=== PATIENT | female | born 1980 | race Caucasian/White ===

== ENCOUNTER 2018-07-28 23:55 | Emergency (ER) | payer MEDICAID, SELFPAY ==
[2018-07-28 23:57] VITALS: BP 122/58; PULSE 57; RESP 14; TEMP 36.6; O2SAT 100
--- NOTE | 2018-07-29 00:34 | ED.GENADUL_ITS ---
Discharge Plan Disposition Patient Disposition: AGAINST MEDICAL ADVICE Condition: Stable Discharge Details Chief Complaint: Abd Prob Clinical Impression: Acute gallstone pancreatitis Primary Care Provider: Rosa Adkins V ED Provider: Chivo Cortez [place] Meds and New Rx's Prescriptions: New ondansetron 4 mg tablet,disintegrating 4 mg PO QID PRN (Reason: nausea and vomiting) Qty: 20 RF: 0 Continue levonorgestrel [Mirena] 1 EACH intrauterine device 1 ea Intrauterine ONCE Qty: 1 RF: 0 levalbuterol tartrate [Xopenex HFA] 200 PUFF/INH HFA aerosol inhaler 2 puff Inhalation Q4H PRN PRNQty: 1 RF: 0 simethicone [Gas Relief] 125 mg Capsule 125 mg PO PRN PRNRF: 0 Discharge Instructions Additional Instructions: You are leaving the hospital AGAINST MEDICAL ADVICE. You have gallstone pancreatitis and should be admitted for IV fluids, pain control, surgical consultation. You are at risk of infection, sepsis, worsening pancreatitis, . These outcomes have been explained to you and you are choosing to leave the hospital AGAINST MEDICAL ADVICE anyways. Please return at once if your worse or if you change your mind. Referrals: Rosa Adkins MD [Primary Care Provider] - Medical Decision Making Patient here with sharp cramping abdominal pain associated with nausea and vomiting but not diarrhea. She is afebrile. She looks uncomfortable but has a benign, nonsurgical abdomen. Will place IV and give fluids, Phenergan. We will give oral Bentyl. Will get abdominal labs and abdominal x-ray and reevaluate. Patient's white count is minimally elevated. Hemoglobin is normal. Chemistries are unremarkable. Liver function with some mild elevation in AST and total bilirubin. Lipase markedly elevated at 1133. test is negative. Patient continues to have pain and vomiting. She is given Toradol and Zofran. X-ray is canceled and CT scan is ordered. Patient's CT scan shows evidence of gallbladder disease. There is no pancreatic or biliary duct dilatation but laboratory studies suggest that this is gallstone pancreatitis with possible cholecystitis. Patient is actually feeling better after fluids and medications. She is refusing admission despite attempts by staff and myself to convince her otherwise. I have discussed with her the risk of infection, sepsis, worsening pancreatitis, . We have offered to get her son who is here with her to her parents. We have asked her to call her parents or her boyfriend to come be with her. She is refusing all of this stating that she does not wish to stay in the hospital at this time. I will discharge the patient with Zofran for nausea and vomiting. I will not give her narcotics for pain. She may use Tylenol or Motrin for pain. If she gets worse or changes her mind she should return immediately. Lab Data Lab results reviewed: Yes I reviewed the patient's lab results. HPI General Mode of arrival: ambulatory . Date/Time Provider Initiated Documentation: 07/29/18 00:15 . Limitations to Documentation: no limitations . Information obtained by: patient . HPI Narrative: Patient presents to ED with abdominal pain and vomiting. Patient states she woke up and had some abdominal discomfort. She went and had a normal bowel movement. She then developed some worsening pain and nausea. She vomited a couple times small amounts. Pain continued. She then vomited a large amount and thought she would feel better. However, the pain continued to bother her. She no longer feels nauseated. She has not had any diarrhea. Pain does not radiate to the back of her chest. It is described as sharp cramping pain generalized throughout her abdomen. There is no fever that she is aware of. There is no urinary symptoms. She denies stating that she has Mirena device in place. Related Data Home Medications Medication Instructions Recorded Confirmed levonorgestrel [Mirena] 1 ea INTRAUTERINE ONCE #1 implant 04/11/15 07/29/18 levalbuterol tartrate [Xopenex HFA] 2 puff INHALATION Q4H PRN PRN #1 02/16/18 inh ondansetron 4 mg PO QID PRN #20 tab 07/29/18 simethicone [Gas Relief] 125 mg PO PRN PRN 07/29/18 Previous Rx's Medication Instructions Recorded levalbuterol tartrate [Xopenex HFA] 2 puff INHALATION Q4H PRN PRN #1 02/16/18 inh ondansetron 4 mg PO QID PRN #20 tab 07/29/18 Allergies Allergy/AdvReac Type Severity Reaction Status Date / Time Sulfa (Sulfonamide AdvReac Severe vomiting Unverified 07/29/18 00:01 Antibiotics) and weakness General Stated Complaint: Abd Prob KATHY: 3 Review of Systems Constitutional Denies chills, Denies fever(s), Denies headache(s) and Denies weakness Eyes Denies eye discharge and Denies eye pain ENT Denies otalgia, Denies headache(s), Denies nasal congestion and Denies sore throat Cardiovascular Denies chest pain, Denies diaphoresis, Denies syncope, Denies edema, Denies palpitations and Denies dyspnea on exertion Respiratory Denies chest congestion, Denies cough and Denies dyspnea on exertion Gastrointestinal Reports abdominal pain, Denies diarrhea, Reports nausea, Reports vomiting and Denies hematemesis Genitourinary Denies hematuria, Denies dysuria and Denies pelvic pain Musculoskeletal Denies back pain, Denies myalgias, Denies arthralgias, Denies numbness and Denies tingling Integumentary/Breasts Denies rash Neurologic Denies syncope, Denies headache(s), Denies numbness, Denies tingling and Denies weakness Endocrine Denies palpitations PFSH Family History Father Hyperlipidemia Medical History Asthma (Chronic) Social History Smoking/Tobacco Use Status: Current-Occasional Exam Const General: cooperative, uncomfortable and well developed Nutritional Appearance: well nourished Orientation: alert and oriented x3 HENMT Head: normocephalic and atraumatic Mouth: mucous membranes dry Eyes Sclera: sclerae normal Neck Neck: trachea midline and supple Resp Effort & Inspection: normal respiratory effort Auscultation: clear to auscultation bilaterally Cardio Rate: regular rate Rhythm: regular rhythm Heart Sounds: S1 normal and S2 normal GI Inspection: normal to inspection and non-distended Palpation: soft, not firm, no guarding and nontender Auscultation: hypoactive bowel sounds Back/Spine/Pelvis Thoracic/Lumbar Spine: thoraco-lumbar ROM normal Skin General skin exam: no rashes or lesions noted Neuro General: alert, oriented x3, gait normal, no focal motor deficits and CN's II- XI intact bilaterally Speech: speech normal Extrem General: normal to inspection and no clubbing, cyanosis or edema Course Vital Signs Temperature 97.9 F 07/28/18 23:57 Pulse 57 L 07/28/18 23:57 Respiratory Rate 14 07/28/18 23:57 Blood Pressure 122/58 L 07/28/18 23:57 Pulse Oximetry 100 07/28/18 23:57 Temperature 97.9 F 07/28/18 23:57 Temperature Source Skin 07/28/18 23:57 Pulse 57 L 07/28/18 23:57 Respiratory Rate 14 07/28/18 23:57 Respiratory Effort Non-Labored 07/29/18 00:00 Blood Pressure 122/58 L 07/28/18 23:57 Blood Pressure Position Sitting 07/28/18 23:57 Pulse Oximetry 100 07/28/18 23:57 Oxygen Delivery Method Room Air 07/28/18 23:57 Oxygen Flow Rate 0 07/28/18 23:57 Pain Level 9 07/28/18 23:57
[2018-07-29] MEDS: Dicyclomine 20 MG TAB PO (00:40)
[2018-07-29] MEDS: Lactated Ringers 1,000 ML 1000 ML IV (00:41)
[2018-07-29] MEDS: Normal Saline Flush 10 ML SYR IVP (00:42)
[2018-07-29 00:51] LABS: HCT 42.5 % (36.0-46.0); HGB 14.6 g/dL (12.0-15.5); Mean Corp. HGB Concentration 34.4 g/dL (32.0-36.0); Mean Corpuscular Hemoglobin 30.4 pg (27.0-33.0); Mean Corpuscular Volume 88.5 fL (80-95); Neutrophils % 87.6; Platelet Count 246 x1000/uL (130-400); RBC Distribution Width 12.3 % (11.7-14.6)
[2018-07-29 00:52] LABS: Abs Immature Grans 0.01 k/cumm (0.0-0.09); Absolute Basophil Count 0.01 k/cumm (0.0-0.2); Absolute Lymphocyte Count 0.98 k/cumm (1.2-3.4); Basophils % 0.1; Immature Grans % 0.1; Lymphocytes % 8.7; Monocytes % 3.5
[2018-07-29 01:06] LABS: ALT 75 U/L (12-78); AST 83 U/L (15-37); Albumin 4.1 g/dL (3.4-5.0); Alkaline Phosphatase 53 U/L (46-116); Anion Gap 9.8 mmol/L (3-11); BUN 10 mg/dL (7-18); Bilirubin, Total 1.4 mg/dL (0.2-1.0); CO2 30.2 mmol/L (21.0-32.0); CREATININE 0.72 mg/dL (0.55-1.02); Chloride 101 mmol/L (98-107); Glucose 142 mg/dL (70-100); Lipase 1133 U/L (73-393); Potassium 3.5 mmol/L (3.5-5.1); Sodium 141 mmol/L (136-145); Total Protein 7.7 g/dL (6.4-8.2)
[2018-07-29] MEDS: Ketorolac 15 MG/ML VIAL IVP (01:22)
[2018-07-29 01:41] LABS: HCG Qual (Serum) Negative
[2018-07-29] MEDS: Ondansetron 4 MG/2 ML VIAL IVP (01:42)
[2018-07-29] MEDS: Lactated Ringers 1,000 ML 150 ML IV (01:59)
[2018-07-29] MEDS: Omnipaque 350 MG/ML 100 ML BTL IJ (02:40)
--- NOTE | 2018-07-29 02:40 | DI.CT_ITS ---
SYMPTOMS/DIAGNOSIS: PANCREATITIS CT OF THE ABDOMEN AND PELVIS: The study was carried out according to the usual protocol with an intravenous injection of 96 cc's of Omnipaque 350. There is no demonstrated abnormality in the inferior portion of the chest. Moderate distention of the gallbladder is identified. Pericholecystic edema is evident. The findings are certainly suspicious for acute cholecystitis or could be on a nonspecific basis and may reflect periportal edema. The pancreas, spleen, adrenals, kidneys and ureters are normal. The colon is nondistended. Questionable low attenuation within the colonic wall could reflect the patient's previous history of colitis. There is no evidence of an acute appendix. There appears to be a left ovarian follicle which measures up to 3.6 cm in maximal diameter. Note is made of an IUD which appears to lie within the uterine cavity. There is no evidence of free fluid or air in the intraperitoneal space. There is no acute bony abnormality. The soft tissues are unremarkable. There is no aortic aneurysm. There is no lymphadenopathy. SUMMARY: There is moderate distention of the gallbladder which contains very small gallstone. There is also demonstrated a small quantity of pericholecystic fluid. The possibility of acute cholecystitis could certainly not be excluded in this patient and if there if further clinical question, then further assessment with a radionuclide hepatobiliary scan could be considered. In addition, an ultrasound examination could be of value in this patient.
[2018-07-29 02:41] VITALS: BP 102/65; PULSE 82; RESP 18; TEMP 36.6; O2SAT 100
--- NOTE | 2018-07-29 03:05 | DI.VRAD_ITS ---
EXAM: CT Abdomen and Pelvis With Intravenous Contrast EXAM DATE/TIME: 07/29/2018 1:19 AM CLINICAL HISTORY: 38 years old, female; Pain and signs and symptoms; Vomiting; Abdominal pain; Generalized; Patient HX: Abdominal pain and vomiting sudden onset; Additional info: HX of cervical cancer, TECHNIQUE: Axial computed tomography images of the abdomen and pelvis with intravenous contrast. All CT scans at this facility use at least one of these dose optimization techniques: automated exposure control; mA and/or kV adjustment per patient size (includes targeted exams where dose is matched to clinical indication); or iterative reconstruction. Coronal and sagittal reformatted images were created and reviewed. CONTRAST: 96 ml of Omnipaque 350 administered intravenously. COMPARISON: No relevant prior studies available. FINDINGS: Lower thorax: No acute findings. ABDOMEN: Liver: See Gallbladder And Bile Ducts Finding. Gallbladder and bile ducts: The gallbladder is moderately distended, contains punctate stones, and demonstrates small pericholecystic edema. Cholecystitis not excluded in the correct clinical setting, although the edema may reflect small nonspecific periportal edema.. Pancreas: Normal. No ductal dilation. Spleen: Normal. No splenomegaly. Adrenals: Normal. No mass. Kidneys and ureters: Normal. No hydronephrosis. Stomach and bowel: The colon is to a large extent underdistended. Low attenuation within the wall of the colon may reflect a history of previous colitis Appendix: No evidence of appendicitis. PELVIS: Bladder: Unremarkable as visualized. Reproductive: Probable dominant ovarian follicular cyst present on the left. This measures 3.6 cm Centrally located IUD in place. ABDOMEN and PELVIS: Intraperitoneal space: Normal. No free air. No significant fluid collection. Bones/joints: No acute fracture. No dislocation. Soft tissues: Unremarkable. Vasculature: Normal. No abdominal aortic aneurysm. Lymph nodes: Normal. No enlarged lymph nodes. Other findings: . IMPRESSION: The gallbladder is moderately distended, contains punctate stones, and demonstrates small pericholecystic edema. Cholecystitis not excluded in the correct clinical setting, although the edema may reflect small nonspecific periportal edema.. Dictated and Authenticated by: Scott Oconnor MD. Ordering:KRISHNA GARCÍA MD
[2018-07-29 03:13] LABS: Cholesterol 160 mg/dL (50-200)
[2018-07-29 03:14] LABS: Triglyceride 52 mg/dL (30-150)
== END 2018-07-29 03:27 | disposition left against medical advice (07) ==
PROVIDERS: Emergency Provider Emergency Medicine; PCP Family Medicine
DX: K85.10 Biliary acute pancreatitis without necrosis or infection (principal); R74.8 Abnormal levels of other serum enzymes; Z53.29 Procedure and treatment not carried out because of patient's decision for other reasons
CPT/HCPCS: 36415; 80053; 83690; 96361; 96365; 96375; 99285; 74177; 82465; 84478; 84703; 85025; J1885; J2405; J3490

== ENCOUNTER 2019-01-10 11:37 | Emergency (ER) | payer SELFPAY ==
[2019-01-10 11:43] VITALS: BP 118/85; PULSE 96; RESP 12; TEMP 36.8; O2SAT 96
--- NOTE | 2019-01-10 12:36 | DI.RAD_ITS ---
SYMPTOMS/DIAGNOSIS: GENERALIZED ANKLE PAIN S/P TWISTED LEFT ANKLE, MULTIPLE FALLS, ? ACUTE FRACTURE LEFT ANKLE: Three views. No acute fracture or dislocation is identified. LEFT FOOT: Three views. No acute fracture or dislocation is present.
--- NOTE | 2019-01-10 12:37 | ED.GENADUL_ITS ---
Discharge Plan Disposition Patient Disposition: HOME Condition: Stable Discharge Details Chief Complaint: Orthopedic Clinical Impression: Sprain of ankle, left Primary Care Provider: Rosa Adkins V ED Provider: Renetta Ba Home Meds and New Rx's Prescriptions: Continued Mirena 1 EACH intrauterine device 1 ea Intrauterine ONCE Qty: 1 RF: 0 levalbuterol tartrate [Xopenex HFA] 200 PUFF/INH HFA aerosol inhaler 2 puff Inhalation Q4H PRN PRNQty: 1 RF: 0 diphenhydramine HCl [Benadryl] 25 mg Capsule 25 mg PO QHS PRNRF: 0 pseudoephedrine HCl [Sudafed] 30 mg Tablet 30 mg PO ONCE PRNRF: 0 Discharge Instructions Instructions: Ankle Sprain (ED) Additional Instructions: Rest, ice, elevate left ankle as much as possible. Alternate Tylenol and Motrin as needed and directed for pain. Follow-up with your primary care doctor in 1 week for reevaluation. Return to the emergency department with any worsening or new concerning symptoms. Discharge Data Discharge Physician: Renetta Ba Medical Decision Making 38-year-old female who presents with left ankle pain after 2 different episodes of twisting injury while walking down a few stairs out of her house over the past week. Neurovascular intact. No deformity. Tenderness to palpation of her left lateral malleolus. X-rays negative for fracture. Patient given ankle stirrup splint. She declined crutches. She is instructed on the importance of rest, ice, elevate. She is instructed to follow up with the primary care doctor and return here at any time if worse. HPI General Mode of arrival: ambulatory . Date/Time Provider Initiated Documentation: 01/10/19 11:56 . Limitations to Documentation: no limitations . Information obtained by: patient . HPI Narrative: Patient is a 38-year-old female who presents the ED with complaint of left ankle pain after 2 different injuries in the past week in which she twisted her ankle. Patient states both times she has fallen down a few steps while coming out of her house. She states her pain is on her left lateral ankle. Related Data Home Medications Medication Instructions Recorded Confirmed Mirena 1 ea INTRAUTERINE ONCE #1 implant 04/11/15 01/10/19 levalbuterol tartrate [Xopenex HFA] 2 puff INHALATION Q4H PRN PRN #1 02/16/18 01/10/19 inh diphenhydramine HCl [Benadryl] 25 mg PO QHS PRN 01/10/19 01/10/19 pseudoephedrine HCl [Sudafed] 30 mg PO ONCE PRN 01/10/19 01/10/19 Previous Rx's Medication Instructions Recorded levalbuterol tartrate [Xopenex HFA] 2 puff INHALATION Q4H PRN PRN #1 02/16/18 inh Allergies Allergy/AdvReac Type Severity Reaction Status Date / Time Sulfa (Sulfonamide AdvReac Severe vomiting Unverified 01/10/19 11:45 Antibiotics) and weakness General Stated Complaint: Orthopedic KATHY: 4 Review of Systems Review of Systems All systems reviewed & are unremarkable except as noted in HPI and below PFSH Medical History Asthma (Chronic) Surgical History No significant past surgical history (Acute) Family History Father Hyperlipidemia Social History Smoking/Tobacco Use Status: Current-Occasional Drug use: Never Do you feel safe at home: Yes Do you feel safe in your relationship?: Yes Exam Const General: cooperative, healthy appearing and no acute distress HENMT Head: normal to inspection Mouth: oral mucosae normal Eyes General: appearance normal, both eyes and all related structures Neck Neck: normal visual inspection Resp Effort & Inspection: normal respiratory effort and able to speak in complete sentences Cardio Rate: regular rate Skin General skin exam: no rashes or lesions noted Neuro General: alert, awake and oriented x3 Motor: muscle tone normal throughout Extrem Other: Tenderness to palpation left lateral malleolus and inferior just to this. No erythema, edema, ecchymosis. No left fifth metatarsal tenderness. Left DP/PT pulses intact. No deformity. Psych Appearance: grossly normal Affect: normal affect Course Vital Signs Temperature 98.2 F 01/10/19 11:43 Pulse 96 H 01/10/19 11:43 Respiratory Rate 12 01/10/19 11:43 Blood Pressure 118/85 01/10/19 11:43 Pulse Oximetry 96 01/10/19 11:43 Temperature 98.2 F 01/10/19 11:43 Temperature Source Temporal Artery Scan 01/10/19 11:43 Pulse 96 H 01/10/19 11:43 Respiratory Rate 12 01/10/19 11:43 Respiratory Effort Non-Labored 01/10/19 11:44 Blood Pressure 118/85 01/10/19 11:43 Blood Pressure Position Sitting 01/10/19 11:43 Pulse Oximetry 96 01/10/19 11:43 Oxygen Delivery Method Room Air 01/10/19 11:43 Oxygen Flow Rate 0 01/10/19 11:43 Pain Level 3 01/10/19 11:43
--- NOTE | 2019-01-10 12:42 | NUR.NOTE ---
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
== END 2019-01-10 13:56 | disposition home or self-care (01) ==
PROVIDERS: Emergency Provider Physician Assistant; PCP Family Medicine
DX: S93.402A Sprain of unspecified ligament of left ankle, initial encounter (principal); X50.9XXA Other and unspecified overexertion or strenuous movements or postures, initial encounter
CPT/HCPCS: 29515; 99284; 73610; 73630; 99282; L1902

== ENCOUNTER 2019-03-10 13:54 | Emergency (ER) | payer SELFPAY ==
[2019-03-10 14:02] VITALS: BP 118/86; PULSE 126; RESP 18; TEMP 36.9; O2SAT 96
--- NOTE | 2019-03-10 14:24 | W.ED.GENAD ---
Discharge Plan Disposition Patient Disposition: HOME Condition: Good Discharge Details Chief Complaint: Orthopedic Clinical Impression: Left ankle sprain, Tachycardia Primary Care Provider: None,None ED Provider: Mariah Martin Home Meds and New Rx's Prescriptions: Continued Mirena 1 EACH intrauterine device 1 ea Intrauterine ONCE Qty: 1 RF: 0 levalbuterol tartrate [Xopenex HFA] 200 PUFF/INH HFA aerosol inhaler 2 puff Inhalation Q4H PRN PRNQty: 1 RF: 0 diphenhydramine HCl [Benadryl] 25 mg Capsule 25 mg PO QHS PRNRF: 0 pseudoephedrine HCl [Sudafed] 30 mg Tablet 30 mg PO ONCE PRNRF: 0 Discharge Instructions Instructions: Ankle Sprain (ED) Additional Instructions: Encourage rest, ice, elevation. Tylenol and/or ibuprofen as needed for discomfort. Please follow-up with primary care if pain persists over the next 2 weeks. Please continue to use brace and pain persist or doing activities that would place increased stress on the ankle. Please contact physical therapy, referral is attached, to discuss strengthening options. In regard to the fast heart rate today, this may be associated with your anxiety and your caffeine intake. However, at this point is unclear without further evaluation. You have preferred to go home and monitor this with return if symptoms do not improve. If you develop chest pain, palpitations, shortness of breath or other new/worsening symptoms please seek care immediately once again. Please discuss this further with your primary at upcoming appointment Stand Alone Forms: Physical Therapy Referral, Work Release Discharge Data Discharge Date/Time-TO BE ENTERED AT DEPARTURE: 03/10/19 15:10 Medical Decision Making Patient is a 38-year-old female with recurrent spasms of her left ankle. She was seen here last month for this and was placed in a brace. She reports that she was able to wean from the brace and was walking while at work when a coworker fell into her causing her well her ankle again. States that this time she is having fairly minimal pain but that work requires her to be evaluated and she is requesting a work note releasing her back to full duty. She will again use the brace as needed. She will follow-up with physical therapy. Patient reports she had multiple rotational injuries. Discussed with physical therapy. At this point, I do not see any evidence to suggest a fracture with no bony tenderness. No pain is elicited but she does indicate the area of the ATFL as area of discomfort when this does occur. Encourage rest, ice, elevation. Tylenol and ibuprofen as needed for discomfort. She will return with any new or worsening symptoms. Patient noted to be tachycardic on initial assessment at 126. I did put the finger probe on her was in the room and her heart rate was in the 1 teens to 120. Patient reports she typically has a slightly elevated heart rate and that she did drink a large amount this morning which is very atypical for her. I did express my concern regarding her tachycardia and she declines any work-up at this time. She reports that she is able to check this herself at home again tonight once caffeine is able to come out of her system some. We did discuss the risks associated with this concerning vital sign and again, patient declines. She will follow-up with primary care to discuss her tachycardia and ankle sprain peer all of her questions and concerns were addressed and she is in agreement this plan HPI General Mode of arrival: ambulatory. Date/Time Provider Initiated Documentation: 03/10/19 14:24. Limitations to Documentation: no limitations. Information obtained by: patient and RN notes reviewed. History of Present Illness 38 year old F presents to the emergency department with the chief complaint of recurrence of left ankle sprain, described as mild (denies pain at this time), Quality is described as aching (lateral ankle pain depending on the movements), and is localized to the left and lower extremity. Patient reports no radiation. Patient started experiencing this month(s) and it has been intermittent. Immobilization improves symptom(s), No exacerbating factors reported . Patient notes no other symptoms.. Patient did receive the following treatments prior to arrival, none Related Data Home Medications Medication Instructions Recorded Confirmed Mirena 1 ea INTRAUTERINE ONCE #1 implant 04/11/15 01/10/19 levalbuterol tartrate [Xopenex HFA] 2 puff INHALATION Q4H PRN PRN #1 02/16/18 01/10/19 inh diphenhydramine HCl [Benadryl] 25 mg PO QHS PRN 01/10/19 01/10/19 pseudoephedrine HCl [Sudafed] 30 mg PO ONCE PRN 01/10/19 01/10/19 Previous Rx's Medication Instructions Recorded levalbuterol tartrate [Xopenex HFA] 2 puff INHALATION Q4H PRN PRN #1 02/16/18 inh Allergies Allergy/AdvReac Type Severity Reaction Status Date / Time Sulfa (Sulfonamide AdvReac Severe vomiting Unverified 01/10/19 11:45 Antibiotics) and weakness General Stated Complaint: Orthopedic KATHY: 4 Review of Systems Constitutional Reports as per HPI, Denies chills, Denies fever(s), Denies headache(s) and Denies weakness ENT Denies headache(s) Cardiovascular Reports as per HPI Respiratory Reports as per HPI and Denies cough Musculoskeletal Reports as per HPI and Denies tingling Integumentary/Breasts Reports as per HPI, Denies rash and Denies wounds Neurologic Reports as per HPI, Denies headache(s), Denies tingling, Denies paresthesias and Denies weakness [facility] Medical History Asthma (Chronic) Surgical History No significant past surgical history (Acute) Social History Smoking/Tobacco Use Status: Current-Occasional Drug use: Never Do you feel safe at home: Yes Do you feel safe in your relationship?: Yes Exam Const General: cooperative, healthy appearing, comfortable, no acute distress, well developed and well groomed Nutritional Appearance: average body habitus and well nourished Orientation: alert and awake Resp Effort & Inspection: normal respiratory effort, able to speak in complete sentences and no respiratory distress Cardio Rate: regular rate Rhythm: regular rhythm Skin General skin exam: no rashes or lesions noted Lesions: no lesions Rashes: no rashes Trauma: no lacerations or abrasions Neuro General: alert and awake Cognition: normal cognition Speech: speech normal Gait: normal gait Motor: muscle tone normal throughout Sensory Exam: no sensory deficits noted Extrem Left lower extremity: normal to inspection, full ROM, normal capillary refill, no joint enlargement, lower leg Details: normal to inspection; no tenderness, no localized swelling, no palpable cords, no pitting edema, no lacerations, no deformity and no unusual warmth, ankle Details: normal to inspection, no edema and normal ROM; no tenderness, no swelling, no warmth, no ecchymosis, no crepitus and achilles tendon exam normal and foot Details: normal capillary refill, normal to inspection, toes with normal ROM and vascular exam Details: dorsalis pedis pulse present and posterior tibial pulse present; no tenderness and no unusual warmth; no edema Psych Appearance: grossly normal and well kempt Mental Status: mental status grossly normal Speech and Movement: speech and movement normal Course Vital Signs Temperature 36.9 C 03/10/19 14:02 Pulse 126 H 03/10/19 14:02 Respiratory Rate 18 03/10/19 14:02 Blood Pressure 118/86 03/10/19 14:02 Pulse Oximetry 96 03/10/19 14:02 Temperature 36.9 C 03/10/19 14:02 Temperature Source Skin 03/10/19 14:02 Pulse 126 H 03/10/19 14:02 Respiratory Rate 18 03/10/19 14:02 Respiratory Effort Non-Labored 03/10/19 14:05 Blood Pressure 118/86 03/10/19 14:02 Pulse Oximetry 96 03/10/19 14:02 Oxygen Delivery Method Room Air 03/10/19 14:02 Oxygen Flow Rate 0 03/10/19 14:02 Pain Level 0 03/10/19 14:02
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
== END 2019-03-10 15:10 | disposition home or self-care (01) ==
PROVIDERS: Emergency Provider Physician Assistant
DX: S93.402A Sprain of unspecified ligament of left ankle, initial encounter (principal); R00.0 Tachycardia, unspecified
CPT/HCPCS: 99282

== ENCOUNTER 2019-05-23 15:03 | Outpatient (REF) | payer SELFPAY ==
[2019-05-23 19:17] LABS: ESR 3 mm/hr (0-20)
[2019-05-23 19:21] LABS: Vitamin B12 279 pg/mL (193-986)
[2019-05-23 19:53] LABS: Creatine Kinase 139 U/L (26-192)
[2019-05-25 12:57] LABS: Syphilis Serology (RPR) Negative (Negative)
== END 2019-05-23 15:23 ==
LOC: NCHCN 15:03
PROVIDERS: PCP Family Medicine; Visit Provider Family Medicine
DX: R53.1 Weakness (principal); R29.898 Other symptoms and signs involving the musculoskeletal system
CPT/HCPCS: 82550; 85652; 82607; 86592

== ENCOUNTER 2019-07-21 08:07 | Emergency (ER) | payer MEDICAID, SELFPAY ==
[2019-07-21 08:12] VITALS: BP 119/69; PULSE 107; RESP 18; TEMP 36.4; O2SAT 100
--- NOTE | 2019-07-21 08:43 | DI.CT_ITS ---
EXAM: CT HEAD WO CLINICAL HISTORY: ataxic gait, falls, blurred vision TECHNIQUE: The exam was performed according to the usual protocol without contrast. COMPARISON: No exams were available for comparison FINDINGS: The ventricles and sulci are within normal limits. There are areas of decreased attenuation in the w eleni matter. There are areas in the right temporal lobe, the left frontal lobe and in the right kira etal lobe. No intracranial hemorrhage, midline shift or mass effect is identified. The calvarium is intact. The visualized paranasal sinuses are clear. The mastoid air cells are well pneumatized. IMPRESSION: Areas of decreased attenuation in the white matter. These may represent demyelinating processes, mas ses cannot be excluded. An MRI of the brain without and with contrast is recommended for further roberta luation. The findings were discussed with the emergency department on the date of the examination.
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
--- NOTE | 2019-07-21 09:18 | DI.MRI_ITS ---
EXAM: MR BRAIN WO/W CLINICAL HISTORY: ataxic gait, leg weakness, falls,f/u abnl ct TECHNIQUE: Multiplanar multisequence MRI was performed. COMPARISON: No exams were available for comparison FINDINGS: On the FLAIR and T2 images, there are innumerable foci of T2 hyperintensity throughout the brain. Pr edominantly these lesions lie in the periventricular region, but lesions are also seen in the right t emporal lobe, cerebellum and the subcortical white matter. Several of these lesions show enhancement following contrast administration. Several of the larger lesions are ring-enhancing. The diffusion-weighted images show no evidence of an acute infarct. The gradient images show no evidence of intracranial hemorrhage. The ventricles are intact. The basilar cisterns are patent. There is no midline shift or mass effec t. IMPRESSION: Innumerable white matter lesions, several of which show enhancement. Differential considerations inc lude a demyelinating process such as multiple sclerosis, infection or metastatic disease. These findings were discussed with the emergency department on the date of the examination.
[2019-07-21 09:29] VITALS: BP 117/59; PULSE 94; TEMP 37.2; O2SAT 100
[2019-07-21 09:33] LABS: Abs Immature Grans 0.02 k/cumm (0.0-0.09); Absolute Basophil Count 0.01 k/cumm (0.0-0.2); Absolute Lymphocyte Count 1.11 k/cumm (1.2-3.4); Absolute Monocyte Count 0.32 k/cumm (0.11-0.7); Absolute Neutrophil Count 4.15 k/cumm (1.2-6.7); Basophils % 0.2; HCT 41.6 % (36.0-46.0); HGB 13.8 g/dL (12.0-15.5); Immature Grans % 0.4; Lymphocytes % 19.8; Mean Corp. HGB Concentration 33.2 g/dL (32.0-36.0); Mean Corpuscular Volume 93.5 fL (80-95); Mean Platelet Volume 7.8 fL (8.0-11.0); Monocytes % 5.7; Neutrophils % 73.9; Platelet Count 355 x1000/uL (130-400); RBC 4.45 m/cumm (4.00-5.20); RBC Distribution Width 13.1 % (11.7-14.6); White Blood Cell Count 5.61 k/cumm (4.4-10.8)
[2019-07-21 09:53] LABS: ALT 23 U/L (14-59); AST 10 U/L (15-37); Albumin 4.2 g/dL (3.4-5.0); Alkaline Phosphatase 45 U/L (46-116); Anion Gap 10.3 mmol/L (3-11); BUN 10 mg/dL (7-18); Bilirubin, Total 0.5 mg/dL (0.2-1.0); CO2 27.7 mmol/L (21.0-32.0); CREATININE 0.57 mg/dL (0.55-1.02); Calcium 9.3 mg/dL (8.5-10.1); Chloride 102 mmol/L (98-107); Glucose 94 mg/dL (70-100); Potassium 3.6 mmol/L (3.5-5.1); Sodium 140 mmol/L (136-145); Total Protein 8.3 g/dL (6.4-8.2)
[2019-07-21 10:11] LABS: PTT Activated 24.2 sec (21.0-31.4); Prothrombin Time 10.5 sec (9.3-11.0)
[2019-07-21] MEDS: Gadoterate meglumine 20 ML VIAL 15 ML IVP (10:11)
[2019-07-21] MEDS: Normal Saline Flush 10 ML SYR IVP (10:12)
[2019-07-21 11:25] VITALS: BP 99/64; PULSE 85; O2SAT 99
[2019-07-21 12:22] VITALS: BP 131/74; PULSE 110; RESP 20; TEMP 36.9; O2SAT 97
[2019-07-21 13:46] VITALS: BP 128/80; PULSE 104; O2SAT 95
[2019-07-21 14:32] VITALS: BP 121/78; PULSE 113; RESP 18; TEMP 37.4; O2SAT 100
== END 2019-07-21 14:54 | disposition short-term general hospital (02) ==
PROVIDERS: Emergency Provider Physician Assistant; PCP Family Medicine
DX: R27.0 Ataxia, unspecified (principal); R51 Headache
CPT/HCPCS: 36415; 70553; 80053; 80307; 96374; 99284; 70450; 83735; 85025; 85610; 85730

== ENCOUNTER 2020-04-28 00:10 | Inpatient (IN) | payer MEDICAID, SELFPAY ==
[2020-04-28] VITALS (8 sets, daily range): BP systolic 97–161; BP diastolic 56–111; PULSE 85–117; RESP 16–22; TEMP 36.2–37; O2SAT 95–99
--- NOTE | 2020-04-28 00:15 | DI.CT_ITS ---
EXAM: CT ABDOMEN PELVIS W CLINICAL HISTORY: generalized RUQ abdominal pain TECHNIQUE: FINDINGS: CT examination of the abdomen pelvis was performed with bolus infusion of 100 cc of Omnipaque 350. I mages obtained through the lung bases are unremarkable. The liver and spleen appear intrinsically intact. There is pericholecystic fluid collection and ther e are multiple visible gallstones. No significant gallbladder wall thickening noted. Gallbladder is mildly distended. Common duct is at upper limits of normal in size at 7 millimeters. There is peripancreatic fluid collection and mild enlargement of the pancreas in comparison with prio r study, the findings raise the possibility of acute pancreatitis, please correlate clinically and wi th lab values. No evidence of bowel obstruction. Normal appearance of the appendix. No evidence of diverticulitis. No significant abdominal or pelvic adenopathy. No significant abdominal wall hernia. Adrenals and kidneys are unremarkable with no evidence of urinary tract obstruction or calcification. IUD noted in the uterine midline. Willower structures otherwise unremarkable with a probable right corpus luteum. No free fluid identified in the pelvis. Abdominal aorta is of normal diameter and major visceral branches appear intact. IMPRESSION: Findings raise the possibility of acute pancreatitis, please correlate clinically and with lab values . Possible acute or chronic cholecystitis with a mildly distended gallbladder containing stones. Ad ditional evaluation with MRCP or hepatobiliary scan may be considered after resolution of presumed pa ncreatitis if clinically appropriate. RADIATION DOSE DELIVERED: 1,099.33mGy.cm Total DLP
--- NOTE | 2020-04-28 00:20 | ED.GENADUL_ITS ---
Discharge Plan Disposition Patient Disposition: [facility] INPATIENT Condition: Stable Discharge Details Chief Complaint: Abd Prob Clinical Impression: Acute cholecystitis, Acute pancreatitis Primary Care Provider: Maciel Buck ED Provider: Martínez Morales Home Meds and New Rx's Prescriptions: No Action ibuprofen 200 mg tablet 400 mg PO BID PRNRF: 0 Mirena 1 EACH intrauterine device 1 ea Intrauterine ONCE Qty: 1 RF: 0 cromolyn 4 % drops 1 drp OP 6XD PRNRF: 0 albuterol sulfate [Proventil HFA] 90 mcg/actuation HFA aerosol inhaler 2 puff IH 6XD RF: 0 diphenhydramine HCl [Benadryl] 25 mg Capsule 25 mg PO QHS PRNRF: 0 Medical Decision Making 39-year-old female with a past medical history of MS, IUD, previous gallstones, presents today for abdominal pain. Patient states that she woke up this evening with crampy severe generalized abdominal pain with some focus in the right upper quadrant. No complaints of urinary abnormalities vaginal discharge, or diarrhea. She did have an episode of vomiting. She states that this is because of the pain. Exam demonstrates no significant worsening of pain with palpation of the abdomen, however she does appear to be in notable discomfort. Differential at this time includes acute cholecystitis, kidney stone, notably less likely dissection or aneurysm. We will get a CT scan, manage her pain, rehydrate, monitor closely and reassess 2:50 AM Laboratory work-up has returned, patient does demonstrate mild white count of 12.7, mild left shift. Potassium is 3.1, we will add supplemental potassium at this time. We will get a mag level. Mild transaminitis in the 70s, total bilirubin 1.1, conjugated bilirubin 0.66. Lipase is 12,000. CT scan shows evidence of acute pancreatitis, no signs of necrosis or pancreatic duct dilatation. There is evidence of distended common bile duct measuring 7.2, which is greater than the previous measurement of 5 mm. No calcified stones are identified. There is also gallbladder wall thickening and edema consistent with acute cholecystitis, however there is a component of chronic findings as she had similar findings noted in 2018. No other acute process at this time per virtual radiology. Based on the findings, I did contact Dr. Plasencia who is on-call for surgery. I discussed the case in depth, including CT findings, and laboratory work-up. At this time she feels that the patient would be appropriate for admission here, she will reassess in the morning and would like to hold off on stat surgery until the pancreatitis improves. We will continue with her pain management and fluid rehydration. I did discuss the findings with the patient's mother and son, I did contact the father as well and discussed it with him over the phone 2. Dr. Plasencia has asked that I place admission orders for her, I will place these at her request including a morning comprehensive metabolic panel in the morning lipase. I have extensively reviewed the treatment plan with the patient. I have addressed all patient concerns at this time. I have also discussed the plan with the admitting physician and they agree with the current assessment and plan and have agreed to assume responsibility for the patient. All parties demonstrate verbal understanding and agreement with our assessment and plan at this time. IMPRESSION: 1. There is evidence of mild acute pancreatitis involving the pancreatic head. No signs of pancreatic necrosis or pancreatic ductal dilatation. 2. There is mild dilatation of the common bile duct measuring 7.2 mm diameter. No calcified duct stones are identified. Clinical/laboratory correlation is recommended regarding any evidence of acute biliary obstruction. Consider right upper quadrant ultrasound, MRCP, or ERCP as clinically indicated. 3. Mild gallbladder wall thickening/edema with small calcified stones and intermixed biliary sludge or noncalcified stones in the gallbladder lumen. The appearance suggests an element of cholecystitis although this may represent chronic cholecystitis given similar findings in 2018. 4. Additional incidental findings detailed above. Thank you for allowing us to participate in the care of your patient. Dictated and Authenticated by: Maciel Stallings MD 04/28/2020 1:23 AM Eastern Time ([place] & [place]) HPI General Date/Time Provider Initiated Documentation: 04/28/20 00:10 . HPI Narrative: 39-year-old female with a past medical history of MS, IUD use, previous gallstones, presents today for evaluation of abdominal pain. Patient s tates that within the past few hours she woke up with severe crampy abdominal pain which she describes as generalized throughout the entire abdomen but with some focus in the right upper quadrant. She does admit to 1 episode of vomiting secondary to pain but denies any diarrhea, hematemesis hematochezia or melena. She denies any urinary complaints, vaginal complaints, vaginal discharge. She denies ever having pain like this in the past. No other complaints at this time. No other modifying factors. Related Data Home Medications Medication Instructions Recorded Confirmed Mirena 1 ea INTRAUTERINE ONCE #1 implant 04/11/15 04/28/20 diphenhydramine HCl [Benadryl] 25 mg PO QHS PRN 01/10/19 04/28/20 albuterol sulfate 90 mcg/actuation 2 puff IH 6XD 05/25/19 04/28/20 aerosol inhaler cromolyn 4 % eye drops 1 drp OP 6XD PRN 05/25/19 04/28/20 ibuprofen 200 mg tablet 400 mg PO BID PRN tab 06/01/19 04/28/20 Allergies Allergy/AdvReac Type Severity Reaction Status Date / Time Sulfa (Sulfonamide AdvReac Severe vomiting Unverified 04/28/20 00:21 Antibiotics) and weakness General Stated Complaint: Abd Prob KATHY: 3 Review of Systems All systems reviewed & are unremarkable except as noted in HPI and below PFSH Medical History Asthma (Chronic) Gall stone (Acute) Hx of abnormal cervical Pap smear (Acute) Surgical History No significant past surgical history (Acute) Family History Father Hyperlipidemia Social History Smoking/Tobacco Use Status: Current-Occasional Alcohol Intake: current Alcohol Intake frequency: holidays/special occasions only Drug use: Never Substance use type: does not use Household members: significant other and children Number of Children: 1 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 Exam Narrative Exam Narrative: 1.Const: Well-nourished, Well-developed, appearing stated age 2.Eyes: PERRL, no conjunctival injection, and symmetrical lids. 3.ENT: Atraumatic external nose and ears. Moist MM. Neck: Symmetric, trachea midline, No thyromegaly. 4.CVS: +S1/S2, No murmurs or gallops. Peripheral pulses 2+ and equal in all extremities. Brisk capillary refill in all extremities. 5.RESP: Unlabored respiratory effort. Clear to auscultation bilaterally. No wheezes rales or rhonchi 6.GI: Soft, nondistended, no guarding or rebound. Pain not worsened with palpation. Bowel sounds limited. 7.MSK: Normocephalic/Atraumatic, Extremities w/o deformity or ttp No cyanosis or clubbing, Normal movement of all extremities 8.Skin: Warm, Dry. No rashes or lesions. 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 Sensation grossly intact, no focal neurologic deficits. 10.Psych: (AAO) x3. Appropriate mood and affect Course Vital Signs Vital signs: Vital Signs Temperature 36.2 C L 04/28/20 00:17 Pulse 102 H 04/28/20 00:17 Respiratory Rate 22 04/28/20 00:17 Pulse Oximetry 97 04/28/20 00:17 Temperature 36.2 C L 04/28/20 00:17 Temperature Source Skin 04/28/20 00:17 Pulse 102 H 04/28/20 00:17 Respiratory Rate 22 04/28/20 00:17 Blood Pressure Position Sitting 04/28/20 00:17 Pulse Oximetry 97 04/28/20 00:17 Oxygen Delivery Method Room Air 04/28/20 00:17 Oxygen Flow Rate 0 04/28/20 00:17 Pain Level 10 04/28/20 00:17
[2020-04-28] MEDS: Normal Saline 1,000 ML 1000 ML IV (00:43)
[2020-04-28] MEDS: HYDROmorphone 2 MG/ML VIAL 1 MG IVP ×5 (00:43→23:58)
[2020-04-28] MEDS: Omnipaque 350 MG/ML 100 ML BTL IJ (01:10)
[2020-04-28] MEDS: Normal Saline - Diluent 50 ML VIAL IV (01:10)
[2020-04-28] MEDS: Ketorolac 30 MG/ML VIAL IVP ×4 (01:12→22:48)
--- NOTE | 2020-04-28 01:23 | DI.VRAD_ITS ---
PROCEDURE INFORMATION: Exam: CT Abdomen And Pelvis With Contrast Exam date and time: 04/28/2020 12:54 AM Age: 39 years old Clinical indication: Abdominal pain; Localized; Right upper quadrant (ruq); Patient HX: Generalized ruq pain TECHNIQUE: Imaging protocol: Computed tomography of the abdomen and pelvis with intravenous contrast. COMPARISON: CT Private^ROUTINE ABDOMEN PELVIS WITH CONTRAST (Adult) 07/29/2018 2:15 AM FINDINGS: Lungs: Mild dependent atelectasis in the lung bases. Heart: Heart size normal. Mediastinal space: The visualized distal esophagus is normal. Liver: Normal size and contour. No mass lesions. Mild central intrahepatic biliary ductal dilatation. Gallbladder and bile ducts: The gallbladder is moderately distended. Demonstrates mild pericholecystic edema and slight wall thickening measuring about 4 mm in maximum thickness. There are small calcified gallstones in the gallbladder lumen with intermixed heterogeneous isodense elements suggesting additional noncalcified stones or sludge. There is mild dilatation of the common bile duct measuring 7.2 mm diameter, which is mildly increased in caliber compared to 07/29/2018, previously about 5 mm diameter. Clinical/laboratory correlation is recommended regarding any evidence of acute biliary obstruction. Consider right upper quadrant ultrasound, MRCP, or ERCP as clinically indicated. Pancreas: There is stranding around the pancreatic head with fluid tracking in the anterior para renal space to the right and left of midline, consistent with acute pancreatitis. No pancreatic ductal dilatation. No gross evidence of pancreatic necrosis. No loculated fluid collections. Spleen: Normal. No splenomegaly. Adrenals: Normal. No adrenal mass. Kidneys and ureters: No acute abnormalities. No hydronephrosis or hydroureter. No urinary tract stones are identified. Stomach and bowel: The stomach is grossly normal. The small bowel is normal with no evidence of obstruction. Slight wall thickening involving the hepatic flexure of the colon probably representing reactive wall thickening secondary to pancreatitis.There is a moderate amount of stool distributed throughout the colon suggesting constipation. Appendix: The appendix is normal in caliber and demonstrates no evidence of appendicitis. Intraperitoneal space: Trace amount of intrapelvic free fluid, within physiologic range for a young woman. No free air. Vasculature: No acute process. No abdominal aortic aneurysm. Lymph nodes: No adenopathy. Bladder: Unremarkable as visualized. Reproductive: IUD in the uterus, grossly well-positioned. Bones/joints: No acute osseous abnormalities. Soft tissues: Small fatty umbilical hernia . No evidence of associated bowel herniation or bowel obstruction. IMPRESSION: 1. There is evidence of mild acute pancreatitis involving the pancreatic head. No signs of pancreatic necrosis or pancreatic ductal dilatation. 2. There is mild dilatation of the common bile duct measuring 7.2 mm diameter. No calcified duct stones are identified. Clinical/laboratory correlation is recommended regarding any evidence of acute biliary obstruction. Consider right upper quadrant ultrasound, MRCP, or ERCP as clinically indicated. 3. Mild gallbladder wall thickening/edema with small calcified stones and intermixed biliary sludge or noncalcified stones in the gallbladder lumen. The appearance suggests an element of cholecystitis although this may represent chronic cholecystitis given similar findings in 2018. 4. Additional incidental findings detailed above. Dictated and Authenticated by: Maciel Stallings MD. Ordering:NESS Soliz MD
[2020-04-28 01:37] LABS: Abs Immature Grans 0.06 10^3/uL (0.0-0.06); Absolute Basophil Count 0.03 10^3/uL (0.0-0.2); Absolute Eosinophil Count 0.03 10^3/uL (0.0-0.7); Absolute Lymphocyte Count 2.39 10^3/uL (1.2-3.4); Absolute Monocyte Count 0.83 10^3/uL (0.1-0.8); Basophils % 0.2; Eosinophils % 0.2; HCT 42.4 % (36.0-46.0); HGB 14.3 g/dL (11.2-15.7); Immature Grans % 0.5; Lymphocytes % 18.8; MCH 30.3 pg (27.0-33.0); MCHC 33.7 % (32.0-36.0); MCV 89.8 fL (80-95); Monocytes % 6.5; Neutrophils % 73.8; Nucleated RBC 0 %; Platelet Count 472 10^3/uL (130-400); RBC 4.72 10^6/uL (3.93-5.22); RDW 11.8 % (11.7-14.6); RDW-SD 38.3 fL; WBC 12.72 10^3/uL (4.4-10.8)
[2020-04-28 01:38] LABS: Absolute Neutrophil Count 9.39 10^3/uL (1.2-6.7)
[2020-04-28 01:51] LABS: ALT 76 U/L (14-59); AST 70 U/L (15-37); Albumin 3.9 g/dL (3.4-5.0); Alkaline Phosphatase 57 U/L (46-116); Anion Gap 11.5 mmol/L (3-11); BUN 10 mg/dL (7-18); Bilirubin, Total 1.1 mg/dL (0.2-1.0); CO2 26.5 mmol/L (21.0-32.0); CREATININE 0.74 mg/dL (0.55-1.02); Chloride 102 mmol/L (98-107); Glucose 235 mg/dL (74-106); Potassium 3.1 mmol/L (3.5-5.1); Sodium 140 mmol/L (136-145); Total Protein 7.5 g/dL (6.4-8.2)
[2020-04-28 01:54] LABS: Bilirubin Negative (Negative); Blood Negative (Negative); Clarity Clear (Clear); Glucose Negative (Negative); Ketones Negative (Negative); Leukocyte Esterase Negative (Negative); Nitrite Negative (Negative); Urobilinogen 0.2 EU/dL (Up TO 0.2)
[2020-04-28 02:07] LABS: *AMPHETAMINES SCREEN URINE Negative (Negative); *BARBITURATES SCREEN URINE Negative (Negative); *BENZODIAZEPINES SCREEN URINE Negative (Negative); Cannabinoids THC POSITIVE (Negative); Cocaine Screen,Urine Negative (Negative); METHADONE URINE SCREEN Negative (Negative); OPIATES URINE SCREEN POSITIVE (Negative)
[2020-04-28 02:11] LABS: ETHANOL BLOOD < 3.0 mg/dL (<3); Lipase 12283 U/L (73-393)
[2020-04-28 02:11] LABS: Tricyclic Antidepressants Negative (Negative)
[2020-04-28 02:18] LABS: Bilirubin, Direct 0.66 mg/dL (0.00-0.20)
[2020-04-28] MEDS: Normal Saline 1,000 ML 150 ML IV ×3 (04:14→18:53)
[2020-04-28] MEDS: MORPHine 2 MG/ML SYR IVP ×2 (04:14→07:37)
[2020-04-28] MEDS: POTASSIUM CHLORIDE 20 MEQ/100 ML BAG 50 MEQ IVPB (04:28)
[2020-04-28] MEDS: Normal Saline Flush 10 ML SYR IVP ×4 (07:37→23:57)
[2020-04-28] MEDS: Ondansetron 4 MG/2 ML VIAL IVP ×2 (07:44→17:41)
[2020-04-28 08:46] LABS: ALT 133 U/L (14-59); AST 93 U/L (15-37); Albumin 3.6 g/dL (3.4-5.0); Alkaline Phosphatase 57 U/L (46-116); Anion Gap 8.5 mmol/L (3-11); BUN 9 mg/dL (7-18); Bilirubin, Total 0.6 mg/dL (0.2-1.0); CO2 26.5 mmol/L (21.0-32.0); CREATININE 0.57 mg/dL (0.55-1.02); Calcium 8.2 mg/dL (8.5-10.1); Chloride 106 mmol/L (98-107); Glucose 160 mg/dL (74-106); Potassium 3.8 mmol/L (3.5-5.1); Sodium 141 mmol/L (136-145); Total Protein 6.9 g/dL (6.4-8.2)
[2020-04-28 09:10] LABS: Lipase 9071 U/L (73-393)
--- NOTE | 2020-04-28 09:34 | PDOC.CMIN ---
- If Service Date Differs Date of service: 04/28/20 Time of Service: 09:34 Care Management Initial Assess REASON FOR HOSPITALIZATION:: Pancreatitis, acute cholecystitis PAST MEDICAL HISTORY/PAST SURGICAL HISTORY:: Medical History . Asthma (Chronic). Gall stone (Acute). Hx of abnormal cervical Pap smear (Acute). Surgical History . No significant past surgical history (Acute) PREVIOUS FUNCTIONAL STATUS/SOCIAL/FAMILY SUPPORTS:: Regulo lives in [place] with her son. 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 In Jul 2019 she was diagnosed with MS, which has been difficult for her to adjust to. She is independent at baseline, but does receive support from her son and parents, who live in [place]. She is currently in the process of obtaining disability. CURRENT FUNCTIONAL STATUS:: Regulo was resting when CM met with her. She reported that per provider she would expect to be at [facility] for a few more days. Per report, she may need surgical intervention, possibly during this admission. CM will continue to follow. ADVANCE DIRECTIVES:: None on file. Has patient been provided with info about the portal/API?: Yes Did the patient sign up for the portal?: No CODE STATUS:: Full Code INSURANCE COVERAGE / FINANCIAL ISSUES:: LEVI/ Fin assist 100% CURRENT HOME/COMMUNITY SERVICES/EQUIPMENT:: Regulo does not have services or equipment. PRIMARY CARE PHYSICIAN:: Maciel Buck POTENTIAL DISCHARGE NEEDS:: Evaluations for further needs, follow up appointments PATIENT/FAMILY EDUCATION NEEDS:: Review discharge instructions regarding activity levels and medications, discussion of self care needs including ask me three. ANTICIPATED BARRIERS TO DISCHARGE:: None identified at this time. TRANSPORTATION:: Via private vehicle by friends/family. PLAN:: Anticipate Regulo will return home when medically cleared. She will be driven home by family via private vehicle. She will follow up with her PCP and discharge plan of care. CM will continue to follow.
--- NOTE | 2020-04-28 12:11 | W.PM.HP.N ---
Date of service: 04/28/20 Time of Service: 12:11 Assessment and Plan Assessment and plan (1) Gallstone pancreatitis: Status: Acute Assessment and plan: The patient has been admitted for pain control, IVF. She will be kept NPO. Monitor lipase. We discussed the need for cholecystectomy in the future, which may be potentially done this admission or as an outpatient. History of Present Illness Narrative: This patient presented to the emergency department early this morning with significant epigastric and right upper quadrant pain. She has had 2 episodes of vomiting which do not appear bloody. She had a CT scan of the abdomen pelvis that showed inflammatory change in the pancreatic head as well as gallstones. Her lipase was elevated into the 12,000 range. The patient does not consume a significant amount of alcohol. Her past medical history is significant for MS which primarily affects her balance and walking. She gets every 6-month infusions with the next dose being due in mid May. Review of Systems All systems reviewed & are unremarkable except as noted in HPI and below PFSH Medical History (Updated 04/28/20 @ 12:14 by Symone Alejo MD) Asthma (Chronic) Gall stone (Acute) Hx of abnormal cervical Pap smear (Acute) Multiple sclerosis (Inactive) Surgical History No significant past surgical history (Acute) Family History Father Hyperlipidemia Social History Smoking/Tobacco Use Status: Current-Occasional Alcohol Intake: current Alcohol Intake frequency: holidays/special occasions only Drug use: Never Substance use type: does not use Household members: significant other and children Number of Children: 1 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 Meds Home Medications and Allergies Home Medications Medication Instructions Recorded Confirmed Type Mirena 1 ea INTRAUTERINE ONCE #1 implant 04/11/15 04/28/20 History diphenhydramine HCl [Benadryl] 25 mg PO QHS PRN 01/10/19 04/28/20 History albuterol sulfate 90 mcg/actuation 2 puff IH 6XD 05/25/19 04/28/20 History aerosol inhaler cromolyn 4 % eye drops 1 drp OP 6XD PRN 05/25/19 04/28/20 History ibuprofen 200 mg tablet 400 mg PO BID PRN tab 06/01/19 04/28/20 History Allergies Allergy/AdvReac Type Severity Reaction Status Date / Time Sulfa (Sulfonamide AdvReac Severe vomiting Unverified 04/28/20 00:21 Antibiotics) and weakness Exam Narrative Exam Narrative: Uncomfortable No jaundice Lungs CTA Heart RRR Abdomen soft, tender RUQ/epigastric region Results Labs Result diagrams: 04/28/20 00:28 04/28/20 08:11 Labs: Laboratory Results - last 24 hr 04/28/20 04/28/20 04/28/20 00:28 00:28 00:28 WBC 12.72 H RBC 4.72 Hgb 14.3 Hct 42.4 MCV 89.8 MCH 30.3 MCHC 33.7 RDW 11.8 Plt Count 472 H MPV 9.0 Immature Gran % 0.5 Neutrophils % 73.8 Lymphocytes % 18.8 Monocytes % 6.5 Eosinophils % 0.2 Basophils % 0.2 Nucleated RBC % 0 Absolute Neutrophils 9.39 H Absolute Lymphocytes 2.39 Absolute Monocytes 0.83 H Absolute Eosinophils 0.03 Absolute Basophils 0.03 Sodium 140 Potassium 3.1 L Chloride 102 Carbon Dioxide 26.5 Anion Gap 11.5 H BUN 10 Creatinine 0.74 Estimated GFR/1.73 m2 >= 60.00 Glucose 235 H Calcium 9.0 Magnesium Total Bilirubin 1.1 H Conjugated Bilirubin AST 70 H ALT 76 H Alkaline Phosphatase 57 Total Protein 7.5 Albumin 3.9 Lipase 05602 H Urine Color Urine Clarity Urine pH Ur Specific [place] Urine Protein Urine Ketones Urine Blood Urine Nitrite Urine Bilirubin Urine Urobilinogen Ur Leukocyte Esterase Urine Glucose Urine Opiates Screen Urine Methadone Screen Ur Barbiturates Screen Ur Tricyclics Screen Ur Amphetamines Screen U Benzodiazepines Scrn Urine Cocaine Screen Ur THC Screen Ethyl Alcohol < 3.0 04/28/20 04/28/20 04/28/20 00:42 00:42 01:42 WBC RBC Hgb Hct MCV MCH MCHC RDW Plt Count MPV Immature Gran % Neutrophils % Lymphocytes % Monocytes % Eosinophils % Basophils % Nucleated RBC % Absolute Neutrophils Absolute Lymphocytes Absolute Monocytes Absolute Eosinophils Absolute Basophils Sodium Potassium Chloride Carbon Dioxide Anion Gap BUN Creatinine Estimated GFR/1.73 m2 Glucose Calcium Magnesium 2.0 Total Bilirubin Conjugated Bilirubin 0.66 H AST ALT Alkaline Phosphatase Total Protein Albumin Lipase Urine Color Urine Clarity Urine pH Ur Specific [place] Urine Protein Urine Ketones Urine Blood Urine Nitrite Urine Bilirubin Urine Urobilinogen Ur Leukocyte Esterase Urine Glucose Urine Opiates Screen Positive A Urine Methadone Screen Negative Ur Barbiturates Screen Negative Ur Tricyclics Screen Negative Ur Amphetamines Screen Negative U Benzodiazepines Scrn Negative Urine Cocaine Screen Negative Ur THC Screen Positive A Ethyl Alcohol 04/28/20 04/28/20 01:42 08:11 WBC RBC Hgb Hct MCV MCH MCHC RDW Plt Count MPV Immature Gran % Neutrophils % Lymphocytes % Monocytes % Eosinophils % Basophils % Nucleated RBC % Absolute Neutrophils Absolute Lymphocytes Absolute Monocytes Absolute Eosinophils Absolute Basophils Sodium 141 Potassium 3.8 D Chloride 106 Carbon Dioxide 26.5 Anion Gap 8.5 BUN 9 Creatinine 0.57 Estimated GFR/1.73 m2 >= 60.00 Glucose 160 H D Calcium 8.2 L Magnesium Total Bilirubin 0.6 Conjugated Bilirubin AST 93 H ALT 133 H Alkaline Phosphatase 57 Total Protein 6.9 Albumin 3.6 Lipase 9071 H Urine Color Yellow Urine Clarity Clear Urine pH 6.0 Ur Specific [place] 1.010 Urine Protein Negative Urine Ketones Negative Urine Blood Negative Urine Nitrite Negative Urine Bilirubin Negative Urine Urobilinogen 0.2 Ur Leukocyte Esterase Negative Urine Glucose Negative Urine Opiates Screen Urine Methadone Screen Ur Barbiturates Screen Ur Tricyclics Screen Ur Amphetamines Screen U Benzodiazepines Scrn Urine Cocaine Screen Ur THC Screen Ethyl Alcohol Last Vital Signs Temp 97.7 F 04/28/20 08:52 Pulse 85 04/28/20 08:52 Resp 18 04/28/20 08:52 BP 131/88 04/28/20 08:52 Pulse Ox 98 04/28/20 08:52 COVID-19 Screening Have you,or household,traveled outside [place] in last 14 days?: No Had IN PERSON contact w/suspected or confirmed C-19 person: No
[2020-04-28] MEDS: Enoxaparin 30 MG/0.3 ML SYR SC (12:17)
[2020-04-28 20:56] LABS: COVID-19 RT-PCR UVMMC Result Negative (Negative)
[2020-04-28] MEDS: Acetaminophen 325 MG TAB 650 MG PO (21:10)
[2020-04-29] VITALS: BP 128/92; PULSE 124; RESP 18; TEMP 36.5; O2SAT 97
[2020-04-29 00:05] VITALS: PULSE 96
[2020-04-29] MEDS: Normal Saline 1,000 ML 150 ML IV ×3 (01:49→16:02)
[2020-04-29] MEDS: Normal Saline Flush 10 ML SYR IVP (05:38)
[2020-04-29] MEDS: HYDROmorphone 2 MG/ML VIAL 1 MG IVP ×5 (05:39→21:37)
[2020-04-29 07:18] VITALS: BP 114/77; PULSE 98; RESP 19; TEMP 36.7; O2SAT 97
[2020-04-29 08:00] LABS: Absolute Basophil Count 0.04 10^3/uL (0.0-0.2); Absolute Monocyte Count 0.74 10^3/uL (0.1-0.8); Basophils % 0.2; Eosinophils % 0.6; HCT 49.2 % (36.0-46.0); HGB 15.9 g/dL (11.2-15.7); Immature Grans % 0.4; Lymphocytes % 3.4; MCH 29.7 pg (27.0-33.0); MCHC 32.3 % (32.0-36.0); MCV 91.8 fL (80-95); MPV 9.3 fL (8.0-11.0); Monocytes % 3.3; Neutrophils % 92.1; Nucleated RBC 0 %; Platelet Count 401 10^3/uL (130-400); RBC 5.36 10^6/uL (3.93-5.22); RDW 12.4 % (11.7-14.6); WBC 22.47 10^3/uL (4.4-10.8)
[2020-04-29 08:18] LABS: Absolute Eosinophil Count 0.13 10^3/uL (0.0-0.7); Absolute Lymphocyte Count 0.76 10^3/uL (1.2-3.4); Absolute Neutrophil Count 20.69 10^3/uL (1.2-6.7)
[2020-04-29 08:23] LABS: ALT 77 U/L (14-59); AST 41 U/L (15-37); Albumin 2.8 g/dL (3.4-5.0); Alkaline Phosphatase 48 U/L (46-116); Anion Gap 9.9 mmol/L (3-11); BUN 13 mg/dL (7-18); Bilirubin, Total 1.2 mg/dL (0.2-1.0); CO2 24.1 mmol/L (21.0-32.0); CREATININE 0.74 mg/dL (0.55-1.02); Calcium 6.5 mg/dL (8.5-10.1); Chloride 104 mmol/L (98-107); Glucose 94 mg/dL (74-106); Potassium 3.6 mmol/L (3.5-5.1); Sodium 138 mmol/L (136-145)
[2020-04-29 08:32] LABS: Lipase 3395 U/L (73-393)
--- NOTE | 2020-04-29 08:32 | PDOC.CMPRO ---
- If Service Date Differs Date of service: 04/29/20 Time of Service: 08:32 Care Management Progress Note S/O: Regulo was sitting up in bed when CM met with her. She was pleasant and easily engaged with CM. Regulo stated that she is still having quite a bit of pain but that it is better controlled on the Dilaudid. She also stated that her nausea has improved. Regulo shared that she has recently been diagnosed with MS. She has a walker which she uses and is pursuing disability. She has resources in the community that are assisting her with the process. A: Regulo is a 39 year old woman admitted on 04/28/20 with pancreatitis P: Anticipate Regulo will return home when medically cleared. She will be driven home by family via private vehicle. She will follow up with her PCP and discharge plan of care. CM will continue to follow.
[2020-04-29 08:49] LABS: Diff Comment Agrees w/ Instrument; RBC Morphology Normal
--- NOTE | 2020-04-29 09:04 | PGE_ITS ---
Date of Service Date of service: 04/29/20 Time of Service: 09:04 Assessment and Plan Assessment and plan (1) Gallstone pancreatitis: Status: Acute Assessment and plan: Exam is stable Lipase improving Will keep NPO until symptoms and labs are better WBC increased - may be from inflammation but may also be an element of cholecystitis. Will start antibiotics. Subjective Subjective Interval history since last seen: Epigastric pain is about the same No new symptoms Exam Narrative Exam Narrative: Moving well Abdomen tender in epigastric region. Stable Objective Objective Clinical Data: Abnormal lab results 04/28/20 04/29/20 04/29/20 Range/Units 08:11 06:30 06:30 WBC 22.47 H (4.4-10.8) 10^3/uL RBC 5.36 H (3.93-5.22) 10^6/uL Hgb 15.9 H (11.2-15.7) g/dL Hct 49.2 H (36.0-46.0) % Plt Count 401 H (130-400) 10^3/uL Absolute Neutrophils 20.69 H (1.2-6.7) 10^3/uL Absolute Lymphocytes 0.76 L (1.2-3.4) 10^3/uL Glucose 160 H D (74-106) mg/dL Calcium 8.2 L 6.5 L (8.5-10.1) mg/dL Total Bilirubin 1.2 H (0.2-1.0) mg/dL AST 93 H 41 H (15-37) U/L ALT 133 H 77 H (14-59) U/L Total Protein 6.0 L (6.4-8.2) g/dL Albumin 2.8 L (3.4-5.0) g/dL Lipase 9071 H 3395 H (73-393) U/L Vital Signs Temperature 98.1 F 04/29/20 07:18 Temperature Source Tympanic 04/29/20 07:18 Pulse 98 H 04/29/20 07:18 Pulse Rhythm Regular 04/29/20 07:49 Respiratory Rate 19 04/29/20 07:18 Respiratory Effort 04/29/20 07:49 Respiratory Depth Normal 04/29/20 07:49 Respiratory Pattern Normal 04/29/20 07:49 Blood Pressure 114/77 04/29/20 07:18 Blood Pressure Position Sitting 04/28/20 00:17 Pulse Oximetry 97 04/29/20 07:18 Oxygen Delivery Method Room Air 04/29/20 07:18 Oxygen Flow Rate 0 04/29/20 07:18 Pain Level 7 04/29/20 07:18 Comment 04/29/20 00:05 Intake & Output 04/28/20 04/28/20 04/29/20 11:59 23:59 11:59 Intake Total 1999 / 2987.5 987.5 / 2987.5 2059 Output Total 100 / 150 50 / 150 10 Balance 190 / 2837.5 937.5 / 2837.5 2049 Weight 170 lb 0.01 oz 183 lb 13.848 oz Intake: IV 1999 2987.5 987.5 / 2987.5 1999 Oral 60 / 60 Output: Emesis 100 / 150 50 / 150 Other: Urine Appearance Clear Clear Clear Comment voids independantly independantly independant Emesis Description Bile Bile Voiding Methods Toilet Laboratory Results WBC 22.47 10^3/uL (4.4-10.8) H 04/29/20 06:30 RBC 5.36 10^6/uL (3.93-5.22) H 04/29/20 06:30 Hgb 15.9 g/dL (11.2-15.7) H 04/29/20 06:30 Hct 49.2 % (36.0-46.0) H 04/29/20 06:30 MCV 91.8 fL (80-95) 04/29/20 06:30 MCH 29.7 pg (27.0-33.0) 04/29/20 06:30 MCHC 32.3 % (32.0-36.0) 04/29/20 06:30 RDW 12.4 % (11.7-14.6) 04/29/20 06:30 Plt Count 401 10^3/uL (130-400) H 04/29/20 06:30 MPV 9.3 fL (8.0-11.0) 04/29/20 06:30 Immature Gran % 0.4 04/29/20 06:30 Neutrophils % 92.1 04/29/20 06:30 Lymphocytes % 3.4 04/29/20 06:30 Monocytes % 3.3 04/29/20 06:30 Eosinophils % 0.6 04/29/20 06:30 Basophils % 0.2 04/29/20 06:30 Nucleated RBC % 0 % 04/29/20 06:30 Absolute Neutrophils 20.69 10^3/uL (1.2-6.7) H 04/29/20 06:30 Absolute Lymphocytes 0.76 10^3/uL (1.2-3.4) L 04/29/20 06:30 Absolute Monocytes 0.74 10^3/uL (0.1-0.8) 04/29/20 06:30 Absolute Eosinophils 0.13 10^3/uL (0.0-0.7) 04/29/20 06:30 Absolute Basophils 0.04 10^3/uL (0.0-0.2) 04/29/20 06:30 RBC Morphology Normal 04/29/20 06:30 Sodium 138 mmol/L (136-145) 04/29/20 06:30 Potassium 3.6 mmol/L (3.5-5.1) 04/29/20 06:30 Chloride 104 mmol/L (98-107) 04/29/20 06:30 Carbon Dioxide 24.1 mmol/L (21.0-32.0) 04/29/20 06:30 Anion Gap 9.9 mmol/L (3-11) 04/29/20 06:30 BUN 13 mg/dL (7-18) 04/29/20 06:30 Creatinine 0.74 mg/dL (0.55-1.02) 04/29/20 06:30 Estimated GFR/1.73 m2 >= 60.00 (mL/min/1.73m2) 04/29/20 06:30 Glucose 94 mg/dL (74-106) D 04/29/20 06:30 Calcium 6.5 mg/dL (8.5-10.1) L 04/29/20 06:30 Magnesium 2.0 mg/dL (1.8-2.4) 04/28/20 00:42 Total Bilirubin 1.2 mg/dL (0.2-1.0) H 04/29/20 06:30 Conjugated Bilirubin 0.66 mg/dL (0.00-0.20) H 04/28/20 00:42 AST 41 U/L (15-37) H 04/29/20 06:30 ALT 77 U/L (14-59) H 04/29/20 06:30 Alkaline Phosphatase 48 U/L (46-116) 04/29/20 06:30 Total Protein 6.0 g/dL (6.4-8.2) L 04/29/20 06:30 Albumin 2.8 g/dL (3.4-5.0) L 04/29/20 06:30 Lipase 3395 U/L (73-393) H 04/29/20 06:30 Urine Color Yellow (Yellow) 04/28/20 01:42 Urine Clarity Clear (Clear) 04/28/20 01:42 Urine pH 6.0 (5-8) 04/28/20 01:42 Ur Specific [place] 1.010 (1.005-1.025) 04/28/20 01:42 Urine Protein Negative mg/dL (Negative) 04/28/20 01:42 Urine Ketones Negative mg/dL (Negative) 04/28/20 01:42 Urine Blood Negative (Negative) 04/28/20 01:42 Urine Nitrite Negative (Negative) 04/28/20 01:42 Urine Bilirubin Negative (Negative) 04/28/20 01:42 Urine Urobilinogen 0.2 EU/dL (Up TO 0.2) 04/28/20 01:42 Ur Leukocyte Esterase Negative (Negative) 04/28/20 01:42 Urine Glucose Negative mg/dL (Negative) 04/28/20 01:42 Urine Opiates Screen Positive (Negative) A 04/28/20 01:42 Urine Methadone Screen Negative (Negative) 04/28/20 01:42 Ur Barbiturates Screen Negative (Negative) 04/28/20 01:42 Ur Tricyclics Screen Negative (Negative) 04/28/20 01:42 Ur Amphetamines Screen Negative (Negative) 04/28/20 01:42 U Benzodiazepines Scrn Negative (Negative) 04/28/20 01:42 Urine Cocaine Screen Negative (Negative) 04/28/20 01:42 Ur THC Screen Positive (Negative) A 04/28/20 01:42 Ethyl Alcohol < 3.0 mg/dL (<3) 04/28/20 00:28 COVID-19 PCR Negative (Negative) 04/28/20 03:02 Nasopharyn COVID-19 PCR Not Applicable 04/28/20 03:02 Ref Test Perform Site [facility] lab 04/28/20 03:02
[2020-04-29] MEDS: PIPERACILLIN/TAZO 3.375 GM in Normal Saline 50 ML IVPB ×3 (09:43→21:38)
--- NOTE | 2020-04-29 11:07 | W.NUTRFU ---
Date of service: 04/29/20 Time of Service: 11:07 Nutritional Follow up NOTE: 39 year old female admitted with gallstone pancreatits with acute cholecystitis. Lipase improving. Currently NPO. At risk for nutritional decline if unable to meet at least 50% of nutrient needs in next 5 days. BMI indicates class 1 obesity with Hx of MS. Estimated Needs: [id number] kcal, 55-65 g protein, 1800 ml fluid. Will continue to follow. Time Spent in Nutritional Counseling and Treatment: 0 time spent face to face
[2020-04-29] MEDS: Ketorolac 30 MG/ML VIAL IVP ×2 (11:17→16:02)
[2020-04-29] MEDS: Enoxaparin 30 MG/0.3 ML SYR SC (11:17)
--- NOTE | 2020-04-29 12:18 | NUR.NOTE ---
patient complaining of itching in bilateral hands. reported findings to charge nurse.Nursing Note:
[2020-04-29 15:02] VITALS: BP 113/77; PULSE 64; RESP 18; TEMP 36.4; O2SAT 99
--- NOTE | 2020-04-29 15:04 | PHA.REVIEW ---
Pharmacy Admission Review - Admission Clinical Review (Last Updated 04/28/20 @ 12:13 by Symone Alejo MD) Gallstone pancreatitis (Acute) Acute cholecystitis (Acute) Acute pancreatitis (Acute) Sulfa (Sulfonamide Antibiotics) Adverse Reaction (Severe, Unverified 04/28/20 00:21) vomiting and weakness Height 5 ft 4 in Weight 83.4 kg - Renal Dosing Renal Dosing: BUN 13 mg/dL (7-18) 04/29/20 06:30 Creatinine 0.74 mg/dL (0.55-1.02) 04/29/20 06:30 Medications needing adjustments: Reviewed (Crcl ~107.7 mL/min using adjusted body weight. Current meds okay.) - Anticoagulation Anticoagulation: Hgb 15.9 g/dL (11.2-15.7) H 04/29/20 06:30 Hct 49.2 % (36.0-46.0) H 04/29/20 06:30 Plt Count 401 10^3/uL (130-400) H 04/29/20 06:30 Creatinine 0.74 mg/dL (0.55-1.02) 04/29/20 06:30 DVT Prohphylaxis: Reviewed Therapeutic Anticoagulation: N/A - Opiate Usage Evaluate Pain Scale/Pains Meds: Reviewed Scheduled Bowel Reg ordered if on Opiates?: No (watch for need) - Relevant Labs Sodium 138 mmol/L (136-145) 04/29/20 06:30 Potassium 3.6 mmol/L (3.5-5.1) 04/29/20 06:30 Chloride 104 mmol/L (98-107) 04/29/20 06:30 Magnesium 2.0 mg/dL (1.8-2.4) 04/28/20 00:42 Electrolytes, C-Reactive P, ESR: Reviewed - DM Control DM Control: Glucose 94 mg/dL (74-106) D 04/29/20 06:30 Insulin Dosing: N/A - Heart Failure/[place] EF%, LUH's, B-Blockers, Diuretics: N/A - BP Control BP Control: Blood Pressure 114/77 If elevated: N/A - Qtc Review If Elevated: N/A - IV to PO Switch IV Medications: Reviewed - Home Meds Home Med List reviewed: Reviewed Relevent Home Meds Not ordered & why?: diphenhydramine (PRN) - Current meds Current Medication Order Review: Reviewed - Comments Comments/Follow Ups: Watch for med changes (need of BM meds, changes from IV to PO). Antibiotic Activity - Pharmacy Antibiotic Review Pharmacy Antibiotic Activity: Abx regimen adjustment (zosyn started today)
[2020-04-29 19:55] VITALS: BP 120/86; PULSE 72; RESP 18; TEMP 36.4; O2SAT 95
[2020-04-29] MEDS: Acetaminophen 325 MG TAB 650 MG PO (20:10)
[2020-04-30] MEDS: Normal Saline 1,000 ML 150 ML IV ×3 (00:32→17:00)
[2020-04-30] MEDS: Ketorolac 30 MG/ML VIAL IVP ×3 (00:52→13:39)
[2020-04-30] MEDS: Ondansetron 4 MG/2 ML VIAL IVP ×2 (00:52→22:06)
[2020-04-30] MEDS: HYDROmorphone 2 MG/ML VIAL 1 MG IVP ×6 (02:29→22:05)
[2020-04-30] MEDS: PIPERACILLIN/TAZO 3.375 GM in Normal Saline 50 ML IVPB ×4 (04:13→22:06)
--- NOTE | 2020-04-30 07:26 | W.PM.PROGNOT ---
Documented by User: DEVIN Mukherjee 04/30/20 07:29 Date of Service Date of service: 04/30/20 Time of Service: 07:26 Assessment and Plan Assessment and plan (1) Gallstone pancreatitis: Status: Acute Assessment and plan: (+) Nause and Vomiting, improved with Zofran (+) Abdominal pain, generalized. This morning more in lower abdomen AM labs pending. Subjective Subjective Interval history since last seen: I was having a lot of pain earlier, its better now. I did throw up bile. Exam Const General: cooperative and comfortable Orientation: alert and oriented x3 Resp Effort & Inspection: normal respiratory effort and no cough GI Inspection: normal to inspection and non-distended Palpation: soft, no guarding and tender Objective Objective Clinical Data: Abnormal lab results 04/29/20 04/29/20 Range/Units 06:30 06:30 WBC 22.47 H (4.4-10.8) 10^3/uL RBC 5.36 H (3.93-5.22) 10^6/uL Hgb 15.9 H (11.2-15.7) g/dL Hct 49.2 H (36.0-46.0) % Plt Count 401 H (130-400) 10^3/uL Absolute Neutrophils 20.69 H (1.2-6.7) 10^3/uL Absolute Lymphocytes 0.76 L (1.2-3.4) 10^3/uL Calcium 6.5 L (8.5-10.1) mg/dL Total Bilirubin 1.2 H (0.2-1.0) mg/dL AST 41 H (15-37) U/L ALT 77 H (14-59) U/L Total Protein 6.0 L (6.4-8.2) g/dL Albumin 2.8 L (3.4-5.0) g/dL Lipase 3395 H (73-393) U/L Vital Signs Temperature 36.4 C L 04/29/20 19:55 Temperature Source Tympanic 04/29/20 19:55 Pulse 72 04/29/20 19:55 Pulse Rhythm Regular 04/29/20 20:00 Respiratory Rate 18 04/29/20 19:55 Respiratory Effort Non-Labored 04/29/20 20:00 Respiratory Depth Normal 04/29/20 20:00 Respiratory Pattern Normal 04/29/20 20:00 Blood Pressure 120/86 04/29/20 19:55 Blood Pressure Position Sitting 04/28/20 00:17 Pulse Oximetry 95 04/29/20 19:55 Oxygen Delivery Method Room Air 04/29/20 19:55 Oxygen Flow Rate 0 04/29/20 19:55 Pain Level 9 04/30/20 06:08 Comment 04/29/20 00:05 Intake & Output 04/29/20 04/30/20 04/30/20 18:59 06:59 18:59 Intake Total 2100 / 3150 1050 / 3150 Output Total 50 / 50 Balance 2100 / 3100 1000 / 3100 Weight 83.4 kg 84 kg Intake: IV 2100 / 3150 1050 / 3150 Output: Emesis 50 / 50 Other: Urine Color Yellow Urine Appearance Clear Clear Comment pt flushed the toliet independent, unmeasured Emesis Description Bile Voiding Methods Toilet Laboratory Results WBC 22.47 10^3/uL (4.4-10.8) H 04/29/20 06:30 RBC 5.36 10^6/uL (3.93-5.22) H 04/29/20 06:30 Hgb 15.9 g/dL (11.2-15.7) H 04/29/20 06:30 Hct 49.2 % (36.0-46.0) H 04/29/20 06:30 MCV 91.8 fL (80-95) 04/29/20 06:30 MCH 29.7 pg (27.0-33.0) 04/29/20 06:30 MCHC 32.3 % (32.0-36.0) 04/29/20 06:30 RDW 12.4 % (11.7-14.6) 04/29/20 06:30 Plt Count 401 10^3/uL (130-400) H 04/29/20 06:30 MPV 9.3 fL (8.0-11.0) 04/29/20 06:30 Immature Gran % 0.4 04/29/20 06:30 Neutrophils % 92.1 04/29/20 06:30 Lymphocytes % 3.4 04/29/20 06:30 Monocytes % 3.3 04/29/20 06:30 Eosinophils % 0.6 08/24/20 06:30 Basophils % 0.2 04/29/20 06:30 Nucleated RBC % 0 % 04/29/20 06:30 Absolute Neutrophils 20.69 10^3/uL (1.2-6.7) H 04/29/20 06:30 Absolute Lymphocytes 0.76 10^3/uL (1.2-3.4) L 04/29/20 06:30 Absolute Monocytes 0.74 10^3/uL (0.1-0.8) 04/29/20 06:30 Absolute Eosinophils 0.13 10^3/uL (0.0-0.7) 04/29/20 06:30 Absolute Basophils 0.04 10^3/uL (0.0-0.2) 04/29/20 06:30 RBC Morphology Normal 04/29/20 06:30 Sodium 138 mmol/L (136-145) 04/29/20 06:30 Potassium 3.6 mmol/L (3.5-5.1) 04/29/20 06:30 Chloride 104 mmol/L (98-107) 04/29/20 06:30 Carbon Dioxide 24.1 mmol/L (21.0-32.0) 04/29/20 06:30 Anion Gap 9.9 mmol/L (3-11) 04/29/20 06:30 BUN 13 mg/dL (7-18) 04/29/20 06:30 Creatinine 0.74 mg/dL (0.55-1.02) 04/29/20 06:30 Estimated GFR/1.73 m2 >= 60.00 (mL/min/1.73m2) 04/29/20 06:30 Glucose 94 mg/dL (74-106) D 04/29/20 06:30 Calcium 6.5 mg/dL (8.5-10.1) L 04/29/20 06:30 Magnesium 2.0 mg/dL (1.8-2.4) 04/28/20 00:42 Total Bilirubin 1.2 mg/dL (0.2-1.0) H 04/29/20 06:30 Conjugated Bilirubin 0.66 mg/dL (0.00-0.20) H 04/28/20 00:42 AST 41 U/L (15-37) H 04/29/20 06:30 ALT 77 U/L (14-59) H 04/29/20 06:30 Alkaline Phosphatase 48 U/L (46-116) 04/29/20 06:30 Total Protein 6.0 g/dL (6.4-8.2) L 04/29/20 06:30 Albumin 2.8 g/dL (3.4-5.0) L 04/29/20 06:30 Lipase 3395 U/L (73-393) H 04/29/20 06:30 Urine Color Yellow (Yellow) 04/28/20 01:42 Urine Clarity Clear (Clear) 04/28/20 01:42 Urine pH 6.0 (5-8) 04/28/20 01:42 Ur Specific [place] 1.010 (1.005-1.025) 04/28/20 01:42 Urine Protein Negative mg/dL (Negative) 04/28/20 01:42 Urine Ketones Negative mg/dL (Negative) 04/28/20 01:42 Urine Blood Negative (Negative) 04/28/20 01:42 Urine Nitrite Negative (Negative) 04/28/20 01:42 Urine Bilirubin Negative (Negative) 04/28/20 01:42 Urine Urobilinogen 0.2 EU/dL (Up TO 0.2) 04/28/20 01:42 Ur Leukocyte Esterase Negative (Negative) 04/28/20 01:42 Urine Glucose Negative mg/dL (Negative) 04/28/20 01:42 Urine Opiates Screen Positive (Negative) A 04/28/20 01:42 Urine Methadone Screen Negative (Negative) 04/28/20 01:42 Ur Barbiturates Screen Negative (Negative) 04/28/20 01:42 Ur Tricyclics Screen Negative (Negative) 04/28/20 01:42 Ur Amphetamines Screen Negative (Negative) 04/28/20 01:42 U Benzodiazepines Scrn Negative (Negative) 04/28/20 01:42 Urine Cocaine Screen Negative (Negative) 04/28/20 01:42 Ur THC Screen Positive (Negative) A 04/28/20 01:42 Ethyl Alcohol < 3.0 mg/dL (<3) 04/28/20 00:28 COVID-19 PCR Negative (Negative) 04/28/20 03:02 Nasopharyn COVID-19 PCR Not Applicable 04/28/20 03:02 Ref Test Perform Site [facility] lab 04/28/20 03:02 Documented by User: Symone Alejo MD 04/30/20 09:50
[2020-04-30 07:28] LABS: Abs Immature Grans 0.09 10^3/uL (0.0-0.06); Basophils % 0.2; HCT 41.3 % (36.0-46.0); HGB 13.5 g/dL (11.2-15.7); MCHC 32.7 % (32.0-36.0); MCV 91.8 fL (80-95); MPV 9.2 fL (8.0-11.0); Nucleated RBC 0 %; Platelet Count 354 10^3/uL (130-400); RDW 12.6 % (11.7-14.6); RDW-SD 42.4 fL; WBC 19.36 10^3/uL (4.4-10.8)
[2020-04-30 07:29] VITALS: BP 113/67; PULSE 100; RESP 19; TEMP 36.5; O2SAT 97
[2020-04-30 07:40] LABS: Absolute Basophil Count 0.04 10^3/uL (0.0-0.2)
[2020-04-30 08:02] LABS: Absolute Lymphocyte Count 0.97 10^3/uL (1.2-3.4); Absolute Monocyte Count 0.39 10^3/uL (0.1-0.8); Bands % 6; Diff Comment Manual Differential; RBC Morphology Normal
[2020-04-30 08:10] LABS: ALT 42 U/L (14-59); AST 34 U/L (15-37); Albumin 2.4 g/dL (3.4-5.0); Alkaline Phosphatase 44 U/L (46-116); Anion Gap 8.2 mmol/L (3-11); BUN 14 mg/dL (7-18); Bilirubin, Total 1.2 mg/dL (0.2-1.0); CO2 23.8 mmol/L (21.0-32.0); CREATININE 0.58 mg/dL (0.55-1.02); Calcium 6.7 mg/dL (8.5-10.1); Chloride 105 mmol/L (98-107); Glucose 100 mg/dL (74-106); Potassium 3.6 mmol/L (3.5-5.1); Sodium 137 mmol/L (136-145); Total Protein 5.6 g/dL (6.4-8.2)
[2020-04-30 08:41] LABS: Lipase 1574 U/L (73-393)
[2020-04-30] MEDS: ACETAMINOPHEN 1,000 MG/100 ML BTL 400 MG IVPB (11:36)
[2020-04-30] MEDS: Enoxaparin 30 MG/0.3 ML SYR SC (11:36)
--- NOTE | 2020-04-30 12:30 | PDOC.CMPRO ---
- If Service Date Differs Date of service: 04/30/20 Time of Service: 12:30 Care Management Progress Note S/O: Regulo was sitting up in bed when CM met with her. She was pleasant and easily engaged with CM. Regulo was preparing to take a shower at the time of the visit. She stated that she was still having discomfort but that medication helps and that she was tolerating sips of clear liquids. Regulo's lipase is improving and her vital signs remain stable. There is a possibility that she will have a cholecystectomy later this week. A: Regulo is a 39 year old woman admitted on 04/28/20 with gallstone pancreatitis P: Anticipate Regulo will return home when medically cleared. She will be driven home by family via private vehicle. She will follow up with her PCP and discharge plan of care. CM will continue to support Regulo and her family and assess for discharge planning needs.
--- NOTE | 2020-04-30 14:55 | CHAPLAIN ---
Regulo said she is still uncomfortable, but her pain is better managed. She said her mom and son were coming to visit and she was clearly happy about this, and also looking forward to taking a shower.
[2020-04-30 15:58] VITALS: BP 115/77; PULSE 113; RESP 18; TEMP 36.2; O2SAT 97
[2020-04-30 20:26] VITALS: BP 134/81; PULSE 111; RESP 17; TEMP 37; O2SAT 96
[2020-05-01] MEDS: Normal Saline 1,000 ML 150 ML IV ×2 (00:45→07:24)
[2020-05-01] MEDS: HYDROmorphone 2 MG/ML VIAL 1 MG IVP ×4 (03:51→20:10)
[2020-05-01] MEDS: PIPERACILLIN/TAZO 3.375 GM in Normal Saline 50 ML IVPB ×4 (03:52→21:29)
[2020-05-01] MEDS: ACETAMINOPHEN 1,000 MG/100 ML BTL 400 MG IVPB (05:55)
--- NOTE | 2020-05-01 07:09 | W.PM.PROGNOT ---
Date of Service Date of service: 05/01/20 Time of Service: 07:09 Assessment and Plan Assessment and plan (1) Gallstone pancreatitis: Status: Acute Assessment and plan: Patient's symptoms are unchanged. AM Labs pending ABD soft, tender in epigastric and lower abdomen, no guarding Denies fevers or chills. (+) Flatus, No BM Urinating without difficulty. Encouraged sitting up out of bed as tolerated. Subjective Subjective Interval history since last seen: Patient reports feeling about the same. Nausea and vomiting between 2-4am. Pain is currently well controlled. (+) Flatus, No BM. Exam Const General: cooperative, healthy appearing and comfortable Orientation: alert and oriented x3 Resp Effort & Inspection: normal respiratory effort, no audible wheezes and no cough GI Inspection: normal to inspection Palpation: soft, not firm and tender Objective Objective Clinical Data: Abnormal lab results 04/30/20 04/30/20 Range/Units 06:20 06:20 WBC 19.36 H (4.4-10.8) 10^3/uL Absolute Neutrophils 18.00 H (1.2-6.7) 10^3/uL Absolute Lymphocytes 0.97 L (1.2-3.4) 10^3/uL Calcium 6.7 L (8.5-10.1) mg/dL Total Bilirubin 1.2 H (0.2-1.0) mg/dL Alkaline Phosphatase 44 L (46-116) U/L Total Protein 5.6 L (6.4-8.2) g/dL Albumin 2.4 L (3.4-5.0) g/dL Lipase 1574 H (73-393) U/L Vital Signs Temperature 37.0 C 04/30/20 20:26 Temperature Source Tympanic 04/30/20 20:26 Pulse 111 H 04/30/20: Pulse Rhythm Regular 04/30/20 20:00 Respiratory Rate 17 04/30/20 20: Respiratory Effort Non-Labored 04/30/20 20:00 Respiratory Depth Normal 04/30/20 20:00 Respiratory Pattern Normal 04/30/20 20:00 Blood Pressure 134/81 04/30/20 20: Blood Pressure Position Sitting 04/28/20 00:17 Pulse Oximetry 96 04/30/20 20:26 Oxygen Delivery Method Room Air 04/30/20 20:26 Oxygen Flow Rate 0 04/30/20 20:26 Pain Level 9 05/01/20 05:55 Comment 04/29/20 00:05 Intake & Output 04/30/20 05/01/20 05/01/20 18:59 06:59 18:59 Intake Total 2200 / 3250 1050 / 3250 Balance 2200 / 3250 1050 / 3250 Weight 84 kg Intake: IV 2200 / 3250 1050 / 3250 Other: Urine Color Yellow Urine Appearance Clear Comment independant Emesis Description Retching Bile Voiding Methods Toilet Laboratory Results WBC 19.36 10^3/uL (4.4-10.8) H 04/30/20 06:20 RBC 4.50 10^6/uL (3.93-5.22) 04/30/20 06:20 Hgb 13.5 g/dL (11.2-15.7) D 04/30/20 06:20 Hct 41.3 % (36.0-46.0) 04/30/20 06:20 MCV 91.8 fL (80-95) 04/30/20 06:20 MCH 30.0 pg (27.0-33.0) 04/30/20 06:20 MCHC 32.7 % (32.0-36.0) 04/30/20 06:20 RDW 12.6 % (11.7-14.6) 04/30/20 06:20 Plt Count 354 10^3/uL (130-400) 04/30/20 06:20 MPV 9.2 fL (8.0-11.0) 04/30/20 06:20 Immature Gran % 0.0 04/30/20 06:20 Neutrophils % 87.0 04/30/20 06:20 Band Neutrophils % 6 04/30/20 06:20 Lymphocytes % 5.0 04/30/20 06:20 Monocytes % 2.0 04/30/20 06:20 Eosinophils % 0.0 04/30/20 06:20 Basophils % 0.2 04/30/20 06:20 Nucleated RBC % 0 % 04/30/20 06:20 Absolute Neutrophils 18.00 10^3/uL (1.2-6.7) H 04/30/20 06:20 Absolute Lymphocytes 0.97 10^3/uL (1.2-3.4) L 04/30/20 06:20 Absolute Monocytes 0.39 10^3/uL (0.1-0.8) 04/30/20 06:20 Absolute Eosinophils 0.00 10^3/uL (0.0-0.7) 04/30/20 06:20 Absolute Basophils 0.04 10^3/uL (0.0-0.2) 04/30/20 06:20 RBC Morphology Normal 04/30/20 06:20 Sodium 137 mmol/L (136-145) 04/30/20 06:20 Potassium 3.6 mmol/L (3.5-5.1) 04/30/20 06:20 Chloride 105 mmol/L (98-107) 04/30/20 06:20 Carbon Dioxide 23.8 mmol/L (21.0-32.0) 04/30/20 06:20 Anion Gap 8.2 mmol/L (3-11) 04/30/20 06:20 BUN 14 mg/dL (7-18) 04/30/20 06:20 Creatinine 0.58 mg/dL (0.55-1.02) 04/30/20 06:20 Estimated GFR/1.73 m2 >= 60.00 (mL/min/1.73m2) 04/30/20 06:20 Glucose 100 mg/dL (74-106) 04/30/20 06:20 Calcium 6.7 mg/dL (8.5-10.1) L 04/30/20 06:20 Magnesium 2.0 mg/dL (1.8-2.4) 04/28/20 00:42 Total Bilirubin 1.2 mg/dL (0.2-1.0) H 04/30/20 06:20 Conjugated Bilirubin 0.66 mg/dL (0.00-0.20) H 04/28/20 00:42 AST 34 U/L (15-37) 04/30/20 06:20 ALT 42 U/L (14-59) 04/30/20 06:20 Alkaline Phosphatase 44 U/L (46-116) L 04/30/20 06:20 Total Protein 5.6 g/dL (6.4-8.2) L 04/30/20 06:20 Albumin 2.4 g/dL (3.4-5.0) L 04/30/20 06:20 Lipase 1574 U/L (73-393) H 04/30/20 06:20 Urine Color Yellow (Yellow) 04/28/20 01:42 Urine Clarity Clear (Clear) 04/28/20 01:42 Urine pH 6.0 (5-8) 04/28/20 01:42 Ur Specific [place] 1.010 (1.005-1.025) 04/28/20 01:42 Urine Protein Negative mg/dL (Negative) 04/28/20 01:42 Urine Ketones Negative mg/dL (Negative) 04/28/20 01:42 Urine Blood Negative (Negative) 04/28/20 01:42 Urine Nitrite Negative (Negative) 04/28/20 01:42 Urine Bilirubin Negative (Negative) 04/28/20 01:42 Urine Urobilinogen 0.2 EU/dL (Up TO 0.2) 04/28/20 01:42 Ur Leukocyte Esterase Negative (Negative) 04/28/20 01:42 Urine Glucose Negative mg/dL (Negative) 04/28/20 01:42 Urine Opiates Screen Positive (Negative) A 04/28/20 01:42 Urine Methadone Screen Negative (Negative) 04/28/20 01:42 Ur Barbiturates Screen Negative (Negative) 04/28/20 01:42 Ur Tricyclics Screen Negative (Negative) 04/28/20 01:42 Ur Amphetamines Screen Negative (Negative) 04/28/20 01:42 U Benzodiazepines Scrn Negative (Negative) 04/28/20 01:42 Urine Cocaine Screen Negative (Negative) 04/28/20 01:42 Ur THC Screen Positive (Negative) A 04/28/20 01:42 Ethyl Alcohol < 3.0 mg/dL (<3) 04/28/20 00:28 COVID-19 PCR Negative (Negative) 04/28/20 03:02 Nasopharyn COVID-19 PCR Not Applicable 04/28/20 03:02 Ref Test [facility] 04/28/20 03:02
[2020-05-01 07:18] VITALS: BP 117/73; PULSE 95; RESP 19; TEMP 36.5; O2SAT 98
[2020-05-01 07:31] LABS: HCT 33.9 % (36.0-46.0); HGB 11.4 g/dL (11.2-15.7); MCHC 33.6 % (32.0-36.0); MCV 89.2 fL (80-95); MPV 9.4 fL (8.0-11.0); Platelet Count 347 10^3/uL (130-400); RDW 12.3 % (11.7-14.6); RDW-SD 40.1 fL; WBC 16.03 10^3/uL (4.4-10.8)
[2020-05-01 07:53] LABS: ALT 34 U/L (14-59); AST 35 U/L (15-37); Alkaline Phosphatase 41 U/L (46-116); BUN 7 mg/dL (7-18); CREATININE 0.52 mg/dL (0.55-1.02); Calcium 7.5 mg/dL (8.5-10.1); Chloride 105 mmol/L (98-107); Glucose 73 mg/dL (74-106); Lipase 438 U/L (73-393); Sodium 137 mmol/L (136-145); Total Protein 5.6 g/dL (6.4-8.2)
[2020-05-01 07:59] LABS: Potassium 2.9 mmol/L (3.5-5.1)
[2020-05-01] MEDS: POTASSIUM CHLORIDE 20 MEQ/100 ML BAG 50 MEQ IVPB (09:01)
[2020-05-01] MEDS: Ketorolac 30 MG/ML VIAL IVP (11:55)
[2020-05-01] MEDS: Enoxaparin 30 MG/0.3 ML SYR SC (11:56)
[2020-05-01] MEDS: Ondansetron 4 MG/2 ML VIAL IVP ×2 (11:56→19:26)
[2020-05-01] MEDS: POTASSIUM CHLORIDE 10 MEQ/100 ML BAG 100 MEQ IVPB ×2 (11:56→13:17)
[2020-05-01] MEDS: Lactated Ringers 1,000 ML 125 ML IV ×2 (12:00→21:41)
[2020-05-01 12:47] LABS: Albumin 2.2 g/dL (3.4-5.0)
[2020-05-01] MEDS: Docusate Sodium 100 MG CAP PO ×2 (13:14→19:26)
[2020-05-01] MEDS: Milk of Magnesia 30 ML CUP PO (13:15)
[2020-05-01] MEDS: Normal Saline Flush 10 ML SYR IVP (15:10)
[2020-05-01 15:35] VITALS: BP 116/62; PULSE 105; RESP 17; TEMP 37.1; O2SAT 96
--- NOTE | 2020-05-01 16:33 | PDOC.CMPRO ---
- If Service Date Differs Date of service: 05/01/20 Time of Service: 16:33 Care Management Progress Note S/O: Regulo was lying in bed when CM met with her. She reported that she continues to have pain, and her surgery has not yet been scheduled. She was not clear on her plan- whether or not she will have surgery during this admission or at a later date. Per report, she may have surgery later this week. She continues to be monitored with daily labs. CM will continue to follow. A: Regulo is a 39 year old woman admitted on 04/28/20 with gallstone pancreatitis P: Anticipate Regulo will return home when medically cleared. She will be driven home by family via private vehicle. She will follow up with her PCP and discharge plan of care. CM will continue to support Regulo and her family and assess for discharge planning needs.
[2020-05-01 19:57] VITALS: BP 127/77; PULSE 117; RESP 20; TEMP 36.7; O2SAT 100
[2020-05-01 23:14] VITALS: BP 117/72; PULSE 131; RESP 17; TEMP 37.3; O2SAT 98
[2020-05-02] MEDS: HYDROmorphone 2 MG/ML VIAL 1 MG IVP ×2 (00:50→04:58)
[2020-05-02] MEDS: PIPERACILLIN/TAZO 3.375 GM in Normal Saline 50 ML IVPB ×4 (04:50→21:23)
[2020-05-02] MEDS: Lactated Ringers 1,000 ML 125 ML IV (06:34)
[2020-05-02 08:17] VITALS: BP 126/74; PULSE 123; RESP 17; TEMP 36.1; O2SAT 98
--- NOTE | 2020-05-02 09:10 | PGE_ITS ---
Date of Service Date of service: 05/02/20 Time of Service: 09:00 Assessment and Plan Assessment and plan (1) Gallstone pancreatitis: Status: Acute Assessment and plan: Labs pending Discussed options of lap mendel during this admission or as an outpatient. The advantage to outpatient surgery is to allow inflammation to resolve. We agreed to try PO and transition to oral pain meds for possible discharge tomorrow. Subjective Subjective Interval history since last seen: She reports decreased pain. Did have a small bowel movement Small bilious emesis this am. Exam Narrative Exam Narrative: Alert, moving well No scleral icterus Decreased tenderness to palpation of abdomen Objective Objective Clinical Data: Abnormal lab results 05/01/20 Range/Units 06:05 Albumin 2.2 L (3.4-5.0) g/dL Vital Signs Temperature 97.0 F L 05/02/20 08:17 Temperature Source Temporal Artery Scan 05/02/20 08:17 Pulse 123 H 05/02/20 08:17 Pulse Rhythm Regular 05/02/20 01:23 Respiratory Rate 17 05/02/20 08:17 Respiratory Effort 05/02/20 01:23 Respiratory Depth Normal 05/02/20 01:23 Respiratory Pattern Normal 05/02/20 01:23 Blood Pressure 126/74 05/02/20 08:17 Blood Pressure Position Sitting 04/28/20 00:17 Pulse Oximetry 98 05/02/20 08:17 Oxygen Delivery Method Room Air 05/02/20 08:17 Oxygen Flow Rate 0 05/02/20 08:17 Pain Level 7 05/02/20 08:17 Comment 04/29/20 00:05 Intake & Output 05/01/20 05/01/20 05/02/20 11:59 23:59 11:59 Intake Total 1622.5 / 2822.5 1200 / 2822.5 1050 / 1050 Balance 1622.5 / 2822.5 1200 / 2822.5 1050 / 1050 Weight 196 lb 10.437 oz 199 lb 11.821 oz Intake: IV 1622.5 / 2822.5 1200 / 2822.5 1050 / 1050 Other: Voiding Methods Toilet Toilet Laboratory Results WBC 16.03 10^3/uL (4.4-10.8) H 05/01/20 06:05 RBC 3.80 10^6/uL (3.93-5.22) L 05/01/20 06:05 Hgb 11.4 g/dL (11.2-15.7) D 05/01/20 06:05 Hct 33.9 % (36.0-46.0) L 05/01/20 06:05 MCV 89.2 fL (80-95) 05/01/20 06:05 MCH 30.0 pg (27.0-33.0) 05/01/20 06:05 MCHC 33.6 % (32.0-36.0) 05/01/20 06:05 RDW 12.3 % (11.7-14.6) 05/01/20 06:05 Plt Count 347 10^3/uL (130-400) 05/01/20 06:05 MPV 9.4 fL (8.0-11.0) 05/01/20 06:05 Immature Gran % 0.0 04/30/20 06:20 Neutrophils % 87.0 04/30/20 06:20 Band Neutrophils % 6 04/30/20 06:20 Lymphocytes % 5.0 04/30/20 06:20 Monocytes % 2.0 04/30/20 06:20 Eosinophils % 0.0 04/30/20 06:20 Basophils % 0.2 04/30/20 06:20 Nucleated RBC % 0 % 04/30/20 06:20 Absolute Neutrophils 18.00 10^3/uL (1.2-6.7) H 04/30/20 06:20 Absolute Lymphocytes 0.97 10^3/uL (1.2-3.4) L 04/30/20 06:20 Absolute Monocytes 0.39 10^3/uL (0.1-0.8) 04/30/20 06:20 Absolute Eosinophils 0.00 10^3/uL (0.0-0.7) 04/30/20 06:20 Absolute Basophils 0.04 10^3/uL (0.0-0.2) 04/30/20 06:20 RBC Morphology Normal 04/30/20 06:20 Sodium 137 mmol/L (136-145) 05/01/20 06:05 Potassium 2.9 mmol/L (3.5-5.1) L* 05/01/20 06:05 Chloride 105 mmol/L (98-107) 05/01/20 06:05 Carbon Dioxide 22.0 mmol/L (21.0-32.0) 05/01/20 06:05 Anion Gap 10.0 mmol/L (3-11) 05/01/20 06:05 BUN 7 mg/dL (7-18) 05/01/20 06:05 Creatinine 0.52 mg/dL (0.55-1.02) L 05/01/20 06:05 Estimated GFR/1.73 m2 >= 60.00 (mL/min/1.73m2) 05/01/20 06:05 Glucose 73 mg/dL (74-106) L 05/01/20 06:05 Calcium 7.5 mg/dL (8.5-10.1) L 05/01/20 06:05 Magnesium 2.0 mg/dL (1.8-2.4) 04/28/20 00:42 Total Bilirubin 1.0 mg/dL (0.2-1.0) 05/01/20 06:05 Conjugated Bilirubin 0.66 mg/dL (0.00-0.20) H 04/28/20 00:42 AST 35 U/L (15-37) 05/01/20 06:05 ALT 34 U/L (14-59) 05/01/20 06:05 Alkaline Phosphatase 41 U/L (46-116) L 05/01/20 06:05 Total Protein 5.6 g/dL (6.4-8.2) L 05/01/20 06:05 Albumin 2.2 g/dL (3.4-5.0) L 05/01/20 06:05 Lipase 438 U/L (73-393) H 05/01/20 06:05 Urine Color Yellow (Yellow) 04/28/20 01:42 Urine Clarity Clear (Clear) 04/28/20 01:42 Urine pH 6.0 (5-8) 04/28/20 01:42 Ur Specific [place] 1.010 (1.005-1.025) 04/28/20 01:42 Urine Protein Negative mg/dL (Negative) 04/28/20 01:42 Urine Ketones Negative mg/dL (Negative) 04/28/20 01:42 Urine Blood Negative (Negative) 04/28/20 01:42 Urine Nitrite Negative (Negative) 04/28/20 01:42 Urine Bilirubin Negative (Negative) 04/28/20 01:42 Urine Urobilinogen 0.2 EU/dL (Up TO 0.2) 04/28/20 01:42 Ur Leukocyte Esterase Negative (Negative) 04/28/20 01:42 Urine Glucose Negative mg/dL (Negative) 04/28/20 01:42 Urine Opiates Screen Positive (Negative) A 04/28/20 01:42 Urine Methadone Screen Negative (Negative) 04/28/20 01:42 Ur Barbiturates Screen Negative (Negative) 04/28/20 01:42 Ur Tricyclics Screen Negative (Negative) 04/28/20 01:42 Ur Amphetamines Screen Negative (Negative) 04/28/20 01:42 U Benzodiazepines Scrn Negative (Negative) 04/28/20 01:42 Urine Cocaine Screen Negative (Negative) 04/28/20 01:42 Ur THC Screen Positive (Negative) A 04/28/20 01:42 Ethyl Alcohol < 3.0 mg/dL (<3) 04/28/20 00:28 COVID-19 PCR Negative (Negative) 04/28/20 03:02 Nasopharyn COVID-19 PCR Not Applicable 04/28/20 03:02 Ref Test [facility] 04/28/20 03:02
[2020-05-02] MEDS: HYDROcodone 5/Acetaminophen 325 TAB PO ×3 (09:42→20:18)
[2020-05-02] MEDS: Docusate Sodium 100 MG CAP PO ×2 (09:42→20:18)
[2020-05-02 09:46] LABS: HCT 31.2 % (36.0-46.0); HGB 10.5 g/dL (11.2-15.7); MCH 29.9 pg (27.0-33.0); MCHC 33.7 % (32.0-36.0); MCV 88.9 fL (80-95); MPV 8.7 fL (8.0-11.0); Platelet Count 412 10^3/uL (130-400); RBC 3.51 10^6/uL (3.93-5.22); RDW-SD 42.3 fL; WBC 19.25 10^3/uL (4.4-10.8)
[2020-05-02 10:04] LABS: ALT 27 U/L (14-59); AST 27 U/L (15-37); Alkaline Phosphatase 42 U/L (46-116); Anion Gap 14.9 mmol/L (3-11); BUN 5 mg/dL (7-18); Bilirubin, Total 0.7 mg/dL (0.2-1.0); CO2 19.1 mmol/L (21.0-32.0); CREATININE 0.51 mg/dL (0.55-1.02); Chloride 102 mmol/L (98-107); Glucose 81 mg/dL (74-106); Lipase 142 U/L (73-393); Sodium 136 mmol/L (136-145); Total Protein 5.9 g/dL (6.4-8.2)
--- NOTE | 2020-05-02 11:06 | W.NUTCONSULT ---
Date of service: 05/02/20 Time of Service: 11:06 Nutritional Consult ASSESSMENT: 39 year old female admitted on 04/28/20 with gallstone pancreatitis. Multiple days of n/v and low nutrient intake. With acute cholecystitis. Tolerating clear liquid diet today, to schedule lap mendel as outpatient due to inflammation. Lipase improving. Met with Regulo today to discuss low fat diet prior to lap mendel for symptom management. Provided written material and contact information if needs diet education. Diet to be advanced as tolerated. At risk for nutritional decline if unable to meet at least 50% nutrient needs by mouth. Estimated Needs: 0813-2815 kcal, 60-70 g protein, 1800 ml fluid. NUTRITIONAL DIAGNOSIS: gallstone pancreatitis, acute cholecystitis INTERVENTION: advance diet as tolerated ensure clear TID MONITORING AND EVALUATION: weight, po intake, labs Time Spent in Nutritional Counseling and Treatment: 20 min spent face to facer
--- NOTE | 2020-05-02 11:21 | PDOC.CMPRO ---
- If Service Date Differs Date of service: 05/02/20 Time of Service: 11:21 Care Management Progress Note S/O: Regulo was lying in bed when CM met with her. Her mother was visiting at her bedside. Regulo reported that she was feeling ok, and that she is planning on returning home tomorrow, per MD. She asked for assistance with her TV, which CM turned on. She also asked for coloring pages and pencils, which CM brought in to her. She reported that her surgery will be scheduled in about a month. CM will continue to follow. A: Regulo is a 39 year old woman admitted on 04/28/20 with gallstone pancreatitis P: Anticipate Regulo will return home when medically cleared. She will be driven home by family via private vehicle. She will follow up with her PCP and discharge plan of care. CM will continue to support Regulo and her family and assess for discharge planning needs.
[2020-05-02] MEDS: POTASSIUM CHLORIDE 20 MEQ/100 ML BAG 50 MEQ IVPB (11:25)
--- NOTE | 2020-05-02 11:47 | NUR.NOTE ---
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 Wheezing present, otherwise diminished. No crackles noted upon my re-assessment of the lungs.
[2020-05-02] MEDS: Omeprazole 20 MG CAPCR PO (14:15)
[2020-05-02 15:50] VITALS: BP 125/71; PULSE 100; RESP 18; TEMP 38; O2SAT 97
[2020-05-02] MEDS: Acetaminophen 325 MG TAB 650 MG PO (16:32)
[2020-05-02] MEDS: Normal Saline Flush 10 ML SYR IVP ×2 (16:33→21:24)
[2020-05-02 18:50] VITALS: BP 121/60; PULSE 104; RESP 18; TEMP 38.1; O2SAT 99
[2020-05-02] MEDS: Normal Saline 500 ML 30 ML IV (22:00)
[2020-05-03 03:05] VITALS: BP 134/80; PULSE 80; RESP 18; TEMP 37; O2SAT 96
[2020-05-03] MEDS: PIPERACILLIN/TAZO 3.375 GM in Normal Saline 50 ML IVPB ×2 (03:43→09:31)
[2020-05-03] MEDS: Normal Saline Flush 10 ML SYR IVP ×2 (03:43→10:28)
[2020-05-03] MEDS: HYDROcodone 5/Acetaminophen 325 TAB PO (03:53)
[2020-05-03 07:41] VITALS: BP 111/67; PULSE 98; RESP 18; TEMP 36.6; O2SAT 96
[2020-05-03] MEDS: Docusate Sodium 100 MG CAP PO (08:03)
--- NOTE | 2020-05-03 09:25 | W.PM.DS.N ---
Date of service: 05/03/20 Time of Service: 09:26 DS: Diagnosis Discharge Diagnosis (1) Gallstone pancreatitis: Status: Acute Discharge Plan Disposition Patient Disposition: HOME Condition: Stable Discharge Details Chief Complaint: Abd Prob Clinical Impression: Acute cholecystitis, Acute pancreatitis Reason For Visit: PANCREATITIS, ACUTE CHOLECYSTITIS Admit Date/Time: 04/28/20 02:32 Admit Provider: Symone Alejo Attending Provider: Symone Alejo Primary Care Provider: Maciel Buck ED Provider: Martínez Morales Hospital Course Hospital Course: The patient was admitted with gallstone pancreatitis. Her symptoms and lipase slowly improved over her hospital course. She was able to tolerate PO on the day of discharge and had good pain control with Vicodin. She had an elevated WBC that was felt to be inflammatory in nature but was place on antibiotics as a precaution. Will follow up in the general surgery office next week to plan for outpatient lap mendel. Home Meds and New Rx's Prescriptions: New hydrocodone-acetaminophen 5-325 mg Tablet 1 - 2 tab PO Q4H PRN PRNQty: 30 RF: 0 omeprazole magnesium 20 mg tablet,delayed release (DR/EC) 20 mg PO DAILY Qty: 30 RF: 0 amoxicillin-pot clavulanate [Augmentin] 875-125 mg tablet 1 tab PO BID Qty: 14 RF: 0 Continued ibuprofen 200 mg tablet 400 mg PO BID PRNRF: 0 Mirena 1 EACH intrauterine device 1 ea Intrauterine ONCE Qty: 1 RF: 0 cromolyn 4 % drops 1 drp OP 6XD PRNRF: 0 albuterol sulfate [Proventil HFA] 90 mcg/actuation HFA aerosol inhaler 2 puff IH 6XD RF: 0 diphenhydramine HCl [Benadryl] 25 mg Capsule 25 mg PO QHS PRNRF: 0 Discharge Instructions Additional Instructions: Eat a low fat diet and foods rich in potassium Make sure to walk several times a day Call for worsening pain, fever, vomiting or jaundice Referrals: Symone Alejo MD [ [facility] STAFF PHYSICIAN] - (Return this coming am) Activity:: Activity as Tolerated Equipment/Supplies:: No Equipment Needed Diet:: Low fat Discharge Orders Discharge Orders: Discharge Order (Routine); Ordered 05/03/20 Ordered By: Symone Alejo DS: Summary Status at Discharge Functional status at discharge: independent ambulation Overall status at discharge: patient is progressing back to baseline Mental Status: mental status grossly normal Speech and Movement: speech and movement normal Mood: congruent mood Affect: normal affect Exam Psych Mental Status: mental status grossly normal Speech and Movement: speech and movement normal Mood: congruent mood Affect: normal affect DS: Data Vitals/I&O Vitals and I&O: Vital Signs Temperature 97.9 F 05/03/20 07:41 Temperature Source Temporal Artery Scan 05/03/20 07:41 Pulse 98 H 05/03/20 07:41 Pulse Rhythm Regular 05/03/20 02:08 Respiratory Rate 18 05/03/20 07:41 Respiratory Effort Short of Breath 05/03/20 02:08 Respiratory Depth Deep 05/03/20 02:08 Respiratory Pattern Normal 05/03/20 02:08 Blood Pressure 111/67 05/03/20 07:41 Blood Pressure Position Sitting 04/28/20 00:17 Pulse Oximetry 96 05/03/20 07:41 Oxygen Delivery Method Room Air 05/03/20 07:41 Oxygen Flow Rate 0 05/03/20 07:41 Pain Level 0 05/03/20 07:45 Comment 05/03/20 07:45 Intake & Output 05/02/20 05/02/20 05/03/20 11:59 23:59 11:59 Intake Total 1100 / 2287.917 1187.917 / 2287.917 100 / 100 Balance 1100 / 2287.917 1187.917 / 2287.917 100 / 100 Weight 199 lb 11.821 oz 198 lb 3.129 oz Intake: IV 1100 / 2257.917 1157.917 / 2257.917 100 / 100 Oral 30 / 30 Other: Urine Color Yellow Yellow Yellow Urine Appearance Clear Clear Clear Urine Odor None Normal Normal Voiding Methods Toilet Toilet Toilet Data Completed and Pending Labs on day of discharge: Labs from last 24 hours 05/02/20 05/02/20 09:15 09:15 WBC 19.25 H RBC 3.51 L Hgb 10.5 L Hct 31.2 L MCV 88.9 MCH 29.9 MCHC 33.7 RDW 13.0 Plt Count 412 H MPV 8.7 Sodium 136 Potassium 3.0 L Chloride 102 Carbon Dioxide 19.1 L Anion Gap 14.9 H BUN 5 L Creatinine 0.51 L Estimated GFR/1.73 m2 >= 60.00 Glucose 81 Calcium 8.0 L Total Bilirubin 0.7 AST 27 ALT 27 Alkaline Phosphatase 42 L Total Protein 5.9 L Albumin 2.0 L Lipase 142 PFSH Medical History Asthma (Chronic) Gall stone (Acute) Hx of abnormal cervical Pap smear (Acute) Multiple sclerosis (Inactive) Surgical History No significant past surgical history (Acute) Family History Father Hyperlipidemia Social History Smoking/Tobacco Use Status: Current-Occasional Alcohol Intake: current Alcohol Intake frequency: holidays/special occasions only Drug use: Never Substance use type: does not use Household members: significant other and children Number of Children: 1 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
--- NOTE | 2020-05-03 14:20 | PDOC.CMDIS ---
- If Service Date Differs Date of service: 05/03/20 Time of Service: 14:20 LACE Index Scoring Tool - Questions: Length of Stay (in days): 4 - 6 Acuity (Admit via E.D.?): Yes E.D. Visits: 2 - Answers: Total Score: 9 Risk of Readmission: Low Risk Care Management Discharge Reason for Hospitalization: Pancreatitis, acute cholecystitis Discharge Plan: Regulo will return home with no additional services at this time. Her mother will drive her home via private vehicle. She will follow up with her PCP and discharge plan of care. She is happy to be going home, and reports that her surgery will be scheduled in approximately a month. CM will continue to follow. Patient/Family Education Needs: Review discharge instructions regarding activity levels and recommended diet prior to surgery, discussion of self care needs including ask me three.
== END 2020-05-03 11:29 | disposition home or self-care (01) | DRG 439 ==
LOC: ER 02:56 → MS 03:34
PROVIDERS: Admitting Provider Surgery; Emergency Provider Student in an Organized Health Care Education/Training Program; PCP Family Medicine; Visit Provider Surgery
DX: K85.10 Biliary acute pancreatitis without necrosis or infection (principal); K81.0 Acute cholecystitis; G35 Multiple sclerosis; J45.909 Unspecified asthma, uncomplicated
CPT/HCPCS: 36415; 80053; 80307; 81025; 83690; 85027; 96361; 96374; 96375; 96376; 99222; 99231; 99232; 99238; 99285; U0003; 74177; 80320; 81003; 82248; 83735; 85025; J0131; J1650; J1885; J2270; J2405; J2543; J3480; J3490

== ENCOUNTER 2020-05-09 13:22 | Outpatient (CLI) | payer MEDICAID, SELFPAY ==
[2020-05-09] MEDS: Omnipaque 350 MG/ML 50 ML BTL IJ (12:19)
[2020-05-09] MEDS: Breeza Beverage 473 ML BTL PO (12:20)
--- NOTE | 2020-05-09 13:30 | DI.CT_ITS ---
EXAM: CT ABDOMEN PELVIS W CLINICAL HISTORY: Epigastric pain, biliary acute pancreatitis wo necrosis/infection, K85.10 TECHNIQUE: Imaging Protocol: Axial computed tomography images with coronal and sagittal reformatted images were created and reviewed CONTRAST MATERIAL: Intravenous: Omnipaque 350 Contrast volume:100 mL Oral: Yes COMPARISON: CT CT ABDOMEN PELVIS W from 04/28/2020 FINDINGS: ABDOMEN: Lung Bases: Normal where visualized. Liver: Normal density. No measurable mass. Portal, Superior Mesenteric, and Splenic Veins: Unremarkable. There is narrowing of the left portal v ein. Gallbladder and Biliary Tract: Cholelithiasis. No biliary ductal dilatation. Pancreas: Since the prior examination there has been progression of the inflammatory changes around t he pancreas. Peripancreatic and retroperitoneal fluid collections have developed. Collections appea r to communicate and are located in the peripancreatic region extending anterior to both the right an d left iliopsoas muscles. The largest collection is seen along the right iliopsoas muscle and measur es 7.2 cm transverse by 4 cm AP x 14 cm in length. The collection along the left psoas measures 5.7 cm transverse by 2 cm AP x 12.4 cm craniocaudad. There is a small amount of free pelvic fluid. Panc reas appears homogeneous. Spleen: Normal. Adrenals: No masses seen. Kidneys: Normal size, contour and axis. No radiodense stones or obstructive uropathy. No masses seen. Abdominal Aorta: Abdominal portion non-dilated. Bowel: No obstruction or bowel wall thickening. No evidence of appendicitis. Mild wall thickening in the distal stomach and proximal duodenum likely secondary to the adjacent pancreatitis. Peritoneal Cavity: Small amount of free pelvic fluid. Lymph Nodes: Within normal limits. Bones: Unremarkable. Soft Tissues: Unremarkable. PELVIS: Bladder: Symmetric distention, no gross wall thickening. Reproductive Organs: An IUD is in good position. Lymph Nodes: Within normal limits. Bones: Within normal limits. IMPRESSION: 1. Interval progression of the patient's acute pancreatitis with development of peripancreatic and re troperitoneal fluid collections which may represent pseudocysts and or abscesses. The largest collect ions are located anterior to the iliopsoas muscles bilaterally. 2. Cholelithiasis. 3. Small pelvic ascites. 4. Gastritis and duodenitis likely secondary to the adjacent acute pancreatitis. 5. Findings were discussed with Dr. Alejo on the date of the examination. RADIATION DOSE DELIVERED: Total DLP DATA REPOSITORY: All CT scans at this facility are submitted to the National Radiology Data Registry (NRDR) Dose Index Registry (DIR) with the [employer] (ACR). RADIATION OPTIMIZATION: All CT scans at this facility use at least one of these dose optimization te chniques: automated exposure control; mA and/or kV adjustment per patient size (includes targeted exa ms where dose is matched to clinical indication); or iterative reconstruction.
[2020-05-09] MEDS: Omnipaque 350 MG/ML 100 ML BTL IJ (13:36)
[2020-05-09] MEDS: Normal Saline - Diluent 50 ML VIAL IV (13:37)
[2020-05-09] MEDS: Normal Saline Flush 10 ML SYR IVP (13:37)
== END 2020-05-09 13:42 ==
PROVIDERS: PCP Family Medicine; Visit Provider Surgery
DX: K85.90 Acute pancreatitis without necrosis or infection, unspecified (principal); K80.20 Calculus of gallbladder without cholecystitis without obstruction; K29.70 Gastritis, unspecified, without bleeding; R18.8 Other ascites
CPT/HCPCS: 74177; J3490; Q9967

== ENCOUNTER 2020-05-09 17:12 | Outpatient (REF) | payer MEDICAID, SELFPAY ==
[2020-05-09 12:27] LABS: Abs Immature Grans 0.37 10^3/uL (0.0-0.06); Absolute Eosinophil Count 0.01 10^3/uL (0.0-0.7); Absolute Lymphocyte Count 1.12 10^3/uL (1.2-3.4); Absolute Monocyte Count 0.79 10^3/uL (0.1-0.8); Absolute Neutrophil Count 10.04 10^3/uL (1.2-6.7); Basophils % 0.2; Eosinophils % 0.1; HCT 34.4 % (36.0-46.0); HGB 11.4 g/dL (11.2-15.7); Lymphocytes % 9.1; MCH 29.5 pg (27.0-33.0); MCHC 33.1 % (32.0-36.0); MCV 88.9 fL (80-95); Monocytes % 6.4; Neutrophils % 81.2; Nucleated RBC 0 %; RBC 3.87 10^6/uL (3.93-5.22); RDW 13.5 % (11.7-14.6); RDW-SD 44.2 fL; WBC 12.36 10^3/uL (4.4-10.8)
[2020-05-09 12:38] LABS: ALT 28 U/L (14-59); AST 29 U/L (15-37); Albumin 2.6 g/dL (3.4-5.0); Alkaline Phosphatase 53 U/L (46-116); Anion Gap 13.3 mmol/L (3-11); BUN 6 mg/dL (7-18); Bilirubin, Total 0.4 mg/dL (0.2-1.0); CO2 27.7 mmol/L (21.0-32.0); CREATININE 0.48 mg/dL (0.55-1.02); Calcium 8.8 mg/dL (8.5-10.1); Chloride 98 mmol/L (98-107); Glucose 87 mg/dL (74-106); Potassium 3.1 mmol/L (3.5-5.1); Sodium 139 mmol/L (136-145); Total Protein 6.8 g/dL (6.4-8.2)
[2020-05-09 12:53] LABS: Absolute Basophil Count 0.02 10^3/uL (0.0-0.2)
[2020-05-09 12:57] LABS: Platelet Count 975 10^3/uL (130-400)
[2020-05-09 12:58] LABS: Diff Comment Diff Reviewed; Polychromasia Present
== END 2020-05-09 17:32 ==
LOC: LBN 17:12
PROVIDERS: PCP Family Medicine; Visit Provider Surgery
DX: K85.10 Biliary acute pancreatitis without necrosis or infection (principal)
CPT/HCPCS: 80053; 85025

== ENCOUNTER 2020-06-07 04:50 | Outpatient (CLI) | payer MEDICAID, SELFPAY ==
--- NOTE | 2020-06-07 08:30 | DI.CT_ITS ---
EXAM: CT ABDOMEN PELVIS W CLINICAL HISTORY: Pancreatitis,GALLSTONE,K85.10. TECHNIQUE: Imaging Protocol: Axial computed tomography images with coronal and sagittal reformatted images were created and reviewed CONTRAST MATERIAL: Intravenous: Omnipaque 350 Contrast volume:97 ml Oral: yes / COMPARISON: CT CT ABDOMEN PELVIS W from 05/09/2020 FINDINGS: ABDOMEN: Lung Bases: Normal where visualized. Heart size normal. Liver: Normal density. No measurable mass. Gallbladder and biliary tract: The gallbladder appears distended. The wall is mildly thickened. Sto libby are visible. No biliary dilatation. Pancreas: There has been significant interval improvement in the amount of inflammation surrounding t he. Fluid collection remains present around the falciform ligament extending it anteriorly in the fa t. There is also loculated fluid seen between the stomach and pancreas. Loculated fluid is again no michelle inferior to the right kidney. The amount of edema surrounding the duodenum has also decreased. Fluid is no longer seen in the pelvis or around the right colon. There is a minimal amount of fluid in the left paracolic gutter with significant improvement when compared with the previous exam. Spleen: Normal. Kidneys: Normal size, contour and axis. No radiodense stones or obstructive uropathy. No masses seen. Adrenal glands: No masses seen. Abdominal Aorta: Abdominal portion non-dilated. PELVIS: Bladder: Symmetric distention, no gross wall thickening. Bowel: No obstruction or bowel wall thickening. . Bones: Within normal limits. Reproductive organs: Within normal limits. IUD Lymph nodes: Unremarkable. Impression: Interval improvement in the amount of inflammation around the pancreas. Improvement in mesenteric inf lammation and fluid collections. No new abnormalities. RADIATION DOSE DELIVERED: 813.99mGy.cm Total DLP DATA REPOSITORY: All CT scans at this facility are submitted to the National Radiology Data Registry (NRDR) Dose Index Registry (DIR) with the [employer] (ACR). RADIATION OPTIMIZATION: All CT scans at this facility use at least one of these dose optimization te chniques: automated exposure control; mA and/or kV adjustment per patient size (includes targeted exa ms where dose is matched to clinical indication); or iterative reconstruction.
[2020-06-07] MEDS: Breeza Beverage 473 ML BTL PO ×2 (12:38→12:39)
[2020-06-07] MEDS: Omnipaque 350 MG/ML 50 ML BTL PO (12:39)
[2020-06-07] MEDS: Omnipaque 350 MG/ML 100 ML BTL 97 ML IJ (14:20)
== END 2020-06-07 05:10 ==
PROVIDERS: PCP Family Medicine; Visit Provider Surgery
DX: K85.10 Biliary acute pancreatitis without necrosis or infection (principal)
CPT/HCPCS: 74177; J3490; Q9967

== ENCOUNTER 2020-07-06 05:55 | Inpatient (IN) | payer MEDICAID, SELFPAY ==
--- NOTE | 2020-07-06 | DI.CT_ITS ---
EXAM: CT ABDOMEN PELVIS W CLINICAL HISTORY: pancreatitis- gallstone TECHNIQUE: Imaging Protocol: Axial computed tomography images with coronal and sagittal reformatted images were created and reviewed CONTRAST MATERIAL: Intravenous: Omnipaque 350 Contrast volume:structured data in ml Oral: yes / no COMPARISON: CT CT ABDOMEN PELVIS W from 05/09/[address] ABDOMEN PELVIS W from 06/07/2020 FINDINGS: ABDOMEN: Lung Bases: Normal where visualized. Liver: Normal density. No measurable mass. Portal, Superior Mesenteric, and Splenic Veins: Unremarkable. Gallbladder and Biliary Tract: Gallstones are present. There is dilatation of the common duct up to 1.2 cm. This has increased compared to the prior examination. There is pericholecystic fluid. Pancreas: There again seen areas of decreased attenuation in the pancreas particularly the pancreatic head. The findings are suggestive of acute pancreatitis. Spleen: Normal. Adrenals: No masses seen. Kidneys: Normal size, contour and axis. No radiodense stones or obstructive uropathy. No masses seen. Abdominal Aorta: Abdominal portion non-dilated. Bowel: No obstruction or bowel wall thickening. No evidence of acute appendicitis. Moderate amount o f retained stool. Peritoneal Cavity: Fluid collection seen around the false form ligament has decreased in size. It cu rrently measures 2.1 cm in maximum diameter compared with 1.6 cm on the prior examination. The fluid collection seen inferior to the right kidney has decreased in size. It currently measures 4.4 x 1.6 cm compared with 5 x 2.4 cm. The fluid collection between the stomach and the pancreas is grossly u nchanged in size. Lymph Nodes: Within normal limits. Bones: Mild degenerative changes. Soft Tissues: Unremarkable. PELVIS: Bladder: Symmetric distention, no gross wall thickening. Reproductive Organs: An IUD is in place. Lymph Nodes: Within normal limits. Bones: Mild degenerative changes. IMPRESSION: 1. Interval decrease in size of the fluid collections seen adjacent to the false form ligament and in ferior to the right kidney. 2. Stable fluid collection between the stomach and the pancreas. 3. Areas of decreased attenuation in the pancreas suggesting acute pancreatitis. Please correlate cl inically. 4. Development of the common bile duct up to 1.2 cm. 5. Gallstones and pericholecystic fluid. RADIATION DOSE DELIVERED: 731.37mGy.cm Total DLP DATA REPOSITORY: All CT scans at this facility are submitted to the National Radiology Data Registry (NRDR) Dose Index Registry (DIR) with the [employer] (ACR). RADIATION OPTIMIZATION: All CT scans at this facility use at least one of these dose optimization te chniques: automated exposure control; mA and/or kV adjustment per patient size (includes targeted exa ms where dose is matched to clinical indication); or iterative reconstruction.
[2020-07-06 05:57] VITALS: BP 122/107; PULSE 90; RESP 14; TEMP 36.1; O2SAT 98
--- NOTE | 2020-07-06 06:00 | DI.US_ITS ---
EXAM: US ABDOMEN LIMITED CLINICAL HISTORY: eval GB and RUQ TECHNIQUE: Ultrasound abdomen performed using standard protocol. COMPARISON: No exams were available for comparison FINDINGS: ABDOMINAL AORTA AND IVC: Visualized portions normal caliber. PANCREAS: Normal where visualized. LIVER: There is diffuse increased echogenicity consistent with fatty infiltration. Hepatopedal flow in the Portal Vein. The liver measures 15.8 cm in length. GALLBLADDER: Multiple stones present. Gallbladder wall measures 3.6 mm. No pericholecystic fluid id entified. There is a question of a stone in the cystic duct. BILIARY SYSTEM: Common bile duct measures < 7 mm. No intrahepatic biliary ductal dilation. ELISE'S SIGN: Negative. Right kidney: No evidence of renal calculi. No evidence of hydronephrosis. No renal mass or cyst iden tified. ASCITES: None seen. IMPRESSION: 1. Cholelithiasis with gallbladder wall thickening. No biliary ductal dilatation. Question of a sto ne in the cystic duct. Acute cholecystitis should be considered. 2. Hepatic steatosis. DATA REPOSITORY:
--- NOTE | 2020-07-06 06:11 | ED.GENADUL_ITS ---
Discharge Plan Disposition Patient Disposition: [facility] INPATIENT Condition: Stable Discharge Details Clinical Impression: Gallstone pancreatitis, Right upper quadrant abdominal pain Primary Care Provider: Maciel Buck ED Provider: Jt Chand Home Meds and New Rx's Prescriptions: No Action ibuprofen 200 mg tablet 400 mg PO BID PRNRF: 0 calcium carbonate [Tums] 200 mg calcium (500 mg) tablet,chewable 200 mg PO TID RF: 0 docusate sodium [Colace] 100 mg capsule 100 mg PO DAILY RF: 0 famotidine [Pepcid] 20 mg tablet 20 mg PO BID Qty: 60 RF: 1 Mirena 1 EACH intrauterine device 1 ea Intrauterine ONCE Qty: 1 RF: 0 cromolyn 4 % drops 1 drp OP 6XD PRNRF: 0 albuterol sulfate [Proventil HFA] 90 mcg/actuation HFA aerosol inhaler 2 puff IH 6XD RF: 0 hydrocodone-acetaminophen 5-325 mg tablet 1 tab PO Q6H MDD 4 PRN (Reason: pain) Qty: 20 RF: 0 omeprazole magnesium 20 mg tablet,delayed release (DR/EC) 20 mg PO DAILY Qty: 30 RF: 0 diphenhydramine HCl [Benadryl] 25 mg Capsule 25 mg PO QHS PRNRF: 0 Medical Decision Making <Martínez Morales DO - Last Filed: 07/06/20 07:14> 40-year-old female with a past medical history of MS, and chronic recurrent gallbladder pain presents today for evaluation of right upper quadrant pain. Patient states that she is currently being managed by Dr. Plasencia on an outpatient basis with a plan for surgery in the next week or so after she receives her most recent MS treatment. Patient states tonight at around midnight she had notable sudden right upper quadrant pain which she describes as identical to her previous episodes of gallbladder pain. She has had 4 episodes of vomiting. She is uncertain of what she could have eaten that made this pain come on. She states that she has been sticking closely to a diet of nonfatty foods. Aside from this she denies any other complaints. She denies any right lower quadrant tenderness, hematemesis, vaginal discharge, diarrhea, or other abnormality. She did take 1 home Umpire, this did not change her symptoms. No other complaints at this time. No other modifying factors. Exam demonstrates notable right upper quadrant tenderness, symptoms concerning for gallstone pain, versus acute cholecystitis. Ultrasonography is available in an hour, with the patient's multiple CAT scans I feel it would be prudent to limit additional radiation exposure if at all possible. We will get ultrasound, treat the patient's pain, rehydrate, monitor closely and reassess. 7:10 AM Laboratory work-up has returned, white count is 6, no left shift. Electrolytes normal, bilirubin is elevated at 3.3, we will add a conjugated bilirubin. AST and ALT are 369 and 576 respectively, lipase is 10,900. We are still awaiting ultrasound. I did briefly discussed the case with Dr. Ch, she does anticipate that if this is a gallstone obstruction that the patient will need ERCP at [facility] and will need transfer. She would like to wait for the ultrasound results first. With a normal white count, and no fever, ascending cholangitis and cholecystitis is less likely, and choledocholithiasis more likely in conjunction with potential distal CBD gallstone pancreatitis. Patient remained stable, pain is improved with morphine and fluids. Case will be signed out to my colleague Dr. Jt Chand for reevaluation and disposition after ultrasonography. <Jt Chand MD - Last Filed: 07/06/20 10:38> Medical Records Medical records narrative: 40-year-old female signed out to me by Dr. Morales. Please see his note regarding details of the initial presentation, exam, plan of care. She is known to our general surgery department for gallstones, now with no fever, white count of 6, total bili of 3.3, AST 369, ALT 576, lipase 10,894. USN: Gallstones, GBwall 5mm, neg murphys sign, no pericholecystic fluid. CBD 5mm, question stone at cystic duct. Patient improved with fluids and parenteral medications. Currently regional transfer centers [facility] [facility] (at capacity) and [facility] (emergent life-threatening cases only) are not excepting urgent transfers. Case discussed with Dr. Sahu. Patient will be admitted. Lab Data Lab results reviewed: Yes I reviewed the patient's lab results. Labs: Laboratory Results - last 24 hr 07/06/20 07/06/20 07/06/20 06:08 06:08 06:08 WBC 6.13 RBC 4.62 Hgb 13.0 Hct 40.6 MCV 87.9 MCH 28.1 MCHC 32.0 RDW 13.9 Plt Count 314 MPV 9.3 Immature Gran % 0.2 Neutrophils % 89.2 Lymphocytes % 8.0 Monocytes % 2.4 Eosinophils % 0.0 Basophils % 0.2 Nucleated RBC % 0 Absolute Neutrophils 5.47 Absolute Lymphocytes 0.49 L Absolute Monocytes 0.15 Absolute Eosinophils 0.00 Absolute Basophils 0.01 Sodium 137 Potassium 3.5 Chloride 100 Carbon Dioxide 28.5 Anion Gap 8.5 BUN 10 Creatinine 0.73 Estimated GFR/1.73 m2 >= 60.00 Glucose 148 H Calcium 9.6 Total Bilirubin 3.3 H Conjugated Bilirubin AST 369 H ALT 576 H Alkaline Phosphatase 104 Total Protein 7.9 Albumin 4.1 Lipase 19809 H 07/06/20 06:08 WBC RBC Hgb Hct MCV MCH MCHC RDW Plt Count MPV Immature Gran % Neutrophils % Lymphocytes % Monocytes % Eosinophils % Basophils % Nucleated RBC % Absolute Neutrophils Absolute Lymphocytes Absolute Monocytes Absolute Eosinophils Absolute Basophils Sodium Potassium Chloride Carbon Dioxide Anion Gap BUN Creatinine Estimated GFR/1.73 m2 Glucose Calcium Total Bilirubin Conjugated Bilirubin 2.44 H AST ALT Alkaline Phosphatase Total Protein Albumin Lipase HPI <Martínez Morales DO - Last Filed: 07/06/20 07:14> General Date/Time Provider Initiated Documentation: 07/06/20 06:05 . HPI Narrative: 40-year-old female with a past medical history of MS, and chronic recurrent gallbladder pain presents today for evaluation of right upper quadrant pain. Patient states that she is currently being managed by Dr. Plasencia on an outpatient basis with a plan for surgery in the next week or so after she receives her most recent MS treatment. Patient states tonight at around midnight she had notable sudden right upper quadrant pain which she describes as identical to her previous episodes of gallbladder pain. She has had 4 episodes of vomiting. She is uncertain of what she could have eaten that made this pain come on. She states that she has been sticking closely to a diet of nonfatty foods. Aside from this she denies any other complaints. She denies any right lower quadrant tenderness, hematemesis, vaginal discharge, diarrhea, or other abnormality. She did take 1 home Umpire, this did not change her symptoms. No other complaints at this time. No other modifying factors. Related Data Home Medications Medication Instructions Recorded Confirmed Mirena 1 ea INTRAUTERINE ONCE #1 implant 04/11/15 07/06/20 diphenhydramine HCl [Benadryl] 25 mg PO QHS PRN 01/10/19 07/06/20 albuterol sulfate 90 mcg/actuation 2 puff IH 6XD 05/25/19 07/06/20 aerosol inhaler cromolyn 4 % eye drops 1 drp OP 6XD PRN 05/25/19 07/06/20 ibuprofen 200 mg tablet 400 mg PO BID PRN tab 06/01/19 07/06/20 omeprazole magnesium 20 mg PO DAILY #30 tab 05/03/20 07/06/20 calcium carbonate 200 mg calcium 200 mg PO TID 05/09/20 07/06/20 (500 mg) chewable tablet docusate sodium 100 mg capsule 100 mg PO DAILY 05/09/20 07/06/20 famotidine 20 mg tablet 20 mg PO BID #60 tab 05/09/20 07/06/20 hydrocodone 5 mg-acetaminophen 325 1 tab PO Q6H PRN #20 tab MDD 4 07/01/20 07/06/20 mg tablet Previous Rx's Medication Instructions Recorded omeprazole magnesium 20 mg PO DAILY #30 tab 05/03/20 famotidine 20 mg tablet 20 mg PO BID #60 tab 05/09/20 hydrocodone 5 mg-acetaminophen 325 1 tab PO Q6H PRN #20 tab MDD 4 07/01/20 mg tablet Allergies Allergy/AdvReac Type Severity Reaction Status Date / Time Sulfa (Sulfonamide AdvReac Severe vomiting Unverified 07/06/20 06:04 Antibiotics) and weakness General Stated Complaint: Abd Prob KATHY: 3 Review of Systems <Martínez Morales DO - Last Filed: 07/06/20 07:14> All systems reviewed & are unremarkable except as noted in HPI and below PFSH <Martínez Morales DO - Last Filed: 07/06/20 07:14> Medical History (Updated 07/06/20 @ 07:14 by Martínez Morales DO) Asthma Gall stone Hx of abnormal cervical Pap smear Multiple sclerosis Surgical History No significant past surgical history Family History Father Hyperlipidemia Social History Smoking/Tobacco Use Status: Current-Occasional Smoking risk assessment performed?: Yes Alcohol Intake: current Alcohol Intake frequency: holidays/special occasions only Drug use: Occasionally Substance use type: marijuana Household members: significant other and children Number of Children: 1 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 Exam <Martínez Morales DO - Last Filed: 07/06/20 07:14> Narrative Exam Narrative: 1.Const: Well-nourished, Well-developed, appearing stated age 2.Eyes: PERRL, no conjunctival injection, and symmetrical lids. 3.ENT: Atraumatic external nose and ears. Moist MM. Neck: Symmetric, trachea midline, No thyromegaly. 4.CVS: +S1/S2, No murmurs or gallops. Peripheral pulses 2+ and equal in all extremities. Brisk capillary refill in all extremities. 5.RESP: Unlabored respiratory effort. Clear to auscultation bilaterally. No wheezes rales or rhonchi 6.GI: Soft, notable right upper quadrant tenderness, positive Moon sign. No pain to McBurney's point. No left-sided tenderness. 7.MSK: Normocephalic/Atraumatic, Extremities w/o deformity or ttp No cyanosis or clubbing, Normal movement of all extremities 8.Skin: Warm, Dry. No rashes or lesions. 9.Neuro: bottom cementer II-XII grossly intact. Sensation grossly intact, no focal neurologic deficits. 10.Psych: (AAO) x3. Appropriate mood and affect Course <Martínez Morales DO - Last Filed: 07/06/20 07:14> Vital Signs Vital signs: Vital Signs Temperature 36.1 C L 07/06/20 05:57 Pulse 90 07/06/20 05:57 Respiratory Rate 14 07/06/20 05:57 Blood Pressure 122/107 H 07/06/20 05:57 Pulse Oximetry 98 07/06/20 05:57 Temperature 36.1 C L 07/06/20 05:57 Temperature Source Skin 07/06/20 05:57 Pulse 90 07/06/20 05:57 Respiratory Rate 14 07/06/20 05:57 Respiratory Effort Non-Labored 07/06/20 06:03 Blood Pressure 122/107 H 07/06/20 05:57 Blood Pressure Position Sitting 07/06/20 05:57 Pulse Oximetry 98 07/06/20 05:57 Oxygen Delivery Method Room Air 07/06/20 05:57 Oxygen Flow Rate 0 07/06/20 05:57 Pain Level 9 07/06/20 05:57 Sign Out <Martínez Morales DO - Last Filed: 07/06/20 07:14> Sign Out Data: Sign Out Comment: Pending ultrasound and contact with Dr. Ch. Last updated by Martínez Morales DO at 07/06/20 08:07
[2020-07-06] MEDS: Normal Saline 1,000 ML 1000 ML IV (06:16)
[2020-07-06] MEDS: Ketorolac 30 MG/ML VIAL IVP (06:17)
[2020-07-06 06:32] LABS: Abs Immature Grans 0.01 10^3/uL (0.0-0.06); Absolute Basophil Count 0.01 10^3/uL (0.0-0.2); Absolute Lymphocyte Count 0.49 10^3/uL (1.2-3.4); Absolute Monocyte Count 0.15 10^3/uL (0.1-0.8); Absolute Neutrophil Count 5.47 10^3/uL (1.2-6.7); Basophils % 0.2; HCT 40.6 % (36.0-46.0); Immature Grans % 0.2; MCH 28.1 pg (27.0-33.0); MCV 87.9 fL (80-95); MPV 9.3 fL (8.0-11.0); Monocytes % 2.4; Neutrophils % 89.2; Nucleated RBC 0 %; Platelet Count 314 10^3/uL (130-400); RBC 4.62 10^6/uL (3.93-5.22); RDW 13.9 % (11.7-14.6); RDW-SD 44.6 fL; WBC 6.13 10^3/uL (4.4-10.8)
[2020-07-06 06:33] LABS: ALT 576 U/L (14-59); AST 369 U/L (15-37); Albumin 4.1 g/dL (3.4-5.0); Alkaline Phosphatase 104 U/L (46-116); Anion Gap 8.5 mmol/L (3-11); BUN 10 mg/dL (7-18); Bilirubin, Total 3.3 mg/dL (0.2-1.0); CO2 28.5 mmol/L (21.0-32.0); CREATININE 0.73 mg/dL (0.55-1.02); Calcium 9.6 mg/dL (8.5-10.1); Chloride 100 mmol/L (98-107); Glucose 148 mg/dL (74-106); Potassium 3.5 mmol/L (3.5-5.1); Sodium 137 mmol/L (136-145); Total Protein 7.9 g/dL (6.4-8.2)
[2020-07-06 06:56] LABS: Lipase 10894 U/L (73-393)
[2020-07-06 07:29] LABS: Bilirubin, Direct 2.44 mg/dL (0.00-0.20)
--- NOTE | 2020-07-06 08:29 | NUR.NOTE ---
assumed care of pt. pt awake and alert. states pain back up to a 9/10. will cont to monitor. :
[2020-07-06] MEDS: Normal Saline 250 ML IV (08:49)
[2020-07-06] MEDS: HYDROmorphone 2 MG/ML VIAL 1 MG IVP (08:49)
[2020-07-06 08:54] VITALS: BP 123/74; PULSE 62; RESP 17; TEMP 36.7; O2SAT 100
[2020-07-06 10:29] VITALS: BP 115/66; PULSE 85; RESP 18; TEMP 36.5; O2SAT 95
[2020-07-06 10:33] LABS: Bilirubin Moderate (Negative); Blood Negative (Negative); Glucose Negative (Negative); Ketones Trace mg/dL (Negative); Leukocyte Esterase Small (Negative); Nitrite Negative (Negative)
[2020-07-06 10:41] LABS: Bacteria Many HPF (Negative); Clarity Sl Cloudy (Clear); Epithelial Cells Many HPF (Negative); WBC 20-50 HPF (0-5)
[2020-07-06 10:42] LABS: C & S Indicated? No/Sq. Contamination; Mucus Heavy (Negative)
--- NOTE | 2020-07-06 10:51 | DI.VRAD_ITS ---
Addendum created by Caroline Parkinson MD on 07/06/2020 10:55:13 AM EDT: THIS REPORT CONTAINS FINDINGS THAT MAY BE CRITICAL TO PATIENT CARE. The findings were verbally communicated via telephone conference with DEVIN Martin at 10:54 AM EDT on 07/06/2020. The findings were acknowledged and understood. Initial report created on 07/06/2020 10:51:14 AM EDT: PROCEDURE INFORMATION: Exam: US Abdomen, Limited; Right Upper Quadrant Exam date and time: 07/06/2020 6:10 AM Age: 40 years old Clinical indication: Other: Ruq pain, vomiting, elevated bilirubin TECHNIQUE: Imaging protocol: US abdomen. Real time ultrasound with image documentation. Limited exam focused on the right upper quadrant. COMPARISON: CT ABDOMEN PELVIS W 06/07/2020 2:18 PM FINDINGS: Liver: Liver 15.8 cm. There is a diffuse increase in hepatic parenchymal echogenicity, consistent with fatty infiltration. Gallbladder: Gallstones in the gallbladder.. Gallbladder wall 3.6 mm. . Common bile duct: Common bile duct measures 4.8 mm Pancreas: The pancreas is poorly-visualized due to overlying bowel gas. Right kidney: Right kidney measures 8.56 cm. No hydronephrosis. Aorta: Proximal aorta 2.2 cm. Mid aorta 1.3 cm. Portal venous: Antegrade flow in the portal vein IMPRESSION: 1. Gallstones in the gallbladder.. 2. Gallbladder wall 3.6 mm. . Findings may reflect acute cholecystitis 3. There is a diffuse increase in hepatic parenchymal echogenicity, consistent with fatty infiltration. Dictated and Authenticated by: Caroline Parkinson MD. Ordering:NESS Soliz MD
--- NOTE | 2020-07-06 12:08 | W.PM.HP.N ---
Date of service: 07/06/20 Time of Service: 12:08 Assessment and Plan Assessment and plan (1) Gallstone pancreatitis: Status: Acute Assessment and plan: cont supportive care do not feel this is infectious adn does not require abx will cont to monitor dialted CBD on CT. if T bela does not improve- will [place] [facility] [place] (2) Acute pancreatitis: Status: Acute (3) Seasonal allergies: Status: Acute (4) Multiple sclerosis: Status: Acute Assessment and plan: treatment next wednesday History of Present Illness Consults Consult date: 07/06/20 Requesting physician: Jt Chand Narrative: increase in RUQ pain and nausea today. I did review her chart. She has had a long course w/ pancreatitis from gallstones. She also has recently been dg w/ MS. Review of Systems All systems reviewed & are unremarkable except as noted in HPI and below PFSH Medical History (Updated 07/06/20 @ 20:41 by Nathalia Ch DO) Asthma Gall stone Hx of abnormal cervical Pap smear Multiple sclerosis Surgical History No significant past surgical history Family History Father Hyperlipidemia Social History Smoking/Tobacco Use Status: Current-Occasional Smoking risk assessment performed?: Yes Alcohol Intake: current Alcohol Intake frequency: holidays/special occasions only Drug use: Occasionally Substance use type: marijuana Household members: significant other and children Number of Children: 1 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 Meds Home Medications and Allergies Home Medications Medication Instructions Recorded Confirmed Type Mirena 1 ea INTRAUTERINE ONCE #1 implant 04/11/15 07/06/20 History diphenhydramine HCl [Benadryl] 25 mg PO QHS PRN 01/10/19 07/06/20 History albuterol sulfate 90 mcg/actuation 2 puff IH 6XD 05/25/19 07/06/20 History aerosol inhaler cromolyn 4 % eye drops 1 drp OP 6XD PRN 05/25/19 07/06/20 History ibuprofen 200 mg tablet 400 mg PO BID PRN tab 06/01/19 07/06/20 History omeprazole magnesium 20 mg PO DAILY #30 tab 05/03/20 07/06/20 Rx calcium carbonate 200 mg calcium 200 mg PO TID 05/09/20 07/06/20 History (500 mg) chewable tablet docusate sodium 100 mg capsule 100 mg PO DAILY 05/09/20 07/06/20 History famotidine 20 mg tablet 20 mg PO BID #60 tab 05/09/20 07/06/20 Rx hydrocodone 5 mg-acetaminophen 325 1 tab PO Q6H PRN #20 tab MDD 4 07/01/20 07/06/20 Rx mg tablet Allergies Allergy/AdvReac Type Severity Reaction Status Date / Time Sulfa (Sulfonamide AdvReac Severe vomiting Unverified 07/06/20 06:04 Antibiotics) and weakness Exam Narrative Exam Narrative: PHYSICAL EXAM GENERAL APPEARANCE: Alert, healthy appearance, oriented, in no acute distress SKIN: No hyperpigmentation, vitiligo, or suspicious lesions No rashes. HYDRATION: Well hydrated HEAD, EYES, EARS, NECK, AND THROAT: Head is normocephalic, pupils equal, round, reactive to light and accommodation, ocular movement intact, sclera clear and no jaundice. Dentition intact. NECK: Supple, no lymphadenopathy. Trachea midline. LUNGS: normal respiration, clear to auscultation HEART: Regular rate and rhythm, EXTREMITY: No edema or cyanosis ABDOMEN: No hepatosplenomegaly. tender to palpation- RUQ w/ isolated rebound and guarding. no masses or distention, no hernias. hypo bowel sounds NEURO: no focal neuro deficits. Results Labs Result diagrams: 07/06/20 06:08 07/06/20 06:08 Labs: Laboratory Results - last 24 hr 07/06/20 07/06/20 07/06/20 06:08 06:08 06:08 WBC 6.13 RBC 4.62 Hgb 13.0 Hct 40.6 MCV 87.9 MCH 28.1 MCHC 32.0 RDW 13.9 Plt Count 314 MPV 9.3 Immature Gran % 0.2 Neutrophils % 89.2 Lymphocytes % 8.0 Monocytes % 2.4 Eosinophils % 0.0 Basophils % 0.2 Nucleated RBC % 0 Absolute Neutrophils 5.47 Absolute Lymphocytes 0.49 L Absolute Monocytes 0.15 Absolute Eosinophils 0.00 Absolute Basophils 0.01 Sodium 137 Potassium 3.5 Chloride 100 Carbon Dioxide 28.5 Anion Gap 8.5 BUN 10 Creatinine 0.73 Estimated GFR/1.73 m2 >= 60.00 Glucose 148 H Calcium 9.6 Total Bilirubin 3.3 H Conjugated Bilirubin AST 369 H ALT 576 H Alkaline Phosphatase 104 Total Protein 7.9 Albumin 4.1 Lipase 41925 H Urine Color Urine Clarity Urine pH Ur Specific [place] Urine Protein Urine Ketones Urine Blood Urine Nitrite Urine Bilirubin Urine Urobilinogen Ur Leukocyte Esterase Urine RBC Urine WBC Ur Epithelial Cells Urine Crystals Urine Bacteria Urine Casts Urine Mucus Ur Culture Indicated? Urine Glucose 07/06/20 07/06/20 06:08 10:00 WBC RBC Hgb Hct MCV MCH MCHC RDW Plt Count MPV Immature Gran % Neutrophils % Lymphocytes % Monocytes % Eosinophils % Basophils % Nucleated RBC % Absolute Neutrophils Absolute Lymphocytes Absolute Monocytes Absolute Eosinophils Absolute Basophils Sodium Potassium Chloride Carbon Dioxide Anion Gap BUN Creatinine Estimated GFR/1.73 m2 Glucose Calcium Total Bilirubin Conjugated Bilirubin 2.44 H AST ALT Alkaline Phosphatase Total Protein Albumin Lipase Urine Color Dark yellow Urine Clarity Sl cloudy Urine pH 7.0 Ur Specific [place] 1.020 Urine Protein Trace H Urine Ketones Trace H Urine Blood Negative Urine Nitrite Negative Urine Bilirubin Moderate H Urine Urobilinogen 4.0 H Ur Leukocyte Esterase Small H Urine RBC Urine WBC 20-50 H Ur Epithelial Cells Many Urine Crystals Urine Bacteria Many Urine Casts Urine Mucus Heavy Ur Culture Indicated? No/sq. contamination Urine Glucose Negative Last Vital Signs Temp 36.5 C 07/06/20 10:29 Pulse 85 07/06/20 10:29 Resp 18 07/06/20 10:29 BP 115/66 07/06/20 10:29 Pulse Ox 95 07/06/20 10:29 COVID-19 Screening Have you,or household,traveled outside [place] in last 14 days?: No Had IN PERSON contact w/suspected or confirmed C-19 person: No
[2020-07-06 12:34] VITALS: BP 120/72; PULSE 69; RESP 18; TEMP 36.1; O2SAT 100
[2020-07-06 13:06] VITALS: BP 120/72; PULSE 69; RESP 18; TEMP 36.1; O2SAT 100
[2020-07-06] MEDS: Omnipaque 350 MG/ML 100 ML BTL 97 ML IJ (13:41)
--- NOTE | 2020-07-06 14:11 | DI.VRAD_ITS ---
PROCEDURE INFORMATION: Exam: CT Abdomen And Pelvis With Contrast Exam date and time: 07/06/2020 1:35 PM Age: 40 years old Clinical indication: Abdominal pain TECHNIQUE: Imaging protocol: Computed tomography of the abdomen and pelvis with intravenous contrast. COMPARISON: CT ABDOMEN PELVIS W 06/07/2020 2:18 PM FINDINGS: Liver: Intra hepatic ductal dilatation. The common duct has increased in size and now measures 11-12 mm. Gallbladder and bile ducts: Again demonstrated pericholecystic fluid. Pancreas: Again demonstrated is loculated fluid collection between the stomach in the pancreas it measures 6.2 by 1.3 cm. Previously it measured 6 by 1.4 cm. The pancreas is edematous consistent with pancreatitis. No definite improvement in the degree of pancreatitis.. Spleen: Normal. No splenomegaly. Adrenal glands: Normal. No mass. Kidneys and ureters: Again noted is fluid collection inferior to the right kidney. It has decreased in size. Now measures 4.4 by 1 point 6 cm. Previously 5 by 2.4 cm. Stomach and bowel: Again noted is edema surrounding the duodenum. Appendix: No evidence of appendicitis. Intraperitoneal space: Again demonstrated is the fluid collection surrounding the falciform ligament and extending into the anterior abdomen. It has decreased slightly in size. On comparable measurements it measured 21 mm in width on June 07 and 16 mm in width on the current study.. Minimal free fluid in the left pericolic gutter Vasculature: Portal vein is patent. Splenic vein is patent No aortic dissection or aortic aneurysm Lymph nodes: Unremarkable. No enlarged lymph nodes. Urinary bladder: Unremarkable as visualized. Reproductive: IUD in the uterus . Bones/joints: Unremarkable. No acute fracture. Soft tissues: Unremarkable. IMPRESSION: 1. Again demonstrated is the fluid collection surrounding the falciform ligament and extending into the anterior abdomen. It has decreased slightly in size. On comparable measurements it measured 21 mm in width on June 07 and 16 mm in width on the current study.. 2. Again demonstrated is loculated fluid collection between the stomach in the pancreas it measures 6.2 by 1.3 cm. Previously it measured 6 by 1.4 cm. 3. Again noted is fluid collection inferior to the right kidney. It has decreased in size. Now measures 4.4 by 1 point 6 cm. Previously 5 by 2.4 cm. 4. Again noted is edema surrounding the duodenum. 5. The pancreas is edematous consistent with pancreatitis. No definite improvement in the degree of pancreatitis.. 6. Intra hepatic ductal dilatation. The common duct has increased in size and now measures 11-12 mm. 7. Again demonstrated pericholecystic fluid. 8. IUD in the uterus . Dictated and Authenticated by: Caroline Parkinson MD. Ordering:WILI Sloan MD
[2020-07-06] MEDS: Normal Saline Flush 10 ML SYR IVP (14:45)
[2020-07-06] MEDS: Pantoprazole 40 MG VIAL IVP (14:45)
[2020-07-06] MEDS: ACETAMINOPHEN 1,000 MG/100 ML BTL 400 MG IVPB ×2 (14:45→22:54)
[2020-07-06] MEDS: Normal Saline 50 ML 200 ML ×2 (14:46→17:35)
[2020-07-06 16:24] VITALS: BP 102/66; PULSE 69; RESP 18; TEMP 36.8; O2SAT 97
[2020-07-06] MEDS: HYDROmorphone 2 MG/ML VIAL 0.5 MG IVP (17:35)
[2020-07-06] MEDS: Lactated Ringers 1,000 ML 125 ML IV (20:15)
[2020-07-06] MEDS: Famotidine 20 MG TAB PO (20:15)
[2020-07-07] VITALS: BP 103/68; PULSE 77; RESP 17; TEMP 36.6; O2SAT 99
[2020-07-07] MEDS: Lactated Ringers 1,000 ML 125 ML IV ×2 (04:03→12:16)
[2020-07-07] MEDS: ACETAMINOPHEN 1,000 MG/100 ML BTL 400 MG IVPB ×3 (05:28→22:08)
[2020-07-07 08:12] LABS: Abs Immature Grans 0.02 10^3/uL (0.0-0.06); Absolute Basophil Count 0.01 10^3/uL (0.0-0.2); Absolute Eosinophil Count 0.01 10^3/uL (0.0-0.7); Absolute Monocyte Count 0.27 10^3/uL (0.1-0.8); Absolute Neutrophil Count 6.29 10^3/uL (1.2-6.7); Basophils % 0.1; Eosinophils % 0.1; Immature Grans % 0.3; Lymphocytes % 10.8; MCH 28.2 pg (27.0-33.0); MCHC 32.4 % (32.0-36.0); MCV 86.9 fL (80-95); MPV 9.6 fL (8.0-11.0); Monocytes % 3.6; Neutrophils % 85.1; Nucleated RBC 0 %; Platelet Count 278 10^3/uL (130-400); RBC 4.26 10^6/uL (3.93-5.22); RDW-SD 44.7 fL
[2020-07-07 08:19] LABS: ALT 414 U/L (14-59); AST 154 U/L (15-37); Albumin 3.2 g/dL (3.4-5.0); Alkaline Phosphatase 119 U/L (46-116); Amylase 525 U/L (25-115); BUN 7 mg/dL (7-18); Bilirubin, Total 1.7 mg/dL (0.2-1.0); C-Reactive Protein 3.37 mg/dL (0.0-0.3); CREATININE 0.58 mg/dL (0.55-1.02); Calcium 8.5 mg/dL (8.5-10.1); Chloride 102 mmol/L (98-107); Glucose 70 mg/dL (74-106); Potassium 3.4 mmol/L (3.5-5.1); Sodium 136 mmol/L (136-145); Total Protein 6.5 g/dL (6.4-8.2)
[2020-07-07] MEDS: Famotidine 20 MG TAB PO ×2 (08:20→19:41)
[2020-07-07 08:29] LABS: Lipase 2545 U/L (73-393)
[2020-07-07 08:54] VITALS: BP 113/67; PULSE 93; RESP 18; TEMP 36.6; O2SAT 100
--- NOTE | 2020-07-07 13:13 | PGE_ITS ---
Date of Service Date of service: 07/07/20 Time of Service: 13:13 Assessment and Plan Assessment and plan (1) Multiple sclerosis: Status: Acute (2) Gallstone pancreatitis: Status: Acute Assessment and plan: Patient is passed another gallstone. However it seems to have gone through the common bile duct and pancreatic ducts. Her T bi li and lipase are significantly improved today. Clinically the patient feels significantly improved. Try clear liquids today and repeat labs in a.m. Advance diet depending on her nausea and pain and lab levels in a.m. Continue supportive care Encourage ambulation (3) Acute pancreatitis: Status: Acute (4) Gall stone: Status: Acute Subjective Subjective Interval history since last seen: Pt is doing well. no headaches. No CP or SOB. no productive cough. no dysuria. no leg pain or swelling. Patient is feeling much better today. She has minimal pain and has not required any pain meds. She is not having any nausea or vomiting and would like to try clear liquids. Objective Last Vital Signs Temp 36.6 C 07/07/20 08:54 Pulse 93 H 07/07/20 08:54 Resp 18 07/07/20 08:54 BP 113/67 07/07/20 08:54 Pulse Ox 100 07/07/20 08:54 Laboratory Results - last 24 hr 07/06/20 07/07/20 07/07/20 10:53 07:43 07:43 WBC 7.40 RBC 4.26 Hgb 12.0 Hct 37.0 MCV 86.9 MCH 28.2 MCHC 32.4 RDW 14.0 Plt Count 278 MPV 9.6 Immature Gran % 0.3 Neutrophils % 85.1 Lymphocytes % 10.8 Monocytes % 3.6 Eosinophils % 0.1 Basophils % 0.1 Nucleated RBC % 0 Absolute Neutrophils 6.29 Absolute Lymphocytes 0.80 L Absolute Monocytes 0.27 Absolute Eosinophils 0.01 Absolute Basophils 0.01 Sodium 136 Potassium 3.4 L Chloride 102 Carbon Dioxide 25.0 Anion Gap 9.0 BUN 7 Creatinine 0.58 Estimated GFR/1.73 m2 >= 60.00 Glucose 70 L D Calcium 8.5 Total Bilirubin 1.7 H AST 154 H ALT 414 H Alkaline Phosphatase 119 H C-Reactive Protein 3.37 H Total Protein 6.5 Albumin 3.2 L Amylase 525 H Lipase 2545 H COVID-19 PCR Cancelled Nasopharyn COVID-19 PCR Cancelled Ref Test Perform Site Cancelled
[2020-07-07] MEDS: Pantoprazole 40 MG VIAL IVP (14:03)
[2020-07-07] MEDS: Normal Saline Flush 10 ML SYR IVP (14:04)
[2020-07-07] MEDS: POTASSIUM CHLORIDE 10 MEQ/100 ML BAG 100 MEQ IVPB ×2 (14:30→17:07)
[2020-07-07 15:23] LABS: Bilirubin Negative (Negative); Blood Trace-intact (Negative); Clarity Clear (Clear); Glucose Negative (Negative); Ketones >=160 mg/dL (Negative); Leukocyte Esterase Trace (Negative); Nitrite Negative (Negative); Specific Gravity 1.015 (1.005-1.025); Urobilinogen 0.2 EU/dL (Up TO 0.2)
[2020-07-07 15:35] LABS: Bacteria Many HPF (Negative); C & S Indicated? No/Sq. Contamination; Casts Negative LPF (Negative); Crystals Negative HPF (Negative); Epithelial Cells Many HPF (Negative); Mucus Negative (Negative); RBC 0-2 HPF (0-2)
[2020-07-07 15:56] VITALS: BP 121/78; PULSE 98; RESP 18; TEMP 36.2; O2SAT 100
[2020-07-07] MEDS: HYDROmorphone 2 MG/ML VIAL 0.5 MG IVP (17:38)
--- NOTE | 2020-07-07 17:53 | INITIAL_ITS ---
- If Service Date Differs Date of service: 07/07/20 Time of Service: 17:53 Care Management Initial Assess REASON FOR HOSPITALIZATION:: Biliary colic. PAST MEDICAL HISTORY/PAST SURGICAL HISTORY:: Medical/Surgical History: Asthma, Gall stone, Hx of abnormal cervical Pap smear, and Multiple sclerosis. No significant past surgical history. PREVIOUS FUNCTIONAL STATUS/SOCIAL/FAMILY SUPPORTS:: Regulo lives in an apartment in [place] with her 15 year old son and her cat. She was diagnosed with Multiple Sclerosis approximately one year ago and was found eligible for disability benefits in February of this year. 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 She now occupies her time by visiting with her parents, who reside in [place], walking, 4-wheeling, and spending time with her son. Regulo states she has a lot of family support and shares her son is great at helping around the house. Regulo is independent with her ADLs at baseline. She drives, cooks, and cleans. CURRENT FUNCTIONAL STATUS:: Regulo is lying in bed watching television when CM comes to meet with her. She is pleasant and easily engages in conversation. She talks about her search for a new apartment. The bedroom in the apartment where she and her son are currently living is upstairs and Regulo is finding it increasingly more difficult to go up and down the 17 steps to the bedroom. Regulo has a cat she is quite fond of and unwilling to give up. She says she would rather stay in her current apartment then move to a place where she wont be allowed to have her cat. CM will continue to follow. ADVANCE DIRECTIVES:: None on file. Has patient been provided with info about the portal/API?: Yes Did the patient sign up for the portal?: No (Patient declines) CODE STATUS:: Full Code INSURANCE COVERAGE / FINANCIAL ISSUES:: Medicaid. CURRENT HOME/COMMUNITY SERVICES/EQUIPMENT:: No home services. Regulo goes to [facility] in [place] for treatment for Multiple Sclerosis. She owns a walker and a commode, but states she frequently walks without the walker. PRIMARY CARE PHYSICIAN:: Maciel Buck MD POTENTIAL DISCHARGE NEEDS:: Follow up appointments with PCP, surgeon, and discharge plan of care. PATIENT/FAMILY EDUCATION NEEDS:: Discharge instructions, limitations, follow up plan of care, including Ask Me Three and self management. ANTICIPATED BARRIERS TO DISCHARGE:: None. TRANSPORTATION:: Via private vehicle with family vs RCT arranged by CM. PLAN:: Anticipate Regulo will be discharged home when medically cleared by provider. She will follow up with her PCP, surgeon, and plan of care as directed. Her mother will drive her home via private vehicle when ready, if the roads are clear. If roads are snow covered, CM will arrange transport via RCT. CM will continue to follow.
[2020-07-08 00:19] VITALS: BP 137/74; PULSE 68; RESP 16; TEMP 37; O2SAT 97
[2020-07-08] MEDS: Lactated Ringers 1,000 ML 125 ML IV (01:09)
[2020-07-08] MEDS: ACETAMINOPHEN 1,000 MG/100 ML BTL 400 MG IVPB (05:45)
[2020-07-08 07:10] LABS: ALT 253 U/L (14-59); AST 46 U/L (15-37); Albumin 2.9 g/dL (3.4-5.0); Alkaline Phosphatase 93 U/L (46-116); Anion Gap 6.6 mmol/L (3-11); BUN 2 mg/dL (7-18); CO2 27.4 mmol/L (21.0-32.0); CREATININE 0.62 mg/dL (0.55-1.02); Calcium 8.3 mg/dL (8.5-10.1); Chloride 105 mmol/L (98-107); Glucose 95 mg/dL (74-106); Lipase 982 U/L (73-393); Magnesium 1.7 mg/dL (1.8-2.4); Potassium 3.1 mmol/L (3.5-5.1); Sodium 139 mmol/L (136-145); Total Protein 6.2 g/dL (6.4-8.2)
[2020-07-08] MEDS: Famotidine 20 MG TAB PO (07:35)
--- NOTE | 2020-07-08 07:49 | PGE_ITS ---
Date of Service Date of service: 07/08/20 Time of Service: 07:49 Assessment and Plan Assessment and plan (1) Gallstone pancreatitis: Status: Acute Assessment and plan: No Abdominal pain. Tolerating clear liquids without any discomfort, nausea or vomiting. Will progress diet to soft post-op diet. No dairy or pork. Activity out of bed as tolerated. P// If tolerating soft diet, possible d/c home later today. Subjective Subjective Interval history since last seen: Patient is feeling much better today. She denies having any pain, nausea or vomiting. She is eager to be D/C home today. Exam Const General: cooperative, healthy appearing and comfortable Orientation: alert and oriented x3 Resp Effort & Inspection: normal respiratory effort, no audible wheezes and no cough Objective Last Vital Signs Temp 37.0 C 07/08/20 00:19 Pulse 68 07/08/20 00:19 Resp 16 07/08/20 00:19 BP 137/74 07/08/20 00:19 Pulse Ox 97 07/08/20 00:19 Laboratory Results - last 24 hr 07/06/20 07/07/20 07/07/20 10:53 07:43 07:43 WBC 7.40 RBC 4.26 Hgb 12.0 Hct 37.0 MCV 86.9 MCH 28.2 MCHC 32.4 RDW 14.0 Plt Count 278 MPV 9.6 Immature Gran % 0.3 Neutrophils % 85.1 Lymphocytes % 10.8 Monocytes % 3.6 Eosinophils % 0.1 Basophils % 0.1 Nucleated RBC % 0 Absolute Neutrophils 6.29 Absolute Lymphocytes 0.80 L Absolute Monocytes 0.27 Absolute Eosinophils 0.01 Absolute Basophils 0.01 Sodium 136 Potassium 3.4 L Chloride 102 Carbon Dioxide 25.0 Anion Gap 9.0 BUN 7 Creatinine 0.58 Estimated GFR/1.73 m2 >= 60.00 Glucose 70 L D Calcium 8.5 Magnesium Total Bilirubin 1.7 H AST 154 H ALT 414 H Alkaline Phosphatase 119 H C-Reactive Protein 3.37 H Total Protein 6.5 Albumin 3.2 L Amylase 525 H Lipase 2545 H Urine Color Urine Clarity Urine pH Ur Specific [place] Urine Protein Urine Ketones Urine Blood Urine Nitrite Urine Bilirubin Urine Urobilinogen Ur Leukocyte Esterase Urine RBC Urine WBC Ur Epithelial Cells Urine Crystals Urine Bacteria Urine Casts Urine Mucus Ur Culture Indicated? Urine Glucose COVID-19 PCR Cancelled Nasopharyn COVID-19 PCR Cancelled Ref Test Perform Site Cancelled 07/07/20 07/08/20 15:15 06:30 WBC RBC Hgb Hct MCV MCH MCHC RDW Plt Count MPV Immature Gran % Neutrophils % Lymphocytes % Monocytes % Eosinophils % Basophils % Nucleated RBC % Absolute Neutrophils Absolute Lymphocytes Absolute Monocytes Absolute Eosinophils Absolute Basophils Sodium 139 Potassium 3.1 L Chloride 105 Carbon Dioxide 27.4 Anion Gap 6.6 BUN 2 L Creatinine 0.62 Estimated GFR/1.73 m2 >= 60.00 Glucose 95 Calcium 8.3 L Magnesium 1.7 L Total Bilirubin 1.0 AST 46 H ALT 253 H Alkaline Phosphatase 93 C-Reactive Protein Total Protein 6.2 L Albumin 2.9 L Amylase Lipase 982 H Urine Color Yellow Urine Clarity Clear Urine pH 6.0 Ur Specific [place] 1.015 Urine Protein Negative Urine Ketones >=160 H Urine Blood Trace-intact H Urine Nitrite Negative Urine Bilirubin Negative Urine Urobilinogen 0.2 Ur Leukocyte Esterase Trace H Urine RBC 0-2 Urine WBC 5-10 Ur Epithelial Cells Many Urine Crystals Negative Urine Bacteria Many Urine Casts Negative Urine Mucus Negative Ur Culture Indicated? No/sq. contamination Urine Glucose Negative COVID-19 PCR Nasopharyn COVID-19 PCR Ref Test Perform Site
[2020-07-08 08:06] VITALS: BP 121/78; PULSE 68; RESP 16; TEMP 36.5; O2SAT 100
[2020-07-08] MEDS: Normal Saline Flush 10 ML SYR IVP ×2 (08:45→13:12)
[2020-07-08 09:03] LABS: SARS-CoV-2 RNA Source Nasopharynx
[2020-07-08 09:05] LABS: SARS-CoV-2 RNA Not Detected (NotDetected)
--- NOTE | 2020-07-08 12:40 | W.PM.DS.N ---
Date of service: 07/08/20 Time of Service: 12:40 DS: Diagnosis Discharge Diagnosis (1) Gallstone pancreatitis: Status: Acute Discharge Plan Disposition Patient Disposition: HOME Condition: Improving Discharge Details Reason For Visit: Gallstone pancreatitis Admit Date/Time: 07/06/20 11:55 Admit Provider: Nathalia Ch Attending Provider: Nathalia Ch [facility] Course: This patient presented with right upper quadrant pain similar to her prior episodes of gallstone pancreatitis. She was found to have a lipase elevated to 10,000 and a total bilirubin of 3.3. CT scan of abdomen pelvis showed a dilated common bile duct without a visible stone. The fluid collections had improved from her prior CT scan. She was placed in the hospital for IV fluid and pain control. Her symptoms and labs improved over the next few days. On the day of discharge her bilirubin was normal at 1 and lipase was in the 900 range. She was tolerating a solid low-fat diet and had not used pain control since the evening prior to discharge. The patient has an infusion this Wednesday for treatment of her MS and will find out when it would be safe for her to have gallbladder surgery following that. Home Meds and New Rx's Prescriptions: Continued ibuprofen 200 mg tablet 400 mg PO BID PRNRF: 0 calcium carbonate [Tums] 200 mg calcium (500 mg) tablet,chewable 200 mg PO TID RF: 0 docusate sodium [Colace] 100 mg capsule 100 mg PO DAILY RF: 0 famotidine [Pepcid] 20 mg tablet 20 mg PO BID Qty: 60 RF: 1 Mirena 1 EACH intrauterine device 1 ea Intrauterine ONCE Qty: 1 RF: 0 cromolyn 4 % drops 1 drp OP 6XD PRNRF: 0 albuterol sulfate [Proventil HFA] 90 mcg/actuation HFA aerosol inhaler 2 puff IH 6XD RF: 0 hydrocodone-acetaminophen 5-325 mg tablet 1 tab PO Q6H MDD 4 PRN (Reason: pain) Qty: 20 RF: 0 omeprazole magnesium 20 mg tablet,delayed release (DR/EC) 20 mg PO DAILY Qty: 30 RF: 0 diphenhydramine HCl [Benadryl] 25 mg Capsule 25 mg PO QHS PRNRF: 0 Discharge Instructions Additional Instructions: Call for worsening pain, jaundice, fever, inability to eat. Contact the office after your appointment with neurology this Wednesday to discuss best timing for gallbladder surgery. Take in small, low fat meals. Activity:: Activity as Tolerated Equipment/Supplies:: No Equipment Needed Diet:: Low fat Discharge Orders Discharge Orders: Discharge Order (Routine); Ordered 07/08/20 Ordered By: Symone Alejo DS: Summary Status at Discharge Functional status at discharge: independent ambulation Overall status at discharge: patient is progressing back to baseline Mental Status: mental status grossly normal Speech and Movement: speech and movement normal Mood: congruent mood Affect: normal affect Exam Psych Mental Status: mental status grossly normal Speech and Movement: speech and movement normal Mood: congruent mood Affect: normal affect DS: Data Vitals/I&O Vitals and I&O: Vital Signs Temperature 97.7 F 07/08/20 08:06 Temperature Source Temporal Artery Scan 07/08/20 08:06 Pulse 68 07/08/20 08:06 Pulse Rhythm Regular 07/08/20 10:55 Respiratory Rate 16 07/08/20 08:06 Respiratory Effort Non-Labored 07/08/20 10:55 Respiratory Depth Normal 07/08/20 10:55 Respiratory Pattern Normal 07/08/20 10:55 Blood Pressure 121/78 07/08/20 08:06 Blood Pressure Position Sitting 07/06/20 05:57 Pulse Oximetry 100 07/08/20 08:06 Oxygen Delivery Method Room Air 07/08/20 08:06 Oxygen Flow Rate 0 07/08/20 08:06 Pain Level 0 07/08/20 08:06 Intake & Output 07/07/20 07/08/20 07/08/20 23:59 11:59 23:59 Intake Total 2159.167 / 3259.167 2080.833 / 2080.833 Output Total 950 / 1300 1200 / 1200 Balance 1209.167 / 1959.167 880.833 / 880.833 Weight 156 lb 8.451 oz Intake: IV 1679.167 / 2779.167 1720.833 / 1720.833 Oral 480 / 480 360 / 360 Output: Urine 950 / 1300 1200 / 1200 Other: Urine Color Light Shawna Yellow Urine Appearance Clear Clear Urine Odor None Normal Comment 800ml in hat Stool Characteristics Soft Formed Voiding Methods Toilet Toilet Data Completed and Pending Labs on day of discharge: Labs from last 24 hours 07/08/20 07/07/20 07/06/20 06:30 15:15 10:53 Sodium 139 Potassium 3.1 L Chloride 105 Carbon Dioxide 27.4 Anion Gap 6.6 BUN 2 L Creatinine 0.62 Estimated GFR/1.73 m2 >= 60.00 Glucose 95 Calcium 8.3 L Magnesium 1.7 L Total Bilirubin 1.0 AST 46 H ALT 253 H Alkaline Phosphatase 93 Total Protein 6.2 L Albumin 2.9 L Lipase 982 H Urine Color Yellow Urine Clarity Clear Urine pH 6.0 Ur Specific [place] 1.015 Urine Protein Negative Urine Ketones >=160 H Urine Blood Trace-intact H Urine Nitrite Negative Urine Bilirubin Negative Urine Urobilinogen 0.2 Ur Leukocyte Esterase Trace H Urine RBC 0-2 Urine WBC 5-10 Ur Epithelial Cells Many Urine Crystals Negative Urine Bacteria Many Urine Casts Negative Urine Mucus Negative Ur Culture Indicated? No/sq. contamination Urine Glucose Negative SARS-CoV-2 Source Nasopharynx SARS-CoV-2 (PCR) Not detected [facility] Medical History Asthma Gall stone Hx of abnormal cervical Pap smear Multiple sclerosis Surgical History No significant past surgical history Family History Father Hyperlipidemia Social History Smoking/Tobacco Use Status: Current-Occasional Smoking risk assessment performed?: Yes Alcohol Intake: current Alcohol Intake frequency: holidays/special occasions only Drug use: Occasionally Substance use type: marijuana Household members: significant other and children Number of Children: 1 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
[2020-07-08] MEDS: Pantoprazole 40 MG VIAL IVP (13:11)
--- NOTE | 2020-07-08 13:43 | PDOC.CMDIS ---
- If Service Date Differs Date of service: 07/08/20 Time of Service: 13:43 LACE Index Scoring Tool - Questions: Length of Stay (in days): 3 Acuity (Admit via E.D.?): Yes E.D. Visits: 3 - Answers: Total Score: 9 Risk of Readmission: Low Risk Care Management Discharge Reason for Hospitalization: Biliary colic. Discharge Plan: Regulo will return home with no additional services at this time. She will be driven home via private vehicle by family. She will follow up with her PCP and discharge plan of care. She is happy to be going home. Patient/Family Education Needs: Review discharge instructions regarding activity levels and medications, discussion of self care needs including ask me three.
== END 2020-07-08 13:27 | disposition home or self-care (01) | DRG 440 ==
LOC: ER 10:38 → MS 12:29
PROVIDERS: Student in an Organized Health Care Education/Training Program; Admitting Provider Surgery; Emergency Provider Emergency Medicine; PCP Family Medicine; Visit Provider Surgery
DX: K85.10 Biliary acute pancreatitis without necrosis or infection (principal); G35 Multiple sclerosis; J45.909 Unspecified asthma, uncomplicated; F17.210 Nicotine dependence, cigarettes, uncomplicated
CPT/HCPCS: 36415; 80053; 81025; 83690; 96361; 96374; 96375; 96376; 99222; 99232; 99238; 99285; U0003; 74177; 76705; 81003; 81015; 82150; 82248; 83735; 85025; 86140; J0131; J1885; J3480; J3490

== ENCOUNTER 2020-08-09 01:46 | Outpatient (CLI) | payer MEDICAID, SELFPAY ==
[2020-08-10 17:05] LABS: COVID-19 RT-PCR Result NEGATIVE (Negative)
== END 2020-08-09 02:06 ==
PROVIDERS: PCP Family Medicine; Visit Provider Surgery
DX: Z11.59 Encounter for screening for other viral diseases (principal); Z01.818 Encounter for other preprocedural examination
CPT/HCPCS: U0003

== ENCOUNTER 2020-08-13 08:12 | Day surgery (SDC) | payer MEDICAID, SELFPAY ==
[2020-08-13] VITALS (9 sets, daily range): BP systolic 102–112; BP diastolic 61–82; PULSE 71–102; RESP 17–22; TEMP 35.6–37; O2SAT 100
--- NOTE | 2020-08-13 08:26 | W.PM.HP.N ---
Date of service: 08/13/20 Time of Service: 08:26 Assessment and Plan Assessment and plan (1) Gallstone pancreatitis: Status: Acute Assessment and plan: I advised laparoscopic cholecystectomy with cholangiogram. The procedure was described including the risks of infection, bleeding, hernia. There is a risk of bile leak or injury to liver/bile duct/duodenum with need for further procedures. Some patients have loose stools following the procedure. The patient is advised not to lift more than 15# for two weeks postop. If the cholangiogram shows a CBD stone, then referral for ERCP will be needed. If the inflammation is too intense to proceed safely, the procedure may be terminated. The patient agrees to proceed. History of Present Illness Narrative: This 40 year old woman presents for laparoscopic cholecystectomy/cholangiogram. She was admitted with gallstone pancreatitis in 04/25 with significant residual inflammation. She had another episode in July that resolved quickly. Most recent CT on 07/06/20 showed improvement in the inflammation, dilation of the CBD to 1.2cm. Review of Systems All systems reviewed & are unremarkable except as noted in HPI and below PFSH Medical History (Updated 08/13/20 @ 08:30 by Symone Alejo MD) Asthma Gall stone Gallstone pancreatitis Hx of abnormal cervical Pap smear Multiple sclerosis F/U in [place], [place] 07/2020 Pt. states she may not be able to walk once she comes out of anesthesia she had spoken to her MS specialist Dr. Denise regarding this surgery (lap mendel) Surgical History No significant past surgical history Family History Father Hyperlipidemia Social History Smoking/Tobacco Use Status: Current-Occasional Tobacco Type: cigarettes Smoking risk assessment performed?: Yes Alcohol Intake: current Alcohol Intake frequency: holidays/special occasions only Drug use: Occasionally Substance use type: marijuana Details: last used 08/12/20 morning Household members: significant other and children Number of Children: 1 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 Meds Home Medications and Allergies Home Medications Medication Instructions Recorded Confirmed Type Mirena 1 ea INTRAUTERINE ONCE #1 implant 04/11/15 08/13/20 History diphenhydramine HCl [Benadryl] 25 mg PO QHS PRN 01/10/19 08/13/20 History albuterol sulfate 90 mcg/actuation 2 puff IH 6XD 05/25/19 08/13/20 History aerosol inhaler cromolyn 4 % eye drops 1 drp OP 6XD PRN 05/25/19 08/13/20 History ibuprofen 200 mg tablet 400 mg PO BID PRN tab 06/01/19 08/13/20 History omeprazole magnesium 20 mg PO DAILY #30 tab 05/03/20 08/13/20 Rx calcium carbonate 200 mg calcium 200 mg PO TID 05/09/20 08/13/20 History (500 mg) chewable tablet docusate sodium 100 mg capsule 100 mg PO DAILY 05/09/20 08/13/20 History famotidine 20 mg tablet 20 mg PO BID #60 tab 05/09/20 08/13/20 Rx hydrocodone 5 mg-acetaminophen 325 1 tab PO Q6H PRN #20 tab MDD 4 07/26/20 08/13/20 Rx mg tablet calcium phos,dibas-vitamin D3 1 tab PO 08/13/20 History Allergies Allergy/AdvReac Type Severity Reaction Status Date / Time Sulfa (Sulfonamide AdvReac Severe vomiting Unverified 08/13/20 08:30 Antibiotics) and weakness Exam Narrative Exam Narrative: No acute distress Sclera anicteric Lungs CTA Heart RRR Abdomen soft, nontender COVID-19 Screening Have you, or household traveled for leisure in last 14 days?: No Had IN PERSON contact w/suspected or confirmed C-19 person: No
--- NOTE | 2020-08-13 08:33 | PDOC.DSDIS_ITS ---
Discharge Plan Disposition Patient Disposition: HOME Condition: Good Discharge Details Reason For Visit: Laparoscopy Attending Provider: Symone Alejo Primary Care Provider: Maciel Buck Home Meds and New Rx's Prescriptions: New hydrocodone-acetaminophen 5-325 mg Tablet 1 tab PO Q4H PRN (Reason: Pain) Qty: 30 RF: 0 Continued ibuprofen 200 mg tablet 400 mg PO BID PRNRF: 0 calcium carbonate [Tums] 200 mg calcium (500 mg) tablet,chewable 200 mg PO TID RF: 0 docusate sodium [Colace] 100 mg capsule 100 mg PO DAILY RF: 0 famotidine [Pepcid] 20 mg tablet 20 mg PO BID Qty: 60 RF: 1 Mirena 1 EACH intrauterine device 1 ea Intrauterine ONCE Qty: 1 RF: 0 cromolyn 4 % drops 1 drp OP 6XD PRNRF: 0 albuterol sulfate [Proventil HFA] 90 mcg/actuation HFA aerosol inhaler 2 puff IH 6XD RF: 0 hydrocodone-acetaminophen 5-325 mg tablet 1 tab PO Q6H MDD 4 PRN (Reason: pain) Qty: 20 RF: 0 omeprazole magnesium 20 mg tablet,delayed release (DR/EC) 20 mg PO DAILY Qty: 30 RF: 0 diphenhydramine HCl [Benadryl] 25 mg Capsule 25 mg PO QHS PRNRF: 0 calcium phos,dibas-vitamin D3 77-400 mg-unit Tablet 1 tab PO RF: 0 Discharge Instructions Additional Instructions: The top bandage can be removed tomorrow. The steri strips will usually stick for about a week. When the edges start to curl up, they can be removed. It is okay to shower tomorrow, the water can run over the steri strips Do not swim or soak in a tub for two weeks Call for any concerns including fever, increased pain, vomiting, jaundice, incision redness or drainage. Do not lift more than 15 pounds for two weeks. Walking and stairs are fine. Do not drive if on narcotic pain meds or if limited by pain. May use Tylenol alternating with ibuprofen for pain control. Ice is also an option. The maximum dose for Tylenol is 4000 mg/day. May use ibuprofen 800 mg every 8 hours as needed. If concerned about constipation, you may use a stool softener or milk of magnesia. We will make a referral to [facility] for further surgery Referrals: Symone Alejo MD [ [facility] STAFF PHYSICIAN] - (Return in 10-14 days for a postop check) Activity:: Do not lift more than 15# for two weeks Remove Dressings/Wound Care:: 24 hours Shower/Bathe:: 24 hours Diet:: Low fat Discharge Orders Discharge Orders: Discharge Order (Routine); Ordered 08/13/20 Ordered By: Symone Alejo DS: Diagnosis Discharge Diagnosis (1) Gallstone pancreatitis: Status: Acute (2) S/P laparoscopy: Status: Acute
--- NOTE | 2020-08-13 08:35 | W.PM.OP ---
Date of service: 08/13/20 Time of Service: 10:55 Operative Note Operative Note DATE OF PROCEDURE: 08/13/20 PRE-OP DIAGNOSIS: Gallstone pancreatitis POST-OP DIAGNOSIS: same PROCEDURE: Laparoscopy SURGEON: Symone Alejo FINANCIAL SERVICE PROFESSIONAL: Joy Pierre ANESTHESIA: GETA and local Indications: This 40 year old woman presents for cholecystectomy for treatment of recurrent gallstone pancreatitis. Procedure Description: The patient was placed supine on the operative table and after induction of general anesthetic was prepped and draped sterilely. A 5 mm incision was made to the left of the umbilicus after injecting local anesthetic and the abdomen entered under direct visualization. A CO2 pneumoperitoneum was begun and she was placed in reverse Trendelenberg position. The epigastric and 2 lateral ports were placed under direct visualization after injecting local anesthetic. The gallbladder did not appear acutely inflamed. It had a slightly thickened wall due to chronic inflammation. There were adhesions to the falciform ligament. The fatty adhesions were taken down with cautery. The pylorus had filmy adhesions to the liver that were taken down sharply. The duodenum was adhesed to the dirk hepatis region. The gallbladder infundibulum was partially mobilized with careful cautery and sharp dissection. The infundibulum was overlying a dilated common bile duct and adhesed here. I could not see a plane here nor was the cystic duct visible. I felt at this point the procedure could not be safely continued. There was no indication for a drain or cholecystostomy tube. The CO2 was released and then the ports removed. The skin of the port sites was then closed with a 4-0 Monocryl subcuticular stitch. She tolerated the procedure well and was stable to recovery
[2020-08-13] MEDS: Lactated Ringers 1,000 ML 80 ML IV (08:56)
[2020-08-13] MEDS: ceFAZolin 2 GM/50 ML BAG IVPB (09:15)
[2020-08-13] MEDS: Bupivacaine 0.5% Pres-Free 30 ML VIAL (10:15)
[2020-08-13] MEDS: HYDROcodone 5/Acetaminophen 325 TAB PO (11:12)
[2020-08-13] MEDS: Ketorolac 30 MG/ML VIAL IVP (11:56)
[2020-08-13] MEDS: Normal Saline Flush 10 ML SYR IV (11:56)
== END 2020-08-13 13:02 | disposition home or self-care (01) ==
PROVIDERS: PCP Family Medicine; Visit Provider Surgery
PROC: 0FT44ZZ Resection of Gallbladder, Percutaneous Endoscopic Approach (ICD-10-PCS; CPT 47562; principal; 2020-08-13 10:00)
DX: K85.10 Biliary acute pancreatitis without necrosis or infection (principal); K66.0 Peritoneal adhesions (postprocedural) (postinfection); Z53.09 Procedure and treatment not carried out because of other contraindication
CPT/HCPCS: 49320; NC; J0131; J0690; J1100; J1885; J2001; J2250; J2405

== ENCOUNTER 2020-09-11 06:50 | Inpatient (IN) | payer MEDICAID, SELFPAY ==
[2020-09-11 06:37] VITALS: BP 106/70; PULSE 73; RESP 16; TEMP 36.3; O2SAT 100
--- NOTE | 2020-09-11 06:45 | DI.CT_ITS ---
EXAM: CT ABDOMEN PELVIS W CLINICAL HISTORY: upper abdominal pain. TECHNIQUE: Imaging Protocol: Axial computed tomography images with coronal and sagittal reformatted images were created and reviewed CONTRAST MATERIAL: Intravenous: Omnipaque 100cc Oral: None COMPARISON: CT CT ABDOMEN PELVIS W from 07/06/[address] ABDOMEN PELVIS W from 07/06/2020 FINDINGS: VISUALIZED LUNG BASES: No nodules nor pleural effusions evident. ABDOMEN: There is no ascites. LIVER: There are no obvious focal hepatic lesions evident . GALLBLADDER/BILIARY: There is small densities within the gallbladder lumen. There is also small amou nt of pericholecystic fluid. CBD is not dilated. PANCREAS: Streaking around the pancreas consistent with pancreatitis.. Also increasing peripancreati c fluid. Pancreatic duct is not dilated. SPLEEN: Spleen is not enlarged. No obvious intrasplenic lesions. Splenic and portal veins are paten t. ADRENALS: There are no significant adrenal masses. KIDNEYS:No cysts evident. No solid renal masses. No calculi nor hydronephrosis.. ABDOMINAL AORTA: Abdominal aorta is not enlarged and there is no [id number] adenopat hy. ABDOMINAL WALL/GI: No evidence of significant anterior abdominal wall hernia. No bowel obstruction. PELVIS: GI: No evidence of appendicitis.No evidence of sigmoid diverticulitis. LYMPH NODES: There is no intrapelvic nor inguinal adenopathy. REPRODUCTIVE: There is an IUD in the uterus. No adnexal masses. There is small amount of fluid in t he cul-de-sac. URINARY BLADDER: No calculi nor obvious masses evident OSSEOUS: No significant osseous lesions. IMPRESSION: 1. Compared to the prior CT scan of 07/06/2020 there is again noted evidence of sys severe pancreatit is and there are increasing peripancreatic fluid collections evident at this time. No discrete forme d pseudocyst but patient is at significant risk for developing pseudocysts. 2. Cholelithiasis and some pericholecystic fluid is also again noted. This pericholecystic fluid may be related to acute cholecystitis possibly related to peripancreatic fluid. I do not see an obvious calculus within the lower CBD. RADIATION DOSE DELIVERED: 764.27mGy.cm Total DLP DATA REPOSITORY: All CT scans at this facility are submitted to the National Radiology Data Registry (NRDR) Dose Index Registry (DIR) with the [employer] (A[employer]). RADIATION OPTIMIZATION: All CT scans at this facility use at least one of these dose optimization te chniques: automated exposure control; mA and/or kV adjustment per patient size (includes targeted exa ms where dose is matched to clinical indication); or iterative reconstruction.
[2020-09-11] MEDS: Normal Saline 1,000 ML 1000 ML IV (06:49)
--- NOTE | 2020-09-11 06:50 | ED.GENADUL_ITS ---
Discharge Plan Disposition Patient Disposition: [facility] INPATIENT Condition: Serious Discharge Details Clinical Impression: Acute pancreatitis, Acute cholecystitis Admit Date/Time: 09/11/20 11:52 Admit Provider: Gudelia Mc Attending Provider: Gudelia Mc Primary Care Provider: Maciel Buck ED Provider: Vito Pozo Discharge Data Discharge Date/Time-TO BE ENTERED AT DEPARTURE: 09/11/20 12:53 Medical Decision Making <Isra Garner MD - Last Filed: 09/11/20 07:10> 40 yo female with hx of MS, recurrent gallstone pancreatitis who had attempted cholecystectomy with Dr. Alejo in August 2020 but were not able to remove the gallbladder, MS, comes in with cc of abdominal pain that started 45 minutes ago with n/v. Denies fevers, chest pain, sob, and states she felt well all day yesterday. No prior abdominal surgeries prior to the attempted cholecystectomy. She arrives HD stable localizes the pain to the upper abdomen. HAs LUQ and RUQ tenderness as well as epigastric tenderness. Does also have mild lower abdominal tenderness though not as severe as the upper abdomen, both rlq and llq. I suspect recurrent gallstone pancreatitis vs biliary colic vs cholecystitis but given pain is also lower and did have attempted surgery a month ago concern for possible sbo. Will obtain labs and CT and monitor. pt signed out to oncoming provider pending imaging results and dispo Differential Diagnosis Differential Diagnosis: pancreatitis, gallstones, cholecystitis <Vito Pozo MD - Last Filed: 09/11/20 20:11> Care signed out by Dr. Garner with plan to follow-up on CT findings. CT of the abdomen pelvis was interpreted by radiology: IMPRESSION: 1. Again demonstrated is the fluid collection surrounding the falciform ligament and extending into the anterior abdomen. It has decreased slightly in size. On comparable measurements it measured 21 mm in width on June 07 and 16 mm in width on the current study.. 2. Again demonstrated is loculated fluid collection between the stomach in the pancreas it measures 6.2 by 1.3 cm. Previously it measured 6 by 1.4 cm. 3. Again noted is fluid collection inferior to the right kidney. It has decreased in size. Now measures 4.4 by 1 point 6 cm. Previously 5 by 2.4 cm. 4. Again noted is edema surrounding the duodenum. 5. The pancreas is edematous consistent with pancreatitis. No definite improvement in the degree of pancreatitis.. 6. Intra hepatic ductal dilatation. The common duct has increased in size and now measures 11-12 mm. 7. Again demonstrated pericholecystic fluid. 8. IUD in the uterus . I called and spoke with Dr. Mc who notes preference for patient be transferred to [facility] [place] as previously planned outpatient. I called [facility] and requested transfer. [facility] is not able to accept patient in transfer due to capacity. I then called [facility] transfer center and requested transfer. I spoke with the surgeon java developer consultant. He notes patient should be on medicine service with GI consult as no immediate surgical intervention warranted. Unfortunately [facility] at capacity for medicine patient cannot accept patient in transfer. I called [facility] back and confirmed that they cannot accept medicine/GI patient nor surgical patient at this time. I then called [facility] and requested transfer and they noted they cannot accept the patient in transfer due to capacity. I then called Dr. Mc back and explained the situation. She agrees that no emergent surgical intervention is necessary and will admit the patient to temporarily stabilized with IV fluids and IV antibiotics with plan for likely transfer for ERCP as soon as possible. Medical Records Medical records reviewed: Yes I reviewed the patient's medical records. Lab Data Lab results reviewed: Yes I reviewed the patient's lab results. HPI <Isra Garner MD - Last Filed: 09/11/20 07:10> General Mode of arrival: EMS . Date/Time Provider Initiated Documentation: 09/11/20 07:09 . Limitations to Documentation: no limitations . Information obtained by: patient . History of Present Illness 40 year old F presents to the emergency department with the chief complaint of abdominal pain, described as moderate and severe, with intensity rated at 7. Quality is described as stabbing, and is localized to the abdomen. Patient reports no radiation. Patient started experiencing this minute(s) (45) and it has been constant. No relieving factors improve symptom(s), No exacerbating factors reported . Patient notes nausea/vomiting. Related Data Home Medications Medication Instructions Recorded Confirmed Mirena 1 ea INTRAUTERINE ONCE #1 implant 04/11/15 09/11/20 diphenhydramine HCl [Benadryl] 25 mg PO QHS PRN 01/10/19 09/11/20 albuterol sulfate 90 mcg/actuation 2 puff IH 6XD 05/25/19 09/11/20 aerosol inhaler cromolyn 4 % eye drops 1 drp OP 6XD PRN 05/25/19 09/11/20 ibuprofen 200 mg tablet 400 mg PO BID PRN tab 06/01/19 09/11/20 omeprazole magnesium 20 mg PO DAILY #30 tab 05/03/20 09/11/20 calcium carbonate 200 mg calcium 200 mg PO TID PRN 05/09/20 09/11/20 (500 mg) chewable tablet docusate sodium 100 mg capsule 100 mg PO DAILY 05/09/20 09/11/20 calcium phos,dibas-vitamin D3 1 tab PO 08/13/20 Previous Rx's Medication Instructions Recorded omeprazole magnesium 20 mg PO DAILY #30 tab 05/03/20 Allergies Allergy/AdvReac Type Severity Reaction Status Date / Time Sulfa (Sulfonamide AdvReac Severe vomiting Unverified 08/13/20 08:30 Antibiotics) and weakness General Stated Complaint: Abd Prob KATHY: 3 Review of Systems <Isra Garner MD - Last Filed: 09/11/20 07:10> All systems reviewed & are unremarkable except as noted in HPI and below Constitutional Constitutional: Denies chills and Denies fever(s) ENT Ears, Nose, Mouth, and Throat: Denies change in voice Cardiovascular Cardiovascular: Denies chest pain and Denies dyspnea Respiratory Respiratory: Denies cough and Denies dyspnea Genitourinary Genitourinary: Denies dysuria Musculoskeletal Musculoskeletal: Denies joint swelling PFS <Isra Garner MD - Last Filed: 09/11/20 07:10> Medical History (Updated 09/11/20 @ 20:11 by Vito Pozo MD) Asthma Gall stone Gallstone pancreatitis Hx of abnormal cervical Pap smear Multiple sclerosis F/U in [place], [place] 07/2020 Pt. states she may not be able to walk once she comes out of anesthesia she had spoken to her MS specialist Dr. Denise regarding this surgery (lap mendel) Surgical History (Updated 08/13/20 @ 10:51 by Symone Alejo MD) No significant past surgical history Family History Father Hyperlipidemia Social History Smoking/Tobacco Use Status: Current-Occasional Tobacco Type: cigarettes Smoking risk assessment performed?: Yes Alcohol Intake: current Alcohol Intake frequency: holidays/special occasions only Drug use: Occasionally Substance use type: marijuana Details: last used 08/12/20 morning. Reporting smoking cigarettes once a year. Household members: significant other and children Number of Children: 1 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 Exam <Isra Garner MD - Last Filed: 09/11/20 07:10> Const General: no acute distress Orientation: alert HENMT Head: normal to inspection Ears: external ears normal General nose exam: external nose normal Mouth: moist mucous membranes Eyes General: appearance normal, both eyes and all related structures Neck Neck: normal visual inspection Resp Effort & Inspection: normal respiratory effort and able to speak in complete sentences Cardio Rate: regular rate GI Palpation: soft, not rigid and tender Skin General skin exam: no rashes or lesions noted Neuro General: patient alert and patient oriented x3 Extrem General: normal to inspection Psych Mental Status: mental status grossly normal Course <Isra Garner MD - Last Filed: 09/11/20 07:10> Vital Signs Vital signs: Vital Signs Temperature 36.3 C L 09/11/20 06:37 Pulse 73 09/11/20 06:37 Respiratory Rate 16 09/11/20 06:37 Blood Pressure 106/70 09/11/20 06:37 Pulse Oximetry 100 09/11/20 06:37 Temperature 36.3 C L 09/11/20 06:37 Pulse 73 09/11/20 06:37 Respiratory Rate 16 09/11/20 06:37 Respiratory Effort Non-Labored 09/11/20 06:41 Blood Pressure 106/70 09/11/20 06:37 Blood Pressure Position Sitting 09/11/20 06:37 Pulse Oximetry 100 09/11/20 06:37 Oxygen Delivery Method Room Air 09/11/20 06:37 Oxygen Flow Rate 0 09/11/20 06:37 Pain Level 8 09/11/20 06:37 Sign Out <Isra Garner MD - Last Filed: 09/11/20 07:10> Sign Out Data: Sign Out Comment: 40 yo female recurrent gallstone pancreatitis, had attempted cholecystectomy last month that was unsuccessful (unable to remove gallbladder). Pending CT results and dispo Last updated by Isra Garner MD at 09/11/20 07:12
[2020-09-11 06:54] LABS: Lactate 1.3 mmol/L (0.6-1.4)
[2020-09-11 06:57] LABS: Abs Immature Grans 0.05 10^3/uL (0.0-0.06); Absolute Basophil Count 0.02 10^3/uL (0.0-0.2); Absolute Eosinophil Count 0.02 10^3/uL (0.0-0.7); Absolute Lymphocyte Count 1.11 10^3/uL (1.2-3.4); Absolute Monocyte Count 0.49 10^3/uL (0.1-0.8); Absolute Neutrophil Count 8.06 10^3/uL (1.2-6.7); Basophils % 0.2; Eosinophils % 0.2; HGB 14.1 g/dL (11.2-15.7); Immature Grans % 0.5; Lymphocytes % 11.4; MCH 28.7 pg (27.0-33.0); MCHC 32.8 % (32.0-36.0); MCV 87.4 fL (80-95); MPV 8.6 fL (8.0-11.0); Neutrophils % 82.7; Nucleated RBC 0 %; Platelet Count 395 10^3/uL (130-400); RBC 4.92 10^6/uL (3.93-5.22); RDW 13.8 % (11.7-14.6); RDW-SD 43.9 fL; WBC 9.75 10^3/uL (4.4-10.8)
[2020-09-11] MEDS: Ondansetron 4 MG/2 ML VIAL IVP ×2 (07:06→18:14)
[2020-09-11] MEDS: HYDROmorphone 2 MG/ML VIAL 1 MG IVP ×3 (07:06→18:00)
[2020-09-11] MEDS: Normal Saline Flush 10 ML SYR IVP ×5 (07:07→23:23)
[2020-09-11 07:13] LABS: ALT 208 U/L (14-59); AST 217 U/L (15-37); Albumin 3.7 g/dL (3.4-5.0); Alkaline Phosphatase 72 U/L (46-116); Anion Gap 5.2 mmol/L (3-11); BUN 15 mg/dL (7-18); Bilirubin, Direct 0.34 mg/dL (0.00-0.20); Bilirubin, Total 0.7 mg/dL (0.2-1.0); CO2 32.8 mmol/L (21.0-32.0); CREATININE 0.76 mg/dL (0.55-1.02); Calcium 9.1 mg/dL (8.5-10.1); Chloride 103 mmol/L (98-107); Glucose 122 mg/dL (74-106); Potassium 3.7 mmol/L (3.5-5.1); Sodium 141 mmol/L (136-145); Total Protein 7.4 g/dL (6.4-8.2)
[2020-09-11 07:30] LABS: Lipase > 15000 U/L (73-393)
[2020-09-11] MEDS: Lactated Ringers 1,000 ML 1000 ML IV (08:20)
[2020-09-11 09:26] LABS: HCG Qual (Serum) Negative
[2020-09-11] MEDS: Omnipaque 350 MG/ML 100 ML BTL IJ (09:40)
[2020-09-11 10:13] LABS: Bilirubin Negative (Negative); Blood Negative (Negative); Clarity Clear (Clear); Glucose Negative (Negative); Ketones Negative (Negative); Leukocyte Esterase Negative (Negative); Nitrite Negative (Negative); Specific Gravity 1.015 (1.005-1.025)
[2020-09-11] MEDS: AMPICILLIN/SULBACTAM 3 GM in Normal Saline 100 ML IVPB ×3 (12:21→23:23)
--- NOTE | 2020-09-11 12:55 | W.PM.HP.N ---
Date of service: 09/11/20 Time of Service: 12:56 Assessment and Plan Assessment and plan (1) Pancreatitis: Status: Chronic Assessment and plan: Patient presents with severe pancreatitis without pseduocysts on CT. She is currently stable and pain is well controlled. Admission to med/surg for IV hydration, Bowel rest, pain control and monitoring. Started Unasyn for prophylactic coverage Lipase >15,000; AST 217, ALT 208 Patient will NPO. Some ice chips is okay. Encouraged ambulation and sitting up in the chair as tolerated. Deep breathing and use of the incentive spirometer Q1H Will Continue to monitor. History of Present Illness History of Present Illness Chief Complaint: Gallstone Pancreatitis Narrative: 40 y/o female with a history of gallstone pancreatitis and MS presented to the ER with complaints of acute onset of severe abdominal pain upon waking first thing this morning. The pain is located in her RUQ, LUQ and extends into her lower abdomen. She denies any symptoms of nausea or vomiting. She came to the ER with concerns for possible recurrence of pancreatitis. She was recently admitted from 04/28-05/03/20 for Gallstone Pancreatitis, after which she was followed as an outpatient by the general surgery practice. In 2019 Dr. Alejo attempted a laparoscopic Cholecystectomy, numerous adhesions were removed, however the case was ultimately aborted secondary to safety concerns due to The duodenum being adhered to the dirk hepatis region and the infandiulum was overlying and adhered to the dilated common bile duct. Referral had already been sent to [facility] on an out patient basis however secondary to the holidays she has not seen [facility] yet. CT scan today is remarkable for severe pancreatitis without pseduocyts. Patient denies any changes to her diet, adamantly stating that she has continued to follow a low fat diet. She denies any chest pain, palpitations, fevers, chills or shortness of breath. [facility] Medical History (Updated 09/11/20 @ 13:12 by DEVIN Mukherjee) Asthma Gall stone Gallstone pancreatitis Hx of abnormal cervical Pap smear Multiple sclerosis F/U in [place], [place] 07/2020 Pt. states she may not be able to walk once she comes out of anesthesia she had spoken to her MS specialist Dr. Denise regarding this surgery (lap mendel) Surgical History (Updated 08/13/20 @ 10:51 by Symone Alejo MD) No significant past surgical history Family History Father Hyperlipidemia Social History Smoking/Tobacco Use Status: Current-Occasional Tobacco Type: cigarettes Smoking risk assessment performed?: Yes Alcohol Intake: current Alcohol Intake frequency: holidays/special occasions only Drug use: Occasionally Substance use type: marijuana Details: last used 08/12/20 morning. Reporting smoking cigarettes once a year. Household members: significant other and children Number of Children: 1 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 Meds Home Medications and Allergies Home Medications Medication Instructions Recorded Confirmed Type Mirena 1 ea INTRAUTERINE ONCE #1 implant 04/11/15 09/11/20 History diphenhydramine HCl [Benadryl] 25 mg PO QHS PRN 01/10/19 09/11/20 History albuterol sulfate 90 mcg/actuation 2 puff IH 6XD 05/25/19 09/11/20 History aerosol inhaler cromolyn 4 % eye drops 1 drp OP 6XD PRN 05/25/19 09/11/20 History ibuprofen 200 mg tablet 400 mg PO BID PRN tab 06/01/19 09/11/20 History omeprazole magnesium 20 mg PO DAILY #30 tab 05/03/20 09/11/20 Rx calcium carbonate 200 mg calcium 200 mg PO TID PRN 05/09/20 09/11/20 History (500 mg) chewable tablet docusate sodium 100 mg capsule 100 mg PO DAILY 05/09/20 09/11/20 History calcium phos,dibas-vitamin D3 1 tab PO 08/13/20 History Allergies Allergy/AdvReac Type Severity Reaction Status Date / Time Sulfa (Sulfonamide AdvReac Severe vomiting Unverified 08/13/20 08:30 Antibiotics) and weakness Exam Const General: cooperative, healthy appearing and comfortable Orientation: alert and oriented x3 Resp Effort & Inspection: normal respiratory effort, no audible wheezes and no cough GI Inspection: normal to inspection Palpation: soft and tender in the epigastrum, in the LLQ and in the RLQ Results Labs Result diagrams: 09/11/20 06:45 09/11/20 06:45 Labs: Laboratory Results - last 24 hr 09/11/20 09/11/20 09/11/20 06:45 06:45 06:45 WBC 9.75 RBC 4.92 Hgb 14.1 Hct 43.0 MCV 87.4 MCH 28.7 MCHC 32.8 RDW 13.8 Plt Count 395 MPV 8.6 Immature Gran % 0.5 Neutrophils % 82.7 Lymphocytes % 11.4 Monocytes % 5.0 Eosinophils % 0.2 Basophils % 0.2 Nucleated RBC % 0 Absolute Neutrophils 8.06 H Absolute Lymphocytes 1.11 L Absolute Monocytes 0.49 Absolute Eosinophils 0.02 Absolute Basophils 0.02 VBG Lactate 1.3 Sodium 141 Potassium 3.7 Chloride 103 Carbon Dioxide 32.8 H Anion Gap 5.2 BUN 15 Creatinine 0.76 Estimated GFR/1.73 m2 >= 60.00 Glucose 122 H Calcium 9.1 Magnesium 2.0 Total Bilirubin 0.7 Conjugated Bilirubin 0.34 H AST 217 H ALT 208 H Alkaline Phosphatase 72 Total Protein 7.4 Albumin 3.7 Lipase > 39085 H Serum HCG, Qual Urine Color Urine Clarity Urine pH Ur Specific [place] Urine Protein Urine Ketones Urine Blood Urine Nitrite Urine Bilirubin Urine Urobilinogen Ur Leukocyte Esterase Urine Glucose 09/11/20 09/11/20 06:45 10:07 WBC RBC Hgb Hct MCV MCH MCHC RDW Plt Count MPV Immature Gran % Neutrophils % Lymphocytes % Monocytes % Eosinophils % Basophils % Nucleated RBC % Absolute Neutrophils Absolute Lymphocytes Absolute Monocytes Absolute Eosinophils Absolute Basophils VBG Lactate Sodium Potassium Chloride Carbon Dioxide Anion Gap BUN Creatinine Estimated GFR/1.73 m2 Glucose Calcium Magnesium Total Bilirubin Conjugated Bilirubin AST ALT Alkaline Phosphatase Total Protein Albumin Lipase Serum HCG, Qual Negative Urine Color Yellow Urine Clarity Clear Urine pH 8.0 Ur Specific [place] 1.015 Urine Protein Negative Urine Ketones Negative Urine Blood Negative Urine Nitrite Negative Urine Bilirubin Negative Urine Urobilinogen 1.0 H Ur Leukocyte Esterase Negative Urine Glucose Negative Last Vital Signs Temp 36.3 C L 09/11/20 06:37 Pulse 73 09/11/20 06:37 Resp 16 09/11/20 06:37 BP 106/70 09/11/20 06:37 Pulse Ox 100 09/11/20 06:37 COVID-19 Screening Have you, or household traveled for leisure in last 14 days?: No Had IN PERSON contact w/suspected or confirmed C-19 person: No
[2020-09-11 13:06] VITALS: BP 113/77; PULSE 91; RESP 12; TEMP 36.6; O2SAT 98
[2020-09-11] MEDS: Enoxaparin 40 MG/0.4 ML SYR SC (14:05)
[2020-09-11] MEDS: Pantoprazole 40 MG VIAL IVP ×2 (14:05→23:23)
[2020-09-11] MEDS: Ketorolac 30 MG/ML VIAL IVP ×3 (14:06→23:23)
[2020-09-11] MEDS: Lactated Ringers 1,000 ML 250 ML IV ×2 (14:07→19:44)
[2020-09-11 15:32] VITALS: BP 110/71; PULSE 75; RESP 17; TEMP 36.6; O2SAT 100
[2020-09-11 19:50] VITALS: BP 109/72; PULSE 67; RESP 18; TEMP 37; O2SAT 100
[2020-09-11 20:21] LABS: COVID-19 RT-PCR UVMMC Result Negative (Negative)
[2020-09-11 23:40] VITALS: BP 98/61; PULSE 78; RESP 17; TEMP 37; O2SAT 97
[2020-09-12] VITALS (7 sets, daily range): BP systolic 88–123; BP diastolic 55–74; PULSE 69–97; RESP 16–18; TEMP 36.4–37.3; O2SAT 96–99
[2020-09-12] MEDS: Ondansetron 4 MG/2 ML VIAL IVP (00:24)
[2020-09-12] MEDS: HYDROmorphone 2 MG/ML VIAL 1 MG IVP ×4 (00:25→20:13)
[2020-09-12] MEDS: Lactated Ringers 1,000 ML 250 ML IV ×2 (00:25→04:34)
[2020-09-12] MEDS: Normal Saline Flush 10 ML SYR IVP ×5 (05:33→20:12)
[2020-09-12] MEDS: Ketorolac 30 MG/ML VIAL IVP ×3 (05:33→18:07)
[2020-09-12] MEDS: AMPICILLIN/SULBACTAM 3 GM in Normal Saline 100 ML IVPB ×3 (05:33→18:07)
[2020-09-12 07:12] LABS: Abs Immature Grans 0.02 10^3/uL (0.0-0.06); Absolute Basophil Count 0.01 10^3/uL (0.0-0.2); Absolute Eosinophil Count 0.01 10^3/uL (0.0-0.7); Absolute Lymphocyte Count 0.89 10^3/uL (1.2-3.4); Absolute Monocyte Count 0.36 10^3/uL (0.1-0.8); Absolute Neutrophil Count 5.55 10^3/uL (1.2-6.7); Basophils % 0.1; Eosinophils % 0.1; HCT 34.5 % (36.0-46.0); HGB 11.3 g/dL (11.2-15.7); Immature Grans % 0.3; MCH 28.8 pg (27.0-33.0); MCHC 32.8 % (32.0-36.0); MCV 87.8 fL (80-95); MPV 8.5 fL (8.0-11.0); Monocytes % 5.3; Neutrophils % 81.2; Nucleated RBC 0 %; Platelet Count 279 10^3/uL (130-400); RBC 3.93 10^6/uL (3.93-5.22); RDW 13.7 % (11.7-14.6); RDW-SD 44.2 fL; WBC 6.84 10^3/uL (4.4-10.8)
[2020-09-12 07:27] LABS: ALT 89 U/L (14-59); AST 36 U/L (15-37); Albumin 2.8 g/dL (3.4-5.0); Alkaline Phosphatase 57 U/L (46-116); Anion Gap 5.8 mmol/L (3-11); BUN 9 mg/dL (7-18); Bilirubin, Total 0.6 mg/dL (0.2-1.0); CO2 29.2 mmol/L (21.0-32.0); CREATININE 0.59 mg/dL (0.55-1.02); Calcium 8.3 mg/dL (8.5-10.1); Chloride 105 mmol/L (98-107); Glucose 86 mg/dL (74-106); Potassium 3.6 mmol/L (3.5-5.1); Sodium 140 mmol/L (136-145); Total Protein 5.7 g/dL (6.4-8.2)
[2020-09-12 07:44] LABS: Lipase 2605 U/L (73-393)
--- NOTE | 2020-09-12 08:16 | PGE_ITS ---
Date of Service Date of service: 09/12/20 Time of Service: 08:16 Assessment and Plan Assessment and plan (1) Pancreatitis: Status: Chronic Assessment and plan: lipase is down some today. wbc remains nl . total bili nl. will cont conservative management pancreatitis decrease ivf today Qualifiers: Chronicity: acute Pancreatitis type: biliary Subjective Subjective Interval history since last seen: Still having some epigastric and ruq pain. more localized Exam Const General: cooperative Nutritional Appearance: well nourished Orientation: alert GI Palpation: tender (epigastric and ruq tenderness no mass palp) Objective Last Vital Signs Temp 98.4 F 09/12/20 07:29 Pulse 92 H 09/12/20 07:29 Resp 18 09/12/20 07:29 BP 109/71 09/12/20 07:29 Pulse Ox 96 09/12/20 07:29 Laboratory Results - last 24 hr 09/11/20 09/11/20 09/11/20 06:45 10:07 12:17 WBC RBC Hgb Hct MCV MCH MCHC RDW Plt Count MPV Immature Gran % Neutrophils % Lymphocytes % Monocytes % Eosinophils % Basophils % Nucleated RBC % Absolute Neutrophils Absolute Lymphocytes Absolute Monocytes Absolute Eosinophils Absolute Basophils Sodium Potassium Chloride Carbon Dioxide Anion Gap BUN Creatinine Estimated GFR/1.73 m2 Glucose Calcium Total Bilirubin AST ALT Alkaline Phosphatase Total Protein Albumin Lipase Serum HCG, Qual Negative Urine Color Yellow Urine Clarity Clear Urine pH 8.0 Ur Specific [place] 1.015 Urine Protein Negative Urine Ketones Negative Urine Blood Negative Urine Nitrite Negative Urine Bilirubin Negative Urine Urobilinogen 1.0 H Ur Leukocyte Esterase Negative Urine Glucose Negative SARS-CoV-2 (PCR) Negative Nasopharyn COVID-19 PCR Not Applicable Ref Test Perform Site [facility] 09/12/20 09/12/20 07:02 07:02 WBC 6.84 RBC 3.93 Hgb 11.3 D Hct 34.5 L MCV 87.8 MCH 28.8 MCHC 32.8 RDW 13.7 Plt Count 279 D MPV 8.5 Immature Gran % 0.3 Neutrophils % 81.2 Lymphocytes % 13.0 Monocytes % 5.3 Eosinophils % 0.1 Basophils % 0.1 Nucleated RBC % 0 Absolute Neutrophils 5.55 Absolute Lymphocytes 0.89 L Absolute Monocytes 0.36 Absolute Eosinophils 0.01 Absolute Basophils 0.01 Sodium 140 Potassium 3.6 Chloride 105 Carbon Dioxide 29.2 Anion Gap 5.8 BUN 9 D Creatinine 0.59 Estimated GFR/1.73 m2 >= 60.00 Glucose 86 Calcium 8.3 L Total Bilirubin 0.6 AST 36 ALT 89 H Alkaline Phosphatase 57 Total Protein 5.7 L Albumin 2.8 L Lipase 2605 H Serum HCG, Qual Urine Color Urine Clarity Urine pH Ur Specific [place] Urine Protein Urine Ketones Urine Blood Urine Nitrite Urine Bilirubin Urine Urobilinogen Ur Leukocyte Esterase Urine Glucose SARS-CoV-2 (PCR) Nasopharyn COVID-19 PCR Ref Test Perform Site
[2020-09-12] MEDS: Lactated Ringers 1,000 ML 150 ML IV ×2 (10:31→20:01)
[2020-09-12] MEDS: Normal Saline 50 ML 200 ML ×3 (10:32→18:07)
[2020-09-12] MEDS: Pantoprazole 40 MG VIAL IVP (11:40)
[2020-09-12] MEDS: Enoxaparin 40 MG/0.4 ML SYR SC (11:42)
--- NOTE | 2020-09-12 12:45 | PDOC.CMIN ---
- If Service Date Differs Date of service: 09/12/20 Time of Service: 12:47 Care Management Initial Assess REASON FOR HOSPITALIZATION:: Pancreatitis PAST MEDICAL HISTORY/PAST SURGICAL HISTORY:: Medical History. Asthma. Gall stone. Gallstone pancreatitis. Hx of abnormal cervical Pap smear. Multiple sclerosis. F/U in [place], [place] 07/2020. Pt. states she may not be able to walk once she comes out of anesthesia she had spoken to her MS specialist Dr. Denise regarding this surgery (lap mendel). Surgical History. No significant past surgical history PREVIOUS FUNCTIONAL STATUS/SOCIAL/FAMILY SUPPORTS:: Regulo lives in an apartment in [place] with her 15 year old son and her cat. She was diagnosed with Multiple Sclerosis approximately one year ago and was found eligible for disability benefits in February of this year. 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 She now occupies her time by visiting with her parents, who reside in [place], walking, 4-wheeling, and spending time with her son. Regulo states she has a lot of family support and shares her son is great at helping around the house. Regulo is independent with her ADLs at baseline. She drives, cooks, and cleans. CURRENT FUNCTIONAL STATUS:: Regulo was sitting up in bed when CM met with her. She reported that she is feeling ok today, but is hungry. She stated that when she last attempted to eat she was sick, but she is still hungry. She is currently NPO with ice chips. She stated that she did not yet schedule her gallbladder removal from [facility], but that she hopes it is soon. She is pleasant and engaged in conversation. CM will continue to follow. ADVANCE DIRECTIVES:: None on file. CM will offer blank forms. Has patient been provided with info about the portal/API?: Yes Did the patient sign up for the portal?: No CODE STATUS:: Full Code INSURANCE COVERAGE / FINANCIAL ISSUES:: [employer] CURRENT HOME/COMMUNITY SERVICES/EQUIPMENT:: No home services. Regulo goes to [facility] in [place] for treatment for Multiple Sclerosis. She owns a walker and a commode, but states she frequently walks without the walker. PRIMARY CARE PHYSICIAN:: Dr. Buck POTENTIAL DISCHARGE NEEDS:: Follow up appointments with PCP, surgeon, and discharge plan of care. PATIENT/FAMILY EDUCATION NEEDS:: Discharge instructions, limitations, follow up plan of care, including Ask Me Three and self management. ANTICIPATED BARRIERS TO DISCHARGE:: None identified. TRANSPORTATION:: Via private vehicle by family. PLAN:: Anticipate Regulo will be discharged home when medically cleared by provider. She will follow up with her PCP, surgeon, and plan of care as directed. Her mother will drive her home via private vehicle when ready, vs transport via [facility]. CM will continue to follow.
--- NOTE | 2020-09-12 16:18 | PHA.REVIEW ---
Pharmacy Admission Review - Admission Clinical Review (Last Updated 08/13/20 @ 08:30 by Symone Alejo MD) Acute cholecystitis (Acute) Acute pancreatitis (Acute) Sulfa (Sulfonamide Antibiotics) Adverse Reaction (Severe, Unverified 08/13/20 08:30) vomiting and weakness Height 5 ft 4 in Weight 70.307 kg - Renal Dosing Renal Dosing: BUN 9 mg/dL (7-18) D 09/12/20 07:02 Creatinine 0.59 mg/dL (0.55-1.02) 09/12/20 07:02 Medications needing adjustments: Reviewed (Crcl ~81.5 mL/min current meds okay) - Anticoagulation Anticoagulation: Hgb 11.3 g/dL (11.2-15.7) D 09/12/20 07:02 Hct 34.5 % (36.0-46.0) L 09/12/20 07:02 Plt Count 279 10^3/uL (130-400) D 09/12/20 07:02 Creatinine 0.59 mg/dL (0.55-1.02) 09/12/20 07:02 DVT Prohphylaxis: Reviewed Medications: Enoxaparin Therapeutic Anticoagulation: N/A - Opiate Usage Evaluate Pain Scale/Pains Meds: Reviewed Scheduled Bowel Reg ordered if on Opiates?: No - Relevant Labs Sodium 140 mmol/L (136-145) 09/12/20 07:02 Potassium 3.6 mmol/L (3.5-5.1) 09/12/20 07:02 Chloride 105 mmol/L (98-107) 09/12/20 07:02 Magnesium 2.0 mg/dL (1.8-2.4) 09/11/20 06:45 Electrolytes, C-Reactive P, ESR: Reviewed - DM Control DM Control: Glucose 86 mg/dL (74-106) 09/12/20 07:02 Insulin Dosing: N/A - Heart Failure/AL EF%, LUH's, B-Blockers, Diuretics: N/A - BP Control BP Control: Blood Pressure 105/67 Blood Pressure 101/60 Blood Pressure 109/71 Blood Pressure 111/68 If elevated: N/A - Qtc Review If Elevated: N/A - IV to PO Switch IV Medications: Reviewed - Home Meds Home Med List reviewed: Reviewed (calcium, calcium/vitD, cromolyn, diphenhydramine, docusate, ibprofen (has ketorolac ordered), omeprazole (has pantoprazole ordered).) - Current meds Current Medication Order Review: Intervened (promethazine changed from IM to IV per provider, changed so med diluted and given IVPB as its recommended that this is diluted if being given IV) - Comments Comments/Follow Ups: Watch VS, labs and for med changes (need of BM meds, IV to PO once taking PO, possible home meds ordered). Antibiotic Activity - Pharmacy Antibiotic Review Pharmacy Antibiotic Activity: Reviewed, no change (Ampicillin/sulbactam continues (day 2))
[2020-09-13] MEDS: AMPICILLIN/SULBACTAM 3 GM in Normal Saline 100 ML IVPB ×5 (00:11→23:39)
[2020-09-13] MEDS: Pantoprazole 40 MG VIAL IVP (00:13)
[2020-09-13] MEDS: Ketorolac 30 MG/ML VIAL IVP ×2 (00:13→05:47)
[2020-09-13] MEDS: Normal Saline Flush 10 ML SYR IVP ×3 (00:14→05:02)
[2020-09-13 03:44] VITALS: BP 100/63; PULSE 71; RESP 18; TEMP 36.5; O2SAT 95
[2020-09-13 06:48] LABS: Abs Immature Grans 0.03 10^3/uL (0.0-0.06); Absolute Basophil Count 0.01 10^3/uL (0.0-0.2); Absolute Eosinophil Count 0.03 10^3/uL (0.0-0.7); Absolute Neutrophil Count 5.41 10^3/uL (1.2-6.7); Basophils % 0.1; Eosinophils % 0.4; HCT 33.2 % (36.0-46.0); HGB 11.1 g/dL (11.2-15.7); Immature Grans % 0.4; MCH 28.7 pg (27.0-33.0); MCHC 33.4 % (32.0-36.0); MCV 85.8 fL (80-95); MPV 8.6 fL (8.0-11.0); Neutrophils % 81.1; Nucleated RBC 0 %; Platelet Count 296 10^3/uL (130-400); RBC 3.87 10^6/uL (3.93-5.22); RDW 13.1 % (11.7-14.6); RDW-SD 40.8 fL; WBC 6.68 10^3/uL (4.4-10.8)
[2020-09-13 07:05] LABS: ALT 62 U/L (14-59); AST 19 U/L (15-37); Albumin 2.8 g/dL (3.4-5.0); Alkaline Phosphatase 53 U/L (46-116); Anion Gap 8.6 mmol/L (3-11); BUN 7 mg/dL (7-18); Bilirubin, Total 0.6 mg/dL (0.2-1.0); CO2 24.4 mmol/L (21.0-32.0); CREATININE 0.56 mg/dL (0.55-1.02); Calcium 8.2 mg/dL (8.5-10.1); Chloride 101 mmol/L (98-107); Glucose 68 mg/dL (74-106); Potassium 3.4 mmol/L (3.5-5.1); Sodium 134 mmol/L (136-145)
--- NOTE | 2020-09-13 07:36 | W.PM.PROGNOT ---
Date of Service Date of service: 09/13/20 Time of Service: 07:36 Assessment and Plan Assessment and plan (1) Pancreatitis: Status: Chronic Assessment and plan: Lipase Pending Continue IV fluids Pain is improving. She has not had any nausea or vomiting since yesterday. Continue supportive care. Qualifiers: Chronicity: acute Pancreatitis type: biliary Subjective Subjective Interval history since last seen: Patient reports that she is feeling well this morning and that she is hungry. Pain is getting better. Exam Const General: cooperative, healthy appearing and comfortable Orientation: alert and oriented x3 Resp Effort & Inspection: normal respiratory effort, no audible wheezes and no cough GI Inspection: normal to inspection Palpation: soft, no guarding and tender (Mildly tender) in the LUQ and in the RUQ Auscultation: normal bowel sounds Objective Last Vital Signs Temp 36.5 C 09/13/20 03:44 Pulse 71 09/13/20 03:44 Resp 18 09/13/20 03:44 BP 100/63 09/13/20 03:44 Pulse Ox 95 09/13/20 03:44 Laboratory Results - last 24 hr 09/12/20 09/13/20 09/13/20 07:02 06:30 06:30 WBC 6.68 RBC 3.87 L Hgb 11.1 L Hct 33.2 L MCV 85.8 MCH 28.7 MCHC 33.4 RDW 13.1 Plt Count 296 MPV 8.6 Immature Gran % 0.4 Neutrophils % 81.1 Lymphocytes % 12.0 Monocytes % 6.0 Eosinophils % 0.4 Basophils % 0.1 Nucleated RBC % 0 Absolute Neutrophils 5.41 Absolute Lymphocytes 0.80 L Absolute Monocytes 0.40 Absolute Eosinophils 0.03 Absolute Basophils 0.01 Sodium 140 134 L Potassium 3.6 3.4 L Chloride 105 101 Carbon Dioxide 29.2 24.4 Anion Gap 5.8 8.6 BUN 9 D 7 Creatinine 0.59 0.56 Estimated GFR/1.73 m2 >= 60.00 >= 60.00 Glucose 86 68 L Calcium 8.3 L 8.2 L Total Bilirubin 0.6 0.6 AST 36 19 ALT 89 H 62 H Alkaline Phosphatase 57 53 Total Protein 5.7 L 6.0 L Albumin 2.8 L 2.8 L Lipase 2605 H
[2020-09-13 07:44] VITALS: BP 120/76; PULSE 85; RESP 17; TEMP 36.5; O2SAT 98
[2020-09-13 08:00] LABS: Lipase 685 U/L (73-393)
[2020-09-13] MEDS: Lactated Ringers 1,000 ML 150 ML IV (08:33)
--- NOTE | 2020-09-13 10:34 | W.PM.PROGNOT ---
Date of Service Date of service: 09/13/20 Time of Service: 10:34 Assessment and Plan Assessment and plan (1) Pancreatitis: Status: Chronic Assessment and plan: will start clear liquids and decrease iv fluids Qualifiers: Chronicity: acute Pancreatitis type: biliary Subjective Subjective Interval history since last seen: feels much better. Hungry and no pain Exam GI Palpation: soft (much less tender than yest) Objective Last Vital Signs Temp 97.7 F 09/13/20 07:44 Pulse 85 09/13/20 07:44 Resp 17 09/13/20 07:44 BP 120/76 09/13/20 07:44 Pulse Ox 98 09/13/20 07:44 Laboratory Results - last 24 hr 09/13/20 09/13/20 09/13/20 06:30 06:30 06:30 WBC 6.68 RBC 3.87 L Hgb 11.1 L Hct 33.2 L MCV 85.8 MCH 28.7 MCHC 33.4 RDW 13.1 Plt Count 296 MPV 8.6 Immature Gran % 0.4 Neutrophils % 81.1 Lymphocytes % 12.0 Monocytes % 6.0 Eosinophils % 0.4 Basophils % 0.1 Nucleated RBC % 0 Absolute Neutrophils 5.41 Absolute Lymphocytes 0.80 L Absolute Monocytes 0.40 Absolute Eosinophils 0.03 Absolute Basophils 0.01 Sodium 134 L Potassium 3.4 L Chloride 101 Carbon Dioxide 24.4 Anion Gap 8.6 BUN 7 Creatinine 0.56 Estimated GFR/1.73 m2 >= 60.00 Glucose 68 L Calcium 8.2 L Total Bilirubin 0.6 AST 19 ALT 62 H Alkaline Phosphatase 53 Total Protein 6.0 L Albumin 2.8 L Lipase 685 H
[2020-09-13] MEDS: POTASSIUM CHLORIDE/D5-0.45NACL 1,000 ML 50 MEQ IV (10:50)
[2020-09-13] MEDS: Enoxaparin 40 MG/0.4 ML SYR SC (11:56)
--- NOTE | 2020-09-13 12:31 | W.NUTRFU ---
Date of service: 09/13/20 Time of Service: 12:31 Nutritional Follow up NOTE: 40 yo female admitted with gallstone pancreatitis. Receiiving IV fluids, tolerating clear liquids. BMI indicates overweight status. Will continue to follow but does not appear at nutritional risk at this time. Time Spent in Nutritional Counseling and Treatment: 0
--- NOTE | 2020-09-13 14:58 | CHAPLAIN ---
Regulo was sitting up in bed when I visit. She said this is her third admission for this. She was able to eat some food earlier today, so that is a good sign, she said. Regulo lives with her son. He's staying with her parents now, so she siad she knows he's well taken care of. Regulo is in touch with her family and friends by phone. I'll continue to visit.
[2020-09-13 15:39] VITALS: BP 127/77; PULSE 80; RESP 18; TEMP 36; O2SAT 99
--- NOTE | 2020-09-13 17:34 | PDOC.CMPRO ---
- If Service Date Differs Date of service: 09/13/20 Time of Service: 17:34 Care Management Progress Note S/O: Regulo was sitting up in bed when CM met with her. She stated that she is feeling better today. She has been able to have some clear liquids, which she was happy about. She stated that per MD, if she continues to tolerate an advanced diet, she will likely be ready for discharge tomorrow. She will not need any additional resources at this time. CM will continue to follow. A: Regulo is a 40 year old female admitted to [facility] on 09/13/19 with pancreatitis. P: Anticipate Regulo will be discharged home when medically cleared by provider. She will follow up with her PCP, surgeon, and plan of care as directed. Her mother will drive her home via private vehicle when ready, vs transport via [facility]. CM will continue to follow.
[2020-09-13 19:20] VITALS: BP 113/79; PULSE 88; RESP 16; TEMP 36.9; O2SAT 100
[2020-09-13 23:38] VITALS: BP 111/68; PULSE 85; RESP 16; TEMP 37; O2SAT 95
[2020-09-14] MEDS: Normal Saline 500 ML 30 ML IV (00:09)
[2020-09-14 03:30] VITALS: BP 114/65; PULSE 80; RESP 18; TEMP 36.5; O2SAT 97
[2020-09-14] MEDS: AMPICILLIN/SULBACTAM 3 GM in Normal Saline 100 ML IVPB (06:09)
[2020-09-14 07:03] LABS: Abs Immature Grans 0.01 10^3/uL (0.0-0.06); Absolute Basophil Count 0.01 10^3/uL (0.0-0.2); Absolute Eosinophil Count 0.03 10^3/uL (0.0-0.7); Absolute Lymphocyte Count 0.84 10^3/uL (1.2-3.4); Absolute Monocyte Count 0.38 10^3/uL (0.1-0.8); Absolute Neutrophil Count 2.24 10^3/uL (1.2-6.7); Basophils % 0.3; Eosinophils % 0.9; HCT 33.4 % (36.0-46.0); HGB 11.3 g/dL (11.2-15.7); Immature Grans % 0.3; Lymphocytes % 23.9; MCH 29.4 pg (27.0-33.0); MCHC 33.8 % (32.0-36.0); MCV 86.8 fL (80-95); MPV 8.6 fL (8.0-11.0); Monocytes % 10.8; Neutrophils % 63.8; Nucleated RBC 0 %; Platelet Count 295 10^3/uL (130-400); RBC 3.85 10^6/uL (3.93-5.22); RDW 13.4 % (11.7-14.6); WBC 3.51 10^3/uL (4.4-10.8)
[2020-09-14] MEDS: POTASSIUM CHLORIDE/D5-0.45NACL 1,000 ML 50 MEQ IV (07:11)
[2020-09-14 07:18] LABS: ALT 47 U/L (14-59); AST 13 U/L (15-37); Albumin 2.8 g/dL (3.4-5.0); Alkaline Phosphatase 50 U/L (46-116); Anion Gap 8.3 mmol/L (3-11); BUN 3 mg/dL (7-18); Bilirubin, Total 0.4 mg/dL (0.2-1.0); CO2 27.7 mmol/L (21.0-32.0); CREATININE 0.54 mg/dL (0.55-1.02); Calcium 8.4 mg/dL (8.5-10.1); Chloride 107 mmol/L (98-107); Glucose 101 mg/dL (74-106); Potassium 3.4 mmol/L (3.5-5.1); Sodium 143 mmol/L (136-145); Total Protein 5.9 g/dL (6.4-8.2)
[2020-09-14 07:28] VITALS: BP 101/66; PULSE 78; RESP 16; TEMP 36.1; O2SAT 97
[2020-09-14] MEDS: Pantoprazole 40 MG TABCR PO (08:34)
--- NOTE | 2020-09-14 09:33 | W.PM.PROGNOT ---
Date of Service Date of service: 09/14/20 Time of Service: 09:34 Assessment and Plan Assessment and plan (1) Gallstone pancreatitis: Status: Acute Assessment and plan: discharge today. Pt will be seen [place] [facility] [place] Subjective Subjective Interval history since last seen: No pain tolerated reg diet for breakfast Exam GI Palpation: soft and other Other: no tenderness Objective Last Vital Signs Temp 97.0 F L 09/14/20 07:28 Pulse 78 09/14/20 07:28 Resp 16 09/14/20 07:28 BP 101/66 09/14/20 07:28 Pulse Ox 97 09/14/20 07:28 Laboratory Results - last 24 hr 09/14/20 09/14/20 06:50 06:50 WBC 3.51 L D RBC 3.85 L Hgb 11.3 Hct 33.4 L MCV 86.8 MCH 29.4 MCHC 33.8 RDW 13.4 Plt Count 295 MPV 8.6 Immature Gran % 0.3 Neutrophils % 63.8 Lymphocytes % 23.9 Monocytes % 10.8 Eosinophils % 0.9 Basophils % 0.3 Nucleated RBC % 0 Absolute Neutrophils 2.24 Absolute Lymphocytes 0.84 L Absolute Monocytes 0.38 Absolute Eosinophils 0.03 Absolute Basophils 0.01 Sodium 143 Potassium 3.4 L Chloride 107 Carbon Dioxide 27.7 Anion Gap 8.3 BUN 3 L Creatinine 0.54 L Estimated GFR/1.73 m2 >= 60.00 Glucose 101 Calcium 8.4 L Total Bilirubin 0.4 AST 13 L ALT 47 Alkaline Phosphatase 50 Total Protein 5.9 L Albumin 2.8 L
--- NOTE | 2020-09-14 09:59 | W.PM.DS.N ---
Date of service: 09/14/20 Time of Service: 09:59 DS: Diagnosis Discharge Diagnosis (1) Gallstone pancreatitis: Status: Acute Discharge Plan Disposition Patient Disposition: HOME Condition: Improving Discharge Details Reason For Visit: PANCREATITIS Admit Date/Time: 09/11/20 11:52 Admit Provider: Gudelia Mc Attending Provider: Gudelia Mc Primary Care Provider: Maciel Buck [facility] Course Hospital Course: This 40-year-old woman was admitted with biliary pancreatitis. She has a known history of gallstones and prior biliary pancreatitis. An attempt at laparoscopic cholecystectomy in August was unsuccessful and she was referred to [facility] for cholecystectomy. She was admitted with recurrent symptoms of biliary pancreatitis. She was treated with bowel rest IV fluids analgesia and covered with Unasyn. Her hospital course was unremarkable her pain improved within about 36 hours. On the she had resolution of pain in her lipase was greatly improved. She was started on clear liquid diet and tolerated this well. On the she was advanced to a regular diet which she tolerated well without recurrence of pain. She was discharged on the and has a an [facility]. Home Meds and New Rx's Prescriptions: Continued ibuprofen 200 mg tablet 400 mg PO BID PRNRF: 0 calcium carbonate [Tums] 200 mg calcium (500 mg) tablet,chewable 200 mg PO TID PRNRF: 0 docusate sodium [Colace] 100 mg capsule 100 mg PO DAILY RF: 0 Mirena 1 EACH intrauterine device 1 ea Intrauterine ONCE Qty: 1 RF: 0 cromolyn 4 % drops 1 drp OP 6XD PRNRF: 0 albuterol sulfate [Proventil HFA] 90 mcg/actuation HFA aerosol inhaler 2 puff IH 6XD RF: 0 calcium phos,dibas-vitamin D3 77-400 mg-unit Tablet 1 tab PO RF: 0 Discontinued omeprazole magnesium 20 mg tablet,delayed release (DR/EC) 20 mg PO DAILY Qty: 30 RF: 0 diphenhydramine HCl [Benadryl] 25 mg Capsule 25 mg PO QHS PRNRF: 0 Discharge Instructions Stand Alone Forms: Nursing Discharge Form Referrals: [facility] [Outside] - 09/18/20 2:20 pm (Appointment with General Surgery Dr. Laycock, Clinical Account Manager 4L) Activity:: Activity as Tolerated Equipment/Supplies:: No Equipment Needed Diet:: As Tolerated Discharge Data Discharge Date/Time-TO BE ENTERED AT DEPARTURE: 09/14/20 10:24 DS: Summary Summary Time spent discussing smoking cessation with patient: 3 to 10 minutes Status at Discharge Functional status at discharge: independent ambulation Overall status at discharge: patient is progressing back to baseline Mental Status: mental status grossly normal Speech and Movement: speech and movement normal Mood: congruent mood Affect: normal affect Time Spent with Patient providing and/or coordinating discharge services: Less than 30 minutes Exam Psych Mental Status: mental status grossly normal Speech and Movement: speech and movement normal Mood: congruent mood Affect: normal affect DS: Data Vitals/I&O Vitals and I&O: Vital Signs Temperature 97.0 F L 09/14/20 07:28 Temperature Source Tympanic 09/14/20 07:28 Pulse 78 09/14/20 07:28 Pulse Rhythm Regular 09/14/20 04:08 Respiratory Rate 16 09/14/20 07:28 Respiratory Effort Non-Labored 09/14/20 04:08 Respiratory Depth Normal 09/14/20 04:08 Respiratory Pattern Normal 09/14/20 04:08 Blood Pressure 101/66 09/14/20 07:28 Blood Pressure Position Sitting 09/11/20 06:37 Pulse Oximetry 97 09/14/20 07:28 Oxygen Delivery Method Room Air 09/14/20 07:28 Oxygen Flow Rate 0 09/14/20 07:28 Pain Level 0 09/14/20 07:28 Comment 09/12/20 23:10 Intake & Output 09/13/20 09/13/20 09/14/20 11:59 23:59 11:59 Intake Total 1622.5 / 3072.5 1450 / 3072.5 802.167 / 802.167 Output Total 500 / 3300 2800 / 3300 Balance 1122.5 / -227.5 -1350 / -227.5 802.167 / 802.167 Intake: IV 1592.5 / 2432.5 840 / 2432.5 382.167 / 382.167 Oral 30 / 640 610 / 640 420 / 420 Output: Urine 500 / 3300 2800 / 3300 Other: Urine Color Pale Yellow Pale Light Shawna Yellow Urine Appearance Clear Clear Clear Urine Odor Normal Normal Normal Comment Two voids. Voiding Methods Toilet Toilet Toilet Data Completed and Pending Labs on day of discharge: Labs from last 24 hours 09/14/20 09/14/20 06:50 06:50 WBC 3.51 L D RBC 3.85 L Hgb 11.3 Hct 33.4 L MCV 86.8 MCH 29.4 MCHC 33.8 RDW 13.4 Plt Count 295 MPV 8.6 Immature Gran % 0.3 Neutrophils % 63.8 Lymphocytes % 23.9 Monocytes % 10.8 Eosinophils % 0.9 Basophils % 0.3 Nucleated RBC % 0 Absolute Neutrophils 2.24 Absolute Lymphocytes 0.84 L Absolute Monocytes 0.38 Absolute Eosinophils 0.03 Absolute Basophils 0.01 Sodium 143 Potassium 3.4 L Chloride 107 Carbon Dioxide 27.7 Anion Gap 8.3 BUN 3 L Creatinine 0.54 L Estimated GFR/1.73 m2 >= 60.00 Glucose 101 Calcium 8.4 L Total Bilirubin 0.4 AST 13 L ALT 47 Alkaline Phosphatase 50 Total Protein 5.9 L Albumin 2.8 L [facility] Medical History Asthma Gall stone Gallstone pancreatitis Hx of abnormal cervical Pap smear Multiple sclerosis F/U in [place], [place] 07/2020 Pt. states she may not be able to walk once she comes out of anesthesia she had spoken to her MS specialist Dr. Denise regarding this surgery (lap mendel) Surgical History No significant past surgical history Family History Father Hyperlipidemia Social History Smoking/Tobacco Use Status: Current-Occasional Tobacco Type: cigarettes Smoking risk assessment performed?: Yes Alcohol Intake: current Alcohol Intake frequency: holidays/special occasions only Drug use: Occasionally Substance use type: marijuana Details: last used 08/12/20 morning. Reporting smoking cigarettes once a year. Household members: significant other and children Number of Children: 1 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
--- NOTE | 2020-09-14 10:08 | CMDISCH_ITS ---
- If Service Date Differs Date of service: 09/14/20 Time of Service: 10:08 LACE Index Scoring Tool - Questions: Length of Stay (in days): 3 Acuity (Admit via E.D.?): Yes E.D. Visits: 3 - Answers: Total Score: 9 Risk of Readmission: Low Risk Care Management Discharge Reason for Hospitalization: Pancreatitis Discharge Plan: Regulo is discharged home with no additional services. She will follow up with her PCP, [facility] [place] General Surgery, and discharge plan of care as directed. She is being driven home via private vehicle by family. Patient/Family Education Needs: Discharge instructions, limitations, and follow up plan of care, including Ask Me Three and self management.
[2020-09-14 11:04] VITALS: BP 116/75; PULSE 84; RESP 16; TEMP 36.3; O2SAT 100
== END 2020-09-14 12:11 | disposition home or self-care (01) | DRG 440 ==
LOC: ER 12:33 → MS 12:52
PROVIDERS: Emergency Medicine; Physical Therapy Assistant; Admitting Provider Surgery; Emergency Provider Student in an Organized Health Care Education/Training Program; PCP Family Medicine; Visit Provider Surgery
DX: K85.10 Biliary acute pancreatitis without necrosis or infection (principal); F17.210 Nicotine dependence, cigarettes, uncomplicated; G35 Multiple sclerosis; J45.909 Unspecified asthma, uncomplicated
CPT/HCPCS: 36415; 80053; 83690; 96361; 96365; 96375; 99285; J1650; U0003; 74177; 81003; 82248; 83605; 83735; 84703; 85025; J0295; J1885; J2405; J3490

== ENCOUNTER 2020-10-17 03:45 | Inpatient (IN) | payer MEDICAID, SELFPAY ==
[2020-10-17] VITALS (18 sets, daily range): BP systolic 103–127; BP diastolic 46–81; PULSE 61–112; RESP 16–20; TEMP 35.9–36.8; O2SAT 95–100
--- NOTE | 2020-10-17 03:54 | W.ED.GENAD ---
Discharge Plan Disposition Patient Disposition: [facility] INPATIENT Condition: Stable Discharge Details Clinical Impression: Pancreatitis Primary Care Provider: Maciel Buck ED Provider: Martínez Morales Home Meds and New Rx's Prescriptions: No Action ibuprofen 200 mg tablet 400 mg PO BID PRNRF: 0 calcium carbonate [Tums] 200 mg calcium (500 mg) tablet,chewable 200 mg PO TID PRNRF: 0 docusate sodium [Colace] 100 mg capsule 100 mg PO DAILY RF: 0 Mirena 1 EACH intrauterine device 1 ea Intrauterine ONCE Qty: 1 RF: 0 cromolyn 4 % drops 1 drp OP 6XD PRNRF: 0 albuterol sulfate [Proventil HFA] 90 mcg/actuation HFA aerosol inhaler 2 puff IH 6XD RF: 0 famotidine 20 mg tablet 20 mg PO DAILY RF: 0 Ocrevus 30 mg/mL Solution 600 mg IV [id number] RF: 0 calcium phos,dibas-vitamin D3 77-400 mg-unit Tablet 1 tab PO RF: 0 Medical Decision Making 40-year-old female with a past medical history of MS, gallstone pancreatitis, recurrent, gallstones, who had an attempted lap mendel last month, however the case was complicated by internal pathology, the case was stopped, and the patient was medically managed with expectant outpatient cholecystectomy at [facility] and is scheduled in 5 days. She presents today for abdominal pain and vomiting. Patient states that 4 hours ago at 1 AM she developed sharp achy right upper quadrant abdominal pain worse than previous episodes but similar in nature. EMS was called, she was given Zofran with no improvement. She denies any chest pain, vaginal discharge, or urinary symptoms. She does have a Mirena device in. No other complaints at this time. No other modifying factors. Exam demonstrates generalized abdominal tenderness, notably reassuring stable vital signs. Mild right upper quadrant tenderness. Symptoms are concerning for recurrent gallstone pancreatitis or biliary colic. We will treat the patient's pain, get laboratory work-up. We will hold off on repeat CAT scan until after laboratory for follow-up. 5 AM Laboratory work-up is returned, minimal white count of 12.4, lactate 1.6, electrolytes normal aside from minimally decreased potassium at 3.3. Total bili normal, conjugated bilirubin 0.32, AST 132, ALT 110, these are within normal limits for the patient. Lipase notably elevated at 8300. Likely indicative of pancreatitis. Further history of gallstone pancreatitis but in the setting of normal bilirubin feel her symptoms are related strictly to pancreatitis. Pain notably improved. No signs of an acute surgical abdomen. No indication for repeat imaging. Ultrasound is reasonable but that is not available at this point. I do feel she would benefit from admission for fluids, pain management nausea control with potential ultrasound if needed later today. She does have surgery scheduled at [facility] in 5 days. Plan at this time is to admit, manage her pain, continued fluid rehydration, with hope for discharge for outpatient scheduled surgery appointment. [facility] currently is full and not accepting any patients for transfer unless critically ill. Patient does not meet that criteria at this time. We will continue to monitor here. Discussed the case with Dr. Werner. I have extensively reviewed the treatment plan with the patient. I have addressed all patient concerns at this time. I have also discussed the plan with the admitting physician and they agree with the current assessment and plan and have agreed to assume responsibility for the patient. All parties demonstrate verbal understanding and agreement with our assessment and plan at this time. The documentation in this chart was dictated using Mobe[employer] dictation software. Please excuse any dictation errors. 5:[address] Werner has seen and assessed the patient. He agrees on admission. We did discuss imaging options, and we have elected to proceed with ultrasound. First ultrasound will be available at 730 this morning. We will proceed with this. HPI General Date/Time Provider Initiated Documentation: 10/17/20 03:59. HPI Narrative: 40-year-old female with a past medical history of MS, gallstone pancreatitis, recurrent, gallstones, who had an attempted lap mendel last month, however the case was complicated by internal pathology, the case was stopped, and the patient was medically managed with expectant outpatient cholecystectomy at [facility] and is scheduled in 5 days. She presents today for abdominal pain and vomiting. Patient states that 4 hours ago at 1 AM she developed sharp achy right upper quadrant abdominal pain worse than previous episodes but similar in nature. EMS was called, she was given Zofran with no improvement. She denies any chest pain, vaginal discharge, or urinary symptoms. She does have a Mirena device in. No other complaints at this time. No other modifying factors. Related Data Home Medications Medication Instructions Recorded Confirmed Mirena 1 ea INTRAUTERINE ONCE #1 implant 04/11/15 09/11/20 albuterol sulfate 90 mcg/actuation 2 puff IH 6XD 05/25/19 09/11/20 aerosol inhaler cromolyn 4 % eye drops 1 drp OP 6XD PRN 05/25/19 09/11/20 ibuprofen 200 mg tablet 400 mg PO BID PRN tab 06/01/19 09/11/20 calcium carbonate 200 mg calcium 200 mg PO TID PRN 05/09/20 09/11/20 (500 mg) chewable tablet docusate sodium 100 mg capsule 100 mg PO DAILY 05/09/20 09/11/20 calcium phos,dibas-vitamin D3 1 tab PO 08/13/20 famotidine 20 mg PO DAILY 10/17/20 10/17/20 ocrelizumab [Ocrevus] 600 mg IV [id number] 10/17/20 10/17/20 Allergies Allergy/AdvReac Type Severity Reaction Status Date / Time Sulfa (Sulfonamide AdvReac Severe vomiting Unverified 10/17/20 03:56 Antibiotics) and weakness General Stated Complaint: Abd Prob KATHY: 3 Review of Systems All systems reviewed & are unremarkable except as noted in HPI and below PFSH Medical History Asthma Gall stone Gallstone pancreatitis Hx of abnormal cervical Pap smear Multiple sclerosis F/U in [place], [place] 07/2020 Pt. states she may not be able to walk once she comes out of anesthesia she had spoken to her MS specialist Dr. Denise regarding this surgery (lap mendel) Surgical History No significant past surgical history Family History Father Hyperlipidemia Social History Smoking/Tobacco Use Status: Current-Occasional Tobacco Type: cigarettes Smoking risk assessment performed?: Yes Alcohol Intake: current Alcohol Intake frequency: holidays/special occasions only Drug use: Occasionally Substance use type: marijuana Details: last used 08/12/20 morning. Reporting smoking cigarettes once a year. Household members: significant other and children Number of Children: 1 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 Exam Narrative Exam Narrative: 1.Const: Well-nourished, Well-developed, appearing stated age 2.Eyes: PERRL, no conjunctival injection, and symmetrical lids. 3.ENT: Atraumatic external nose and ears. Moist MM. Neck: Symmetric, trachea midline, No thyromegaly. 4.CVS: +S1/S2, No murmurs or gallops. Peripheral pulses 2+ and equal in all extremities. Brisk capillary refill in all extremities. 5.RESP: Unlabored respiratory effort. Clear to auscultation bilaterally. No wheezes rales or rhonchi 6.GI: Generalized tenderness throughout, primarily in the right upper region of the abdomen. No rebound. 7.MSK: Normocephalic/Atraumatic, Extremities w/o deformity or ttp No cyanosis or clubbing, Normal movement of all extremities 8.Skin: Warm, Dry. No rashes or lesions. 9.Neuro: drop tester II-XII grossly intact. Sensation grossly intact, no focal neurologic deficits. 10.Psych: (AAO) x3. Appropriate mood and affect Course Vital Signs Vital signs: Vital Signs Temperature 36.3 C L 10/17/20 03:50 Pulse 64 10/17/20 03:50 Respiratory Rate 16 10/17/20 03:50 Blood Pressure 127/75 10/17/20 03:50 Pulse Oximetry 100 10/17/20 03:50 Temperature 36.3 C L 10/17/20 03:50 Pulse 64 10/17/20 03:50 Respiratory Rate 16 10/17/20 03:50 Blood Pressure 127/75 10/17/20 03:50 Pulse Oximetry 100 10/17/20 03:50 Pain Level 10 10/17/20 03:50
[2020-10-17] MEDS: HYDROmorphone 2 MG/ML VIAL 1 MG IVP ×2 (04:01→05:37)
[2020-10-17] MEDS: Ketorolac 30 MG/ML VIAL IVP (04:03)
[2020-10-17] MEDS: Ondansetron 4 MG/2 ML VIAL IVP ×5 (04:04→21:27)
[2020-10-17] MEDS: ACETAMINOPHEN 1,000 MG/100 ML BTL 400 MG IVPB (04:04)
[2020-10-17] MEDS: Normal Saline 1,000 ML 1000 ML IV ×2 (04:06→05:39)
[2020-10-17 04:09] LABS: Lactate 1.6 mmol/L (0.6-1.4)
[2020-10-17 04:11] LABS: Abs Immature Grans 0.06 10^3/uL (0.0-0.06); Absolute Basophil Count 0.02 10^3/uL (0.0-0.2); Absolute Eosinophil Count 0.02 10^3/uL (0.0-0.7); Basophils % 0.2; Eosinophils % 0.2; HCT 40.6 % (36.0-46.0); HGB 13.3 g/dL (11.2-15.7); Immature Grans % 0.5; Lymphocytes % 9.7; MCH 29.5 pg (27.0-33.0); MCHC 32.8 % (32.0-36.0); MPV 8.6 fL (8.0-11.0); Neutrophils % 85.4; Nucleated RBC 0 %; Platelet Count 393 10^3/uL (130-400); RBC 4.51 10^6/uL (3.93-5.22); RDW 12.9 % (11.7-14.6); RDW-SD 42.5 fL; WBC 12.43 10^3/uL (4.4-10.8)
[2020-10-17 04:13] LABS: Absolute Lymphocyte Count 1.21 10^3/uL (1.2-3.4); Absolute Neutrophil Count 10.62 10^3/uL (1.2-6.7)
[2020-10-17 04:28] LABS: Bilirubin, Direct 0.32 mg/dL (0.00-0.20)
[2020-10-17 04:29] LABS: ALT 110 U/L (14-59); AST 132 U/L (15-37); Albumin 3.9 g/dL (3.4-5.0); Alkaline Phosphatase 75 U/L (46-116); Anion Gap 9.2 mmol/L (3-11); BUN 14 mg/dL (7-18); Bilirubin, Total 0.7 mg/dL (0.2-1.0); CO2 28.8 mmol/L (21.0-32.0); CREATININE 0.6 mg/dL (0.55-1.02); Calcium 9.1 mg/dL (8.5-10.1); Chloride 102 mmol/L (98-107); Glucose 158 mg/dL (74-106); Potassium 3.3 mmol/L (3.5-5.1); Sodium 140 mmol/L (136-145); Total Protein 7.5 g/dL (6.4-8.2)
[2020-10-17 04:48] LABS: Lipase 8344 U/L (73-393)
--- NOTE | 2020-10-17 05:15 | DI.US_ITS ---
EXAM: US ABDOMEN CLINICAL HISTORY: eval gb and pancreas, known hx of gallstone pancre TECHNIQUE: Ultrasound abdomen performed using standard protocol. COMPARISON: CT CT ABDOMEN PELVIS W from 07/06/2020 US US ABDOMEN LIMITED from 07/06/2020 US US ABDOMEN LIMITED from 07/06/[address] ABDOMEN PELVIS W from 07/06/[address] ABDOMEN PELVIS W from 09/11/2020 FINDINGS: LIVER: Mildly enlarged. Increased echogenicity. No focal liver lesions are seen.. GALLBLADDER: Cholelithiasis. There are multiple mobile stones. No evidence of wall thickening. No p ericholecystic fluid identified. ELISE'S SIGN: Negative. BILIARY SYSTEM: The common bile duct appears dilated to 10 millimeters. It tapers distally. The cys tic duct is also dilated. No common duct stones or cystic duct stones are visible. Mild intrahepati c biliary dilatation. KIDNEYS: Kidneys are symmetric in size. No evidence of renal calculi. No evidence of hydronephrosis. No renal mass or cyst identified. PANCREAS: Peripancreatic fluid. No visible pseudocyst. SPLEEN: Not enlarged. ABDOMINAL AORTA AND IVC: Visualized portions normal caliber. IMPRESSION: Cholelithiasis. No gallbladder wall thickening. Dilated cystic duct and common duct. No choledocho lithiasis is visible. Small amount of fluid around the pancreas. No visible pseudocyst. DATA REPOSITORY:
--- NOTE | 2020-10-17 05:26 | HPE_ITS ---
Date of service: 10/17/20 Time of Service: 05:26 Assessment and Plan Assessment and plan (1) Pancreatitis: Status: Chronic Assessment and plan: Pancreatitis, no doubt gallstone induced. Will confirm with U/S (agree with hold on CT). Will place NPO, IVF, prn analgesics and antiemetics and track Lipase and TAs. Qualifiers: Chronicity: acute Pancreatitis type: biliary History of Present Illness History of Present Illness Chief Complaint: abdominal pain Narrative: 40 female with h/o gallstone pancreatitis, recent attempted lap choly aborted due to adhesions, scheduled for open choly at [facility] in five days -- awoke 1 AM today with sudden onset upper abdominal pain and nausea, similar to prior episodes, though more intense. No raidiation. In ER w/u of note for white count 12, Lipase >8000, TAs low 100s, TBili 0.3. . Due to multiple prior CT it was decided to image with U/S, pending. Given Dilaudid 1 mg IV with temporary effect. Admitted for further management. At present time states pain is coming back and requesting further pain meds Review of Systems All systems reviewed & are unremarkable except as noted in HPI and below PFSH Medical History Asthma Gall stone Gallstone pancreatitis Hx of abnormal cervical Pap smear Multiple sclerosis F/U in [place], [place] 07/2020 Pt. states she may not be able to walk once she comes out of anesthesia she had spoken to her MS specialist Dr. Denise regarding this surgery (lap mendel) Surgical History No significant past surgical history Family History Father Hyperlipidemia Social History Smoking/Tobacco Use Status: Current-Occasional Tobacco Type: cigarettes Smoking risk assessment performed?: Yes Alcohol Intake: current Alcohol Intake frequency: holidays/special occasions only Drug use: Occasionally Substance use type: marijuana Details: last used 08/12/20 morning. Reporting smoking cigarettes once a year. Household members: significant other and children Number of Children: 1 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 Meds Home Medications and Allergies Home Medications Medication Instructions Recorded Confirmed Type Mirena 1 ea INTRAUTERINE ONCE #1 implant 04/11/15 09/11/20 History albuterol sulfate 90 mcg/actuation 2 puff IH 6XD 05/25/19 09/11/20 History aerosol inhaler cromolyn 4 % eye drops 1 drp OP 6XD PRN 05/25/19 09/11/20 History ibuprofen 200 mg tablet 400 mg PO BID PRN tab 06/01/19 09/11/20 History calcium carbonate 200 mg calcium 200 mg PO TID PRN 05/09/20 09/11/20 History (500 mg) chewable tablet docusate sodium 100 mg capsule 100 mg PO DAILY 05/09/20 09/11/20 History calcium phos,dibas-vitamin D3 1 tab PO 08/13/20 History famotidine 20 mg PO DAILY 10/17/20 10/17/20 History ocrelizumab [Ocrevus] 600 mg IV [id number] 10/17/20 10/17/20 History Allergies Allergy/AdvReac Type Severity Reaction Status Date / Time Sulfa (Sulfonamide AdvReac Severe vomiting Unverified 10/17/20 03:56 Antibiotics) and weakness Exam Narrative Exam Narrative: 107/62, 66, 36.3, 16, 100% RA. HEENT anicteric; neck supple; lungs clear; heart RRR w/o MRG; abdomen soft, mild tenderness RUQ, moderate epigastric, w/o rebound; rectal deferred; extremities w/o edema; neuro Ox3, moves all 4s. Results Labs Result diagrams: 10/17/20 03:50 10/17/20 03:50 Labs: Laboratory Results - last 24 hr 10/17/20 10/17/20 10/17/20 03:50 03:50 03:50 WBC RBC Hgb Hct MCV MCH MCHC RDW Plt Count MPV Immature Gran % Neutrophils % Lymphocytes % Monocytes % Eosinophils % Basophils % Nucleated RBC % Absolute Neutrophils Absolute Lymphocytes Absolute Monocytes Absolute Eosinophils Absolute Basophils VBG Lactate 1.6 H Sodium 140 Potassium 3.3 L Chloride 102 Carbon Dioxide 28.8 Anion Gap 9.2 BUN 14 Creatinine 0.6 Estimated GFR/1.73 m2 >= 60.00 Glucose 158 H Calcium 9.1 Total Bilirubin 0.7 Conjugated Bilirubin 0.32 H AST 132 H ALT 110 H Alkaline Phosphatase 75 Total Protein 7.5 Albumin 3.9 Lipase 8344 H 10/17/20 03:50 WBC 12.43 H RBC 4.51 Hgb 13.3 Hct 40.6 MCV 90.0 MCH 29.5 MCHC 32.8 RDW 12.9 Plt Count 393 MPV 8.6 Immature Gran % 0.5 Neutrophils % 85.4 Lymphocytes % 9.7 Monocytes % 4.0 Eosinophils % 0.2 Basophils % 0.2 Nucleated RBC % 0 Absolute Neutrophils 10.62 H Absolute Lymphocytes 1.21 Absolute Monocytes 0.50 Absolute Eosinophils 0.02 Absolute Basophils 0.02 VBG Lactate Sodium Potassium Chloride Carbon Dioxide Anion Gap BUN Creatinine Estimated GFR/1.73 m2 Glucose Calcium Total Bilirubin Conjugated Bilirubin AST ALT Alkaline Phosphatase Total Protein Albumin Lipase Last Vital Signs Temp 36.3 C L 10/17/20 03:50 Pulse 66 10/17/20 04:28 Resp 16 10/17/20 04:28 BP 107/62 10/17/20 04:28 Pulse Ox 100 10/17/20 04:28 COVID-19 Screening Have you, or household traveled for leisure in last 14 days?: No Had IN PERSON contact w/suspected or confirmed C-19 person: No
[2020-10-17] MEDS: Lactated Ringers 1,000 ML 150 ML IV (07:00)
[2020-10-17] MEDS: Pantoprazole 40 MG VIAL IVP (07:01)
[2020-10-17] MEDS: Normal Saline Flush 10 ML SYR ×2 (07:01→08:40)
[2020-10-17] MEDS: PIPERACILLIN/TAZO 3.375 GM in Normal Saline 50 ML IVPB (08:09)
[2020-10-17] MEDS: HYDROmorphone 2 MG/ML VIAL IVP ×3 (08:09→21:35)
--- NOTE | 2020-10-17 08:26 | PGE_ITS ---
Date of Service Date of service: 10/17/20 Time of Service: 12:07 Subjective Subjective Interval history since last seen: Ms Alejandro's case was reviewed with [facility]. They were awaiting US images, but were preemptively considering ERCP tomorrow, unless the patient clinically improved prior to this. I spoke with Dr Caicedo, who will continue to follow. She recommended we kept the patient NPO after midnight - and the patient is NPO regardless. In pain, vomited after dilaudid. Weak. Pain is 8/10, better than it was earlier today. Pain is mostly epigastric. Nausea is better after zofran. Will continue aggressive IVF. No role for abx, per GI. Objective Last Vital Signs Temp 35.9 C L 10/17/20 07:05 Pulse 64 10/17/20 07:02 Resp 16 10/17/20 04:28 BP 113/71 10/17/20 07:02 Pulse Ox 100 10/17/20 06:50 Laboratory Results - last 24 hr 10/17/20 10/17/20 10/17/20 03:50 03:50 03:50 WBC RBC Hgb Hct MCV MCH MCHC RDW Plt Count MPV Immature Gran % Neutrophils % Lymphocytes % Monocytes % Eosinophils % Basophils % Nucleated RBC % Absolute Neutrophils Absolute Lymphocytes Absolute Monocytes Absolute Eosinophils Absolute Basophils VBG Lactate 1.6 H Sodium 140 Potassium 3.3 L Chloride 102 Carbon Dioxide 28.8 Anion Gap 9.2 BUN 14 Creatinine 0.6 Estimated GFR/1.73 m2 >= 60.00 Glucose 158 H Calcium 9.1 Total Bilirubin 0.7 Conjugated Bilirubin 0.32 H AST 132 H ALT 110 H Alkaline Phosphatase 75 Total Protein 7.5 Albumin 3.9 Lipase 8344 H 10/17/20 03:50 WBC 12.43 H RBC 4.51 Hgb 13.3 Hct 40.6 MCV 90.0 MCH 29.5 MCHC 32.8 RDW 12.9 Plt Count 393 MPV 8.6 Immature Gran % 0.5 Neutrophils % 85.4 Lymphocytes % 9.7 Monocytes % 4.0 Eosinophils % 0.2 Basophils % 0.2 Nucleated RBC % 0 Absolute Neutrophils 10.62 H Absolute Lymphocytes 1.21 Absolute Monocytes 0.50 Absolute Eosinophils 0.02 Absolute Basophils 0.02 VBG Lactate Sodium Potassium Chloride Carbon Dioxide Anion Gap BUN Creatinine Estimated GFR/1.73 m2 Glucose Calcium Total Bilirubin Conjugated Bilirubin AST ALT Alkaline Phosphatase Total Protein Albumin Lipase
[2020-10-17] MEDS: POTASSIUM CHLORIDE 20 MEQ/100 ML BAG 50 MEQ IVPB ×2 (08:40→10:56)
[2020-10-17 10:33] LABS: Bilirubin Negative (Negative); Blood Negative (Negative); Clarity Clear (Clear); Glucose Negative (Negative); Ketones Negative (Negative); Leukocyte Esterase Negative (Negative); Nitrite Negative (Negative); Specific Gravity >= 1.030 (1.005-1.025); Urobilinogen >=8.0 EU/dL (Up TO 0.2); pH 6.5 (5-8)
--- NOTE | 2020-10-17 10:53 | INITIAL_ITS ---
- If Service Date Differs Date of service: 10/17/20 Time of Service: 10:53 Care Management Initial Assess REASON FOR HOSPITALIZATION:: Pancreatits PAST MEDICAL HISTORY/PAST SURGICAL HISTORY:: Medical History. Asthma. Gall stone. Gallstone pancreatitis. Hx of abnormal cervical Pap smear. Multiple sclerosis. F/U in [place], [place] 07/2020. Pt. states she may not be able to walk once she comes out of anesthesia she had spoken to her MS specialist Dr. Denise regarding this surgery (lap mendel). Surgical History. No significant past surgical history PREVIOUS FUNCTIONAL STATUS/SOCIAL/FAMILY SUPPORTS:: Regulo lives in an apartment in [place] with her 15 year old son and her cat. She was diagnosed with Multiple Sclerosis approximately one year ago and was found eligible for disability benefits in February of this year. 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 She now occupies her time by visiting with her parents, who reside in [place], walking, 4-wheeling, and spending time with her son. Regulo states she has a lot of family support and shares her son is great at helping around the house. Regulo is independent with her ADLs at baseline. She drives, cooks, and cleans. CURRENT FUNCTIONAL STATUS:: Regulo is currently on precautions for Covid 19 as her test remains pending at this time. Per report, she is in pain, weak and continues to vomit. MD requested a down and back transfer to [facility] for an ERCP. [facility] does not have availability today, but will consider her tomorrow. CM called Regulo on the phone and she reported that she had discussed this with the MD and was comfortable with the plan. CM will continue to follow. ADVANCE DIRECTIVES:: None on file. CM will offer blank forms. Has patient been provided with info about the portal/API?: Yes Did the patient sign up for the portal?: No CODE STATUS:: Full Code INSURANCE COVERAGE / FINANCIAL ISSUES:: [employer] CURRENT HOME/COMMUNITY SERVICES/EQUIPMENT:: No home services. Regulo goes to [facility] in [place] for treatment for Multiple Sclerosis. She owns a walker and a commode, but states she frequently walks without the walker. PRIMARY CARE PHYSICIAN:: Dr. Buck POTENTIAL DISCHARGE NEEDS:: Follow up appointments with PCP, surgeon, and discharge plan of care. PATIENT/FAMILY EDUCATION NEEDS:: Discharge instructions, limitations, follow up plan of care, including Ask Me Three and self management. ANTICIPATED BARRIERS TO DISCHARGE:: None identified. TRANSPORTATION:: Via private vehicle by family. PLAN:: Regulo will likely go down and back to [facility] tomorrow for an ERCP. Anticipate Regulo will be discharged home when medically cleared by provider. She will follow up with her PCP, surgeon, and plan of care as directed. Her mother will drive her home via private vehicle when ready, vs transport via [facility]. CM will continue to follow.
--- NOTE | 2020-10-17 12:38 | PHA.REVIEW ---
Pharmacy Admission Review - Admission Clinical Review Sulfa (Sulfonamide Antibiotics) Adverse Reaction (Severe, Unverified 10/17/20 03:56) vomiting and weakness Height 5 ft 4 in Weight 75.3 kg - Renal Dosing Renal Dosing: BUN 14 mg/dL (7-18) 10/17/20 03:50 Creatinine 0.6 mg/dL (0.55-1.02) 10/17/20 03:50 Medications needing adjustments: Reviewed - Anticoagulation Anticoagulation: Hgb 13.3 g/dL (11.2-15.7) 10/17/20 03:50 Hct 40.6 % (36.0-46.0) 10/17/20 03:50 Plt Count 393 10^3/uL (130-400) 10/17/20 03:50 Creatinine 0.6 mg/dL (0.55-1.02) 10/17/20 03:50 DVT Prohphylaxis: N/A Therapeutic Anticoagulation: N/A - Opiate Usage Evaluate Pain Scale/Pains Meds: Reviewed Scheduled Bowel Reg ordered if on Opiates?: No (monitor for BM ) - Relevant Labs Sodium 140 mmol/L (136-145) 10/17/20 03:50 Potassium 3.3 mmol/L (3.5-5.1) L 10/17/20 03:50 Chloride 102 mmol/L (98-107) 10/17/20 03:50 Magnesium 2.0 mg/dL (1.8-2.4) 10/17/20 03:50 Electrolytes, C-Reactive P, ESR: Reviewed (K+ repleted with 40meq IV today) - DM Control DM Control: Glucose 158 mg/dL (74-106) H 10/17/20 03:50 Insulin Dosing: N/A - Heart Failure/SD EF%, LUH's, B-Blockers, Diuretics: N/A - BP Control BP Control: Blood Pressure 103/66 Blood Pressure 113/71 Blood Pressure 118/77 Blood Pressure 107/62 Blood Pressure 127/75 If elevated: Reviewed - Qtc Review If Elevated: N/A - IV to PO Switch IV Medications: Reviewed (NPO currently) - Home Meds Home Med List reviewed: Intervened Relevent Home Meds Not ordered & why?: home med list hadn't been confirmed -- confirmed based off of last admission 1 month ago - Current meds Current Medication Order Review: Intervened (Confirmed one time zosyn was not to be scheduled, per GI no role for abx)
[2020-10-17] MEDS: Normal Saline 1,000 ML 200 ML IV ×3 (15:00→23:46)
[2020-10-17 20:50] LABS: COVID-19 RT-PCR UVMMC Result Negative (Negative)
[2020-10-17] MEDS: Normal Saline 50 ML 200 ML (21:36)
[2020-10-18] MEDS: Normal Saline 1,000 ML 200 ML IV ×2 (04:16→10:21)
[2020-10-18] MEDS: Pantoprazole 40 MG VIAL IVP (06:00)
[2020-10-18] MEDS: Normal Saline Flush 10 ML SYR (06:01)
[2020-10-18 07:08] LABS: Abs Immature Grans 0.02 10^3/uL (0.0-0.06); Absolute Basophil Count 0.01 10^3/uL (0.0-0.2); Absolute Eosinophil Count 0.01 10^3/uL (0.0-0.7); Absolute Monocyte Count 0.32 10^3/uL (0.1-0.8); Basophils % 0.1; Eosinophils % 0.1; HCT 36.3 % (36.0-46.0); HGB 11.9 g/dL (11.2-15.7); Immature Grans % 0.2; Lymphocytes % 8.6; MCH 29.8 pg (27.0-33.0); MCHC 32.8 % (32.0-36.0); MCV 90.8 fL (80-95); MPV 8.8 fL (8.0-11.0); Monocytes % 3.9; Neutrophils % 87.1; Nucleated RBC 0 %; Platelet Count 328 10^3/uL (130-400); RDW 13.2 % (11.7-14.6); RDW-SD 44.3 fL; WBC 8.11 10^3/uL (4.4-10.8)
[2020-10-18 07:15] LABS: Absolute Neutrophil Count 7.06 10^3/uL (1.2-6.7); Anion Gap 9.5 mmol/L (3-11); BUN 5 mg/dL (7-18); CO2 24.5 mmol/L (21.0-32.0); CREATININE 0.4 mg/dL (0.55-1.02); Chloride 104 mmol/L (98-107); Glucose 83 mg/dL (74-106); Potassium 3.5 mmol/L (3.5-5.1); Sodium 138 mmol/L (136-145)
[2020-10-18 07:21] LABS: ALT 59 U/L (14-59); AST 26 U/L (15-37); Bilirubin, Total 0.8 mg/dL (0.2-1.0); Magnesium 1.6 mg/dL (1.8-2.4)
[2020-10-18 07:34] LABS: Lipase 6483 U/L (73-393)
--- NOTE | 2020-10-18 08:09 | PGE_ITS ---
Date of Service Date of service: 10/18/20 Time of Service: 13:31 Assessment and Plan Assessment and plan (1) Gallstone pancreatitis: Status: Resolved Assessment and plan: Advance diet to clears. Read discussion re general surgery. The patient needs to follow up for her already scheduled surgery on Wednesday. She can likely be discharged home tomorrow. (2) Cholelithiasis: Status: Chronic Assessment and plan: As above (3) Hypomagnesemia: Status: Acute Assessment and plan: Replete and recheck in am (4) Multiple sclerosis: Status: Chronic Assessment and plan: Follow up as outpatient (5) DVT prophylaxis: Status: Acute Assessment and plan: Not required in an ambulatory 40 year old female (6) Discharge planning issues: Status: Acute Assessment and plan: Full code Anticipate discharge tomorrow and surgery at [facility] on Wednesday Subjective Subjective Interval history since last seen: No epigastric pain or vomiting overnight. Feels better. Does report muscle pains (from vomiting), only on movement. No fever. Case was discussed with Dr Caicedo of [facility] who recommended transfer for inpatient cholecystectomy. Case discussed with Dr Simmons of general surgery, who felt that either transfer for cholecystectomy or surgery as scheduled next week (4 days from now) would be appropriate. The patient felt she would rather do her surgery on Wednesday as scheduled with the surgeon she has already met and felt comfortable with. [facility] notified. Exam Narrative Exam Narrative: General: Pleasant female, sitting comfortably in bed HEENT: EOMI, MMM Heart: RRR, no m/r/g Lungs: CTAB Abdomen: soft, nontender, nondistended Extremities: no edema BLEs Objective Last Vital Signs Temp 36.2 C L 10/17/20 23:30 Pulse 112 H 10/17/20 23:34 Resp 20 10/17/20 23:30 BP 107/81 10/17/20 23:34 Pulse Ox 95 10/17/20 23:30 Laboratory Results - last 24 hr 10/17/20 10/17/20 10/17/20 03:50 06:30 10:10 WBC RBC Hgb Hct MCV MCH MCHC RDW Plt Count MPV Immature Gran % Neutrophils % Lymphocytes % Monocytes % Eosinophils % Basophils % Nucleated RBC % Absolute Neutrophils Absolute Lymphocytes Absolute Monocytes Absolute Eosinophils Absolute Basophils Sodium Potassium Chloride Carbon Dioxide Anion Gap BUN Creatinine Estimated GFR/1.73 m2 Glucose Calcium Magnesium 2.0 Total Bilirubin AST ALT Lipase Urine Color Yellow Urine Clarity Clear Urine pH 6.5 Ur Specific Norvell >= 1.030 H Urine Protein Negative Urine Ketones Negative Urine Blood Negative Urine Nitrite Negative Urine Bilirubin Negative Urine Urobilinogen >=8.0 Ur Leukocyte Esterase Negative Urine Glucose Negative SARS-CoV-2 (PCR) Negative Nasopharyn COVID-19 PCR Not Applicable Ref Test Perform Site [facility] 10/18/20 10/18/20 10/18/20 06:02 06:02 06:02 WBC 8.11 D RBC 4.00 Hgb 11.9 Hct 36.3 MCV 90.8 MCH 29.8 MCHC 32.8 RDW 13.2 Plt Count 328 MPV 8.8 Immature Gran % 0.2 Neutrophils % 87.1 Lymphocytes % 8.6 Monocytes % 3.9 Eosinophils % 0.1 Basophils % 0.1 Nucleated RBC % 0 Absolute Neutrophils 7.06 H Absolute Lymphocytes 0.70 L Absolute Monocytes 0.32 Absolute Eosinophils 0.01 Absolute Basophils 0.01 Sodium 138 Potassium 3.5 Chloride 104 Carbon Dioxide 24.5 Anion Gap 9.5 BUN 5 L Creatinine 0.4 L Estimated GFR/1.73 m2 >= 60.00 Glucose 83 D Calcium 8.0 L Magnesium 1.6 L Total Bilirubin 0.8 AST 26 ALT 59 Lipase 6483 H Urine Color Urine Clarity Urine pH Ur Specific Norvell Urine Protein Urine Ketones Urine Blood Urine Nitrite Urine Bilirubin Urine Urobilinogen Ur Leukocyte Esterase Urine Glucose SARS-CoV-2 (PCR) Nasopharyn COVID-19 PCR Ref Test Perform Site Objective Narrative Objective Narrative: US abdomen: Cholelithiasis. No gallbladder wall thickening. Dilated cystic duct and common duct. No choledocholithiasis is vi sible. Small amount of fluid around the pancreas. No visible pseudocyst.
[2020-10-18] MEDS: MAGNESIUM SULFATE 2 GM/50 ML BAG IVPB (08:29)
[2020-10-18] MEDS: Acetaminophen 325 MG TAB 650 MG PO (11:01)
[2020-10-18] MEDS: Normal Saline 1,000 ML 125 ML IV ×2 (14:28→20:46)
--- NOTE | 2020-10-18 14:30 | PDOC.CMPRO ---
- If Service Date Differs Date of service: 10/18/20 Time of Service: 14:30 Care Management Progress Note S/O: Regulo was sitting up in bed when CM met with her. She continues to be monitored in the ICU. She reported that she has decided to keep her scheduled appt for gall bladder removal on Wednesday. She asked about CM coordinating a ride home for her if she discharges over the weekend. She stated that she recently checked in with her mother, and does not need CM to reach out at this time. CM will continue to follow. A: Regulo is a 40 year old female admitted to [facility] on 10/17/20 with Pancreatitis. P: Anticipate Regulo will return home when medically cleared. She will not need any community resources at this time. She has a scheduled surgery on Wednesday at [facility] [place]. She will follow up with her PCP and discharge plan of care. CM will coordinate transport home via [facility] private vehicle. CM will continue to follow.
[2020-10-18 16:21] VITALS: BP 110/80; PULSE 70; RESP 16; TEMP 36.3; O2SAT 98
[2020-10-18 20:13] VITALS: O2SAT 100
[2020-10-18 20:14] VITALS: BP 125/68; PULSE 105
[2020-10-19] MEDS: HYDROmorphone 2 MG/ML VIAL IVP (01:32)
[2020-10-19 01:36] VITALS: BP 119/73; PULSE 97
[2020-10-19 01:56] VITALS: RESP 16; TEMP 37.2
[2020-10-19] MEDS: Normal Saline 1,000 ML 125 ML IV (04:21)
[2020-10-19] MEDS: Pantoprazole 40 MG VIAL IVP (06:45)
[2020-10-19 07:29] LABS: ALT 41 U/L (14-59); AST 14 U/L (15-37); Albumin 2.6 g/dL (3.4-5.0); Alkaline Phosphatase 51 U/L (46-116); Anion Gap 7.2 mmol/L (3-11); BUN 3 mg/dL (7-18); Bilirubin, Total 0.5 mg/dL (0.2-1.0); CO2 27.8 mmol/L (21.0-32.0); CREATININE 0.5 mg/dL (0.55-1.02); Calcium 8.4 mg/dL (8.5-10.1); Chloride 105 mmol/L (98-107); Glucose 94 mg/dL (74-106); Potassium 3.6 mmol/L (3.5-5.1); Sodium 140 mmol/L (136-145); Total Protein 5.9 g/dL (6.4-8.2)
[2020-10-19 08:00] VITALS: BP 108/72; PULSE 93; RESP 16; TEMP 36.3; O2SAT 98
--- NOTE | 2020-10-19 08:45 | PDOC.CMPRO ---
Care Management Progress Note S/O: Regulo continues to be monitored in the ICU. She reported that she has decided to keep her scheduled appt for gall bladder removal on Wednesday. She asked about CM coordinating a ride home for her if she discharges over the weekend. She stated that she recently checked in with her mother, and does not need CM to reach out at this time. CM will continue to follow. A: Regulo is a 40 year old female admitted to [facility] on 10/17/20 with Pancreatitis. P: Anticipate Regulo will return home when medically cleared. She will not need any community resources at this time. She has a scheduled surgery on Wednesday at [facility]. She will follow up with her PCP and discharge plan of care. CM will coordinate transport home via [facility] private vehicle. CM will continue to follow.
[2020-10-19 09:04] LABS: Lipase 2200 U/L (73-393)
[2020-10-19 10:08] LABS: Bilirubin, Direct 0.11 mg/dL (0.00-0.20)
--- NOTE | 2020-10-19 11:24 | W.PM.PROGNOT ---
Date of Service Date of service: 10/19/20 Time of Service: 11:24 Assessment and Plan Assessment and plan (1) Gallstone pancreatitis: Status: Resolved Assessment and plan: Advance diet to a regular low-fat diet if she tolerates this today then she can be discharged home. Follow-up with her surgeon at [facility] on Wednesday for cholecystectomy. (2) Cholelithiasis: Status: Chronic Assessment and plan: As above (3) Hypomagnesemia: Status: Resolved Assessment and plan: Resolved with IV and oral supplementation. (4) Multiple sclerosis: Status: Chronic Assessment and plan: Follow up as outpatient (5) DVT prophylaxis: Status: Acute Assessment and plan: Not required in an ambulatory 40 year old female (6) Discharge planning issues: Status: Acute Assessment and plan: Advance diet and if she tolerates this she can be discharged home either tomorrow morning or maybe even later this evening. Subjective Subjective Interval history since last seen: Patient's had no nausea or vomiting but still complains of diffuse abdominal pain. She denies any bowel movement. She was on full liquids this morning which have since advanced to a regular low-fat diet. Lipase is now down to 2200. She is afebrile. She is scheduled to follow-up with her general surgeon on Wednesday. I told her that I would like to see her tolerating her diet for at least a couple meals before I send her home. She is tolerating liquids quite well and therefore no longer needs IV fluids. I will monitor her today and if she has no nausea or vomiting and her abdominal pain does not worsen with meals and a plan for discharge in the morning. Exam Narrative Exam Narrative: Young female in no acute distress alert and oriented person place time circumstance. Abdomen soft nondistended normal active bowel sounds no guarding and no rebound tenderness. However she describes diffuse tenderness wherever I palpate. Objective Last Vital Signs Temp 37.2 C 10/19/20 01:56 Pulse 97 H 10/19/20 01:36 Resp 16 10/19/20 01:56 BP 119/73 10/19/20 01:36 Pulse Ox 100 10/18/20 20:13 Laboratory Results - last 24 hr 10/19/20 10/19/20 06:15 06:15 Sodium 140 Potassium 3.6 Chloride 105 Carbon Dioxide 27.8 Anion Gap 7.2 BUN 3 L Creatinine 0.5 L Estimated GFR/1.73 m2 >= 60.00 Glucose 94 Calcium 8.4 L Magnesium 2.0 Total Bilirubin 0.5 Conjugated Bilirubin 0.11 AST 14 L ALT 41 Alkaline Phosphatase 51 Total Protein 5.9 L Albumin 2.6 L Lipase 2200 H
[2020-10-19 16:21] VITALS: BP 118/67; PULSE 91; RESP 20; TEMP 37.1; O2SAT 95
[2020-10-19 19:58] VITALS: O2SAT 95
[2020-10-19 19:59] VITALS: BP 104/54; PULSE 85; RESP 16; TEMP 36.5; O2SAT 95
[2020-10-20 03:47] VITALS: BP 107/62; PULSE 97; RESP 16; TEMP 36.2; O2SAT 94
[2020-10-20] MEDS: Pantoprazole 40 MG TABCR PO (07:31)
--- NOTE | 2020-10-20 12:05 | DSE_ITS ---
Date of service: 10/20/20 Time of Service: 12:05 DS: Diagnosis Discharge Diagnosis (1) Gallstone pancreatitis: Status: Resolved (2) Cholelithiasis: Status: Chronic Asessment and Plan: Patient to keep her follow-up appointment with her general surgeon Dr. Ceferino Waterman for Thursday, October 22, 2020 at [facility]. (3) Hypomagnesemia: Status: Resolved (4) Multiple sclerosis: Status: Chronic Discharge Plan Disposition Patient Disposition: HOME Condition: Stable Discharge Details Reason For Visit: PANCREATITIS Admit Date/Time: 10/17/20 05:42 Admit Provider: Darinel Werner Attending Provider: Darinel Werner [facility] Hospital Course: 40-year-old female with history of gallstones and recurrent gallstone pancreatitis who had a previous attempted a laparoscopic cholecystectomy which was aborted due to adhesions has since been referred to [facility] where she has seen Dr. Ceferino Waterman who has her scheduled for cholecystectomy on October 22, 2020. She presented emergency department with acute sudden onset upper abdominal pain and nausea and vomiting similar to prior episodes. In the ER she was noted to have a leukocytosis of 12,000 and a lipase of greater than 8000 with transaminases in the low 100s and a total bilirubin of 0.3. Imaging included an abdominal ultrasound from October 17, 2020 that showed cholelithiasis but no gallbladder wall thickening. She had a dilated cystic duct and common duct but no choledocholithiasis was seen. There is a small amount of fluid around the pancreas but no visible pseudocyst. She was admitted to the hospital given IV fluids antiemetics and narcotic analgesics and made n.p.o. Over the next couple of days her abdominal pain improved and her lipase on the day prior to discharge did decrease down to 2200 at which point she was tolerating full liquids and was advanced to a regular diet. She was monitored for 1 more day and was tolerating low-fat solid food diet. Her transaminitis had resolved at the time of discharge with an AST of 14 and ALT of 41 and a normal total bilirubin of 0.5 and a conjugated bilirubin of 0.11. As her pain was resolved and she was tolerating a solid diet it was felt that she could be discharged home with plans for her to follow-up with her surgeon at [facility] for next Thursday, October 22, 2020 for a planned cholecystectomy. Home Meds and New Rx's Prescriptions: Continued calcium carbonate [Tums] 200 mg calcium (500 mg) tablet,chewable 200 mg PO TID PRNRF: 0 docusate sodium [Colace] 100 mg capsule 100 mg PO DAILY RF: 0 Mirena 1 EACH intrauterine device 1 ea Intrauterine ONCE Qty: 1 RF: 0 cromolyn 4 % drops 1 drp OP 6XD PRNRF: 0 albuterol sulfate [Proventil HFA] 90 mcg/actuation HFA aerosol inhaler 2 puff IH 6XD RF: 0 famotidine 20 mg tablet 20 mg PO BID RF: 0 Ocrevus 30 mg/mL Solution 600 mg IV [id number] RF: 0 Discontinued ibuprofen 200 mg tablet 400 mg PO BID PRNRF: 0 Discharge Instructions Instructions: Pancreatitis (DC) Referrals: Ceferino Waterman [ [facility] STAFF PHYSICIAN] - 10/22/20 (keep your scheduled appointment for surgery at [facility] w/ Dr. Waterman for this Wednesday10/22/2020) Maciel Buck [Primary Care Provider] - (Call the office next week for follow-up in 2 weeks) Activity:: Activity as Tolerated Equipment/Supplies:: No Equipment Needed Diet:: Low-fat diet Discharge Orders Discharge Orders: Discharge Order (Routine); Ordered 10/20/20 Ordered By: Silvestre Dior DS: Summary Time Spent with Patient providing and/or coordinating discharge services: Less than 30 minutes Status at Discharge Functional status at discharge: independent ambulation Overall status at discharge: patient is back to baseline Mental Status: mental status grossly normal Speech and Movement: speech and movement normal Mood: congruent mood Affect: normal affect Exam Narrative Exam Narrative: Young female sitting up in bed already dressed rate go home. She completed her breakfast with no nausea vomiting or abdominal pain. Abdominal exam is benign with normal active bowel sounds nontender no distention no guarding. Psych Mental Status: mental status grossly normal Speech and Movement: speech and movement normal Mood: congruent mood Affect: normal affect DS: Data Vitals/I&O Vitals and I&O: Vital Signs Temperature 36.2 C L 10/20/20 03:47 Temperature Source Temporal Artery Scan 10/20/20 03:47 Pulse 97 H 10/20/20 03:47 Pulse Rhythm Regular 10/20/20 08:00 Respiratory Rate 16 10/20/20 03:47 Respiratory Effort 10/20/20 08:00 Respiratory Depth Normal 10/20/20 08:00 Respiratory Pattern Normal 10/20/20 08:00 Blood Pressure 107/62 10/20/20 03:47 Blood Pressure Mean 66 10/19/20 19:59 Blood Pressure Position Supine 10/17/20 07:05 Pulse Oximetry 94 10/20/20 03:47 Oxygen Delivery Method Room Air 10/20/20 03:47 Oxygen Flow Rate 0 10/20/20 03:47 Pain Level 5 10/20/20 03:47 Comment 10/17/20 13:35 Intake & Output 10/19/20 10/20/20 10/20/20 23:59 11:59 23:59 Intake Total 235 / 2189.167 360 / 360 Output Total 800 / 1350 650 / 650 Balance -565 / 839.167 -290 / -290 Weight 75.1 kg Intake: Oral 235 / 635 360 / 360 Output: Urine 800 / 1350 650 / 650 Other: Urine Color Pale Urine Appearance Clear Clear Urine Odor None Voiding Methods Bedside Commode Bedside Commode [facility] Medical History Asthma Gall stone Gallstone pancreatitis Hx of abnormal cervical Pap smear Multiple sclerosis F/U in [place], [place] 07/2020 Pt. states she may not be able to walk once she comes out of anesthesia she had spoken to her MS specialist Dr. Denise regarding this surgery (lap mendel) Surgical History No significant past surgical history Family History Father Hyperlipidemia Social History Smoking/Tobacco Use Status: Current-Occasional Tobacco Type: cigarettes Smoking risk assessment performed?: Yes Alcohol Intake: current Alcohol Intake frequency: holidays/special occasions only Drug use: Occasionally Substance use type: marijuana Details: last used 08/12/20 morning. Reporting smoking cigarettes once a year. Household members: significant other and children Number of Children: 1 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
--- NOTE | 2020-10-20 13:15 | CMDISCH_ITS ---
LACE Index Scoring Tool - Questions: Length of Stay (in days): 3 Acuity (Admit via E.D.?): Yes E.D. Visits: 4 - Answers: Total Score: 10 Risk of Readmission: High Risk Care Management Discharge Reason for Hospitalization: Pancreatits Discharge Plan: Regulo will return home when medically cleared. She will attend scheduled surgery on Wednesday at [facility]. She will follow up with her PCP and discharge plan of care. Regulo will transport home via private vehicle with her mother. Patient/Family Education Needs: Review discharge instructions, discuss Ask Me Three.
== END 2020-10-20 13:05 | disposition home or self-care (01) | DRG 440 ==
LOC: ER 05:54 → ICU 06:40
PROVIDERS: Internal Medicine; Admitting Provider General Practice; Emergency Provider Student in an Organized Health Care Education/Training Program; PCP Family Medicine; Visit Provider General Practice
DX: K85.10 Biliary acute pancreatitis without necrosis or infection (principal); G35 Multiple sclerosis; K80.20 Calculus of gallbladder without cholecystitis without obstruction; J45.909 Unspecified asthma, uncomplicated
CPT/HCPCS: 36415; 80048; 80053; 80076; 81025; 83690; 96361; 96365; 96375; 96376; 99222; 99232; 99233; 99238; 99285; NC; U0003; 76700; 81003; 82247; 82248; 83605; 83735; 84450; 84460; 85025; J0131; J1885; J2405; J2543; J3480

== ENCOUNTER 2020-11-21 09:32 | Outpatient (REF) | payer MEDICAID, SELFPAY ==
--- NOTE | 2020-11-21 09:15 | PAPFT_PTH ---
PATIENT: Regulo Alejandro LOC: N U#:[id number] AGE/SX: 40/F ROOM: RE11/21/[address]: SARTHAK WilhelmP : 1980 BED: DIS: 11/21/2020 SPEC #: [id number] RECD: 11/21/20 12:44 STATUS: JAS REQ #: [id number] IRA: 11/21/20 09:[address]: Brandi Perez DEPT: [facility] Cytology RECD BY: Mamie Sloan ENTERED: 11/21/20 12:44 SP TYPE: PAPFT OTHR DR: Maciel Buck Tissues: 1 - CX/ENDOCX FOR PAP SMEARS Procedures: PAP THIN PREP/UVM Screening HPV DNA PROBE Comments: [id number]
[2020-11-22 16:25] LABS: Chlamydia Result Negative (Negative); GC Result Negative (Negative)
== END 2020-11-21 09:33 | disposition home or self-care (01) ==
LOC: LBN 09:32
PROVIDERS: PCP Family Medicine; Visit Provider Nurse Practitioner Family
DX: Z11.3 Encounter for screening for infections with a predominantly sexual mode of transmission (principal); Z12.4 Encounter for screening for malignant neoplasm of cervix; Z11.51 Encounter for screening for human papillomavirus (HPV); Z87.410 Personal history of cervical dysplasia
CPT/HCPCS: 87491; 87591; 88142; 87624

== ENCOUNTER 2023-03-03 09:30 | Outpatient (REF) | payer MEDICARE, MEDICAID, SELFPAY ==
[2023-03-04 12:20] LABS: GC Result Negative (Negative)
[2023-03-04 12:43] LABS: Chlamydia Result Positive (Negative)
== END 2023-03-03 09:31 | disposition home or self-care (01) ==
LOC: LBN 09:30
PROVIDERS: PCP Family Medicine; Visit Provider Nurse Practitioner Women's Health
DX: Z11.3 Encounter for screening for infections with a predominantly sexual mode of transmission (principal)
CPT/HCPCS: 87491; 87591

== ENCOUNTER 2023-03-11 02:20 | Outpatient (CLI) | payer MEDICARE, MEDICAID, SELFPAY ==
--- NOTE | 2023-03-11 15:15 | DI.MAMMO_ITS ---
Exam(s) MAMMO SCREENING EXAM: MAMMO SCREENING CLINICAL HISTORY: screening TECHNIQUE: Mammograms were interpreted according to the usual protocol including computer analysis w [employer] CAD system, tomosynthesis and C-view imaging. COMPARISON: No exams were available for comparison. Baseline examination. FINDINGS: The breasts are composed of scattered fibroglandular densities, Breast Density category B. No suspicious masses or suspicious microcalcifications are seen. No skin thickening or abnormal axillary lymph nodes are seen. IMPRESSION: BI-RADS Category 1, Negative mammogram Yearly screening mammography is recommended. Breast Density - Category B, scattered fibroglandular densities. A negative radiographic report should not delay biopsy if a dominant or clinically suspicious mass is present. Up to ten percent of cancers are not identified on mammography. A negative report may reinforce clinical impression. Adenosis and dense breasts may obscure an underlying neoplasm. False positive reports average 6 to 10%. Patient will receive a letter notifying them of these results.
== END 2023-03-11 02:40 ==
PROVIDERS: PCP Family Medicine; Visit Provider Nurse Practitioner Women's Health
DX: Z12.31 Encounter for screening mammogram for malignant neoplasm of breast (principal)
CPT/HCPCS: 77063; 77067

== ENCOUNTER 2023-05-31 15:22 | Emergency (ER) | payer MEDICARE, MEDICAID, SELFPAY ==
[2023-05-31 15:24] VITALS: BP 125/71; PULSE 97; TEMP 37.2; O2SAT 98
--- NOTE | 2023-05-31 16:00 | DI.RAD_ITS ---
Exam(s) XR HAND LT COMPLETE EXAM: XR HAND LT COMPLETE CLINICAL HISTORY: cat bite left hand, eval foreign body. TECHNIQUE: 2D digital imaging was performed of the left hand. Three views were obtained. AP, later al and oblique views were obtained. COMPARISON: No exams were available for comparison FINDINGS: BONES: No acute fracture is present. No bony destructive lesion is seen. JOINTS: No dislocation present. The joint spaces are well maintained. SOFT TISSUE: There is a 1-2 mm density in the subcutaneous tissues on the volar aspect of the 3rd fin marcia anterior to the middle phalanx which may represent a loose body. No subcutaneous air is seen. IMPRESSION: 1. 1-2 mm density in the subcutaneous tissues anterior to the middle phalanx of the 3rd finger. Fore ign body cannot be excluded. 2. Findings were discussed with Dr. Thibodeaux at 5:53 p.m. on 05/31/2023. DATA REPOSITORY: RADIATION DOSE DELIVERED:
--- NOTE | 2023-05-31 16:11 | ED.GENADUL_ITS ---
Discharge Plan Disposition Patient Disposition: Home Condition: Good Discharge Details Clinical Impression: Cat scratch, Cellulitis of hand Primary Care Provider: Maciel Buck ED Provider: Yanelis Thibodeaux Home Meds and New Rx's Prescriptions: New amoxicillin-pot clavulanate 875-125 mg tablet 1 tab PO BID Qty: 28 0RF No Action calcium carbonate [Tums] 200 mg calcium (500 mg) tablet,chewable 200 mg PO TID PRN cholecalciferol (vitamin D3) 25 mcg (1,000 unit) tablet 25 mcg PO DAILY multivitamin [Daily Multi-Vitamin] Tablet 1 tab PO DAILY Airborne Gummy 250-11.66 mg tablet,chewable PO Mirena 1 EACH intrauterine device 1 ea Intrauterine ONCE Qty: 1 Patient Comments: pt has had for the past 11yrs 01/23/16 cromolyn 4 % drops 1 drp OP 6XD PRN albuterol sulfate [Proventil HFA] 90 mcg/actuation HFA aerosol inhaler 2 puff IH 6XD doxycycline monohydrate 100 mg tablet 100 mg PO BID Qty: 14 0RF Ocrevus 30 mg/mL Solution 600 mg IV [id number] Rx Instructions: may 2020 Q6 mo (date in may is est. pt knows may Discharge Instructions Instructions: Cellulitis (ED) Additional Instructions: Take the antibiotic twice a day for the next 14 days. Take ibuprofen and tylenol over the counter as needed for pain; follow the directions on the bottle. Call your primary care doctor tomorrow to schedule an appointment within the next 3 days to followup on your visit today. Return to the emergency department for new or worsening symptoms including if your pain or redness worsens, or if your symptoms do not improve within the next 48 hours. Referrals: Maciel Buck [Primary Care Provider] - Medical Decision Making 43yo F with hx of MS presenting with left hand swelling and pain after injury from her cat, unsure if bite or scratch. Cat is vaccinated. Tachycardiac to 90's on arrival, vital signs otherwise reassuring. 3rd digit swollen on exam with erythema and swelling extending to hand at base of 3rd digit on both palmar and volar surface. Sensation intact throughout, mild pain with ROM at 3rd digit extension > flexion, able to fully extend finger. Exam reassuring, not consistent with flexor tenosynovitis at this time though may be early. Given IV pip/yoli. Rings cut off. Labs reviewed as below, CBC & CMP reassuring with no leukocytosis, no actionable abnormaliteis. ESR normal, CRP mildly elevated. Not septic. XR independently reviewed, no displaced fracture on my view, agree with radiology read below. Laceration anesthetized with 1cc of 2% lidocaine and thoroughly explored, no foreign bodies identified. Left open to heal by secondary intention. Discussed with orthopedist advisory application developer who evaluate patient, also not concerned for flexor teno at this time. Discussed with patient option of staying overnight for IV antibiotics vs discharge home with PO and she would prefer discharge which is reasonable. She was instructed to return for medical evaluation and treatment should her symptoms worsen or fail to improve in the next 48 hours. Discharged home; discharge instructions including return precautions were reviewed with patient who verbalized understanding. Alll questions were answered and they are in full agreement with the plan. Imaging Data Radiologic Study: Imaging: X-Ray Radiologist's impression: IMPRESSION: 1. 1-2 mm density in the subcutaneous tissues anterior to the middle phalanx of the 3rd finger.? Foreign body cannot be excluded. Lab Data Lab results reviewed: Yes I reviewed the patient's lab results. Labs: Laboratory Tests Range/Units 05/31/23 05/31/23 05/31/23 16:55 16:55 16:55 WBC (4.4-10.8) 10^3/uL 10.59 RBC (3.93-5.22) 10^6/uL 4.46 Hgb (11.2-15.7) g/dL 13.3 Hct (36.0-46.0) % 39.3 MCV (80-95) fL 88 MCH (27.0-33.0) pg 29.8 MCHC (32.0-36.0) % 33.8 RDW (11.7-14.6) % 12.7 Plt Count (130-400) 10^3/uL 367 MPV (8.0-11.0) fL 8.5 Immature Gran % 0.3 Neutrophils % 82.2 Lymphocytes % 10.5 Monocytes % 6.7 Eosinophils % 0.0 Basophils % 0.3 Nucleated RBC % (0.0-0.3) % 0.0 Absolute Neutrophils (1.2-6.7) 10^3/uL 8.71 H Absolute Lymphocytes (1.2-3.4) 10^3/uL 1.11 L Absolute Monocytes (0.1-0.8) 10^3/uL 0.71 Absolute Eosinophils (0.0-0.7) 10^3/uL 0.00 Absolute Basophils (0.0-0.2) 10^3/uL 0.03 ESR (0-20) mm/hr 11 Sodium (136-145) mmol/L 139 Potassium (3.5-5.1) mmol/L 3.5 Chloride (98-107) mmol/L 104 Carbon Dioxide (21.0-32.0) mmol/L 24.9 Anion Gap (3-11) mmol/L 10.1 BUN (7-18) mg/dL 10 Creatinine (0.55-1.02) mg/dL 0.6 Est GFR (CKD-EPI 2020) (mL/min/1.73m2) 114.86 Glucose (74-106) mg/dL 92 Calcium (8.5-10.1) mg/dL 9.1 Total Bilirubin (0.2-1.0) mg/dL 0.3 AST (15-37) U/L 9 L ALT (14-59) U/L 21 Alkaline Phosphatase (46-116) U/L 59 C-Reactive Protein (0.0-0.3) mg/dL 3.64 H Total Protein (6.4-8.2) g/dL 7.6 Albumin (3.4-5.0) g/dL 3.9 HPI General Mode of arrival: ambulatory . Date/Time Provider Initiated Documentation: 05/31/23 15:33 . Limitations to Documentation: no limitations . Information obtained by: patient . HPI Narrative: 43yo F with hx of MS presenting with left hand swelling and pain after injury from cat. Got in between her fighting cats yesterday evening, was bitten or scratched on the left middle finger (unsure which). Today with worsening redness, pain, and swelling throughout that finger extending down into the palm of her hand. Pain with motion of finger, unable to bend at middle phalanx. Normal sensation throughout hand. Denies pain or injury elsewhere. She is otherwise in her usual state of health with no fevers, chills, nausea, vomiting, abdominal pain, or other concerns. Related Data Home Medications Medication Instructions Recorded Confirmed levonorgestrel 21 mcg/24 hours (8 1 ea intrauterine ONCE #1 implant 04/11/15 10/17/20 yrs) 52 mg intrauterine device (Mirena) albuterol sulfate 90 mcg/actuation 2 puff inhalation 6XD 05/25/19 03/03/23 aerosol inhaler (Proventil HFA) cromolyn 4 % eye drops 1 drp ophthalmic (eye) 6XD PRN 05/25/19 03/03/23 calcium carbonate 200 mg calcium 200 mg PO TID PRN 05/09/20 03/03/23 (500 mg) chewable tablet (Tums) ocrelizumab 30 mg/mL intravenous 600 mg IV [id number] 10/17/20 03/03/23 solution (Ocrevus) cholecalciferol (vitamin D3) 25 25 mcg PO DAILY 11/21/20 03/03/23 mcg (1,000 unit) tablet [id number] C 250 tab PO 11/21/20 03/03/23 mg-herbal no.124 11.66 mg chewable tablet (Airborne Gummy) multivitamin (Daily Multi-Vitamin 1 tab PO DAILY 11/21/20 tablet) doxycycline monohydrate 100 mg 100 mg PO BID #14 tabs 03/04/23 tablet amoxicillin 875 mg-potassium 1 tab PO BID #28 tabs 05/31/23 clavulanate 125 mg tablet Previous Rx's Medication Instructions Recorded doxycycline monohydrate 100 mg 100 mg PO BID #14 tabs 03/04/23 tablet amoxicillin 875 mg-potassium 1 tab PO BID #28 tabs 05/31/23 clavulanate 125 mg tablet Allergies Allergy/AdvReac Type Severity Reaction Status Date / Time Sulfa (Sulfonamide AdvReac Severe vomiting Verified 03/03/23 08:53 Antibiotics) and weakness General Stated Complaint: AnimalBite KATHY: 3 Review of Systems Narrative: see HPI PFSH All Active Problems (Updated 05/31/23 @ 18:22 by Yanelis Thibodeaux MD) Cat scratch (Acute) Cellulitis of hand (Acute) S/P laparoscopy (Acute) IUD surveillance (Acute 09/09/15) Weakness of both legs (Acute) Bilateral congenital genu valgum (Acute) Seasonal allergies (Acute) Ankle pain (Acute) Gait abnormality (Acute) Multiple sclerosis (Chronic) F/U in [place], [place] 07/2020 Pt. states she may not be able to walk once she comes out of anesthesia she had spoken to her MS specialist Dr. Denise regarding this surgery (lap mendel) Medical History (Updated 05/31/23 @ 18:22 by Yanelis Thibodeaux MD) Asthma Gall stone Gallstone pancreatitis Hx of abnormal cervical Pap smear Surgical History (Updated 11/21/20 @ 09:29 by Brandi Perez NP) No significant past surgical history S/P cholecystectomy 11/04/20 at [facility] Family History Father Hyperlipidemia Social History Smoking/Tobacco Use Status: Current-Occasional Tobacco Type: cigarettes Smoking risk assessment performed?: Yes Alcohol Intake: current Alcohol Intake frequency: holidays/special occasions only Drug use: Occasionally Substance use type: marijuana Details: last used 08/12/20 morning. Reporting smoking cigarettes once a year. Household members: significant other and children Housing: apartment Number of Children: 1 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 Exam Narrative Exam Narrative: General: Alert, well appearing, well nourished, in no acute distress. Head: Normocephalic, atraumatic Neck: Trachea midline, Neck supple. Cardiac: No cyanosis. Resp: No respiratory distress. Speaking in full sentences. Abd: Non-distended. Extremities: Left hand with 3rd digit diffusely swollen and erythematous. Two small (~0.1-0.2cm) lacs to volar surface of 3rd digit, hemostatic. Erythema extends on palm and volar surface at base of 3rd digit. Sensation intact throughout. Pain with passive ROM at finger, extension > flexion. Neurologic: GCS 15. Moves all extremities freely against gravity Course Vital Signs Vital signs: Vital Signs Temperature 37.2 C 05/31/23 15:24 Pulse 97 H 05/31/23 15:24 Blood Pressure 125/71 05/31/23 15:24 Pulse Oximetry 98 05/31/23 15:24 Temperature 37.2 C 05/31/23 15:24 Temperature Source Temporal Artery Scan 05/31/23 15:24 Pulse 97 H 05/31/23 15:24 Blood Pressure 125/71 05/31/23 15:24 Blood Pressure Position Sitting 05/31/23 15:24 Pulse Oximetry 98 05/31/23 15:24 Oxygen Delivery Method Room Air 05/31/23 15:24 Oxygen Flow Rate 0 05/31/23 15:24 Pain Level 7 05/31/23 15:24
[2023-05-31 17:01] LABS: Abs Immature Grans 0.03 10^3/uL (0.0-0.06); Absolute Basophil Count 0.03 10^3/uL (0.0-0.2); Absolute Lymphocyte Count 1.11 10^3/uL (1.2-3.4); Absolute Monocyte Count 0.71 10^3/uL (0.1-0.8); Absolute Neutrophil Count 8.71 10^3/uL (1.2-6.7); Basophils % 0.3; HCT 39.3 % (36.0-46.0); HGB 13.3 g/dL (11.2-15.7); Immature Grans % 0.3; Lymphocytes % 10.5; MCH 29.8 pg (27.0-33.0); MCHC 33.8 % (32.0-36.0); MCV 88 fL (80-95); MPV 8.5 fL (8.0-11.0); Monocytes % 6.7; Neutrophils % 82.2; Platelet Count 367 10^3/uL (130-400); RBC 4.46 10^6/uL (3.93-5.22); RDW 12.7 % (11.7-14.6); RDW-SD 41.1 fL; WBC 10.59 10^3/uL (4.4-10.8)
[2023-05-31 17:05] LABS: ESR 11 mm/hr (0-20)
[2023-05-31 17:16] LABS: ALT 21 U/L (14-59); AST 9 U/L (15-37); Albumin 3.9 g/dL (3.4-5.0); Alkaline Phosphatase 59 U/L (46-116); Anion Gap 10.1 mmol/L (3-11); BUN 10 mg/dL (7-18); Bilirubin, Total 0.3 mg/dL (0.2-1.0); C-Reactive Protein 3.64 mg/dL (0.0-0.3); CO2 24.9 mmol/L (21.0-32.0); CREATININE 0.6 mg/dL (0.55-1.02); Calcium 9.1 mg/dL (8.5-10.1); Chloride 104 mmol/L (98-107); Estimated GFR 114.86 (mL/min/1.73m2); Glucose 92 mg/dL (74-106); Potassium 3.5 mmol/L (3.5-5.1); Sodium 139 mmol/L (136-145); Total Protein 7.6 g/dL (6.4-8.2)
[2023-05-31] MEDS: PIPERACILLIN/TAZO 3.375 GM in Normal Saline 50 ML IVPB (17:16)
[2023-05-31] MEDS: Acetaminophen 500 MG TAB 1000 MG PO (17:16)
[2023-05-31] MEDS: Ketorolac 15 MG/ML VIAL IVP (17:16)
--- NOTE | 2023-05-31 17:29 | NUR.NOTE ---
Addendum entered by Dianna Silveira 05/31/23 17:31: Just notified by RN, Lisa that it was a scratch and not a bite. Will fax the [facility] regarding this and leave a message for Health Officer. Original Note: Animal bite report faxed to [facility]. Message left for Health Officer, Amy Kelley, of the report. Nursing Note:
--- NOTE | 2023-05-31 19:34 | W.ORTHOCONSU ---
Date of service: 05/31/23 Time of Service: 17:20 History of Present Illness History of Present Illness Chief Complaint: Left Hand Infection Narrative: Regulo is a 43-year-old female who was trying to separate 2 cats were fighting yesterday evening. She sustained a scratch on the dorsum of the ring finger of the left hand. She has immediate pain. She felt this was from a nail rather than a tooth. It iced overnight. However, she had increasing swelling and pain with some redness to the left hand so she presented to emergency department. She denies fevers or chills. She did have rings on this finger which she was unable to remove and have since been cut off. She does feel that she is able to move the finger although some mild stiffness and swelling about the finger and hand. No numbness or tingling. Consults Consult date: 05/31/23 Requesting physician: Yanelis Thibodeaux Consult Reason Left hand infection Assessment and Plan Assessment and plan (1) Cellulitis of hand: Status: Acute Assessment and plan: Regulo is a 43-year-old female who has suffered an injury either cat bite or cat scratch to the left hand. This does not appear to be any flexor tenosynovitis at this point. While she does have some swelling about the finger and some redness, I think a portion of this was made worse by the ring being too tight on the finger. She does not have any [place] findings at this point. I would recommend antibiotic treatment with strict elevation. Given that she just had this happen yesterday and does not have any worrisome features I think oral antibiotics is sufficient. We will touch base in another 1 to 2 days. If she has any worsening pain or signs of infection she should present back to the emergency department. (2) Cat scratch: Status: Acute Review of Systems All systems reviewed & are unremarkable except as noted in HPI and below PFSH All Active Problems Cat scratch (Acute) Cellulitis of hand (Acute) S/P laparoscopy (Acute) IUD surveillance (Acute 09/09/15) Weakness of both legs (Acute) Bilateral congenital genu valgum (Acute) Seasonal allergies (Acute) Ankle pain (Acute) Gait abnormality (Acute) Multiple sclerosis (Chronic) F/U in [place], [place] 07/2020 Pt. states she may not be able to walk once she comes out of anesthesia she had spoken to her MS specialist Dr. Denise regarding this surgery (lap mendel) Medical History Asthma Gall stone Gallstone pancreatitis Hx of abnormal cervical Pap smear Surgical History No significant past surgical history S/P cholecystectomy 11/04/20 at [facility] [place] Family History Father Hyperlipidemia Social History Smoking/Tobacco Use Status: Current-Occasional Tobacco Type: cigarettes Smoking risk assessment performed?: Yes Alcohol Intake: current Alcohol Intake frequency: holidays/special occasions only Drug use: Occasionally Substance use type: marijuana Details: last used 08/12/20 morning. Reporting smoking cigarettes once a year. Household members: significant other and children Housing: apartment Number of Children: 1 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 Exam Narrative Exam Narrative: Sitting up in hospital bed. No acute distress. Alert orient x3. Evaluation left hand shows some swelling to the dorsum of the left hand and around the base of the middle finger. There is indentation at the base of the middle finger from the previous ring which was just removed. Mild redness into the palm. No pain along flexor tendon. Fingers held fully extended and is not fusiform. She is able to demonstrate active flexion extension of the finger. Swelling is soft, mostly over the dorsum of the hand. Small laceration about 1 cm length over the dorsum of the middle finger of the middle phalanx. Results Last Vital Signs Temp 37.2 C 05/31/23 15:24 Pulse 97 H 05/31/23 15:24 BP 125/71 05/31/23 15:24 Pulse Ox 98 05/31/23 15:24 Labs 05/31/23 16:55 05/31/23 16:55 Labs: Laboratory Results - last 24 hr 09/25/23 09/25/23 09/25/23 16:55 16:55 16:55 WBC 10.59 RBC 4.46 Hgb 13.3 Hct 39.3 MCV 88 MCH 29.8 MCHC 33.8 RDW 12.7 Plt Count 367 MPV 8.5 Immature Gran % 0.3 Neutrophils % 82.2 Lymphocytes % 10.5 Monocytes % 6.7 Eosinophils % 0.0 Basophils % 0.3 Nucleated RBC % 0.0 Absolute Neutrophils 8.71 H Absolute Lymphocytes 1.11 L Absolute Monocytes 0.71 Absolute Eosinophils 0.00 Absolute Basophils 0.03 ESR 11 Sodium 139 Potassium 3.5 Chloride 104 Carbon Dioxide 24.9 Anion Gap 10.1 BUN 10 Creatinine 0.6 Est GFR (CKD-EPI 2020) 114.86 Glucose 92 Calcium 9.1 Total Bilirubin 0.3 AST 9 L ALT 21 Alkaline Phosphatase 59 C-Reactive Protein 3.64 H Total Protein 7.6 Albumin 3.9 Imaging Imaging Studies: X-ray of the left hand shows no foreign body. No fracture.
== END 2023-05-31 18:37 | disposition home or self-care (01) ==
PROVIDERS: Emergency Provider Student in an Organized Health Care Education/Training Program; PCP Family Medicine
DX: W55.03XA Scratched by cat, initial encounter; L03.114 Cellulitis of left upper limb; R00.0 Tachycardia, unspecified; S60.413A Abrasion of left middle finger, initial encounter; G35 Multiple sclerosis
CPT/HCPCS: 36415; 80053; 85652; 90471; 96365; 96375; 99284; 73130; 85025; 86140; 99285; J1885; J2543

== ENCOUNTER 2024-06-18 13:26 | Emergency (ER) | payer MEDICARE, SELFPAY ==
[2024-06-18] VITALS (23 sets, daily range): BP systolic 100–126; BP diastolic 12–78; PULSE 84–101; RESP 18; TEMP 36.6–37.9; O2SAT 94–100
--- NOTE | 2024-06-18 14:02 | ED.GENADUL_ITS ---
Discharge Plan Discharge Details Chief Complaint: Fever Primary Care Provider: Maciel Buck ED Provider: Yue Flores Home Meds and New Rx's Prescriptions: No Action calcium carbonate [Tums] 200 mg calcium (500 mg) tablet,chewable 200 mg PO TID PRN cholecalciferol (vitamin D3) 25 mcg (1,000 unit) tablet 25 mcg PO DAILY multivitamin [Daily Multi-Vitamin] Tablet 1 tab PO DAILY Airborne Gummy 250-11.66 mg tablet,chewable 3 tab PO DAILY Mirena 1 EACH intrauterine device 1 ea Intrauterine ONCE Qty: 1 Patient Comments: pt has had for the past 11yrs 01/23/16 cromolyn 4 % drops 1 drp OP 6XD PRN albuterol sulfate [Proventil HFA] 90 mcg/actuation HFA aerosol inhaler 2 puff IH 6XD Ocrevus 30 mg/mL Solution 600 mg IV [id number] Rx Instructions: may 2020 Q6 mo (date in may is est. pt knows may HPI General Mode of arrival: ambulatory . Date/Time Provider Initiated Documentation: 06/18/24 13:38 . Limitations to Documentation: no limitations . Information obtained by: patient, RN notes reviewed and old records reviewed . HPI Narrative: 44-year-old female presents to the ER with a chief complaint of fever which began last night and strong smelling urine. Reports body aches and a history of multiple sclerosis. She denies any abdominal pain back pain she reports some vomiting but she is still able to hold down some food. Denies any diarrhea. Has not been on antibiotics in the last few months. Other past medical history includes pancreatitis gallstones and asthma. She did not take any Tylenol ibuprofen prior to arrival. Related Data Home Medications ?Medication ?Instructions ?Recorded ?Confirmed levonorgestrel 21 mcg/24 hr (up to 1 ea intrauterine ONCE #1 implant 04/11/15 06/18/24 8 years) 52 mg intrauterine device (Mirena) albuterol sulfate 90 mcg/actuation 2 puff inhalation 6XD 05/25/19 06/18/24 aerosol inhaler (Proventil HFA) cromolyn 4 % eye drops 1 drp ophthalmic (eye) 6XD PRN 05/25/19 06/18/24 calcium carbonate (Tums) 200 mg PO TID PRN 05/09/20 06/18/24 ocrelizumab 30 mg/mL intravenous 600 mg IV [id number] 10/17/20 06/18/24 solution (Ocrevus) cholecalciferol (vitamin D3) 25 25 mcg PO DAILY 11/21/20 06/18/24 mcg (1,000 unit) tablet [id number] C 250 3 tab PO DAILY 11/21/20 06/18/24 mg-herbal no.124 11.66 mg chewable tablet (Airborne Gummy) multivitamin (Daily Multi-Vitamin 1 tab PO DAILY 11/21/20 06/18/24 tablet) Allergies Allergy/AdvReac Type Severity Reaction Status Date / Time Sulfa (Sulfonamide AdvReac Severe vomiting Verified 06/18/24 13:39 Antibiotics) and weakness General Stated Complaint: Fever KATHY: 3 Review of Systems All systems reviewed & are unremarkable except as noted in HPI and below Constitutional Constitutional: Reports as per HPI, Reports body ache(s) and Reports fever(s) Gastrointestinal Gastrointestinal: Denies diarrhea and Reports vomiting Genitourinary Genitourinary: Reports as per HPI and Reports vaginal odor Exam Narrative Exam Narrative: Constitutional: Alert and oriented x3. Appears stated age. Normal body habitus. Head: Normocephalic, no trauma. Eyes: Pupils PERRL, Red reflex noted, EOM's intact. Eyelids symmetrical without lesions, discharge, or swelling. ENT: Bilateral TM's WNL, External ear normal to inspection, no mastoid TTP, swelling, or erythema, Nasal turbinates WNL, no nasal discharge. Normal dentition, Posterior pharynx WNL, no exudate. Chest: RRR, Normal S1, S2, distal pulses intact. Resp: Lungs clear to auscultation bilaterally, no wheezes, rales, or rhonchi. Abdomen: Soft, non-distended, Normoactive bowel sounds all 4 quads. Course Vital Signs Vital signs: Vital Signs Temperature 37.9 C H 06/18/24 13:35 Pulse 98 H 06/18/24 13:35 Respiratory Rate 18 06/18/24 13:35 Blood Pressure 118/71 06/18/24 13:35 Pulse Oximetry 94 06/18/24 13:35 Temperature 37.9 C H 06/18/24 13:35 Temperature Source Oral 06/18/24 13:35 Pulse 98 H 10/13/24 13:35 Respiratory Rate 18 06/18/24 13:35 Respiratory Effort Normal, Non-Labored 06/18/24 13:42 Blood Pressure 118/71 06/18/24 13:35 Pulse Oximetry 94 06/18/24 13:35 Oxygen Delivery Method Room Air 06/18/24 13:35 Oxygen Flow Rate 0 06/18/24 13:35 Medical Decision Making 44-year-old female presents to the ER with a chief complaint of fever which began last night and strong smelling urine. Reports body aches and a history of multiple sclerosis. She denies any abdominal pain back pain she reports some vomiting but she is still able to hold down some food. Denies any diarrhea. Has not been on antibiotics in the last few months. Other past medical history includes pancreatitis gallstones and asthma. She did not take any Tylenol ibuprofen prior to arrival. Workup ordered including CBC CMP urinalysis Tylenol. By blood cell count 11.89, platelets 588 absolute neutrophils 10.18, sodium 143 potassium 2.4 10 mill equivalents of potassium IV piggyback ordered, 40 mill equivalents p.o. Patient reports that she does have a history of hypokalemia. She is still unable to give a urine sample at this time. Care is to be handed off to oncoming provider DEVIN aRines pending urinalysis and fusion of potassium. I do anticipate discharge after the above treatment. Medical Records Medical records reviewed: Yes I reviewed the patient's medical records. Lab Data Lab results reviewed: Yes I reviewed the patient's lab results. Labs: Laboratory Tests Range/Units 06/18/24 14:10 WBC (4.4-10.8) 10^3/uL 11.89 H RBC (3.93-5.22) 10^6/uL 3.93 Hgb (11.2-15.7) g/dL 12.0 Hct (36.0-46.0) % 35.6 L MCV (80-95) fL 91 MCH (27.0-33.0) pg 30.5 MCHC (32.0-36.0) % 33.7 RDW (11.7-14.6) % 13.1 Plt Count (130-400) 10^3/uL 588 H MPV (8.0-11.0) fL 8.4 Immature Gran % % 0.7 Neutrophils % % 85.6 Lymphocytes % % 8.1 Monocytes % % 5.4 Eosinophils % % 0.0 Basophils % % 0.2 Nucleated RBC % (0.0-0.3) % 0.0 Absolute Neutrophils (1.2-6.7) 10^3/uL 10.18 H Absolute Lymphocytes (1.2-3.4) 10^3/uL 0.96 L Absolute Monocytes (0.1-0.8) 10^3/uL 0.64 Absolute Eosinophils (0.0-0.7) 10^3/uL 0.00 Absolute Basophils (0.0-0.2) 10^3/uL 0.02 Sodium (136-145) mmol/L 143 Potassium (3.5-5.1) mmol/L 2.4 L* Chloride (98-107) mmol/L 100 Carbon Dioxide (21.0-32.0) mmol/L 29.2 Anion Gap (3-11) mmol/L 13.8 H BUN (7-18) mg/dL 7 Creatinine (0.55-1.02) mg/dL 0.6 Est GFR (CKD-EPI 2020) (mL/min/1.73m2) 114.15 Glucose (74-106) mg/dL 96 Calcium (8.5-10.1) mg/dL 9.4 Magnesium (1.8-2.4) mg/dL 2.0 Total Bilirubin (0.2-1.0) mg/dL 0.60 AST (15-37) U/L 11 L ALT (14-59) U/L 23 Alkaline Phosphatase (46-116) U/L 75 Total Protein (6.4-8.2) g/dL 7.6 Albumin (3.4-5.0) g/dL 3.0 L Quality:SDOH Health Related Social Needs: No Data to Display PFSH All Active Problems S/P laparoscopy (Acute) IUD surveillance (Acute 09/09/15) Weakness of both legs (Acute) Bilateral congenital genu valgum (Acute) Seasonal allergies (Acute) Ankle pain (Acute) Gait abnormality (Acute) Multiple sclerosis (Chronic) F/U in [place], [place] 07/2020 Pt. states she may not be able to walk once she comes out of anesthesia she had spoken to her MS specialist Dr. Denise regarding this surgery (lap mendel) Medical History Gallstone pancreatitis Hx of abnormal cervical Pap smear Gall stone Asthma Surgical History S/P cholecystectomy 11/04/20 at [facility] [place] No significant past surgical history Family History Father Hyperlipidemia Social History Smoking/Tobacco Use Status: Current-Occasional Tobacco Type: cigarettes Smoking risk assessment performed?: Yes Alcohol Intake: current Alcohol Intake frequency: holidays/special occasions only Drug use: Occasionally Substance use type: marijuana Details: last used 08/12/20 morning. Reporting smoking cigarettes once a year. Household members: significant other and children Housing: apartment Number of Children: 1 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 Sign Out Sign Out Data: Sign Out Comment: 44-year-old with history of MS presents with fever Tmax 102.9 which began last night, dysuria. Potassium is 2.4. She does have a history of hypokalemia. Receiving 10 mill equivalents IV piggyback potassium and 40 mill equivalents p.o. Awaiting urinalysis. Last updated by Yue Flores NP at 06/18/24 15:30
[2024-06-18 14:21] LABS: Abs Immature Grans 0.08 10^3/uL (0.0-0.06); Absolute Basophil Count 0.02 10^3/uL (0.0-0.2); Absolute Lymphocyte Count 0.96 10^3/uL (1.2-3.4); Absolute Monocyte Count 0.64 10^3/uL (0.1-0.8); Basophils % 0.2 %; HCT 35.6 % (36.0-46.0); Immature Grans % 0.7 %; Lymphocytes % 8.1 %; MCH 30.5 pg (27.0-33.0); MCHC 33.7 % (32.0-36.0); MCV 91 fL (80-95); MPV 8.4 fL (8.0-11.0); Monocytes % 5.4 %; Neutrophils % 85.6 %; Platelet Count 588 10^3/uL (130-400); RBC 3.93 10^6/uL (3.93-5.22); RDW 13.1 % (11.7-14.6); RDW-SD 44.2 fL; WBC 11.89 10^3/uL (4.4-10.8)
[2024-06-18 14:22] LABS: Absolute Neutrophil Count 10.18 10^3/uL (1.2-6.7)
[2024-06-18] MEDS: Acetaminophen 500 MG TAB 1000 MG PO (14:25)
[2024-06-18 14:33] LABS: ALT 23 U/L (14-59); AST 11 U/L (15-37); Alkaline Phosphatase 75 U/L (46-116); Anion Gap 13.8 mmol/L (3-11); BUN 7 mg/dL (7-18); CO2 29.2 mmol/L (21.0-32.0); CREATININE 0.6 mg/dL (0.55-1.02); Calcium 9.4 mg/dL (8.5-10.1); Chloride 100 mmol/L (98-107); Estimated GFR 114.15 (mL/min/1.73m2); Glucose 96 mg/dL (74-106); Sodium 143 mmol/L (136-145); Total Protein 7.6 g/dL (6.4-8.2)
--- OUTSIDE RECORDS SUMMARY | 2024-06-18 14:33 | XMS_ITS | Encounter Summary ---
Author Organization [facility] Address [facility] [place] [address] Care Team Providers Care Ip Litigation Associate Name Role Phone Maciel Buck MD Primary Care Provider [phone] Reason for Visit * Auth/Cert Specialty Diagnoses / Procedures Referred By Renay liriano Referred To Contact Diagnoses Gallstones Pancreatitis GALLSTONES PANCREATITIS Procedures PRO LAP, CHOLECYSTECTOMY/GRAPH LAPAROSCOPIC CHOLECYSTECTOMY WITH CHOLANGIOGRAM (WRVU 11.47) Referral ID Status Reason Start Date Expiration Date Visits Re quested Visits Authorized [id number] 1 1 Encounter Details Date Type Department Care Team (Late st Contact Info) Description 11/04/2020 10:09 AM EST - 11/04/2020 1:07 PM EST Surgery [place] [address] Ceferino Nathan MD [facility] [place] [address] LAPAROSCOPIC CHOLECYSTECTOMY WITH CHOLANGIOGRAM (WRVU 11.47) Social History Tobacco Use Types Packs/Day Years Used Date Smoking Tobacco: Never Smokeless Tobacco: Never Alcohol Use Standard Drinks/Week Comments Not Currently 0 (1 standard drink = 0.6 oz pur e alcohol) rarely Sex and Gender Information Value Date Recorded Sex Assigned at Not on file Gender Identity Not on file Sexual Orientation Not on file documented as of this encounter Last Filed Vital Signs Vital Sign Reading Time Taken Comments Blood Pressure 120/69 11/04/2020 8:52 AM EST Pulse 101 11/04/2020 8:52 AM EST Temperature 36.6 ??C (97.9 ??F) 11/04/2020 8:52 AM ES T Respiratory Rate 16 11/04/2020 8:52 AM EST Oxygen Saturation 100% 11/04/2020 8:52 AM EST Inhaled Oxygen Concentration - - Weight 69.9 kg (154 lb) 11/04/2020 8:52 AM EST Height 163.8 cm (5' 4.5) 11/04/2020 8:52 AM EST Body Mass Index 26.03 11/04/2020 8:52 AM EST documented in this encounter Discharge Instructions * Patient Instructions* Rowena Card MD - 11/04/2020 1:39 PM EST Discharge Instructions Medications: ?? Resume all usual home medications. ?? Take Tylenol 650 mg every 6 hours as needed for pain. (Do not exceed 3000 mg of Tylenol in 24 hours). Can combine with Ibuprofen 400 mg every 6 hours as needed for pain. ?? You have been prescribed narcotic pain medications (Tramadol) to control your discomfort after surgery. ?? DO NOT use alcohol, drive, or operate heavy or complex machinery while taking these medications. ?? Narcotic pain medications may cause constipation. ?? Stool softeners, such as Colace; mild laxatives, such as Milk of Magnesia, Sennakot, or Ducolax tabs; or enemas may be used if needed and are mplh-emm-tburmjf (OTC) medications available at most local pharmacies. Prunes or prune juice, taken daily, can also be helpful for constipation treatment or prevention and are available at most supermarkets. Driving Restrictions: ?? No driving if you are too sore from surgery to enter or exit your vehicle comfortably, or if youare too sore to easily check your blind spot. No driving while using prescription pain medications Activities: ?? Discuss return to work or school with your surgeon. ?? No heavy lifting. You may lift what is comfortable to lift with one arm. Nothing greater than 15pounds until re-evaluated by your physician. Diet: ?? Resume your normal diet. Wound Care: ? Keep dressings/Band-Aids on incisions for the next 2 days. Do not get dressings wet. If they become wet or soaked with drainage you may change them with fresh ones as needed. If there are pieces of tape directly on the incision (steri-strips or butterflys), please leave them on until they fall off on their own. You may trim them back as they begin to peel up. ?? After 2 days you may remove dressing/Band-Aids and leave open to air. You may now shower and getincisions wet. Pat dry immediately following. Do not scrub them vigorously for the next 2-3 weeks. Do not soak incision(s) under water for the next 2 weeks (i.e. soaking in bath or swimming) as this may promote a wound infection. ?? Your stitches are under the skin and will dissolve. They do not need to be removed. ?? You can shower 48 hours after surgery per usual routine (regular soap/water) and wash the incision area gently. Pat incision dry with a clean, dry towel. ?? Do not submerge the wound under water (avoid spas, pools and bathtubs) until it is fully healed. ?? Do not use creams, oils, or ointments on the wound. ?? Keep the wound open to air if it is not draining. ?? See follow-up appointments below for removal of sutures/deanna. Follow-up Appointments: You have a follow-up appointment scheduled with Dr. Nathan on 12/04/20. You will recieve a letter in the mail and/or a phone call with information about this appointment. Please call the clinic at [phone] to confirm or reschedule. Follow up appointments: Future Appointments Date Time Provider Department Center 12/04/2020 4:00 PM Ceferino Nathan MD [facility] SURG [facility] Who to call? If you have concerns or questions: - During the day, it is best to call the [facility] to speak with the Surgery nurses. The number is [phone]. - During the night or weekends call the [facility] shotblast equipment operator at [phone] and ask to speak to the surgery resident inclusion teacher for general surgery. Please note: Your surgeon may not be Station Engineer Main Line, especially during the night or on weekends, so be ready to describe yourself and your surgery when you call. documented in this encounter Medications at Time of Discharge Medication Sig Dispensed Refills Start Date End Date traMADoL (Ultram) 50 mg Tablet Take 1 tablet by mouth every 6 hours as needed for Pain. 10 tablet 11/04/2020 famotidine (Pepcid) 20 mg Tablet Take 20 mg by mouth 2 times daily. 05/09/2020 multivitamin Tablet, Chewable Take 1 tablet by mouth daily. multivit-min/vit C/herb no.124 (AIRBORNE, ASCORBIC ACID, ORAL) Take by mouth. Airborne gummies fish oil-omega-3 fatty acids 1,000 mg Capsule Take 1 g by mouth once a week. ocrelizumab (OCREVUS IV) Inject into the vein Q6 Months. MS infusion documented as of this encounter Progress Notes * Eugene Mancuso RN - 11/04/2020 3:37 PM EST Patient alert and oriented, vital signs stable. Reviewed discharge instructions; patient, Regulo andmother Natividad and they both verbalized understanding. Copy of instruction sheet with contact numbers for questions/concerns with Regulo and Natividad. Pain assessment documented. Patient escorted out of department via wheelchair with CLINICAL RESEARCH TECH. documented in this encounter H&P Notes * Rowena Card MD - 11/04/2020 9:55 AM EST [facility] Minimally Invasive Surgery Interval History and Physical HPI: Regulo Alejandro is a 40 y.o. female who presents for laparoscopic cholecystectomy for biliary pancreatitis. Please see clinic note dated 09/18/20 for further historical details, copied below. There have been no changes to the patient's history or physical exam since documented in clinic. Patient is a 40-year-old female who is referred for possible cholecystectomy. She has been having significant difficulty with gallstone pancreatitis with a series of CT scans over the last several months ultimately it was taken to the operating room [place] in August and I do have the operative note from that and basically they thought due to adhesions in the right upper quadrant that he was not safe to proceed so rather than do what would generally be excepted as the standard and convert toa open cholecystectomy the decision was made to stop surgery at that point and refer the patient for a cholecystectomy. She seems to have recovered from that but essentially was a diagnostic laparoscopy without difficulty and her trocar sites have healed from that. I have had a 40-minute conversation with the patient and her mother regarding her indication for surgery as well as what happened at her last operation. I cannot really comment to much on what transpired with that surgery other than to give them my usual preop gallbladder explanation. Generally say there is a 2% chance of having to convert to the open surgery given the intraoperative findings of excessive scar tissue and I suspect that is what I would have done in this case there is also possibility of needing to do a fenestrated cholecystectomy in which case we would leave the infundibulum behind usually the drain in place and occasionally that is necessary or if there is too much scar tissue that obscures the infundibulumand the cystic duct common bile duct area and further dissection would lead to possible injury. I also mention possibility bleeding requiring transfusion possibility infection and a chance of additional procedures such as ERCP in the future. Overall they seem to understand and would like to proceedI also given a copy of the low-fat preop diet and strongly urged compliance for 2 weeks prior to the date of surgery they would not schedule surgery at some point in the near future ??2:52 PM PMH: GERD PSH: Aborted laparoscopic cholecystectomy No current facility-administered medications on file prior to encounter. Current Outpatient Medications on File Prior to Encounter Medication Sig Dispense Refill ??? famotidine (Pepcid) 20 mg Tablet Take 20 mg by mouth 2 times daily. ??? multivitamin Tablet, Chewable Take 1 tablet by mouth daily. ??? multivit-min/vit C/herb no.124 (AIRBORNE, ASCORBIC ACID, ORAL) Take by mouth. Airborne gummies ??? fish oil-omega-3 fatty acids 1,000 mg Capsule Take 1 g by mouth once a week. ??? ocrelizumab (OCREVUS IV) Inject into the vein Q6 Months. MS infusion Allergies Allergen Reactions ??? Sulfa (Sulfonamide Antibiotics) Anaphylaxis Social History Socioeconomic History ??? Marital status: Single Spouse name: Not on file ??? Number of children: Not on file ??? Years of education: Not on file ??? Highest education level: Not on file Occupational History ??? Not on file Tobacco Use ??? Smoking status: Never Smoker ??? Smokeless tobacco: Never Used Substance and Sexual Activity ??? Alcohol use: Not Currently Comment: rarely ??? Drug use: Never ??? Sexual activity: Not on file Other Topics Concern ??? Not on file Social History Narrative ??? Not on file Social Determinants of Health Financial Resource Strain: ??? Difficulty of Paying Living Expenses: Not on file Food Insecurity: ??? Worried About Running Out of Food in the Last Year: Not on file ??? Ran Out of Food in the Last Year: Not on file Transportation Needs: ??? Lack of Transportation (Medical): Not on file ??? Lack of Transportation (Non-Medical): Not on file Physical Activity: ??? Days of Exercise per Week: Not on file ??? Minutes of Exercise per Session: Not on file Patient Vitals for the past 24 hrs: BP Temp Temp src Pulse Resp SpO2 Height Weight 11/04/20 0852 120/69 36.6 ??C (97.9 ??F) Temporal (!) 101 16 100 % 163.8 cm (5' 4.5) 69.9 kg (154 lb) PE: Comfortable, in NAD, conversant RRR without murmurs CTAB Abdomen soft, NT, ND, lap scars Plan: Regulo Alejandro is a 40 y.o. female who presents for laparoscopic cholecystectomy for biliarypancreatitis. She has no further questions and agrees to proceed. Rowena Card MD PGY-6 Minimally Invasive Surgery Fellow documented in this encounter Miscellaneous Notes * Op Note - Ceferino Nathan MD - 11/04/2020 11:04 AM EST [facility] Operative Note Patient Name: Regulo Alejandro : [id number] MR#: [id number] Case Date: 11/04/2020 Surgeon: Surgeon(s) and Role: * Ceferino Nathan MD - Primary * Rowena Card MD - Fellow Preoperative diagnosis: GALLSTONES PANCREATITIS Postoperative diagnosis: GALLSTONES Procedure(s) (LRB): LAPAROSCOPIC CHOLECYSTECTOMY WITH CHOLANGIOGRAM (WRVU 11.47) (N/A) Indications For Procedure: The patient is a 40-year-old female with a history of biliary colic, confirmed to have gallstones on ultrasound. Following review of her therapeutic options, she has elected to undergo a laparoscopic cholecystectomy. She had a pror aborted attempt at an outside facility. Findings: The patient was noted to have evidence of inflammation to her gallbladder in the past as evidenced by omental adhesions to the gallbladder. She underwent a laparoscopic cholecystectomy withintraoperative cholangiogram. Cholangiogram showed no filling defects in the bile system and good flow of dye into the duodenum with normal bile duct anatomy. Description of Procedure: The patient was brought to the Operating Room and placed in the supine position. Following uneventful induction of general endotracheal anesthesia, Venodyne stockings and anorogastric tube were placed. Her abdomen was prepped and draped in the usual sterile fashion. A small incision was made in the base of the umbilicus followed by insertion of a Veress needle in the abdominal cavity and pneumoperitoneum to 15 mmHg pressure was obtained without difficulty. The first trocar was a 10 mm trocar placed through the umbilicus. Through this, a 30 degree laparoscope was inserted. All remaining trocars were inserted under direct visualization. The next trocar was a 10 mm tr ocar placed in the midline just below the xiphoid. The next trocar was a 5 mm trocar placed in the anterior axillary line just below the costal margin. Through this trocar, a grasping forceps was placed on the fundus of the gallbladder where it was then retracted cephalad. The last trocar was a 5 mm trocar placed in the midclavicular line below the costal margin. Using appropriate grasping instruments, the peritoneum overlying the triangle of Calot was incised. The cystic duct/gallbladder junction was identified, dissected circumferentially. A clip was then placed on the cystic duct/gallbladder junction and an intraoperative cholangiogram performed using fluoroscopy, which showed good flow of dye into the duodenum. There were no intra- or extrahepatic bile duct filling defects. The biliary anatomy appeared normal. Following completion of the cholangiogram, the catheter was removed. Two clips were then placed proximally on the cystic duct and the duct divided. The cystic artery was identified medially and was dissected circumferentially. Two clips were placed proximally and one distally, and the artery was divided. Remaining soft tissue attachments to the gallbladder to the liver bed were then divided using electrocautery. The gallbladder bed was inspected and excellent hemostasis was obtained. The gallbladder was extracted through the epigastric trocar site. The abdomen was again irrigated and excellent hemostasis was assured. All remaining trocars were then removed and the pneumoperitoneum was evacuated. All trocar sites were closed at the skin level using a running subcuticular closure of 4-0 Vicryl followed by Steri-Strips followed by Band-Aids. Overall, the patient to lerated the procedure well and was taken to the Recovery Room postoperatively in stable condition. Attestation: Case Date: 11/04/2020 I performed this procedure without the involvement of a resident. CEFERINO NATHAN MD 11/04/2020 documented in this encounter Plan of Treatment Not on file documented as of this encounter Procedures Procedure Name Priority Date/Time Associated Diagnosis Comments SURGICAL PATHOLOGY REPORT Routine 11/04/2020 12:30 PM EST SPECIMEN TO PATHOLOGY Routine 11/04/2020 12:30 PM EST XR FLUORO NO RAD <1HR - OR USE Routine 11/04/2020 12:15 PM EST Lap, Cholecystectomy/Gra ph ([id number]) 11/04/2020 10:32 AM EST GALLSTONES documented in this encounter Results * Surgical Pathology Report (11/04/2020 12:30 PM EST) Final Diagnosis [id number] ? Location: [facility]; [facility]; A The signing pathologist has (i) examined the relevant preparation(s) for the specimen(s) and (ii) rendered or confirmed the diagnosis(es). . ?Surgical Pathology DIAGNOSIS Gallbladder and contents: Chronic cholecystitis and cholelithiasis. Electronically signed by: ??Dian LORENZ PhD, Michelle Verified: ??11/12/2020 ?Pathologist Performed at: ??-[facility] Dept. of Pathology, [place], [place] SPECIMEN(S) SUBMITTED A - GALLBLADDER & CONTENTS, excision (1) CLINICAL INFORMATION Gallstones SPECIMEN PROCESSING A - Labeled/Fixative: Gallbladder and contents, fresh. Quantity/Size: ??Single, 5.5 x 4.0 x 1.0 cm. Specimen Description: Gallbladder, received disrupted. Serosa: Pale pink and focally hemorrhagic, the gallbladder is markedly disrupted at the neck, and the cystic duct cannot be appreciated Adventitia: Cauterized without any adherent tissue Lumen contents: Bile is absent Gallstones: Present: Multiple, yellow gallstones ranging from, 0.2 x 0.2 x 0.2 cm to 1.5 x 1.3 x 1.0 cm Mucosa: [place] red and edematous appearing Wall: 0.3 cm thick. Duct: Cannot be determined due to disrupted and fragmented nature of the specimen. Ink Designation: The hepatic margin is inked black Sections/Processi ng: Offset Lithographic Press Setter sections in 1 cassettes as follows: ?A1: ??possible chemical sales representative cystic duct and chemical sales representative mucosa ?A2: ??chemical sales representative mucosa ??SAS/sns 11/12/2020 2:25 PM EST [facility] GALLBLADDER STRUCTURE / Unknown 11/04/2020 12:30 PM EST 11/04/2020 12:30 PM EST Ceferino Nathan MD PATHOLOGY/CYTOLOGY ORDERABLES [facility] [place] [address] * Specimen to Pathology (11/04/2020 12:30 PM EST) AP Specimen 11/04/2020 12:3 0 PM EST 11/04/2020 12:30 PM EST Narrative [facility] - 11/04/2020 12:30 PM EST Specimen requisition ordered. ??Separate Pathology report to follow Ceferino Nathan MD PATHOLOGY/CYTOLOGY ORDERABLES Performing Organization Address [facility] Co de Phone Number [facility] [place] [address] * XR Fluoro No Rad <1Hr - OR Use (11/04/2020 12:15 PM EST) Narrative RAD - 11/04/2020 12:16 PM EST This exam is auto-finalizing. No interpretation was done. Ceferino Nathan MD IMG FLUORO ORDERABL ES Performing Organization Address [facility] de Phone Number [place], [place] documented in this encounter Visit Diagnoses Not on filedocumented in this encounter Administered Medications Inactive Administered Medications - up to 3 most recent administrations Medication Order MAR Action Action Date Dose Rate Site acetaminophen (Tylenol) tablet 1,000 mg 1,000 mg, Oral, ONCE, 1 dose, On Wed11/04/20 at 0915, Administer with SIP of H2O only., Day of Surgery (Day of Procedure), Routine Given 11/04/2020 9:14 AM EST 1,000 mg acetaminophen (Tylenol) tablet 650 mg 650 mg, Oral, EVERY 4 HOURS PRN, Starting on Wed11/04/20 at 1338, Until Wed11/04/20 at 1739, Pain, Maximum dose of acetaminophen is 4000 mg from all sources in 24 hours. When ordered for pain, acetaminophen should be given even when other ordered pain medications are indicated. , Routine Given 11/04/2020 2:50 PM EST 650 mg BUpivacaine (pf) (Marcaine) (2.5 mg/mL) 0.25% injection ONCE PRN, Starting on Wed11/04/20 at 1105, Until Wed11/04/20 at 1739, Intra-Operative (Intra-Procedure), Routine Given 11/04/2020 11:05 AM EST 50 mLs 19- Surgical Site fentaNYL (pf) (50 mcg/mL) multi-dose injection 12.5-25 mcg 12.5-25 mcg, Intravenous, EVERY 5 MIN PRN, Starting on Wed11/04/20 at 1336, Until Wed11/04/20 at 1739, Pain, Give 12.5 mcg every 5 minutes PRN for mild to moderate pain (1-5) Give 25 mcg every 5 minutes PRN for moderate to severe pain (6-10). Hold for respiratory rate less than 10 per minute. Maximum dose 100 mcg over one hour. If ordered with hydromorphone or morphine, give hydromorphone or morphine first and use fentanyl for breakthrough pain., Routine Given 11/04/2020 2:46 PM EST 25 mcg Given 11/04/2020 2:30 PM EST 25 mcg Given 11/04/2020 2:19 PM EST 25 mcg iohexoL (Omnipaque) (300 mg/mL) injection solution ONCE PRN, Starting on Wed11/04/20 at 1112, Until Wed11/04/20 at 1739, Intra-Operative (Intra-Procedure), Routine Given 11/04/2020 12:00 PM EST 11 mLs 19- Surgical Site lactated ringers infusion 1,000 mL, at 100 mL/hr, Intravenous, CONTINUOUS, Starting on Wed11/04/20 at 0915, Until Wed11/04/20 at 1536, Day of Surgery (Day of Procedure) New Bag 11/04/2020 1:06 PM EST New Bag 11/04/2020 9:15 AM EST 1,000 mLs 100 mL/hr traMADoL (Ultram) tablet 50 mg 50 mg, Oral, EVERY 4 HOURS PRN, Starting on Wed11/04/20 at 1338, Until Wed11/04/20 at 1739, Pain, Routine Given 11/04/2020 2:00 PM EST 50 mg documented in this encounter Active and Recently Administered Medications Times are shown in EST. Scheduled Medication Order 11/02/2020 11/03/2020 11/04/2020 acetaminophen (Tylenol) tablet 1,000 mg (COMPLETED) 1,000 mg, Oral, ONCE, 1 dose, On Wed11/04/20 at 0915, Administer with SIP of H2O only., Day of Surgery (Day of Procedure), Routine 0914 (Given - Provid er: Alexandria Healy RN) ceFAZolin (Ancef) 2 g in dextrose 5% 100 mL infusion (COMPLETED) 2 g, Intravenous, MATTRESS SPRING ENCASER TO O.R., 1 dose, On Wed11/04/20 at 1015, Administer over 30 Minutes, Indication for (Active or Suspected): Skin/Skin Structure 1100 (Given - Provid er: Jagruti Gabriel) Continuous Medication Order 11/02/2020 11/03/2020 11/04/2020 lactated ringers infusion (CANCELED) 1,000 mL, at 100 mL/hr, Intravenous, CONTINUOUS, Starting on Wed11/04/20 at 0915, Until Wed11/04/20 at 1536, Day of Surgery (Day of Procedure) 0915 (New Bag - Prov ider: Alexandria Healy RN)1305 (Paused - Provider: Jagruti Gabriel - Comment: Switch to gravity)1306 (New Bag - Provider: Jagruti Gabriel) PRN Medication Order 11/02/2020 11/03/2020 11/04/2020 acetaminophen (Tylenol) tablet 650 mg 650 mg, Oral, EVERY 4 HOURS PRN, Starting on Wed11/04/20 at 1338, Until Wed11/04/20 at 1739, Pain, Maximum dose of acetaminophen is 4000 mg from all sources in 24 hours. When ordered for pain, acetaminophen should be given even when other ordered pain medications are indicated. , Routine 1450 (Given - Provid er: Yanelis Haynes RN) BUpivacaine (pf) (Marcaine) (2.5 mg/mL) 0.25% injection (CANCELED) ONCE PRN, Starting on Wed11/04/20 at 1105, Until Wed11/04/20 at 1739, Intra-Operative (Intra-Procedure), Routine 1105 (Given - Provid er: Ceferino Nathan MD) fentaNYL (pf) (50 mcg/mL) multi-dose injection 12.5-25 mcg 12.5-25 mcg, Intravenous, EVERY 5 MIN PRN, Starting on Wed11/04/20 at 1336, Until Wed11/04/20 at 1739, Pain, Give 12.5 mcg every 5 minutes PRN for mild to moderate pain (1-5) Give 25 mcg every 5 minutes PRN for moderate to severe pain (6-10). Hold for respiratory rate less than 10 per minute. Maximum dose 100 mcg over one hour. If ordered with hydromorphone or morphine, give hydromorphone or morphine first and use fentanyl for breakthrough pain., Routine 1406 (Given - Provid er: Eugene Mancuso RN)1419 (Given - Provider: Eugene Mancuso RN)1430 (Given - Provider: Eugene Mancuso RN)1446 (Given - Provider: Eugene Mancuso RN) iohexoL (Omnipaque) (300 mg/mL) injection solution (CANCELED) ONCE PRN, Starting on Wed11/04/20 at 1112, Until Wed11/04/20 at 1739, Intra-Operative (Intra-Procedure), Routine 1200 (Given - Provid er: Ceferino Nathan MD - Comment: USED NEEDED FOR BETTER VISULIZATION WITH FLOURO.) traMADoL (Ultram) tablet 50 mg 50 mg, Oral, EVERY 4 HOURS PRN, Starting on Wed11/04/20 at 1338, Until Wed11/04/20 at 1739, Pain, Routine 1400 (Given - Provid er: Eugene Mancuso RN) documented in this encounter Care Teams Ip Litigation Associate Relationship Specialty Start Date End Date Maciel Buck MD PCP - General Family Medicine 09/19/20 documented as of this encounter
--- OUTSIDE RECORDS SUMMARY | 2024-06-18 14:33 | XMS_ITS | Encounter Summary ---
Author Organization On License Of [facility] Address [facility] [place] [address] Care Team Providers Care Pole Peeling Machine Operator Name Role Phone Maciel Buck MD Primary Care Provider [phone] Encounter Details Date Type Department Care Team (Late st Contact Info) Description 10/17/2020 1:40 PM EST Ancillary Procedure Radiology Library at [facility], [place] [phone] Maciel Buck MD [address] [place] [address] [place], [place] [address] Social History Tobacco Use Types Packs/Day Years Used Date Smoking Tobacco: Never Smokeless Tobacco: Never Sex and Gender Information Value Date Recorded Sex Assigned at Not on file Gender Identity Not on file Sexual Orientation Not on file documented as of this encounter Plan of Treatment Not on file documented as of this encounter Procedures Procedure Name Priority Date/Time Associated Diagnosis Comments FILM LIBRARY STORAGE ONLY ULTRASOUND STUDY Routine 10/17/2020 1:38 PM EST documented in this encounter Results * Film Library- Storage Only Ultrasound Study (10/17/2020 1:38 PM EST) Narrative KATHY - 10/17/2020 1:38 PM EST This exam is auto-finalizing. It's purpose is for storage only. Maciel Buck MD IMG FILM LIBRARY ORD ERABLES [facility] [place], [place] documented in this encounter Visit Diagnoses Not on filedocumented in this encounter Care Teams Pole Peeling Machine Operator Relationship Specialty Start Date End Date Maciel Buck MD PCP - General Family Medicine 09/19/20 documented as of this encounter
--- OUTSIDE RECORDS SUMMARY | 2024-06-18 14:33 | XMS_ITS | Encounter Summary ---
Author Organization [facility] Nancy [address] [place] [address] Care Team Providers Care Compressor Operator Portable Name Role Phone Maciel Buck MD Primary Care Provider [phone] Encounter Details Date Type Department Care Team (Late st Contact Info) Description 11/05/2020 Telephone General Surgery at [facility] [place] [phone] Yanelis Alejandro RN Social History Tobacco Use Types Packs/Day Years Used Date Smoking Tobacco: Never Smokeless Tobacco: Never Alcohol Use Standard Drinks/Week Comments Not Currently 0 (1 standard drink = 0.6 oz pur e alcohol) rarely Sex and Gender Information Value Date Recorded Sex Assigned at Not on file Gender Identity Not on file Sexual Orientation Not on file documented as of this encounter Miscellaneous Notes * Telephone Encounter - Yanelis Alejandro RN - 11/05/2020 11:44 AM EST Nursing Triage - Phone Note DATE OF CALL: 11/05/2020 TIME OF CALL: 11:44 AM PATIENT DATE OF : 1980 CALLER: Pt to the general surgery clinic nurses line; RN to the patient Learning Needs Assessment Reviewed: No SUBJECTIVE - I have hives on my face, chest and back PERTINENT PAST MEDICAL HISTORY: Pt is s/p laparoscopic cholecystectomy with cholangiogram on 11/04/20with Dr Waterman. NURSING OBJECTIVE/ASSESSMENT: Patient calling about above. She states that she first noticed them this morning. She denies fevers or chills. She states that the hives are on her face, chest and some on her back. She took one dose of tramadol last night, otherwise nothing else is new. She took a dose of benadryl, which she states is starting to help with the itching. INTERVENTION/PLAN/ FOLLOW UP: I instructed the patient to try staggering tylenol and ibuprofen to avoid the tramadol. She should continue to take benadryl, following the instructions on the bottle until the hives are gone. I will let Dr. Waterman know and we will be in touch if he would like us to do something differently. Pt instructed to call with any further questions/concerns. If your symptoms do not improve, or they worsen, report to your local emergency department. CALLER AGREES: Yes PCP: Maciel Buck MD documented in this encounter Plan of Treatment Not on file documented as of this encounter Visit Diagnoses Not on filedocumented in this encounter Care Teams Compressor Operator Portable Relationship Specialty Start Date End Date Maciel Buck MD PCP - General Family Medicine 09/19/20 documented as of this encounter
--- OUTSIDE RECORDS SUMMARY | 2024-06-18 14:33 | XMS_ITS | Encounter Summary ---
Author Organization [facility] [place] [address] Care Team Providers Care Hearse Driver Name Role Phone Maciel Buck MD Primary Care Provider [phone] Encounter Details Date Type Department Care Team (Late st Contact Info) Description 09/20/2020 9:30 AM EST [place] [phone] Social History Tobacco Use Types Packs/Day Years [...] on filedocumented in this encounter Care Teams Hearse Driver Relationship Specialty Start Date End Date Maciel Buck MD PCP - General Family Medicine 09/19/20 documented as of this encounter
--- OUTSIDE RECORDS SUMMARY | 2024-06-18 14:33 | XMS_ITS | Encounter Summary ---
[place] [address] Care Team Providers Care Story Teller Name Role Phone Maciel Buck MD Primary Care Provider [phone] Encounter Details Date Type Department Care Team (Late st Contact Info) Description 10/22/2020 9:28 AM EST Anesthesia Event [place] [phone] Thalia Jerez, COOKING APPLIANCE REPAIR TECHNICIAN [address] [facility] [address] [place] [address] Anesthesia Record Procedure Summary Procedure Name Responsible Anesthesiologist Anesthesia Start Time Anesthesia Stop Time LAPAROSCOPIC CHOLECYSTECTOMY WITH CHOLANGIOGRAM (WRVU 11.47) (Abdomen) Events No events on file. Meds * Agents No agents on file. * Blood No blood administrations on file. Lines, Drains, and Airways No LDAs on file. documented in this encounter Social History Tobacco Use Types Packs/Day Years Used Date Smoking Tobacco: Never Smokeless Tobacco: Never Alcohol Use Standard Drinks/Week Comments Never 0 (1 standard drink = 0.6 oz pur e alcohol) Sex and Gender Information Value Date Recorded Sex Assigned at Not on file Gender Identity Not on file Sexual Orientation Not on file documented as of this encounter OR Notes * Anesthesia Preprocedure Evaluation - Thalia Jerez APRN - 09/20/2020 8:24 AM EST Pre-Anesthesia Evaluation for: Regulo Alejandro a 40 y.o. female. Procedure(s): LAPAROSCOPIC CHOLECYSTECTOMY WITH CHOLANGIOGRAM (WRVU 11.47) Patient Active Problem List Diagnosis ??? Chronic headache ??? Leg weakness, bilateral ??? Seasonal allergies ??? Bilateral congenital genu valgum ??? Progressive multiple sclerosis Dr. Denise at [facility]. ??? Allergic asthma, mild intermittent, uncomplicated ??? Overweight (BMI 25.0-29.9) ??? Gallstone pancreatitis No past medical history on file. No past surgical history on file. Social History Tobacco Use ??? Smoking status: Never Smoker ??? Smokeless tobacco: Never Used Substance Use Topics ??? Alcohol use: Not on file Social History Substance and Sexual Activity Drug Use Not on file Allergies Allergen Reactions ??? Sulfa (Sulfonamide Antibiotics) Anaphylaxis Medications: MAR and/or home medications have been reviewed. Physical Exam: No data found. There is no height or weight on file to calculate BMI. Anesthesia Physical Exam Anesthesia Plan [facility] PAT Clinic Note: Date and Time of Entry: 09/20/2020 8:24 AM Entered By: Thalia Jerez APRN Reason for Evaluation: PAT Protocol - Screening Trigger Hx of Anesthesia Problem: None noted on chart review. PAT Visit Type: Workup Review Only (NO interview) Additional/Outside Records Requested? Requested medical information from outside organization. From Where? PCP note and anesthesia record from [facility]. 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 Ceferino Waterman. Noted major medical issues include: -progressive MS (ocrelizumab per Dr. Denise at [facility]) -headache (amitriptyline) -allergic asthma (albuterol prn) Anesthesia record 08/13/2020 (scanned docs): Mall I, >=4 METs, Gr 2a view with Mac 3, stylette, #1 attempt, EZ MV with ROSE. Thalia Jerez APRN [facility] [phone] documented in this encounter Plan of Treatment Not on file documented as of this encounter Visit Diagnoses Not on filedocumented in this encounter Care Teams Story Teller Relationship Specialty Start Date End Date Maciel Buck MD PCP - General Family Medicine 09/19/20 documented as of this encounter
--- OUTSIDE RECORDS SUMMARY | 2024-06-18 14:33 | XMS_ITS | Encounter Summary ---
Author Organization [facility] Address [facility] [address] [place] [address] Care Team Providers Care Automatic Pilot Mechanic Name Role Phone Maciel Buck MD Primary Care Provider [phone] Encounter Details Date Type Department Care Team (Late st Contact Info) Description 10/18/2020 Telephone [place] [address] Elizabeth Caicedo MD [facility] [place] [address] Social History Tobacco Use Types Packs/Day Years Used Date Smoking Tobacco: Never Smokeless Tobacco: Never Sex and Gender Information Value Date Recorded Sex Assigned at Not on file Gender Identity Not on file Sexual Orientation Not on file documented as of this encounter Miscellaneous Notes * Telephone Encounter - Elizabeth Caicedo - 10/18/2020 9:57 AM EST Received page following discussion yesterday; can refer to my transfer center call note yesterday for full details. Patient now pain free, has not required any pain medications, remains afebrile and HDS. AST 26, ALT59, TB 0.8. CBD dilated to 9-10mm, GB wall 2.3mm, negative Moon's sign. No stones visualized in CBD. Based on the information provided to me, the general recommendations for this type of patient is General Surgery consult to discuss role of earlier CCY given her admission of gallstone pancreatitis. Her US yesterday does show a dilated CBD but without stones and with LFTs/TB normalized, now pain-free, I suspect she passed a stone. Role of ERCP could be dependent on IOC but at this time would defer to Surgery for timing of CCY. This is not an official consult, as my recommendations are limited by my inability to interview andexamine the patient as well as personally review the medical record, imaging, and laboratory findings. Elizabeth Caicedo M.D. Fellow in Gastroenterology and Hepatology [facility] Pager #[phone] 10/18/2020 documented in this encounter Plan of Treatment Not on file documented as of this encounter Visit Diagnoses Not on filedocumented in this encounter Care Teams Automatic Pilot Mechanic Relationship Specialty Start Date End Date Maciel uBck MD PCP - General Family Medicine 09/19/20 documented as of this encounter
--- OUTSIDE RECORDS SUMMARY | 2024-06-18 14:33 | XMS_ITS | Encounter Summary ---
Author Organization [facility] Address [facility] [address] [place] [address] Care Team Providers Care Commercial Lawn Specialist Name Role Phone Maciel Buck MD Primary Care Provider [phone] Encounter Details Date Type Department Care Team (Late st Contact Info) Description 10/17/2020 Telephone [place] [phone] Elizabeth Caicedo MD [facility] [place] [address] Social History Tobacco Use Types Packs/Day Years Used Date Smoking Tobacco: Never Smokeless Tobacco: Never Sex and Gender Information Value Date Recorded Sex Assigned at Not on file Gender Identity Not on file Sexual Orientation Not on file documented as of this encounter Miscellaneous Notes * Telephone Encounter - Elizabeth Caicedo - 10/17/2020 9:01 AM EST Transfer Center Call: I received a call from Dr. Pam Lanza, 8:30AM. Briefly, this is a 40-year-old female PMHx recurrent gallstone pancreatitis with recent failed laparoscopic CCY at OSH due to adhesions, awaiting CCY here on 10/22/2020, who presents to OSH with abdominal pain and concern for recurrent gallstone pancreatitis. Epigastric abdominal pain, radiating to right, N/V. Vital Signs: T 35.9, 113/71, HR 64, RR 16, 100% RA Exam per provider calling: soft, no rebound guarding Labs: WBC 32161, Hb 13.3, Pl 393, lactate 1.6, Na 140, K 3.3, Cl 102, HCO3 28, BUN 14, Cr 0.6, AST 132, ALT 110, t bili 0.7, DB 0.32, alk phos 75, lipase 8344 ?? RUQUS pending Started on empiric Zosyn, NS 200cc/hr Based on the information provided to me, the general recommendations for this type of patient is aggressive hydration, analgesia and early feeding for suspected gallstone pancreatitis. No signs of cholangitis but would be helpful to review imaging. If RUQUS is negative and concern for CBD stone remains, would recommend MRCP. Will review images once resulted to discuss possible [id number] ERCP,although would like to first have her inflammation decrease with ongoing treatment of pancreatitis.Patient should be NPO at midnight for this possible intervention. She is already scheduled for CCY on 10/22/20, which I recommend occur during this hospitalization. This is not an official consult, as my recommendations are limited by my inability to interview andexamine the patient as well as personally review the medical record, imaging, and laboratory findings. Elizabeth Caicedo M.D. Fellow in Gastroenterology and Hepatology [facility] Pager #[phone] 10/17/2020 documented in this encounter Plan of Treatment Not on file documented as of this encounter Visit Diagnoses Not on filedocumented in this encounter Care Teams Commercial Lawn Specialist Relationship Specialty Start Date End Date Maciel Buck MD PCP - General Family Medicine 09/19/20 documented as of this encounter
--- OUTSIDE RECORDS SUMMARY | 2024-06-18 14:33 | XMS_ITS | Encounter Summary ---
Author Organization [facility] Address [facility] Nancy [address] [place] [address] Care Team Providers Care Plastics Fabrication Supervisor Name Role Phone aMciel Buck MD Primary Care Provider [phone] Reason for Visit * Auth/Cert Specialty Diagnoses / Procedures Referred By Contchristopher t Referred To Contact Diagnoses Gallstones Pancreatitis GALLSTONES PANCREATITIS Procedures PRO LAP, CHOLECYSTECTOMY/GRAPH LAPAROSCOPIC CHOLECYSTECTOMY WITH CHOLANGIOGRAM (WRVU 11.47) Referral ID Status Reason Start Date Expiration Date Visits Re quested Visits Authorized [id number] 1 1 Encounter Details Date Type Department Care Team (Latest Contact Info) Description 11/04/2020 8:22 AM EST - 11/04/2020 3:39 PM EST Hospital Encounter [place] [address] Ceferino Nathan MD [facility] [place] [address] Discharge Disposition: Home Social History Tobacco Use Types Packs/Day Years [...] Sign Reading Time Taken Comments Blood Pressure 111/68 11/04/2020 3:15 PM EST Pulse 68 11/04/2020 1:30 PM EST Temperature 36 ??C (96.8 ??F) 11/04/2020 1:28 PM EST Respiratory Rate 12 11/04/2020 3:15 PM EST Oxygen Saturation 99% 11/04/2020 3:15 PM EST Inhaled Oxygen Concentration - - Weight [...] may be used if needed and are [id number] (OTC) medications available at most local pharmacies. [...] this appointment. Please call the clinic at [phone] to confirm or reschedule. Follow up appointments: Future Appointments Date Time Provider Department Center 12/04/2020 4:00 PM Ceferino Nathan MD [facility] SURG [facility] Who to call? If you have concerns or questions: - During the day, it is best to call the [facility] General Surgery [facility] to speak with the Surgery nurses. The number is [phone]. - During the night or weekends call the [facility] airconditioning plant operator at [phone] and ask to speak to the surgery resident environmental health safety engineer for general surgery. Please note: Your surgeon may not be Etymology Teacher, especially during the night or on weekends, [...] escorted out of department via wheelchair with TELEPHONE COLLECTOR. documented in this encounter H&P Notes * Rowena Card MD - 11/04/2020 9:55 AM EST [facility] Minimally Invasive Surgery Interval History and [...] was taken to the operating room [place] in August and I do have the [...] Nathan MD - 11/04/2020 11:[address] [facility] Operative Note Patient Name: Regulo Alejandro : [id number] MR#: [id number] Case Date: 11/04/2020 Surgeon: Surgeon(s) and Role: * Ceferino Nathan MD - Primary * Rowena Card MD - Fellow Preoperative diagnosis: GALLSTONES PANCREATITIS Postoperative diagnosis: GALLSTONES Procedure(s) (LRB): LAPAROSCOPIC CHOLECYSTECTOMY WITH CHOLANGIOGRAM (WRU 11.47) (N/A) Indications For Procedure: The patient [...] 11/04/2020 12:15 PM EST Lap, Cholecystectomy/Gra ph ([id number]) 11/04/2020 10:32 AM EST GALLSTONES documented in this encounter Results * Surgical Pathology Report (11/04/2020 12:30 PM EST) Final Diagnosis [id number] ? Location: [facility] [[email or web address]]; A The signing pathologist has (i) examined the relevant preparation(s) for the specimen(s) and (ii) rendered or confirmed the diagnosis(es). . ?Surgical Pathology DIAGNOSIS Gallbladder and contents: Chronic cholecystitis and cholelithiasis. Electronically signed by: ??Dian LORENZ PhD, Michelle Verified: ??11/12/2020 ?Pathologist Performed at: ??-[facility] Dept. of Pathology, [place], [place] SPECIMEN(S) SUBMITTED A - GALLBLADDER & [...] 1.5 x 1.3 x 1.0 cm Mucosa: [place] red and edematous appearing Wall: 0.3 cm thick. Duct: Cannot be determined due to disrupted and fragmented nature of the specimen. Ink Designation: The hepatic margin is inked black Sections/Processi ng: Wage Adjuster sections in 1 cassettes as follows: ?A1: ??possible operations support representative cystic duct and operations support representative mucosa ?A2: ??operations support representative mucosa ??SAS/sns 11/12/2020 2:25 PM EST [facility] GALLBLADDER STRUCTURE / Unknown 11/04/2020 12:30 PM EST 11/04/2020 12:30 PM EST Ceferino Nathan MD PATHOLOGY/CYTOLOGY ORDERABLES [facility] [place] [address] * Specimen to Pathology (11/04/2020 12:30 PM EST) AP Specimen 11/04/2020 12:3 0 PM EST 11/04/2020 12:30 PM EST Narrative [facility] - 11/04/2020 12:30 PM EST Specimen requisition ordered. ??Separate Pathology report to follow Ceferino Nathan MD PATHOLOGY/CYTOLOGY ORDERABLES Performing Organization Address [facility]/ZIP Co de Phone Number [facility] [place] [address] * XR Fluoro No Rad <1Hr - OR Use (11/04/2020 12:15 PM EST) Narrative RAD - 11/04/2020 12:16 PM EST This exam is auto-finalizing. No interpretation was done. Ceferino Nathan MD IMG FLUORO ORDERABL ES Performing Organization Address [facility] Co de Phone Number [place], [place] documented in this encounter Visit Diagnoses [...] Given 11/04/2020 2:50 PM EST 650 mg fentaNYL (pf) (50 mcg/mL) multi-dose injection 12.5-25 [...] Given 11/04/2020 2:19 PM EST 25 mcg lactated ringers infusion 1,000 mL, at 100 [...] 100 mL infusion (COMPLETED) 2 g, Intravenous, BAG SHOP WORKER TO O.R., 1 dose, On Wed11/04/20 at [...] RN) documented in this encounter Care Teams Plastics Fabrication Supervisor Relationship Specialty Start Date End Date Maciel Buck MD PCP - General Family Medicine 09/19/20 documented as of this encounter
--- OUTSIDE RECORDS SUMMARY | 2024-06-18 14:33 | XMS_ITS | Encounter Summary ---
Author Organization [facility] Address [facility] [place] [address] Care Team Providers Care Senior Talent Acquisition Specialist Name Role Phone Maciel Buck MD Primary Care Provider [phone] Reason for Visit * Auth/Cert Specialty Diagnoses / Procedures Referred By Contchristopher t Referred To Contact Diagnoses Gallstones Pancreatitis GALLSTONES PANCREATITIS Procedures PRO LAP, CHOLECYSTECTOMY/GRAPH LAPAROSCOPIC CHOLECYSTECTOMY WITH CHOLANGIOGRAM (WRVU 11.47) Referral ID Status Reason Start Date Expiration Date Visits Re quested Visits Authorized [id number] 1 1 Encounter Details Date Type Department Care Team (Late st Contact Info) Description 11/04/2020 10:33 AM EST Anesthesia Event [place] [address] Kim Carter MD [facility] [place] [address] Jagruti Gabriel MD [facility] [place] [address] Anesthesia Record Procedure Summary Procedure Name Responsible Anesthesiologist Anesthesia Start Time Anesthesia Stop Time LAPAROSCOPIC CHOLECYSTECTOMY WITH CHOLANGIOGRAM (WRVU 11.47) (Abdomen) Kim Carter MD 11/04/20 1033 11/04/20 1332 Events Date Time Event Comment 11/04/2020 1033 AN Verify 1033 Start 1033 An Start Data 1038 An Induction 1044 An Intubation 1055 Anesthesia Ready 1104 Procedure Start 1106 Quick Note Abdominal insuf flation 1110 Quick Note Repositioned to steep reverse Trendelenburg 1203 Break/Relief In I assumed ca re for Break Relief before which we: 1. Identified the patient 2. Identified the responsible provider(s) 3. Reviewed the pertinent medical history 4. Discussed the surgical plan and course 5. Reviewed intra-op anesthesia management and issues during anesthesia 6. Set expectations for the relief (and/or post-procedure) period 7. Allowed opportunity for questions and acknowledgement of understanding KIM CARTER MD 1235 Break/Relief Out 1324 Extubation/LMA Out 1324 an stop data 1331 Recovery or ICU Handoff Vidhi ent care was transferred to the destination unit staff after review of the patient's medical history, current anesthetic/surgical status and plan, according to the Provider Handoff Checklist. 1332 Stop 1413 Meds Name Total Midazolam 2 mg fentaNYL 150 mcg IV Lidocaine 80 mg Propofol 230 mg Rocuronium 50 mg Ondansetron 8 mg Dexamethasone 8 mg Neostigmine 5 mg Glycopyrrolate 0.5 mg Propofol INF 681.53 mg ceFAZolin (Ancef) 2 g in dextrose 5% 100 mL infusion 2 g Dexmedetomidine 40 mcg Esmolol 30 mg lactated ringers infusion 1,000 mL Lactated Ringers 0 mL * Agents Name O2 Air N2O Sevoflurane (et) * Blood No blood administrations on file. Lines, Drains, and Airways Type Details Placement Removal (RETIRED) Peripheral IV Line - Single Lumen 11/04/20; 908; median cubital vein (antecubital fossa), left; [id number] catheter system; 20 gauge; Tushar Healy RN; distraction, tolerated well, appears comfortable; no longer indicated; 11/04/20; 1536 11/04/20 0909 by Alexandria Healy RN 11/04/20 1536 by Eugene Mancuso, GILMER ETT Mask Ventilation: Ea sy (1); ETT Type: Cuffed, Oral; ETT Size: 7 mm; Mac Blade: 2; Notes: Asleep, Pre-O2, Stylette, Cricoid Pressure; Attempts: 2; Laryngoscopy Grade: 2; ETT Placement Verified By: Auscultation, Capnometry; Secured at Teeth: 22 cm; Inserted by: Harvey LORENZ; Removal Date: 11/04/20; Removal Time: 1324 11/04/20 1049 by Jagruti Gabriel MD 11/04/20 1324 by Jagruti Gabriel MD (RETIRED) Peripheral IV Line - Single Lumen 11/04/20; 1103; metacarpal vein (top of hand), right; [id number] catheter system; 20 gauge; Dr. Carter; no longer indicated; 11/04/20; 1524 11/04/20 1103 by Jgaruti Gabriel MD 11/04/20 1524 by Eugene Mancuso RN Incision 11/04/20; 1104; abdo men; laparoscopic puncture (X3); 05/04/22 (LDA cleanup utility RA#[id number]); 1715 (LDA cleanup utility RA#[id number]) 11/04/20 1104 by Jennifer Hoover RN 05/04/22 1715 by Toribio Talbert documented in this encounter Social History Tobacco [...] of this encounter OR Notes * Anesthesia Postprocedure Evaluation - Jagruti Gabriel - 11/04/2020 3:35 PM EST Department of Anesthesiology Post-procedure Note Patient: Regulo Alejandro Procedure Summary Date: 11/04/20 Room / Location: [address] MAIN OR Anesthesia Start: 1033 Anesthesia Stop: 1332 Procedure: LAPAROSCOPIC CHOLECYSTECTOMY WITH CHOLANGIOGRAM (WRVU 11.47) (N/A Abdomen) Diagnosis: (GALLSTONES) Surgeons: Ceferino Waterman MD Responsible Provider: Kim Carter MD Anesthesia Type: general ASA Status: 3 All Anesthesia Providers: Anesthesiologist: Kim Carter MD Die Presser: Jagruti Gabriel MD Vitals Value Taken Time BP 111/68 11/04/20 1515 Temp 36 ??C (96.8 ??F) 11/04/20 1328 Pulse 68 11/04/20 1330 Resp 12 11/04/20 1445 SpO2 100 % 11/04/20 1518 Pain Level 7 03/01/21 1450 Vitals shown include unvalidated device data. Patient Location: PACU/[facility] Level of Consciousness: Awake and Alert Pain Management: Pain Being Addressed PONV: None Cardiovascular Status: At Baseline and Hemodynamically Stable Respiratory Status: At Baseline and Room Air Postoperative Fluid Status: Intravascular EUvolemia Possible Anesthetic Complications: NONE apparent at time of evaluation Final Primary Anesthesia Type: General (The anesthetic type performed was the same as planned.) Comments: Reporting 7-04/15 RUQ pain, received tramadol and IV fentanyl with effect. No patient complaints. No immediate anesthetic complications. * Anesthesia Preprocedure Evaluation - Kim Carter MD - 11/02/2020 8:08 AM EST Pre-Anesthesia Evaluation for: Regulo lorenzana 40 y.o. female. Procedure(s): LAPAROSCOPIC CHOLECYSTECTOMY WITH CHOLANGIOGRAM [facility] Patient Active Problem List Diagnosis ??? Chronic headache ??? Leg weakness, bilateral ??? Seasonal allergies ??? Bilateral congenital genu valgum ??? Progressive multiple sclerosis Dr. Denise at [facility]. ??? Allergic asthma, mild intermittent, uncomplicated ??? Overweight (BMI 25.0-29.9) ??? Gallstone pancreatitis No past medical history on file. No past surgical history on file. Social History Tobacco Use ??? Smoking status: Never Smoker ??? Smokeless tobacco: Never Used Substance Use Topics ??? Alcohol use: Never Social History Substance and Sexual Activity Drug Use Never Allergies Allergen Reactions ??? Sulfa (Sulfonamide Antibiotics) Anaphylaxis Medications: MAR and/or home medications have been reviewed. Physical Exam: No data found. There is no height or weight on file to calculate BMI. Airway Assessment: Mallampati: I TM distance: >3 FB Neck ROM: full Cardiovascular Assessment: Rhythm: regular Rate: normal Pulmonary Assessment: breath sounds clear to auscultation Dental Assessment: - normal exam Misc Assessment: Patient is wearing No contact(s). IV access: Peripheral line Other exam findings: Overbite Anesthesia Plan: ASA 3 general, with a(n) intravenous induction 40 y.o. 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 Waterman. MS well-controlled - does have balance issues and legs not working, no baseline neurologic deficits. No recent flares, no current or recent steroid courses. Most recent bout of pancreatitis 2 wks ago, no subsequent symptoms. Past Anesthesia History: - Airway history: EMV with OPA, G2aV with Mac 3 - Anesthetic complications: denies personal or family history of anesthetic complications NPO status appropriate Allergies: sulfa (anaphylaxis) No results for input(s): COVID19 in the last 72 hours. No results for input(s): GNCNONKJJW6B in the last 72 hours. PLAN GA with ETT, standard ASA monitors. PIVx2 TAP block if open Pt denies The patient was informed of the risks of anesthesia, and consent was obtained. The risks of anesthesia include, but are not limited to, PONV, pain, sore throat, and other rare but serious complications such as major organ damage, allergies, blood transfusions, intraoperative awareness, and dental/lip trauma. Region - Other Informed Consent: Anesthetic plan and risks discussed with patient. Use of blood products discussed with patient who consented to blood products. Plan discussed with attending and resident. PAT Clinic Note documented in this encounter Plan of Treatment Not on file documented as of this encounter Visit Diagnoses Not on filedocumented in this encounter Administered Medications Inactive Administered Medications - up to 3 most recent administrations Medication Order MAR Action Action Date Dose Rate Site ceFAZolin (Ancef) 2 g in dextrose 5% 100 mL infusion 2 g, Intravenous, RN TRAINING TO O.R., 1 dose, On Wed11/04/20 at 1015, Administer over 30 Minutes, Indication for (Active or Suspected): Skin/Skin Structure Given 11/04/2020 11:00 AM EST 2 g dexamethasone (Decadron) injection Intravenous, PRN, Starting on Wed11/04/20 at 1037, Until Wed11/04/20 at 1346, Anesthesia Intra-op, Routine Given 11/04/2020 10:37 AM EST 8 mg dexmedetomidine (Precedex) (4 mcg/mL) bolus injection (Anesthsia) Intravenous, PRN, Starting on Wed11/04/20 at 1108, Until Wed11/04/20 at 1346, Anesthesia Intra-op, Routine Given 11/04/2020 11:31 AM EST 8 mcg Given 11/04/2020 11:29 AM EST 8 mcg Given 11/04/2020 11:26 AM EST 8 mcg esmoloL (Brevibloc) (10 mg/mL) injection Intravenous, PRN, Starting on Wed11/04/20 at 1144, Until Wed11/04/20 at 1346, Anesthesia Intra-op, Routine Given 11/04/2020 11:55 AM EST 10 mg Given 11/04/2020 11:46 AM EST 10 mg Given 11/04/2020 11:44 AM EST 10 mg fentaNYL (pf) (50 mcg/mL) multi-dose injection Intravenous, PRN, Starting on Wed11/04/20 at 1036, Until Wed11/04/20 at 1346, Anesthesia Intra-op, Routine Given 11/04/2020 11:38 AM EST 25 mcg Given 11/04/2020 11:36 AM EST 25 mcg Given 11/04/2020 10:42 AM EST 50 mcg glycopyrrolate (Robinul) (0.2 mg/mL) multi-dose injection Intravenous, PRN, Starting on Wed11/04/20 at 1254, Until Wed11/04/20 at 1346, Anesthesia Intra-op, Routine Given 11/04/2020 12:59 PM EST 0.1 mg Given 11/04/2020 12:54 PM EST 0.4 mg lactated ringers infusion 1,000 mL, at 100 mL/hr, Intravenous, CONTINUOUS, Starting on Wed11/04/20 at 0915, Until Wed11/04/20 at 1536, Day of Surgery (Day of Procedure) New Bag 11/04/2020 1:06 PM EST New Bag 11/04/2020 9:15 AM EST 1,000 mLs 100 mL/hr lactated ringers infusion Intravenous, CONTINUOUS PRN, Starting on Wed11/04/20 at 1055, Until Wed11/04/20 at 1346, Anesthesia Intra-op New Bag 11/04/2020 10:55 AM EST lidocaine (pf) (Xylocaine) (20 mg/mL) 2% injection syringe Intravenous, PRN, Starting on Wed11/04/20 at 1036, Until Wed11/04/20 at 1346, Anesthesia Intra-op, Routine Given 11/04/2020 10:36 AM EST 80 mg midazolam (pf) (Versed) (1 mg/mL) multi-dose injection Intravenous, PRN, Starting on Wed11/04/20 at 1033, Until Wed11/04/20 at 1346, Anesthesia Intra-op, Routine Given 11/04/2020 10:33 AM EST 2 mg neostigmine (Bloxiver) (1 mg/mL) injection Intravenous, PRN, Starting on Wed11/04/20 at 1254, Until Wed11/04/20 at 1346, Anesthesia Intra-op, Routine Given 11/04/2020 12:54 PM EST 5 mg ondansetron (pf) (Zofran) (2 mg/mL) injection Intravenous, PRN, Starting on Wed11/04/20 at 1302, Until Wed11/04/20 at 1346, Anesthesia Intra-op, Routine Given 11/04/2020 1:02 PM EST 8 mg propofoL (Diprivan) 10 mg/mL bolus injection (Anesthesia) Intravenous, PRN, Starting on Wed11/04/20 at 1037, Until Wed11/04/20 at 1346, Anesthesia Intra-op Given 11/04/2020 11:29 AM EST 30 mg Given 11/04/2020 10:42 AM EST 50 mg Given 11/04/2020 10:37 AM EST 150 mg propofoL (Diprivan) infusion Intravenous, CONTINUOUS PRN, Starting on Wed11/04/20 at 1039, Until Wed11/04/20 at 1346, Anesthesia Intra-op, Routine Rate/Dose Change 11/04/2020 12:59 PM EST 100 mcg/kg/min 41.94 mL/hr Rate/Dose Change 11/04/2020 12:49 PM EST 125 mcg/kg/min 52 .425 mL/hr Rate/Dose Change 11/04/2020 10:54 AM EST 50 mcg/kg/min 20. 97 mL/hr rocuronium (Zemuron) (10 mg/mL) multi-dose injection Intravenous, PRN, Starting on Wed11/04/20 at 1037, Until Wed11/04/20 at 1346, Anesthesia Intra-op, Routine Given 11/04/2020 11:47 AM EST 5 mg Given 11/04/2020 11:28 AM EST 10 mg Given 11/04/2020 10:37 AM EST 35 mg documented in this encounter Care Teams Senior Talent Acquisition Specialist Relationship Specialty Start Date End Date Maciel Buck MD PCP - General Family Medicine 09/19/20 documented as of this encounter
--- OUTSIDE RECORDS SUMMARY | 2024-06-18 14:33 | XMS_ITS | Clinical Summary ---
Author Organization [facility] Address [facility] [address] [place] [address] Care Team Providers Care Charter Boat Captain Name Role Phone Maciel Buck MD Primary Care Provider [phone] Allergies Active Allergy Reactions Criticality Noted Date Comments Sulfa (Sulfonamide Antibiotics) Anaphylaxis High 05/2019 Medications Medication Sig Dispensed Refills Start Date End Date Status famotidine (Pepcid) 20 mg Tablet Take 20 mg by mouth 2 times daily. 05/09/2020 Active multivitamin Tablet, Chewable Take 1 tablet by mouth daily. Active multivit-min/vit C/herb no.124 ([place], ASCORBIC ACID, ORAL) Take by mouth. Airborne gummies Active fish oil-omega-3 fatty acids 1,000 mg Capsule Take 1 g by mouth once a week. Active ocrelizumab (OCREVUS IV) Inject into the vein Q6 Months. MS infusion Active traMADoL (Ultram) 50 mg Tablet Take 1 tablet by mouth every 6 hours as needed for Pain. 10 tablet 11/04/2020 Active Active Problems Problem Noted Date Diagnosed Date Chronic headache 09/20/2020 Leg weakness, bilateral 09/20/2020 Seasonal allergies 09/20/2020 Bilateral congenital genu valgum 09/20/2020 Progressive multiple sclerosis 09/19/2020 Overview (09/20/2020): Dr. Denise at [facility]. Allergic asthma, mild intermittent, uncomplicate d 09/19/2020 Overweight (BMI 25.0-29.9) 09/19/2020 Gallstone pancreatitis 09/18/2020 Social History Tobacco Use Types Packs/Day Years Used Date Smoking Tobacco: Never Smokeless Tobacco: Never Alcohol Use Standard Drinks/Week Comments Not Currently 0 (1 standard drink = 0.6 oz pur e alcohol) rarely Sex and Gender Information Value Date Recorded Sex Assigned at Not on file Gender Identity Not on file Sexual Orientation Not on file Last Filed Vital Signs Vital Sign Reading [...] Mass Index 26.03 11/04/2020 8:52 AM EST Plan of Treatment Health Maintenance Due Date Last Done Comments HIV screen 1999 Hepatitis C Screening 1999 Hepatitis B vaccine (0-59 yrs) (1) 2000 Tetanus/Diphtheria/Pertussis Vaccines (1 - Tdap) 05/29 HPV test 2011 PAP Smear 2011 Breast Cancer Share Decision Needed 2021 Breast Cancer screening 2021 Covid-19 Vaccine (1 - season) 2024 Influenza (Flu) vaccine (1 o f 1 - Influenza standard series) 05/07/2024 Care Teams Charter Boat Captain Relationship Specialty Start Date End Date Maciel Buck MD PCP - General Family Medicine 1/14/21
--- OUTSIDE RECORDS SUMMARY | 2024-06-18 14:34 | XMS_ITS | Encounter Summary ---
Author Organization [facility] Address [facility] [place] [address] Care Team Providers Care File Clerk Data Entry Name Role Phone Chivo Alvares MD Primary Care Provider [phone] Encounter Details Date Type Department Care Team (Late st Contact Info) Description 07/21/2019 11:50 AM EST Ancillary Procedure Radiology Library at [facility] [place] [address] Deborah Hernandez MD [facility] [place] [address] Social History Tobacco Use Types Packs/Day Years Used Date Smoking Tobacco: Never Assessed Sex and Gender Information Value Date Recorded Sex Assigned at Not on file Gender Identity Not on file Sexual Orientation Not on file documented as of this encounter Plan of Treatment Not on file documented as of this encounter Procedures Procedure Name Priority Date/Time Associated Diagnosis Comments FILM LIBRARY STORAGE ONLY CT HEAD Routine 07/21/2019 11:49 AM EST documented in this encounter Results * Film Library- Storage Only CT Head (07/21/2019 11:49 AM EST) Narrative RAD - 07/21/2019 11:49 AM EST This exam is auto-finalizing. It's purpose is for storage only. Deborah Hernandez MD IMG FILM LIBRARY O RDERABLES [place], [place] documented in this encounter Visit Diagnoses Not on filedocumented in this encounter Care Teams File Clerk Data Entry Relationship Specialty Start Date End Date Chivo Alvares MD [address] [place] [id number] PCP - General 07/29/10 09/18/20 documented as of this encounter
--- OUTSIDE RECORDS SUMMARY | 2024-06-18 14:34 | XMS_ITS | Encounter Summary ---
Author Organization [facility] Address [facility] [address] [place] [address] Care Team Providers Care Angiography Nurse Name Role Phone Chivo Alvares MD Primary Care Provider [phone] Encounter Details Date Type Department Care Team (Late st Contact Info) Description 09/11/2020 12:00 PM EST Ancillary Procedure Radiology Library at [facility] [place] [address] Chivo Alvares MD [address] [place] [id number] Social History Tobacco Use Types Packs/Day Years [...] Diagnosis Comments FILM LIBRARY STORAGE ONLY CT ABDOMEN AND PELVIS Routine 09/11/2020 11:59 AM EST documented in this encounter Results * Film Library- Storage Only CT Abdomen & Pelvis (09/11/2020 11:59 AM EST) Narrative KATHY - 09/11/2020 11:59 AM EST This exam is auto-finalizing. It's purpose is for storage only. Chivo Alvares MD IMG FILM LIBRARY ORD ERABLES [facility] [place] documented in this encounter Visit Diagnoses Not on filedocumented in this encounter Care Teams Angiography Nurse Relationship Specialty Start Date End Date Chivo Alvares MD [address] [place] [id number] PCP - General 07/29/10 09/18/20 documented as of this encounter
--- OUTSIDE RECORDS SUMMARY | 2024-06-18 14:34 | XMS_ITS | Encounter Summary ---
Author Organization [facility] [place] [address] Care Team Providers Care Tool Setter Apprentice Name Role Phone Chivo Alvares MD Primary Care Provider [phone] Reason for Visit * Reason Comments Fall Encounter Details Date Type Department Care Team (Late st Contact Info) Description 01/12/2019 4:52 PM EDT - 01/12/2019 6:08 PM EDT [place] [id number] Ankle pain, unspecified chronicity, unspecified laterality; Iliotibial band syndrome of left side Discharge Disposition: Home Social History Tobacco Use Types Packs/Day Years Used Date Smoking Tobacco: Never Assessed Sex and Gender Information Value Date Recorded Sex Assigned at Not on file Gender Identity Not on file Sexual Orientation Not on file documented as of this encounter Last Filed Vital Signs Vital Sign Reading Time Taken Comments Blood Pressure 114/67 01/12/2019 5:40 PM EDT Pulse 84 01/12/2019 5:40 PM EDT Temperature 36.6 ??C (97.9 ??F) 01/12/2019 5:40 PM ED T Respiratory Rate 16 01/12/2019 5:40 PM EDT Oxygen Saturation 99% 01/12/2019 5:40 PM EDT Inhaled Oxygen Concentration - - Weight 63.5 kg (140 lb) 01/12/2019 4:18 PM EDT Height - - Body Mass Index - - documented in this encounter Discharge Instructions * Discharge Instructions* Vincenzo Munoz APRN - 01/12/2019 5:52 PM EDT You were seen today in the emergency department and evaluated for left ankle/foot pain and left lateral leg pain. X-ray of your foot did not show any obvious fracture. We did not reimage her ankle and did not image the rest your leg. The pain along the left hip and thigh and lower leg is related toirritation of your iliotibial band. Please see the attached general care guidelines regarding this. Instructions and plan: You can take [id number] Tylenol 1000 mg by mouth every 8 hours as needed (do not take more than 3000 mg in a 24-hour period). This can be alternated with ibuprofen 800 mg by mouth every 8 hoursas needed. Be sure to take the ibuprofen with food or a small meal. You should take these regularlyfor the next 5-7 days. Elevate the affected extremity as much as possible. Ice may help on your left foot and ankle. This can be used every 1-2 hours for 20 minutes at a time. Keep the area elevated while you ice. Apply heat to the left hip and thigh area as well as your left lower leg. This can be used every 1-2 hours for 20-30 minutes at a time. You can bear weight on your left leg as tolerated however it is recommended for the next 3-5 days to take it easy and use crutches to minimize your weightbearing. Use crutches or a cane as needed. Wear the brace that was provided at the outside hospital. Be sure to remove this at least twice a day to check your skin. You do not need to wear this at night while you are sleeping. Make an appointment to see your primary care provider within the next 1 week as needed for reevaluation and follow up. Return if you have new or worsening symptoms. * Attachments The following attachments cannot be sent through Care Everywhere. * Iliotibial Band Syndrome (Martiniquais) documented in this encounter ED Notes * Natividad Lazaro RN - 01/12/2019 6:05 PM EDT Crutch use demonstrated to patient. Patient With difficulty using them properly, requiring much reinforcement * Vincenzo Munoz APRN - 01/12/2019 6:03 PM EDT Chief Complaint Patient presents with ??? Fall History of Present Illness Regulo Alejandro is a 38 y.o. female who presents for evaluation of leg pain. 2 days ago patient twisted her ankle and fell down 2 stairs. She landed on her left side and went to the hospital in [place] where she was evaluated had x-rays of her ankle. No fracture was noted. At that time she had some soreness in her left upper arm and shoulder but full range of motionand full range of motion of her knee and left hip. Over the past day she has developed some pain inher left leg on the lateral aspect along the hip and thigh and lower leg. She denies any numbness or tingling in her foot but does find it difficult to move her foot up and down. She not been using crutches but has been using a tie up ankle brace. 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 She has been alternating Tylenol and ibuprofen. She presents for evaluation of the leg pain as she is concerned. Has otherwise been feeling well without any headache or dizziness. She did not hit her head during the fall. Her left upper arm and arm is not bothering her. The history is provided by the patient. Review of Systems ROS as above with pertinent positives and negatives, otherwise 10 systems are reviewed and negative. PMH, PSH, SH, medications and allergies reviewed & updated in chart as appropriate. Physical Exam BP 114/67 (BP Location (NBP): Left leg, Patient Position: Sitting) Pulse 84 Temp 36.6 ??C (97.9??F) (Oral) Resp 16 Wt 63.5 kg (140 lb) SpO2 99% Physical Exam Constitutional: She appears well-developed and well-nourished. HENT: Head: Normocephalic and atraumatic. Eyes: EOM are normal. Neck: Normal range of motion. Neck supple. Cardiovascular: Normal rate, regular rhythm, normal heart sounds and intact distal pulses. Pulmonary/Chest: Effort normal and breath sounds normal. Abdominal: Soft. There is no tenderness. Musculoskeletal: Left hip: She exhibits tenderness (along lateral hip/IT band). She exhibits normal range of motion,normal strength and no bony tenderness. Left knee: She exhibits normal range of motion. No tenderness found. No medial joint line and no lateral joint line tenderness noted. Left ankle: She exhibits decreased range of motion (limited by pain, nl PROM), swelling (mild, no effusion) and ecchymosis (lateral). She exhibits normal pulse. Tenderness. AITFL tenderness found. Nohead of 5th metatarsal (no head but mid foot) tenderness found. Achilles tendon exhibits normal Hernandez's test results. Left upper leg: She exhibits tenderness (along lateral). She exhibits no swelling. Left lower leg: She exhibits tenderness (along lateral leg muscle). She exhibits no swelling. Imaging and Labs Imaging XR Foot Min 3 views Left (Generic) Final Result No acute fracture. If clinical symptoms persist, consider repeat radiograph in 10 to 14 days for further evaluation. Thank you for letting us participate in the care of this patient. For questions regarding this report, please contact the number below. Labs No results found for this or any previous visit (from the past 24 hour(s)). ED Course ED Course as of Jan 12 1811 Esther January 12, 2019 1653 BP: 140/80 1653 Temp: 37.1 ??C (98.8 ??F) 1653 Heart Rate: 94 1653 Resp: 18 1653 SpO2: 100 % 1653 Pain Level: 6 History, exam Vitals, nursing notes reviewed Medications As noted above and documented in MAR Procedures None MDM, Assessment and Plan MDM: 38 y.o. female who presents as above for evaluation of left leg and ongoing left ankle pain. Patient is afebrile and hemodynamically stable. Physical exam is notable for findings above, tenderness along the lateral thigh and hip in the area of the IT band. Also down the lower leg along the lateral muscles. She is full passive range of motion of left hip and knee. No groin tenderness or crepitus. X-rays obtained of the foot as she had some pain in the midfoot, no acute findings. Discussed limiting her weightbearing, continuing to use the brace and using crutches. Also discussed OTC analgesia. Fracture and dislocation were considered, other soft tissue injury, DVT. These are felt to be unlikely based on history and findings. Assessment: Ankle pain/injury I T band syndrome Plan: OTC analgesia with Tylenol/ibuprofen, heat on the leg, ice on the ankle, wear brace, limit weightbearing Follow up with PCP in 1 week as needed Return precautions were discussed with the patient; patient expressed understanding and is in agreement with plan Dispo: Discharge to home This note was dictated, at least, in part with [employer] Dictation software. Vincenzo Munoz APRN 01/12/19 1813 * Natividad Lazaro RN - 01/12/2019 5:42 PM EDT Last pain medication, 1:00pm, Ibuprofen and Tylenol * Natividad Lazaro RN - 01/12/2019 5:38 PM EDT Has returned from xray * Natividad Lazaro RN - 01/12/2019 5:00 PM EDT Ambulates to BR with limp documented in this encounter Plan of Treatment Not on file documented as of this encounter Procedures Procedure Name Priority Date/Time Associated Diagnosis Comments XR FOOT MIN 3 VIEWS LEFT STAT 01/12/2019 5:36 PM EDT documented in this encounter Results * XR Foot Min 3 views Left (Generic) (01/12/2019 5:36 PM EDT) Anatomical Region Laterality Modality Foot Left Digital Radiogra phy Impressions 01/12/2019 5:40 PM EDT No acute fracture. If clinical symptoms persist, consider repeat radiograph in 10 to 14 days for further evaluation. Thank you for letting us participate in the care of this patient. For questions regarding this report, please contact the number below. ? Narrative 01/12/2019 5:40 PM EDT EXAMINATION: XR FOOT MIN 3 VIEWS LEFT (GENERIC) CLINICAL HISTORY: pain along 5th MT, in lateral foot; eval for fx TECHNIQUE: 3 views LEFT foot COMPARISON: None FINDINGS: No acute fracture or malalignment. No suspicious osseous lesion. No ankle joint effusion. There is mild soft tissue swelling in the midfoot. Procedure Note Matheus Robles DO - 01/12/2019 EXAMINATION: XR FOOT MIN 3 VIEWS LEFT (GENERIC) CLINICAL HISTORY: pain along 5th MT, in lateral foot; eval for fx TECHNIQUE: 3 views LEFT foot COMPARISON: None FINDINGS: No acute fracture or malalignment. No suspicious osseous lesion. No anklejoint effusion. There is mild soft tissue swelling in the midfoot. IMPRESSION No acute fracture. If clinical symptoms persist, consider repeatradiograph in 10 to 14 days for further evaluation. Thank you for letting us participate in the care of this patient. Forquestions regarding this report, please contact the number below. Vincenzo Munoz APRN IMG DX ORDERABLES documented in this encounter Visit Diagnoses Diagnosis Ankle pain, unspecified chronicity, unspecified laterality Iliotibial band syndrome of left side Other disorder of muscle, ligament, and fascia documented in this encounter Care Teams Tool Setter Apprentice Relationship Specialty Start Date End Date Chivo Alvares MD [address] [address] PCP - General 07/29/10 09/18/20 documented as of this encounter
--- OUTSIDE RECORDS SUMMARY | 2024-06-18 14:34 | XMS_ITS | Encounter Summary ---
Author Organization [facility] Address [facility] [place] [address] Care Team Providers Care Cloth Mercerizing Supervisor Name Role Phone Chivo Alvares MD Primary Care Provider [phone] Encounter Details Date Type Department Care Team (Late st Contact Info) Description 07/21/2019 11:55 AM EST Ancillary Procedure Radiology Library at [facility] [place] [address] Deborah Hernandez MD [facility] [place] [address] Social History Tobacco Use Types Packs/Day Years [...] Associated Diagnosis Comments FILM LIBRARY STORAGE ONLY MR HEAD Routine 07/21/2019 11:49 AM EST documented in this encounter Results * Film Library- Storage Only MR Head (07/21/2019 11:49 AM EST) Narrative RAD - 07/21/2019 11:49 AM EST This exam is auto-finalizing. It's purpose is for storage only. Deborah Hernandez MD IMG FILM LIBRARY O RDERABLES [place], [place] documented in this encounter Visit Diagnoses Not on filedocumented in this encounter Care Teams Cloth Mercerizing Supervisor Relationship Specialty Start Date End Date Chivo Alvares MD [address] [place] [id number] PCP - General 07/29/10 09/18/20 documented as of this encounter
--- OUTSIDE RECORDS SUMMARY | 2024-06-18 14:34 | XMS_ITS | Encounter Summary ---
Author Organization [facility] [place] [address] Care Team Providers Care Ceramic Engineer Name Role Phone Chivo Alvares MD Primary Care Provider [phone] Encounter Details Date Type Department Care Team (Late st Contact Info) Description 05/09/2020 Ancillary Procedure Radiology Library at [facility] [place] [phone] Maciel Buck MD [address] [place] [address] [address] [place], [place] [address] Social History Tobacco Use Types Packs/Day Years [...] STORAGE ONLY CT ABDOMEN AND PELVIS Routine 05/09/2020 12:00 AM EDT documented in this encounter Results * Film Library- Storage Only CT Abdomen & Pelvis (05/09/2020 12:00 AM EDT) Narrative [facility] - 10/17/2020 9:47 AM EST This exam is auto-finalizing. It's purpose is for storage only. Maciel Buck MD IMG FILM LIBRARY ORD ERABLES [place], [place] documented in this encounter Visit Diagnoses Not on filedocumented in this encounter Care Teams Ceramic Engineer Relationship Specialty Start Date End Date Chivo Alvares MD [address] [place] [id number] PCP - General 07/29/10 09/18/20 documented as of this encounter
--- OUTSIDE RECORDS SUMMARY | 2024-06-18 14:34 | XMS_ITS | Encounter Summary ---
Author Organization [facility] [place] [address] Care Team Providers Care Truck Leasing Manager Name Role Phone Chivo Alvares MD Primary Care Provider [phone] Encounter Details Date Type Department Care Team (Late st Contact Info) Description 06/07/2020 Ancillary Procedure Radiology Library at [facility] [place] [phone] Maciel Buck MD [address] [place] [address] [address] [place], [place] [address] Social History Tobacco Use Types Packs/Day Years [...] STORAGE ONLY CT ABDOMEN AND PELVIS Routine 06/07/2020 12:00 AM EDT documented in this encounter Results * Film Library- Storage Only CT Abdomen & Pelvis (06/07/2020 12:00 AM EDT) Narrative [facility] - 10/17/2020 9:46 AM EST This exam is auto-finalizing. It's purpose is for storage only. Maciel Buck MD IMG FILM LIBRARY ORD ERABLES [place], [place] documented in this encounter Visit Diagnoses Not on filedocumented in this encounter Care Teams Truck Leasing Manager Relationship Specialty Start Date End Date Chivo Alvares MD [address] [place] [id number] PCP - General 07/29/10 09/18/20 documented as of this encounter
--- OUTSIDE RECORDS SUMMARY | 2024-06-18 14:34 | XMS_ITS | Encounter Summary ---
Author Organization [facility] Address [facility] [place] [address] Care Team Providers Care Family Service Center Director Name Role Phone Chivo Alvares MD Primary Care Provider [phone] Encounter Details Date Type Department Care Team (Latest Contact Info) Description 07/06/2020 7:33 PM EDT - 07/06/2020 11:59 PM EDT Hospital [place] [phone] Discharge Disposition: Home Social History Tobacco Use Types Packs/Day Years Used Date Smoking Tobacco: Never Assessed Sex and Gender Information Value Date Recorded Sex Assigned at Not on file Gender Identity Not on file Sexual Orientation Not on file documented as of this encounter Medications at Time of Discharge Medication Sig Dispensed Refills Start Date End Date famotidine (Pepcid) 20 mg Tablet Take 20 mg by mouth 2 times daily. 05/09/2020 documented as of this encounter Plan of Treatment Not on file documented as of this encounter Procedures Procedure Name Priority Date/Time Associated Diagnosis Comments COVID-19 PCR Routine 07/06/2020 10:53 AM EDT documented in this encounter Results * COVID-19 PCR (07/06/2020 10:53 AM EDT) SARS-CoV-[address] Not Detect[address] [facility] Comment: This result should be interpreted in combination with the clinical observations, patient history and epidemiological information in making a final diagnosis. For testing of asymptomatic individuals, assay performance characteristics and clinical utility have not been evaluated. Testing for SARS-CoV-2 (Severe acute respiratory syndrome coronavirus 2, formerly known as 2019 novel coronavirus or 2019-nCoV) to aid in the diagnosis of COVID-19 is performed using the [employer] RealTime SARS-CoV-2 Assay as authorized by the FDA Emergency Use Authorization (EUA). This EUA assay is intended for In-vitro Diagnostic (IVD) use with respiratory specimens such as nasopharyngeal swabs collected from individuals during the acute phase of infection. This assay is performed based on the instructions for use provided by [employer] and additional guidance provided by CDC and FDA. Testing is performed in the [facility] within the Department of Pathology and Laboratory Medicine at [facility], certified under the Clinical Laboratory Improvement Amendments of 1988 (CLIA), 42 U.S.C. 263a, to perform high complexity tests. Assay performance has been verified according to clinical laboratory regulatory requirements for use with specimens collected from individuals suspected of COVID-19. Test results are provided above. A result of ? Not Detected? indicates that the viral RNA target is not present above the limit of detection, but does not preclude SARS-CoV-2 infection. False negative results may occur if a specimen is improperly collected, transported or handled; if amplification inhibitors are present; or if inadequate numbers of viral particles are present in the specimen. When a diagnostic test is negative, the possibility of a false negative result should be considered in the context of a patient? s recent exposures and the presence of clinical signs and symptoms consistent with COVID-19. A result of ? Detected? indicates that RNA from SARS-CoV-2 was detected and the patient is infected. As required or requested by public health authorities, positive specimens may be sent for additional testing. Positive and negative predictive values for this test are highly dependent on disease prevalence. A result of ? Invalid? indicates that neither the viral RNA targets nor the internal control target was detected. An invalid result suggests the presence of inhibitors. Recollection and re-testing is recommended in the case of an invalid result. CDC COVID-19 criteria for testing on human specimens and clinical management guidance information are available at the CDC Coronavirus Disease 2019 (COVID-19) webpage under ? Information for Healthcare Professionals? (https://www.cdc.gov/coronavirus/2019-ncov/hcp/index.html) Additional information about this and other EUA tests can be found in provider and patient fact sheets at the following FDA website: https://www.fda.gov/medical-devices/pccnhqnttbr-cxdmpzp-1245-tjivd-81-fkafukomu- use-a gobvzsbpfahmc-hnrdghj-gkkogoj/uxepb-qoobebiyadw-gywn SARS-CoV-2 RNA Source SOLOIST DANCER Swab [facility] Nasopharyngeal swab (specimen) Other / Unknown 07/06/2020 10:53 AM EDT 07/06/2020 8:27 PM EDT Narrative Resulting Agency Comment Spec In Lab Jt Chand MD MOLECULAR ORDERABLES [facility] [place] [place] [address] documented in this encounter Visit Diagnoses Not on filedocumented in this encounter Care Teams Family Service Center Director Relationship Specialty Start Date End Date Chivo Alvares MD [address] [address] PCP - General 07/29/10 09/18/20 documented as of this encounter
--- OUTSIDE RECORDS SUMMARY | 2024-06-18 14:34 | XMS_ITS | Encounter Summary ---
Author Organization [facility] Address [facility] [place] [address] Care Team Providers Care Core Winder Name Role Phone Chivo Alvares MD Primary Care Provider [phone] Encounter Details Date Type Department Care Team (Late st Contact Info) Description 07/06/2020 12:05 AM EDT Ancillary Procedure Radiology Library at [facility] [place] [phone] Maciel Buck MD [address] [place] [address] [place] [address] Social History Tobacco Use Types Packs/Day Years [...] FILM LIBRARY STORAGE ONLY ULTRASOUND STUDY Routine 07/06/2020 12:05 AM EDT documented in this encounter Results * Film Library- Storage Only Ultrasound Study (07/06/2020 12:05 AM EDT) Narrative RAD - 10/17/2020 9:51 AM EST This exam is auto-finalizing. It's purpose is for storage only. Maciel Buck MD IMG FILM LIBRARY ORD ERABLES [facility] [place] documented in this encounter Visit Diagnoses Not on filedocumented in this encounter Care Teams Core Winder Relationship Specialty Start Date End Date Chivo Alvares MD [address] [place] [id number] PCP - General 07/29/10 09/18/20 documented as of this encounter
--- OUTSIDE RECORDS SUMMARY | 2024-06-18 14:34 | XMS_ITS | Encounter Summary ---
Author Organization [facility] Address [facility] [place] [address] Care Team Providers Care Tax Professional Name Role Phone Chivo Alvares MD Primary Care Provider [phone] Encounter Details Date Type Department Care Team (Late st Contact Info) Description 04/28/2020 Ancillary Procedure Radiology Library at [facility] [place] [place] [phone] Maciel Buck MD [address] [place] [address] [address] [place], [place] [address] Social History Tobacco Use Types Packs/Day Years [...] STORAGE ONLY CT ABDOMEN AND PELVIS Routine 04/28/2020 12:00 AM EDT documented in this encounter Results * Film Library- Storage Only CT Abdomen & Pelvis (04/28/2020 12:00 AM EDT) Narrative RAD - 10/17/2020 9:45 AM EST This exam is auto-finalizing. It's purpose is for storage only. Maciel Buck MD IMG FILM LIBRARY ORD ERABLES [place], [place] documented in this encounter Visit Diagnoses Not on filedocumented in this encounter Care Teams Tax Professional Relationship Specialty Start Date End Date Chivo Alvares MD [address] [place] [id number] PCP - General 07/29/10 09/18/20 documented as of this encounter
--- OUTSIDE RECORDS SUMMARY | 2024-06-18 14:34 | XMS_ITS | Encounter Summary ---
Author Organization [facility] Address [facility] [address] [place] [address] Care Team Providers Care Software Applications Architect Name Role Phone Chivo Alvares MD Primary Care Provider [phone] Reason for Visit * Reason Comments Establish Care * Consultation (Urgent) - Closed Specialty Diagnoses / Procedures Referred By Contchristopher t Referred To Contact General Surgery Diagnoses Gallbladder disease GALLBLADDER, FAILED LAP ANGELICA ON 08/13 Procedures CONSULT AND TREAT Symone Alejo MD [address] [place] [address] DR CHEN [address] [place] [id number] [facility] [address] [place] [address] Referral ID Status Reason Start Date Expiration Date Visits Re quested Visits Authorized [id number] Closed 08/14/2020 08/14/2021 1 1 Encounter Details Date Type Department Care Team (Late st Contact Info) Description 09/18/2020 2:20 PM EST Office [place] [address] Ceferino Waterman MD [facility] [place] [address] Biliary colic Social History Tobacco Use Types Packs/Day Years Used Date Smoking Tobacco: Never Smokeless Tobacco: Never Sex and Gender Information Value Date Recorded Sex Assigned at Not on file Gender Identity Not on file Sexual Orientation Not on file documented as of this encounter Last Filed Vital Signs Vital Sign Reading Time Taken Comments Blood Pressure 116/74 09/18/2020 2:21 PM EST Pulse 112 09/18/2020 2:21 PM EST Temperature 36.7 ??C (98.1 ??F) 09/18/2020 2:21 PM ES T Respiratory Rate 16 09/18/2020 2:21 PM EST Oxygen Saturation 100% 09/18/2020 2:21 PM EST Inhaled Oxygen Concentration - - Weight 72.6 kg (160 lb) 09/18/2020 2:21 PM EST Height 162.6 cm (5' 4) 09/18/2020 2:21 PM EST Body Mass Index 27.46 09/18/2020 2:21 PM EST documented in this encounter Progress Notes * Ceferino Waterman MD - 09/18/2020 2:20 PM EST Patient is a 40-year-old female who is referred for possible cholecystectomy. She has been having significant difficulty with gallstone pancreatitis with a series of CT scans over the last several months ultimately it was taken to the operating room up [place] in August and I do have the [...] at some point in the near future documented in this encounter Plan of Treatment Not on file documented as of this encounter Visit Diagnoses Diagnosis Biliary colic Calculus of gallbladder without mention of cholecystitis or obstruction documented in this encounter Care Teams Software Applications Architect Relationship Specialty Start Date End Date Chivo Alvares MD [address] [place] [id number] PCP - General 07/29/10 09/18/20 documented as of this encounter
--- OUTSIDE RECORDS SUMMARY | 2024-06-18 14:34 | XMS_ITS | Encounter Summary ---
Author Organization [facility] [place] [address] Care Team Providers Care Epic [facility] Name Role Phone Chivo Alvares MD Primary Care Provider [phone] Encounter Details Date Type Department Care Team (Late st Contact Info) Description 07/06/2020 Ancillary Procedure Radiology Library at [facility] [id number] Maciel Buck MD [address] [place] [address] [address] [place], [place] [id number] Social History Tobacco Use Types Packs/Day Years [...] STORAGE ONLY CT ABDOMEN AND PELVIS Routine 07/06/2020 12:00 AM EDT documented in this encounter Results * Film Library- Storage Only CT Abdomen & Pelvis (07/06/2020 12:00 AM EDT) Narrative [facility] - 10/17/2020 9:48 AM EST This exam is auto-finalizing. It's purpose is for storage only. Maciel Buck MD IMG FILM LIBRARY ORD ERABLES [place], [place] documented in this encounter Visit Diagnoses Not on filedocumented in this encounter Care Teams [employer] [facility] Relationship Specialty Start Date End Date Chivo Alvares MD [address] [place] [id number] PCP - General 07/29/10 09/18/20 documented as of this encounter
[2024-06-18 14:35] LABS: Potassium 2.4 mmol/L (3.5-5.1)
[2024-06-18] MEDS: POTASSIUM CHLORIDE 10 MEQ/100 ML BAG 100 MEQ IV_INF ×2 (14:55→16:13)
[2024-06-18] MEDS: Potassium Chloride 20 MEQ TABCR 40 MEQ PO (14:55)
--- NOTE | 2024-06-18 15:30 | RT.EKG_ITS ---
APPROVED REPORT Exam: Resting ECG Reason for Exam: hypokalemia Patient Location: E HR:88 bpm ECG Measurements Heart Rate 88 AXIS IA 146 P 28 QRSd 90 QRS 53 QT 377 T 0 QTc 457 Conclusion Sinus rhythm...normal P axis, V-rate 60- 99 Sinus rhythm normal axis normal intervals no acute ischemic changes
--- NOTE | 2024-06-18 15:45 | DI.CT_ITS ---
Exam(s) CT ABDOMEN PELVIS WO EXAM: CT ABDOMEN PELVIS WO CLINICAL HISTORY: eval for ureterolithiasis. TECHNIQUE: Imaging Protocol: Axial computed tomography images with coronal and sagittal reformatted images were created and reviewed CONTRAST MATERIAL: Intravenous: none Oral: None COMPARISON: CT CT ABDOMEN PELVIS W from 09/11/2020 FINDINGS: VISUALIZED LUNG BASES: No nodules nor pleural effusions evident. ABDOMEN: There is no ascites. LIVER: There are no obvious focal hepatic lesions evident of this noninfused study. GALLBLADDER/BILIARY: The gallbladder is surgically absent. CBD is not dilated. PANCREAS: There is no evidence of pancreatitis, as was evident on the 2020 CT scan. No pancreatic ma sses nor dilatation of the pancreatic duct. No peripancreatic streaking. SPLEEN: Spleen is not enlarged. No obvious intrasplenic lesions. ADRENALS: There are no significant adrenal masses. KIDNEYS:No cysts evident. No solid renal masses. No calculi nor hydronephrosis. . ABDOMINAL AORTA: Abdominal aorta is not enlarged. LYMPH NODES: There is no retroperitoneal nor paraaortic adenopathy. ABDOMINAL WALL: No evidence of significant anterior abdominal wall nor inguinal hernia. GI: There is no evidence of bowel obstruction, free air, nor abscess. There is radiopaque density within the lumen of the colon which is probably related to ingested medic ation. There is fat halo sign evident in the terminal ileum. There is some radiopaque density in th e appendix lumen. Appendix diameter is upper normal (5-6 mm appendix is retrocecal. There is no per iappendiceal fluid. PELVIS: There is a very small amount of free fluid in the dependent aspect of the pelvis. LYMPH NODES: There is no intrapelvic nor inguinal adenopathy. GI: There is no significant sigmoid diverticular disease. URINARY BLADDER: No calculi nor obvious masses evident pelvic ureters are not dilated REPRODUCTIVE: There is an IUD in the endometrial cavity. This appears to be in satisfactory position . There are no abnormal adnexal masses evident. OSSEOUS: No significant osseous lesions. No fractures. IMPRESSION: 1. There is radiopaque material seen throughout the colon which is probably related to ingested thera peutic ohkq-wuf-lkwoauj medications. There is no evidence of bowel obstruction, free air, nor absces s. There is also no evidence of pancreatitis, as was evident on prior CT scan of September 2020 2. There has been interval cholecystectomy. The biliary tree is not dilated and there is no abnormal fluid collection in the gallbladder fossa region 3. No renal calculi do other findings in the kidneys. Ureters are not dilated and urinary bladder ap pears unremarkable. 4. Uterus is anteverted and contains an IUD which is in satisfactory position in the endometrial can al. There are no abnormal adnexal masses but there is a tiny amount of free fluid in the dependent a spect of the pxegen-ogr-cd-sac region. 5. The appendix contains radiopaque material (series 7/image 66) and the appendix diameter is upper normal and slightly straightened. Appendix is retrocecal. 6. Fat halo sign seen in the terminal ileum. This can be seen with inflammatory bowel disease such as Crohn's disease but can also often be found incidentally without evidence of inflammatory bowel di sease. This finding in this patient is unchanged from prior CT scan of 2020. 7. Visualized lung bases are clear and there are no pleural effusions. Discussed by phone with ER provider 06/18/2024 at 5:02 p.m. RADIATION DOSE DELIVERED: 434.5mGy.cm Total DLP DATA REPOSITORY: All CT scans at this facility are submitted to the National Radiology Data Registry (NRDR) Dose Index Registry (DIR) with the [employer] (ACR). RADIATION OPTIMIZATION: All CT scans at this facility use at least one of these dose optimization te chniques: automated exposure control; mA and/or kV adjustment per patient size (includes targeted exa ms where dose is matched to clinical indication); or iterative reconstruction.
--- NOTE | 2024-06-18 15:52 | DI.RAD_ITS ---
Exam(s) XR CHEST 2V PA LATERAL EXAM: XR CHEST 2V PA LATERAL CLINICAL HISTORY: fever. TECHNIQUE: 2D digital imaging was performed. COMPARISON: No exams were available for comparison FINDINGS: 2 views: Heart size is normal. The mediastinum is not widened. Lungs are clear. No infiltrates nor pleural effusions. IMPRESSION: No acute pulmonary findings. DATA REPOSITORY: RADIATION DOSE DELIVERED:
[2024-06-18 15:57] LABS: Bilirubin Negative (Negative); Blood Trace-intact (Negative); Clarity Clear (Clear); Glucose Negative (Negative); Ketones >=160 mg/dL (Negative); Leukocyte Esterase Small (Negative); Nitrite Positive (Negative)
[2024-06-18 16:10] LABS: Bacteria Many HPF (Negative); C & S Indicated? No/Sq. Contamination; Casts Negative LPF (Negative); Crystals Negative HPF (Negative); Epithelial Cells Moderate HPF (Negative); Mucus Negative (Negative); RBC 0-2 HPF (0-2)
[2024-06-18 16:22] LABS: Lactate 0.7 mmol/L (0.6-1.4)
[2024-06-18] MEDS: cefTRIAXone 1 GM/50 ML BAG IVPB (17:19)
[2024-06-18 17:34] LABS: Procalcitonin 66.8 ng/mL
== END 2024-06-18 18:35 | disposition home or self-care (01) ==
PROVIDERS: Registered Nurse Emergency; Emergency Provider Physician Assistant; PCP Family Medicine
DX: R50.9 Fever, unspecified (principal); N30.90 Cystitis, unspecified without hematuria; E87.6 Hypokalemia; G35 Multiple sclerosis; F17.210 Nicotine dependence, cigarettes, uncomplicated; Z90.49 Acquired absence of other specified parts of digestive tract; Z97.5 Presence of (intrauterine) contraceptive device
CPT/HCPCS: 80053; 81025; 84145; 87040; 93005; 96365; 96366; 96367; 99285; 71046; 74176; 81003; 81015; 83605; 83735; 85025; 93010; 99284; J0696; J3480

== ENCOUNTER 2025-06-04 10:46 | Emergency (ER) | payer MEDICARE, SELFPAY ==
[2025-06-04 10:48] VITALS: BP 132/87; PULSE 99; RESP 18; TEMP 36.9; O2SAT 96
[2025-06-04] MEDS: predniSONE 20 MG TAB 60 MG PO (11:18)
[2025-06-04] MEDS: Famotidine 20 MG/2 ML VIAL IVP (12:05)
[2025-06-04] MEDS: Normal Saline 50 ML 150 ML (12:05)
[2025-06-04] MEDS: diphenhydrAMINE 50 MG/ML VIAL 25 MG IVP (12:05)
[2025-06-04] MEDS: EPINEPHrine 1 MG/ML AMP pres-free 0.3 MG IM (12:05)
--- NOTE | 2025-06-04 12:10 | ED.GENADUL_ITS ---
Discharge Plan Disposition Patient Disposition: Against Medical Advice Discharge Details Clinical Impression: Angioedema Primary Care Provider: Unknown,Unknown ED Provider: Vito Pozo Home Meds and New Rx's Prescriptions: New prednisone 20 mg tablet 40 mg PO DAILY Qty: 8 0RF Continued calcium carbonate [Tums] 200 mg calcium (500 mg) tablet,chewable 200 mg PO TID PRN cholecalciferol (vitamin D3) 25 mcg (1,000 unit) tablet 25 mcg PO DAILY multivitamin [Daily Multi-Vitamin] Tablet 1 tab PO DAILY Airborne Gummy 250-11.66 mg tablet,chewable 3 tab PO DAILY Mirena 1 EACH intrauterine device 1 ea Intrauterine ONCE Qty: 1 Patient Comments: pt has had for the past 11yrs 01/23/16 cromolyn 4 % drops 1 drp OP 6XD PRN albuterol sulfate [Proventil HFA] 90 mcg/actuation HFA aerosol inhaler 2 puff IH 6XD potassium chloride 20 mEq tablet extended release 40 meq PO DAILY Qty: 10 0RF No Action Ocrevus 30 mg/mL Solution 600 mg IV [id number] Rx Instructions: may 2020 Q6 mo (date in may is est. pt knows may Discharge Instructions Instructions: Leaving Against Medical Advice Additional Instructions: You are leaving AGAINST MEDICAL ADVICE and may have life-threatening or lifestyle modifying disease. You have swelling of your upper lip, left hand, right thumb. The cause of the swelling has not been determined. I am concerned that you may have hereditary angioedema versus idiopathic angioedema. Further diagnostic workup and treatment is necessary. It was recommended you be hospitalized today and you have provided informed refusal of this recommendation. Please follow-up with the primary care physician as soon as possible. Please return to the emerged permit at any time for further workup and treatment as recommended. Please discuss your MS medication Ocrevus with your prescribing doctor prior to your next treatment as this may be contraindicated with angioedema. There are test pending at this time that need to be followed up on including complement level. HPI General Mode of arrival: ambulatory . Date/Time Provider Initiated Documentation: 06/04/25 11:14 . Limitations to Documentation: no limitations . Information obtained by: patient . HPI Narrative: HISTORY OF PRESENT ILLNESS This is a 45-year-old female with a history of multiple sclerosis presenting with swelling. Patient notes that 2 nights ago she was outside and there were wasps around but she does not recall being stung. Yesterday, 06/03/2025, she noticed swelling in her left hand and lip, which has since worsened. Today she observed swelling in her right thumb. She states this is her first experience with such symptoms. The patient reports no tongue swelling, difficulty breathing, shortness of breath, nausea, abdominal pain, or presence of any rash. She took Benadryl in the middle of the night last night. The patient has multiple sclerosis and is currently on medication for it. She also takes regular vitamins and potassium supplements. She has not received treatment for her MS recently. Related Data Home Medications ?Medication ?Instructions ?Recorded ?Confirmed levonorgestrel (Mirena) 1 ea intrauterine ONCE #1 im plant 04/11/15 06/04/25 albuterol sulfate 90 mcg/actuation 2 puff inhalation 6 XD 05/25/19 06/04/25 aerosol inhaler (Proventil HFA) cromolyn 4 % eye drops 1 drp ophthalmic (eye) 6XD P RN 05/25/19 06/04/25 calcium carbonate (Tums) 200 mg PO TID PRN 05/09/20 0 06/04/25 ocrelizumab 30 mg/mL intravenous 600 mg IV [id number] 06/04/25 solution (Ocrevus) cholecalciferol (vitamin D3) 25 25 mcg PO DAILY 06/04/25 mcg (1,000 unit) tablet zpfcydpf-ihxdbakk-sha C 250 3 tab PO DAILY 11/21/20 mg-herbal no.124 11.66 mg chewable tablet (Airborne Gummy) multivitamin (Daily Multi-Vitamin 1 tab PO DAILY 11/2106/04/25 tablet) potassium chloride 20 mEq 40 meq (2 x 20 mEq) PO DAILY #10 06/18/24 06/04/25 tablet,extended release tabs prednisone 20 mg tablet 40 mg (2 x 20 mg) PO DAILY # 8 tabs 06/04/25 Previous Rx's ?Medication ?Instructions ?Recorded potassium chloride 20 mEq 40 meq (2 x 20 mEq) PO DAILY #10 06/18/24 tablet,extended release tabs prednisone 20 mg tablet 40 mg (2 x 20 mg) PO DAILY # 8 tabs 06/04/25 Allergies Allergy/AdvReac Type Severity Reaction Status Date / Time Sulfa (Sulfonamide AdvReac Severe vomiting Verified 06/04/25 11:00 Antibiotics) and weakness General Stated Complaint: InsectBite KATHY: 3 Review of Systems All systems reviewed & are unremarkable except as noted in HPI and below Constitutional Constitutional: Denies fever(s) Gastrointestinal Gastrointestinal: Denies abdominal pain and Denies vomiting Exam Const General: cooperative and no acute distress HENMT Mouth: moist mucous membranes Throat: posterior oropharynx normal Other: Upper lip swollen Eyes Conjunctivae: normal conjunctivae Sclera: normal sclerae Resp Auscultation: clear to auscultation bilaterally, no rales, no rhonchi and no wheezes Cardio Rate: regular rate and not tachycardic Rhythm: regular rhythm GI Palpation: soft, not firm, no guarding, no masses, not rigid and nontender Skin General skin exam: no rashes or lesions noted Neuro General: patient alert, patient awake and tone normal Extrem General: edema (Left hand and right thumb) Course Vital Signs Vital signs: Vital Signs Temperature 36.9 C 06/04/25 10:48 Pulse 99 H 06/04/25 10:48 Respiratory Rate 18 06/04/25 10:48 Blood Pressure 132/87 06/04/25 10:48 Pulse Oximetry 96 06/04/25 10:48 Temperature 36.9 C 06/04/25 10:48 Temperature Source Oral 06/04/25 10:48 Pulse 99 H 06/04/25 10:48 Respiratory Rate 18 06/04/25 10:48 Blood Pressure 132/87 06/04/25 10:48 Blood Pressure Position Sitting 06/04/25 10:48 Pulse Oximetry 96 06/04/25 10:48 Oxygen Delivery Method Room Air 06/04/25 10:48 Oxygen Flow Rate 0 06/04/25 10:48 Medical Decision Making ASSESSMENT AND PLAN Initial Assessment: 45-year-old female presenting with swelling in the upper lip, left hand, and right thumb. No airway involvement noted. No GI involvement. No rash. Differential Diagnosis: - Angioedema -unclear if bradykinin including hereditary versus less likely mast cell mediated. ED Course: - Administered prednisone 60mg PP, Benadryl 25mg IV, epinephrine 0.3mg IM. Patient had no response to treatment. - Ordered C4 complement test. - No progression of edema. No airway involvement. Plan to hospitalize for further monitoring, consider FFP (I spoke with pharmacy and purified C1 inhibitor concentrates are not available). - Patient provided informed refusal of recommended treatment plan and wishes to leave AGAINST MEDICAL ADVICE. Patient has decisional making capacity and made informed decision. Clinical Impression: - Angioedema, unclear etiology Disposition: -Plan for hospitalization with continued monitoring. Patient leaving AGAINST MEDICAL ADVICE. Patient will require close outpatient follow-up. She was encouraged to return at any time should she wish to pursue diagnostic workup and treatment as recommended. This document was written with the assistance of NATE Haq. The patient consented to its use. Lab Data Lab results reviewed: Yes I reviewed the patient's lab results. Labs: Laboratory Tests Range/Units 06/04/25 12:11 WBC (4.4-10.8) 10^3/uL 7.02 RBC (3.93-5.22) 10^6/uL 4.28 Hgb (11.2-15.7) g/dL 12.9 Hct (36.0-46.0) % 39.1 MCV (80-95) fL 91 MCH (27.0-33.0) pg 30.1 MCHC (32.0-36.0) % 33.0 RDW (11.7-14.6) % 12.0 Plt Count (130-400) 10^3/uL 289 MPV (8.0-11.0) fL 8.9 Immature Gran % % 0.3 Neutrophils % % 71.9 Lymphocytes % % 19.8 Monocytes % % 4.3 Eosinophils % % 3.4 Basophils % % 0.3 Nucleated RBC % (0.0-0.3) % 0.0 Absolute Neutrophils (1.2-6.7) 10^3/uL 5.05 Absolute Lymphocytes (1.2-3.4) 10^3/uL 1.39 Absolute Monocytes (0.1-0.8) 10^3/uL 0.30 Absolute Eosinophils (0.0-0.7) 10^3/uL 0.24 Absolute Basophils (0.0-0.2) 10^3/uL 0.02 ESR (0-20) mm/hr 8 Sodium (136-145) mmol/L 144 Potassium (3.5-5.1) mmol/L 4.0 Chloride (98-107) mmol/L 106 Carbon Dioxide (21.0-32.0) mmol/L 29.3 Anion Gap (3-11) mmol/L 8.7 BUN (7-18) mg/dL 8 Creatinine (0.55-1.02) mg/dL 0.7 Est GFR (CKD-EPI 2020) (mL/min/1.73m2) 109.30 Glucose (74-106) mg/dL 91 Calcium (8.5-10.1) mg/dL 9.1 Total Bilirubin (0.2-1.0) mg/dL 0.4 AST (15-37) U/L 10 L ALT (14-59) U/L 13 L Alkaline Phosphatase (46-116) U/L 66 C-Reactive Protein (<or=0.5) mg/dL < 0.50 Total Protein (6.4-8.2) g/dL 7.5 Albumin (3.4-5.0) g/dL 4.0 PFSH All Active Problems Angioedema (Acute) S/P laparoscopy (Acute) IUD surveillance (Acute 09/09/15) Weakness of both legs (Acute) Bilateral congenital genu valgum (Acute) Seasonal allergies (Acute) Ankle pain (Acute) Gait abnormality (Acute) Multiple sclerosis (Chronic) F/U in [place], [place] 07/2020 Pt. states she may not be able to walk once she comes out of anesthesia she had spoken to her MS specialist Dr. Denise regarding this surgery (lap mendel) Medical History Gallstone pancreatitis Hx of abnormal cervical Pap smear Gall stone Asthma Surgical History S/P cholecystectomy 11/04/20 at [facility] [place] No significant past surgical history Family History Father Hyperlipidemia Social History Smoking/Tobacco Use Status: Current-Occasional Tobacco Type: cigarettes Smoking risk assessment performed?: Yes Alcohol Intake: current Alcohol Intake frequency: holidays/special occasions only Drug use: Occasionally Substance use type: marijuana Details: last used 08/12/20 morning. Reporting smoking cigarettes once a year. Household members: significant other and children Housing: apartment Number of Children: 1 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
[2025-06-04 12:17] LABS: Abs Immature Grans 0.02 10^3/uL (0.0-0.06); HCT 39.1 % (36.0-46.0); HGB 12.9 g/dL (11.2-15.7); Immature Grans % 0.3 %; MCH 30.1 pg (27.0-33.0); MCHC 33.0 % (32.0-36.0); MCV 91 fL (80-95); MPV 8.9 fL (8.0-11.0); Platelet Count 289 10^3/uL (130-400); RBC 4.28 10^6/uL (3.93-5.22); RDW 12.0 % (11.7-14.6); RDW-SD 40.0 fL; WBC 7.02 10^3/uL (4.4-10.8)
[2025-06-04 12:31] LABS: ESR 8 mm/hr (0-20)
[2025-06-04 12:34] LABS: ALT 13 U/L (14-59); AST 10 U/L (15-37); Albumin 4.0 g/dL (3.4-5.0); Alkaline Phosphatase 66 U/L (46-116); Anion Gap 8.7 mmol/L (3-11); BUN 8 mg/dL (7-18); Bilirubin, Total 0.4 mg/dL (0.2-1.0); CO2 29.3 mmol/L (21.0-32.0); Calcium 9.1 mg/dL (8.5-10.1); Chloride 106 mmol/L (98-107); Estimated GFR 109.30 (mL/min/1.73m2); Glucose 91 mg/dL (74-106); Potassium 4.0 mmol/L (3.5-5.1); Sodium 144 mmol/L (136-145); Total Protein 7.5 g/dL (6.4-8.2)
[2025-06-04 12:38] LABS: C-Reactive Protein < 0.50 mg/dL (<or=0.5)
== END 2025-06-04 14:55 | disposition left against medical advice (07) ==
PROVIDERS: Emergency Provider Student in an Organized Health Care Education/Training Program
DX: T63.451A Toxic effect of venom of hornets, accidental (unintentional), initial encounter (principal); T78.3XXA Angioneurotic edema, initial encounter
CPT/HCPCS: 99283; 99284; 96374; 96375; 80053; 85652; 85025; 86140; 86160; J0166; J1200; J7512